=== PATIENT | female | born 1980 | race Caucasian/White ===

== ENCOUNTER 2018-04-21 07:52 | Outpatient (CLI) | payer MEDICAID, SELFPAY ==
[2018-04-24 12:53] LABS: Lyme Ab w Rflx to Lyme Confirm Negative
== END 2018-04-21 07:53 ==
PROVIDERS: PCP Emergency Medicine; Visit Provider Emergency Medicine
DX: R53.83 Other fatigue (principal)
CPT/HCPCS: 36415; 86618

== ENCOUNTER 2018-08-24 10:29 | Emergency (ER) | payer MEDICAID, SELFPAY ==
[2018-08-24 10:50] VITALS: BP 153/90; PULSE 86; RESP 16; TEMP 37.2; O2SAT 100
--- NOTE | 2018-08-24 11:32 | DI.CT_ITS ---
SYMPTOMS/DIAGNOSIS: TRAUMA, FALL WITH HEAD TRAUMA 4 DAYS AGO, HEADACHE CT BRAIN: Noncontrast examination. Comparison 10/14/15. There is a normal urbano/white matter differentiation. The ventricles are intact. The basilar cisterns are patent. No acute intracranial hemorrhage, infarct, midline shift or mass effect is identified. The visualized paranasal sinuses show no fluid levels. The mastoid air cells are well pneumatized. The calvarium is intact. IMPRESSION: No acute intracranial process. CT SCAN OF THE CERVICAL SPINE: Multiple contiguous axial images of the cervical spine were obtained. Sagittal and coronal reformatted images were evaluated on the Siemens workstation. There is straightening of the normal cervical lordosis. This may be due to muscle spasm or patient positioning. No acute fractures or subluxations in the cervical spine are noted. There is no significant prevertebral soft tissue swelling present. The bones are normally mineralized. IMPRESSION: No acute fractures or subluxations in the cervical spine. The findings were discussed with the emergency department on the date of the examination.
[2018-08-24] MEDS: LORazepam 2 MG/ML VIAL 1 MG IM (11:39)
--- NOTE | 2018-08-24 11:41 | W.ED.GENAD ---
Discharge Plan Disposition Patient Disposition: HOME Discharge Details Chief Complaint: Nk/Back Pain Clinical Impression: Concussion, Acute neck sprain Primary Care Provider: Bebeto Trimble ED Provider: Ian Esquivel Home Meds and New Rx's Prescriptions: Continued trazodone 50 MG tablet 1 - 2 tab PO HS Qty: 30 RF: 3 citalopram 10 MG tablet 10 mg PO DAILY Qty: 60 RF: 3 Flonase Sensimist 9.9 ML spray,suspension 9.9 ml NS BID Qty: 1 RF: 2 levothyroxine [Synthroid] 125 mcg tablet 125 mcg PO DAILY Qty: 90 RF: 3 Discharge Instructions Instructions: Concussion (ED), Cervical Sprain (ED) Additional Instructions: Please wear soft collar over the next 1 week. If pain persist, please follow-up with orthopedics as he may need additional diagnostic testing. Please take ibuprofen over the counter - dose according to label. Please take Tylenol over the counter - dose according to label. Please contact your primary care physician to arrange follow-up. Return to the ER for any worsening or new concerning symptoms. Referrals: [facility] [Provider Group] Bebeto Trimble DO [Primary Care Provider] - Medical Decision Making 11:45 --37-year-old female presents 4 days after slip and fall with head trauma complaining of persistent headache and neck pain. ttp midline lower cspine. Neuro intact. Consider acute life-threatening intracranial traumatic hemorrhage. Plan to CT head. Consider cervical spine fracture. Plan to CT cervical spine. Patient is refusing to wear cervical collar noting worsens pain. 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 I advised nursing to assist patient in maintaining C-spine immobilization as best as possible while transitioning to and from CT imaging. I will treat her anxiety with Ativan 1mg IM. 13:05 --CT of the head and cervical spine interpreted by radiology: Negative. Plan to treat with soft collar. Advised continue ibuprofen and take tylenol, rest, ice. Usual and customary discharge instructions provided. Advised follow-up orthopedics if pain persists over the next few days. Suspect concussion. Reviewed post concussive discharge instructions. HPI General Mode of arrival: ambulatory. Date/Time Provider Initiated Documentation: 08/24/18 11:11. Limitations to Documentation: no limitations. Information obtained by: patient. HPI Narrative: 37-year-old female presents with chief complaint of headache. Patient notes that 4 days ago she slipped on ice fell back and struck the back of her head on a step. She did not lose consciousness. Since that time she has had headache that has persisted. Headache is described as a pressure sensation. Pain is moderate to severe. Pain is localized to bilateral frontal head. She has associated upper neck pain as well. No visual changes. No nausea or vomiting. No confusion. No numbness or weakness. No other injuries. Related Data Home Medications Medication Instructions Recorded Confirmed citalopram 10 mg PO DAILY #60 tab-cap 09/14/17 trazodone 1 - 2 tab PO HS #30 tab 09/14/17 Flonase Sensimist 9.9 ml NS BID #1 bottle 12/05/17 levothyroxine 125 mcg tablet 125 mcg PO DAILY #90 tab-cap 07/02/18 08/24/18 Previous Rx's Medication Instructions Recorded citalopram 10 mg PO DAILY #60 tab-cap 09/14/17 trazodone 1 - 2 tab PO HS #30 tab 09/14/17 Flonase Sensimist 9.9 ml NS BID #1 bottle 12/05/17 levothyroxine 125 mcg tablet 125 mcg PO DAILY #90 tab-cap 07/02/18 Allergies Allergy/AdvReac Type Severity Reaction Status Date / Time pneumococcal vaccine Allergy Intermediate Localized Unverified 08/24/18 11:17 reaction with PCV13 levothyroxine sodium AdvReac Mild Unverified 08/24/18 11:17 General Stated Complaint: Nk/Back Pain OLEGARIO: 2 Review of Systems Review of Systems All systems reviewed & are unremarkable except as noted in HPI and below Eyes Denies loss of vision Musculoskeletal Denies tingling Neurologic Denies focal weakness, Denies loss of vision and Denies tingling Psychiatric Reports anxiety [facility] Medical History Chronic pancreatitis Depression Pancreatic insufficiency Surgical History Appendectomy (~1995) Cholecystectomy PANCREATECTOMY (08/22/07) Splenomegaly (08/22/07) Tonsillectomy (~2009) Social History Smoking/Tobacco Use Status: Current every day Exam Const General: cooperative and no acute distress HENMT Head: normocephalic and atraumatic Mouth: moist mucous membranes Eyes Conjunctivae: normal conjunctivae Sclera: normal sclerae EOM: EOM intact bilaterally Neck Neck: trachea midline, supple and tender (c6 midline) Resp Auscultation: clear to auscultation bilaterally, no rales, no rhonchi and no wheezes Cardio Jugular venous pressure: no JVD Rate: regular rate and not tachycardic Rhythm: regular rhythm GI Palpation: soft, not firm, no guarding, no masses, not rigid and nontender Skin General skin exam: no rashes or lesions noted Neuro General: alert, awake, oriented x3 and tone normal Speech: speech normal Motor: muscle tone normal throughout and strength 5/5 throughout Sensory Exam: no sensory deficits noted (distal sensation intact to light touch all ext) Extrem General: no edema Psych Appearance: grossly normal Mental Status: mental status grossly normal Speech and Movement: speech and movement normal Affect: anxious affect Course Vital Signs Temperature 37.2 C 08/24/18 10:50 Pulse 86 08/24/18 10:50 Respiratory Rate 16 08/24/18 10:50 Blood Pressure 153/90 H 08/24/18 10:50 Pulse Oximetry 100 08/24/18 10:50 Temperature 37.2 C 08/24/18 10:50 Temperature Source Skin 08/24/18 10:50 Pulse 86 08/24/18 10:50 Respiratory Rate 16 08/24/18 10:50 Respiratory Effort Non-Labored 08/24/18 11:12 Blood Pressure 153/90 H 08/24/18 10:50 Blood Pressure Position Sitting 08/24/18 10:50 Pulse Oximetry 100 08/24/18 10:50 Oxygen Delivery Method Room Air 08/24/18 10:50 Oxygen Flow Rate 0 08/24/18 10:50 Pain Level 8 08/24/18 11:14
--- NOTE | 2018-08-24 11:45 | ED.GENADUL_ITS ---
Discharge Plan Disposition Patient Disposition: HOME Discharge Details Chief Complaint: Nk/Back Pain Clinical Impression: Concussion, Acute neck sprain Primary Care Provider: Bebeto Trimble ED Provider: Ian Esquivel Home Meds and New Rx's Prescriptions: Continued trazodone 50 MG tablet 1 - 2 tab PO HS Qty: 30 RF: 3 citalopram 10 MG tablet 10 mg PO DAILY Qty: 60 RF: 3 Flonase Sensimist 9.9 ML spray,suspension 9.9 ml NS BID Qty: 1 RF: 2 levothyroxine [Synthroid] 125 mcg tablet 125 mcg PO DAILY Qty: 90 RF: 3 Discharge Instructions Instructions: Concussion (ED), Cervical Sprain (ED) Additional Instructions: Please wear soft collar over the next 1 week. If pain persist, please follow-up with orthopedics as he may need additional diagnostic testing. Please take ibuprofen over the counter - dose according to label. Please take Tylenol over the counter - dose according to label. Please contact your primary care physician to arrange follow-up. Return to the ER for any worsening or new concerning symptoms. Referrals: [facility] [Provider Group] Bebeto Trimble DO [Primary Care Provider] - Medical Decision Making 11:45 --37-year-old female presents 4 days after slip and fall with head trauma complaining of persistent headache and neck pain. ttp midline lower cspine. Neuro intact. Consider acute life-threatening intracranial traumatic hemorrhage. Plan to CT head. Consider cervical spine fracture. Plan to CT cervical spine. Patient is refusing to wear cervical collar noting worsens pain. 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 I advised nursing to assist patient in maintaining C-spine immobilization as best as possible while transitioning to and from CT imaging. I will treat her anxiety with Ativan 1mg IM. 13:05 --CT of the head and cervical spine interpreted by radiology: Negative. Plan to treat with soft collar. Advised continue ibuprofen and take tylenol, rest, ice. Usual and customary discharge instructions provided. Advised follow- up orthopedics if pain persists over the next few days. Suspect concussion. Reviewed post concussive discharge instructions. HPI General Mode of arrival: ambulatory . Date/Time Provider Initiated Documentation: 08/24/18 11:11 . Limitations to Documentation: no limitations . Information obtained by: patient . HPI Narrative: 37-year-old female presents with chief complaint of headache. Patient notes that 4 days ago she slipped on ice fell back and struck the back of her head on a step. She did not lose consciousness. Since that time she has had headache that has persisted. Headache is described as a pressure sensation. Pain is moderate to severe. Pain is localized to bilateral frontal head. She has associated upper neck pain as well. No visual changes. No nausea or vomiting. No confusion. No numbness or weakness. No other injuries. Related Data Home Medications Medication Instructions Recorded Confirmed citalopram 10 mg PO DAILY #60 tab-cap 09/14/17 trazodone 1 - 2 tab PO HS #30 tab 09/14/17 Flonase Sensimist 9.9 ml NS BID #1 bottle 12/05/17 levothyroxine 125 mcg tablet 125 mcg PO DAILY #90 tab-cap 07/02/18 08/24/18 Previous Rx's Medication Instructions Recorded citalopram 10 mg PO DAILY #60 tab-cap 09/14/17 trazodone 1 - 2 tab PO HS #30 tab 09/14/17 Flonase Sensimist 9.9 ml NS BID #1 bottle 12/05/17 levothyroxine 125 mcg tablet 125 mcg PO DAILY #90 tab-cap 07/02/18 Allergies Allergy/AdvReac Type Severity Reaction Status Date / Time pneumococcal vaccine Allergy Intermediate Localized Unverified 08/24/18 11:17 reaction with PCV13 levothyroxine sodium AdvReac Mild Unverified 08/24/18 11:17 General Stated Complaint: Nk/Back Pain OLEGARIO: 2 Review of Systems Review of Systems All systems reviewed & are unremarkable except as noted in HPI and below Eyes Denies loss of vision Musculoskeletal Denies tingling Neurologic Denies focal weakness, Denies loss of vision and Denies tingling Psychiatric Reports anxiety [facility] Medical History Chronic pancreatitis Depression Pancreatic insufficiency Surgical History Appendectomy (~1995) Cholecystectomy PANCREATECTOMY (08/22/07) Splenomegaly (08/22/07) Tonsillectomy (~2009) Social History Smoking/Tobacco Use Status: Current every day Exam Const General: cooperative and no acute distress HENMT Head: normocephalic and atraumatic Mouth: moist mucous membranes Eyes Conjunctivae: normal conjunctivae Sclera: normal sclerae EOM: EOM intact bilaterally Neck Neck: trachea midline, supple and tender (c6 midline) Resp Auscultation: clear to auscultation bilaterally, no rales, no rhonchi and no wheezes Cardio Jugular venous pressure: no JVD Rate: regular rate and not tachycardic Rhythm: regular rhythm GI Palpation: soft, not firm, no guarding, no masses, not rigid and nontender Skin General skin exam: no rashes or lesions noted Neuro General: alert, awake, oriented x3 and tone normal Speech: speech normal Motor: muscle tone normal throughout and strength 5/5 throughout Sensory Exam: no sensory deficits noted (distal sensation intact to light touch all ext) Extrem General: no edema Psych Appearance: grossly normal Mental Status: mental status grossly normal Speech and Movement: speech and movement normal Affect: anxious affect Course Vital Signs Temperature 37.2 C 08/24/18 10:50 Pulse 86 08/24/18 10:50 Respiratory Rate 16 08/24/18 10:50 Blood Pressure 153/90 H 08/24/18 10:50 Pulse Oximetry 100 08/24/18 10:50 Temperature 37.2 C 08/24/18 10:50 Temperature Source Skin 08/24/18 10:50 Pulse 86 08/24/18 10:50 Respiratory Rate 16 08/24/18 10:50 Respiratory Effort Non-Labored 08/24/18 11:12 Blood Pressure 153/90 H 08/24/18 10:50 Blood Pressure Position Sitting 08/24/18 10:50 Pulse Oximetry 100 08/24/18 10:50 Oxygen Delivery Method Room Air 08/24/18 10:50 Oxygen Flow Rate 0 08/24/18 10:50 Pain Level 8 08/24/18 11:14
[2018-08-24 13:20] VITALS: BP 146/83; PULSE 85; RESP 18; TEMP 37.2; O2SAT 97
== END 2018-08-24 13:20 | disposition home or self-care (01) ==
PROVIDERS: Emergency Provider Student in an Organized Health Care Education/Training Program; PCP Emergency Medicine
DX: S06.0X0A Concussion without loss of consciousness, initial encounter (principal); S13.4XXA Sprain of ligaments of cervical spine, initial encounter; W01.0XXA Fall on same level from slipping, tripping and stumbling without subsequent striking against object, initial encounter
CPT/HCPCS: 96372; 99284; 70450; 72125; J2060; L0120; L0172

== ENCOUNTER 2018-09-22 14:42 | Emergency (ER) | payer MEDICAID, SELFPAY ==
[2018-09-22 14:56] VITALS: BP 170/96; PULSE 85; RESP 20; TEMP 36.6; O2SAT 100
--- NOTE | 2018-09-22 16:25 | W.ED.GENAD ---
Discharge Plan Disposition Patient Disposition: HOME Condition: Stable Discharge Details Chief Complaint: Nk/Back Pain Clinical Impression: Acute low back pain with right-sided sciatica Primary Care Provider: Bebeto Trimble ED Provider: Sundeep Snell Home Meds and New Rx's Prescriptions: No Action cyclobenzaprine 10 mg tablet 10 mg PO TID PRN (Reason: muscle spasm) Qty: 60 RF: 0 ondansetron HCl 8 mg tablet 8 mg PO TID PRN (Reason: nausea and vomiting) Qty: 60 RF: 0 ketoconazole 2 % shampoo 1 applic TP Q2W Qty: 120 RF: 4 trazodone 50 MG tablet 1 - 2 tab PO HS Qty: 30 RF: 3 citalopram 10 MG tablet 10 mg PO DAILY Qty: 60 RF: 3 Flonase Sensimist 9.9 ML spray,suspension 9.9 ml NS BID Qty: 1 RF: 2 levothyroxine [Synthroid] 125 mcg tablet 125 mcg PO DAILY Qty: 90 RF: 3 Medical Decision Making 38-year-old female states she slipped and fell on [place] and had an unremarkable workup of her C-spine and head at that time but has suffered achy dull right low back pain radiating to her SI joint with swelling of the hip. Is worse with ambulation. She has not had a fever and arrives in mild distress, afebrile but with blood pressure 170/96. Her exam shows normal motor and sensory function of the lower extremity. Differential diagnosis includes contusion, sciatica, underlying bony injury. Patient given oral analgesic and referred for CT images; CT does not reveal any acute findings of the vertebra. Soft tissues unremarkable. 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 Patient had mild improvement with oral analgesia. I do feel presentation is consistent with acute right sided sciatica. I will place a topical Lidoderm patch for 12 hours, will place her on a short burst of steroids, offer methocarbamol for pain management. She is stable and appropriate for outpatient management. Return precautions to the ER discussed with the patient prior to discharge. HPI General Mode of arrival: ambulatory. Date/Time Provider Initiated Documentation: 09/22/18 14:44. Limitations to Documentation: no limitations. Information obtained by: patient. History of Present Illness 38 year old F presents to the emergency department with the chief complaint of Right back and hip pain for weeks time since a fall, described as moderate, Quality is described as aching, and is localized to the back, pelvis and right. Patient extremity. Patient started experiencing this week(s) and it has been constant. Movement improves symptom(s), Rest worsens symptoms . Patient did receive the following treatments prior to arrival, NSAID Related Data Home Medications Medication Instructions Recorded Confirmed citalopram 10 mg PO DAILY #60 tab-cap 09/14/17 09/22/18 trazodone 1 - 2 tab PO HS #30 tab 09/14/17 09/22/18 Flonase Sensimist 9.9 ml NS BID #1 bottle 12/05/17 09/22/18 levothyroxine 125 mcg tablet 125 mcg PO DAILY #90 tab-cap 07/02/18 09/22/18 cyclobenzaprine 10 mg tablet 10 mg PO TID PRN #60 tab 08/28/18 09/22/18 ketoconazole 2 % shampoo 1 applic TP Q2W #120 ml 08/28/18 09/22/18 ondansetron HCl 8 mg tablet 8 mg PO TID PRN #60 tab 08/28/18 09/22/18 Previous Rx's Medication Instructions Recorded citalopram 10 mg PO DAILY #60 tab-cap 09/14/17 trazodone 1 - 2 tab PO HS #30 tab 09/14/17 Flonase Sensimist 9.9 ml NS BID #1 bottle 12/05/17 levothyroxine 125 mcg tablet 125 mcg PO DAILY #90 tab-cap 07/02/18 cyclobenzaprine 10 mg tablet 10 mg PO TID PRN #60 tab 08/28/18 ketoconazole 2 % shampoo 1 applic TP Q2W #120 ml 08/28/18 ondansetron HCl 8 mg tablet 8 mg PO TID PRN #60 tab 08/28/18 Allergies Allergy/AdvReac Type Severity Reaction Status Date / Time pneumococcal vaccine Allergy Intermediate Localized Unverified 09/22/18 15:02 reaction with PCV13 levothyroxine sodium AdvReac Mild Unverified 09/22/18 15:02 General Stated Complaint: Nk/Back Pain OLEGARIO: 3 Review of Systems Review of Systems 8 systems reviewed and otherwise - [facility] Medical History Chronic pancreatitis Depression Pancreatic insufficiency Surgical History Appendectomy (~1995) Cholecystectomy PANCREATECTOMY (08/22/07) Splenomegaly (08/22/07) Tonsillectomy (~2009) Social History Smoking/Tobacco Use Status: Current every day Exam Narrative Exam Narrative: GEN: awake, alert, oriented 3. Pleasant, well groomed, interactive. HEAD: Normocephalic, atraumatic ENT: Mucous membranes moist, oropharynx unremarkable, External ear exam unremarkable EYES: PERRL, EOMI NECK: Full ROM, no ORAL, no menigismus CHEST/RESP: Nontender, clear to auscultation bilateral, no wheeze/rhonchi/rales CARDIOVASCULAR: RRR, no murmur, rub augustin. 2+ Rad pulse bilateral ABDOMEN: Soft, nontender, no mass. +Bowel sounds EXT: Full ROM, no edema, no rash. 2+ patellar reflex bilaterally. Motor 5 out of 5. Tender at the right sciatic notch Neuro: Grossly normal neurologic exam, conversant, interactive. Psych: Speech fluent, thoughts congruent, affect normal Course Vital Signs Temperature 36.6 C 09/22/18 14:56 Pulse 85 09/22/18 14:56 Respiratory Rate 20 09/22/18 14:56 Blood Pressure 170/96 H 09/22/18 14:56 Pulse Oximetry 100 09/22/18 14:56 Temperature 36.6 C 09/22/18 14:56 Temperature Source Temporal Artery Scan 09/22/18 14:56 Pulse 85 09/22/18 14:56 Respiratory Rate 20 09/22/18 14:56 Respiratory Effort Non-Labored 09/22/18 15:01 Blood Pressure 170/96 H 09/22/18 14:56 Blood Pressure Position Sitting 09/22/18 14:56 Pulse Oximetry 100 09/22/18 14:56 Oxygen Delivery Method Room Air 09/22/18 14:56 Oxygen Flow Rate 0 09/22/18 14:56 Pain Level 10 09/22/18 14:56
--- NOTE | 2018-09-22 16:28 | ED.GENADUL_ITS ---
Discharge Plan Disposition Patient Disposition: HOME Condition: Stable Discharge Details Chief Complaint: Nk/Back Pain Clinical Impression: Acute low back pain with right-sided sciatica Primary Care Provider: Bebeto Trimble ED Provider: Sundeep Snell Home Meds and New Rx's Prescriptions: No Action cyclobenzaprine 10 mg tablet 10 mg PO TID PRN (Reason: muscle spasm) Qty: 60 RF: 0 ondansetron HCl 8 mg tablet 8 mg PO TID PRN (Reason: nausea and vomiting) Qty: 60 RF: 0 ketoconazole 2 % shampoo 1 applic TP Q2W Qty: 120 RF: 4 trazodone 50 MG tablet 1 - 2 tab PO HS Qty: 30 RF: 3 citalopram 10 MG tablet 10 mg PO DAILY Qty: 60 RF: 3 Flonase Sensimist 9.9 ML spray,suspension 9.9 ml NS BID Qty: 1 RF: 2 levothyroxine [Synthroid] 125 mcg tablet 125 mcg PO DAILY Qty: 90 RF: 3 Medical Decision Making 38-year-old female states she slipped and fell on [place] and had an unremarkable workup of her C-spine and head at that time but has suffered achy dull right low back pain radiating to her SI joint with swelling of the hip. Is worse with ambulation. She has not had a fever and arrives in mild distress, afebrile but with blood pressure 170/96. Her exam shows normal motor and sensory function of the lower extremity. Differential diagnosis includes contusion, sciatica, underlying bony injury. Patient given oral analgesic and referred for CT images; CT does not reveal any acute findings of the vertebra. Soft tissues unremarkable. 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 Patient had mild improvement with oral analgesia. I do feel presentation is consistent with acute right sided sciatica. I will place a topical Lidoderm patch for 12 hours, will place her on a short burst of steroids, offer methocarbamol for pain management. She is stable and appropriate for outpatient management. Return precautions to the ER discussed with the patient prior to discharge. HPI General Mode of arrival: ambulatory . Date/Time Provider Initiated Documentation: 09/22/18 14:44 . Limitations to Documentation: no limitations . Information obtained by: patient . History of Present Illness 38 year old F presents to the emergency department with the chief complaint of Right back and hip pain for weeks time since a fall, described as moderate, Quality is described as aching, and is localized to the back, pelvis and right. Patient extremity. Patient started experiencing this week(s) and it has been constant. Movement improves symptom(s), Rest worsens symptoms . Patient did receive the following treatments prior to arrival, NSAID Related Data Home Medications Medication Instructions Recorded Confirmed citalopram 10 mg PO DAILY #60 tab-cap 09/14/17 09/22/18 trazodone 1 - 2 tab PO HS #30 tab 09/14/17 09/22/18 Flonase Sensimist 9.9 ml NS BID #1 bottle 12/05/17 09/22/18 levothyroxine 125 mcg tablet 125 mcg PO DAILY #90 tab-cap 07/02/18 09/22/18 cyclobenzaprine 10 mg tablet 10 mg PO TID PRN #60 tab 08/28/18 09/22/18 ketoconazole 2 % shampoo 1 applic TP Q2W #120 ml 08/28/18 09/22/18 ondansetron HCl 8 mg tablet 8 mg PO TID PRN #60 tab 08/28/18 09/22/18 Previous Rx's Medication Instructions Recorded citalopram 10 mg PO DAILY #60 tab-cap 09/14/17 trazodone 1 - 2 tab PO HS #30 tab 09/14/17 Flonase Sensimist 9.9 ml NS BID #1 bottle 12/05/17 levothyroxine 125 mcg tablet 125 mcg PO DAILY #90 tab-cap 07/02/18 cyclobenzaprine 10 mg tablet 10 mg PO TID PRN #60 tab 08/28/18 ketoconazole 2 % shampoo 1 applic TP Q2W #120 ml 08/28/18 ondansetron HCl 8 mg tablet 8 mg PO TID PRN #60 tab 08/28/18 Allergies Allergy/AdvReac Type Severity Reaction Status Date / Time pneumococcal vaccine Allergy Intermediate Localized Unverified 09/22/18 15:02 reaction with PCV13 levothyroxine sodium AdvReac Mild Unverified 09/22/18 15:02 General Stated Complaint: Nk/Back Pain OLEGARIO: 3 Review of Systems Review of Systems 8 systems reviewed and otherwise - [facility] Medical History Chronic pancreatitis Depression Pancreatic insufficiency Surgical History Appendectomy (~1995) Cholecystectomy PANCREATECTOMY (08/22/07) Splenomegaly (08/22/07) Tonsillectomy (~2009) Social History Smoking/Tobacco Use Status: Current every day Exam Narrative Exam Narrative: GEN: awake, alert, oriented 3. Pleasant, well groomed, interactive. HEAD: Normocephalic, atraumatic ENT: Mucous membranes moist, oropharynx unremarkable, External ear exam unremarkable EYES: PERRL, EOMI NECK: Full ROM, no ORAL, no menigismus CHEST/RESP: Nontender, clear to auscultation bilateral, no wheeze/rhonchi/rales CARDIOVASCULAR: RRR, no murmur, rub augustin. 2+ Rad pulse bilateral ABDOMEN: Soft, nontender, no mass. +Bowel sounds EXT: Full ROM, no edema, no rash. 2+ patellar reflex bilaterally. Motor 5 out of 5. Tender at the right sciatic notch Neuro: Grossly normal neurologic exam, conversant, interactive. Psych: Speech fluent, thoughts congruent, affect normal Course Vital Signs Temperature 36.6 C 09/22/18 14:56 Pulse 85 09/22/18 14:56 Respiratory Rate 20 09/22/18 14:56 Blood Pressure 170/96 H 09/22/18 14:56 Pulse Oximetry 100 09/22/18 14:56 Temperature 36.6 C 09/22/18 14:56 Temperature Source Temporal Artery Scan 09/22/18 14:56 Pulse 85 09/22/18 14:56 Respiratory Rate 20 09/22/18 14:56 Respiratory Effort Non-Labored 09/22/18 15:01 Blood Pressure 170/96 H 09/22/18 14:56 Blood Pressure Position Sitting 09/22/18 14:56 Pulse Oximetry 100 09/22/18 14:56 Oxygen Delivery Method Room Air 09/22/18 14:56 Oxygen Flow Rate 0 09/22/18 14:56 Pain Level 10 09/22/18 14:56
[2018-09-22] MEDS: Ibuprofen 800 MG TAB PO (16:43)
[2018-09-22] MEDS: Acetaminophen 500 MG TAB 1000 MG PO (16:43)
--- NOTE | 2018-09-22 17:08 | DI.CT_ITS ---
SYMPTOM/DIAGNOSIS: R BACK AND RT HIP PAIN TO S-I JOINT, RT SWELLING CT LUMBAR SPINE AND S-I JOINTS: No fracture or areas of bony destruction are seen. A Schmorl's note is seen at the superior end plate of L-1. There are mild degenerative changes in the lower thoracic spine. There is no evidence of disc herniation, central canal stenosis or neural foraminal narrowing. IMPRESSION: Mild degenerative changes of the lower thoracic spine. No evidence of S-I joint abnormality or lumbar spine abnormality.
--- NOTE | 2018-09-22 17:27 | DI.VRAD_ITS ---
EXAM: CT Lumbar Spine Without Contrast EXAM DATE/TIME: 09/22/2018 4:26 PM CLINICAL HISTORY: 38 years old, female; Pain; Other: RT back, RT hip pain to si joints, RT swelling TECHNIQUE: Axial computed tomography images of the lumbar spine without intravenous contrast. Coronal and sagittal reformatted images were created and reviewed. COMPARISON: CR LUMBAR SPINE COMPLETE 01/17/2013 12:00 PM FINDINGS: Vertebrae: Lumbar lordosis is preserved. Vertebral body heights are maintained. No acute fracture. No measurable spondylolisthesis. Discs/Spinal canal/Neural foramina: Lumbar disc space heights are preserved. Degenerative disc loss and partial visualized lower thoracic disc spaces. Soft tissues: Unremarkable. IMPRESSION: 1. No acute findings in the lumbar spine. 2. If continued clinical concern for pelvic pathology, recommend CT pelvis. Dictated and Authenticated by: Amador Ying MD. Ordering:DOMINIC Urbano MD
[2018-09-22] MEDS: predniSONE 20 MG TAB 60 MG PO (18:00)
[2018-09-22] MEDS: Lidocaine 5% Patch 1 PATCH TP (18:00)
[2018-09-22 18:05] VITALS: BP 170/96; PULSE 85; RESP 20; TEMP 36.6; O2SAT 100
== END 2018-09-22 18:07 | disposition home or self-care (01) ==
PROVIDERS: Emergency Provider Emergency Medicine; PCP Emergency Medicine
DX: M54.41 Lumbago with sciatica, right side (principal); W18.30XA Fall on same level, unspecified, initial encounter
CPT/HCPCS: 99284; 72131; J7512

== ENCOUNTER 2018-10-11 01:25 | Outpatient (CLI) | payer MEDICAID, SELFPAY ==
[2018-10-11 10:50] LABS: Abs Immature Grans 0.01 k/cumm (0.0-0.09); Absolute Basophil Count 0.04 k/cumm (0.0-0.2); Absolute Eosinophil Count 0.32 k/cumm (0.0-0.7); Absolute Lymphocyte Count 2.65 k/cumm (1.2-3.4); Absolute Monocyte Count 0.79 k/cumm (0.11-0.7); Basophils % 0.5; HCT 39.6 % (36.0-46.0); HGB 13.4 g/dL (12.0-15.5); Immature Grans % 0.1; Lymphocytes % 33.1; Mean Corp. HGB Concentration 33.8 g/dL (32.0-36.0); Mean Corpuscular Hemoglobin 33.8 pg (27.0-33.0); Mean Corpuscular Volume 99.7 fL (80-95); Mean Platelet Volume 12.4 fL (8.0-11.0); Monocytes % 9.9; Neutrophils % 52.4; Platelet Count 364 x1000/uL (130-400); RBC 3.97 m/cumm (4.00-5.20); RBC Distribution Width 14.4 % (11.7-14.6); White Blood Cell Count 8.01 k/cumm (4.4-10.8)
[2018-10-11 11:11] LABS: ALT 50 U/L (12-78); AST 30 U/L (15-37); Albumin 3.5 g/dL (3.4-5.0); Alkaline Phosphatase 86 U/L (46-116); Anion Gap 7.9 mmol/L (3-11); BUN 11 mg/dL (7-18); Bilirubin, Total 0.5 mg/dL (0.2-1.0); CO2 29.1 mmol/L (21.0-32.0); Calcium 9.7 mg/dL (8.5-10.1); Chloride 103 mmol/L (98-107); Glucose 109 mg/dL (70-100); Potassium 5.1 mmol/L (3.5-5.1); Sodium 140 mmol/L (136-145); TSH 3.66 uIU/mL (0.358-3.74); Total Protein 7.2 g/dL (6.4-8.2)
[2018-10-11 11:25] LABS: Hemoglobin A1C 6.1 % (4.5-6.2)
[2018-10-11 20:40] LABS: Vitamin B12 461 pg/mL (193-986)
== END 2018-10-11 01:45 ==
PROVIDERS: PCP Emergency Medicine; Visit Provider Family Medicine
DX: E03.9 Hypothyroidism, unspecified (principal); R53.83 Other fatigue; R73.9 Hyperglycemia, unspecified; D75.89 Other specified diseases of blood and blood-forming organs
CPT/HCPCS: 36415; 80053; 82607; 83036; 84443; 85025

== ENCOUNTER 2018-10-11 14:52 | Outpatient (CLI) | payer MEDICAID, SELFPAY ==
[2018-10-11 15:56] LABS: Bilirubin Negative (Negative); Blood Trace-intact (Negative); Clarity Clear; Glucose Negative (Negative); Ketones Negative (Negative); Leukocyte Esterase Moderate (Negative); Nitrite Negative (Negative); Urobilinogen 0.2 EU/dL (Up TO 0.2); pH 5.5 (5-8)
[2018-10-11 16:03] LABS: Bacteria Few HPF (Negative); C & S Indicated? No/Sq. Contamination; Casts Negative LPF (Negative); Crystals Negative HPF (Negative); Epithelial Cells Many HPF (Negative); Mucus Negative (Negative); RBC 0-2 (0-2); WBC >50 HPF (0-5)
[2018-10-11 16:28] LABS: C-Reactive Protein 1.03 mg/dL (0.0-0.3); FREE T4 0.98 ng/dL (0.76-1.46)
[2018-10-11 16:39] LABS: ESR 13 MM/HR (0-20)
[2018-10-12 13:59] LABS: ANA Interpretation Negative (NEGAT)
== END 2018-10-11 15:12 ==
PROVIDERS: PCP Emergency Medicine; Visit Provider Emergency Medicine
DX: R53.83 Other fatigue (principal); M25.50 Pain in unspecified joint; R79.89 Other specified abnormal findings of blood chemistry; R30.0 Dysuria
CPT/HCPCS: 36415; 85652; 81003; 81015; 84439; 86038; 86140

== ENCOUNTER 2018-10-24 14:18 | Emergency (ER) | payer MEDICAID, SELFPAY ==
[2018-10-24 14:43] VITALS: BP 120/79; PULSE 72; RESP 16; TEMP 36.8; O2SAT 98
[2018-10-24] MEDS: Ketorolac 60 MG/2 ML VIAL IM (15:38)
[2018-10-24] MEDS: Lidocaine 5% Patch 1 PATCH TP (15:39)
[2018-10-24] MEDS: Acetaminophen 500 MG TAB 1000 MG PO (15:51)
--- NOTE | 2018-10-24 15:57 | W.ED.GENAD ---
Discharge Plan Disposition Patient Disposition: HOME Condition: Stable Discharge Details Chief Complaint: Orthopedic Clinical Impression: Trochanteric bursitis of right hip Primary Care Provider: Bebeto Trimble ED Provider: Mark Burger Home Meds and New Rx's Prescriptions: New diclofenac potassium 50 mg tablet 50 mg PO TID PRN (Reason: pain) Qty: 20 RF: 0 Continued ketoconazole 2 % shampoo 1 applic TP Q2W Qty: 120 RF: 4 citalopram 10 MG tablet 10 mg PO DAILY Qty: 60 RF: 3 levothyroxine [Synthroid] 125 mcg tablet 125 mcg PO DAILY Qty: 90 RF: 3 Discharge Instructions Instructions: Hip Bursitis (ED) Additional Instructions: Along with prescribed NSAID medication you may take thousand milligrams of acetaminophen every 8 hours at the same time as diclofenac. Please follow physical therapy recommendations for activity and keep your appointment with orthopedist for further reassessment and treatment as needed. Feel free to return to the emergency department for any new or worsening symptoms or further concerns you may have. Stand Alone Forms: Work Release Referrals: Sundeep Lugo MD [ [facility] STAFF PHYSICIAN] - (Keep your appointment as already scheduled) Discharge Data Discharge Date/Time-TO BE ENTERED AT DEPARTURE: 10/24/18 16:10 Medical Decision Making Right hip bursitis for the past 5-6 weeks, continued symptoms, no improvement, patient did attempt snowshoeing which worsened her symptoms. Patient was given trial of oral steroids which did not help. Physical exam shows sciatic notch tenderness along with right buttock tenderness and significant swelling to the trochanter with also trochanter tenderness. Physical exam is otherwise unremarkable. Given duration of symptoms and the patient has been seen multiple times this I do not feel that any radiological imaging is warranted at this time and joint does not appear infected. Patient was amenable to receiving IM ketorolac, lidocaine patch, and acetaminophen in emergency department and she does state she has already obtained a follow-up appoint with Dr. Lugo for consideration of joint injection. Patient encouraged to keep this appointment. Emergent return precautions were discussed with patient. Patient was prescribed diclofenac after discussion of diagnosis and plan of care patient has no further needs, questions, or concerns and states clear understanding to return to the emergency department for any worsening symptoms. HPI General Mode of arrival: ambulatory. Date/Time Provider Initiated Documentation: 10/24/18 14:23. Limitations to Documentation: no limitations. Information obtained by: patient, RN notes reviewed and old records reviewed. History of Present Illness 38 year old F presents to the emergency department with the chief complaint of right hip pain, described as severe and similar to prior episodes, Quality is described as sharp, and is localized to the right and lower extremity. Patient started experiencing this week(s) (6) and it has been constant and intermittent. Rest improves symptom(s), Movement worsens symptoms . Related Data Home Medications Medication Instructions Recorded Confirmed citalopram 10 mg PO DAILY #60 tab-cap 09/14/17 10/26/18 levothyroxine 125 mcg tablet 125 mcg PO DAILY #90 tab-cap 07/02/18 10/26/18 ketoconazole 2 % shampoo 1 applic TP Q2W #120 ml 08/28/18 10/26/18 diclofenac potassium 50 mg PO TID PRN #20 tab 10/24/18 10/26/18 Previous Rx's Medication Instructions Recorded citalopram 10 mg PO DAILY #60 tab-cap 09/14/17 levothyroxine 125 mcg tablet 125 mcg PO DAILY #90 tab-cap 07/02/18 ketoconazole 2 % shampoo 1 applic TP Q2W #120 ml 08/28/18 diclofenac potassium 50 mg PO TID PRN #20 tab 10/24/18 Allergies Allergy/AdvReac Type Severity Reaction Status Date / Time pneumococcal vaccine Allergy Intermediate Localized Unverified 10/24/18 14:46 reaction with PCV13 levothyroxine sodium AdvReac Mild Unverified 10/24/18 14:46 General Stated Complaint: Orthopedic OLEGARIO: 4 Review of Systems Constitutional Denies chills and Denies fever(s) Gastrointestinal Denies change in bowel habits Genitourinary Denies difficulty voiding Musculoskeletal Reports as per HPI, Reports back pain, Reports joint swelling, Denies numbness and Denies tingling Integumentary/Breasts Denies erythema, Denies rash and Denies sores Neurologic Denies numbness and Denies tingling PFSH Medical History Chronic pancreatitis Depression Pancreatic insufficiency Surgical History Appendectomy (~1995) Cholecystectomy PANCREATECTOMY (08/22/07) Splenomegaly (08/22/07) Tonsillectomy (~2009) Social History Smoking and Tabacco status: Current every day Exam Const General: cooperative and no acute distress Orientation: alert, awake and oriented x3 Neck Neck: normal visual inspection, full ROM and no meningeal signs Resp Effort & Inspection: normal respiratory effort Auscultation: clear to auscultation bilaterally Cardio Rate: regular rate Rhythm: regular rhythm Heart Sounds: S1 normal and S2 normal Back/Spine/Pelvis Thoracic/Lumbar Spine: pain with thoraco-lumbar ROM Pelvis: buttock tenderness on the right and sciatic notch tenderness on the right Neuro General: alert, awake and oriented x3 DTR's: Rt Patellar: 2+, Lt Patellar: 2+, Rt Ankle: 2+ and Lt Ankle: 2+ Extrem Right lower extremity: hip/thigh Details: tenderness Location: of the hip Location: laterally, posterolaterally and over the greater trochanter, swelling Location: at the hip (lateral) and abnormal ROM Details: pain with active ROM during; no ecchymosis, no crepitus and no unusual warmth Course Vital Signs Temperature 36.8 C 10/24/18 14:43 Pulse 72 10/24/18 14:43 Respiratory Rate 16 10/24/18 14:43 Blood Pressure 120/79 10/24/18 14:43 Pulse Oximetry 98 10/24/18 14:43 Temperature 36.8 C 10/24/18 14:43 Temperature Source Skin 10/24/18 14:43 Pulse 72 10/24/18 14:43 Respiratory Rate 16 10/24/18 14:43 Respiratory Effort Non-Labored 10/24/18 14:43 Blood Pressure 120/79 10/24/18 14:43 Blood Pressure Position Sitting 10/24/18 14:43 Pulse Oximetry 98 10/24/18 14:43 Oxygen Delivery Method Room Air 10/24/18 14:43 Oxygen Flow Rate 0 10/24/18 14:43 Pain Level 10 10/24/18 15:51
== END 2018-10-24 16:10 | disposition home or self-care (01) ==
PROVIDERS: Emergency Provider Nurse Practitioner Family; PCP Emergency Medicine
DX: M70.61 Trochanteric bursitis, right hip (principal)
CPT/HCPCS: 96372; 99284; J1885

== ENCOUNTER 2018-11-15 11:11 | Emergency (ER) | payer MEDICAID, SELFPAY ==
[2018-11-15 11:18] VITALS: BP 155/96; PULSE 91; RESP 20; TEMP 36.8; O2SAT 98
--- NOTE | 2018-11-15 11:34 | ED.GENADUL_ITS ---
Discharge Plan Disposition Patient Disposition: HOME Condition: Stable Discharge Details Chief Complaint: Orthopedic Clinical Impression: Trochanteric bursitis of right hip Primary Care Provider: Bebeto Trimble ED Provider: Paul Man Home Meds and New Rx's Prescriptions: New gabapentin 100 mg capsule 100 mg PO TID 10 Days Qty: 30 RF: 0 diazepam [Valium] 5 mg tablet 5 mg PO TID-QID PRN (Reason: muscle spasm) Qty: 30 RF: 0 No Action ketoconazole 2 % shampoo 1 applic TP Q2W Qty: 120 RF: 4 citalopram 10 MG tablet 10 mg PO DAILY Qty: 60 RF: 3 levothyroxine [Synthroid] 125 mcg tablet 125 mcg PO DAILY Qty: 90 RF: 3 diclofenac sodium 50 mg tablet,delayed release (DR/EC) 50 mg PO BID Qty: 60 RF: 0 diclofenac potassium 50 mg tablet 50 mg PO TID PRN (Reason: pain) Qty: 20 RF: 0 Discharge Instructions Instructions: Diazepam (By mouth), Hip Bursitis (ED) Additional Instructions: follow up with your primary care provider and orthopedics you can take 1000mg tylenol and 600mg ibuprofen every 6 hours in addition to the gabapentin every 8 hours you can also try taking the valium every 6-8 hours as needed, this medicine will make you drowsy so do not drink alcohol or drive if you take this medicine if you have high fevers or inability to urinate return to the emergency department Stand Alone Forms: Work Release Medical Decision Making 38 yo female with hx of trochanteric bursitis comes in with chief complaint of right hip pain since last similar to her prior bursitis she has had in the past, she states she called Dr. Bettencourt who has injected the area in the past but was told she can't be seen before the . She was working with PT and was told she may need more imaging so came here. She denies drug use other than marijuana, fevers, difficulty urinating. She has pain in the right trochanteric bursa area of her right hipw tihout erythema and full rom of the hip so doubt septic joint. HAs no saddle anesthesia or weaness to suggest cauda equina and no fevers or ivdu so doubt sea. She does note a sensation going behind posterior right leg so could have component of sciatica. No trauma. I do not feel any emergent imaging indicated at this time. She requested a shot as this has helped in the past so I injected 10cc of lidocaine 1% in the right trochanteric bursa and had some relief of pain. Will prescribe gabapentin and also try muscle relaxer as there could be a component of spasm as well. She is requesting a new orthopedist so will refer to Dr. Bliss and rosa's office. She will also f/u with pcp to discuss nonemergent hip and back imaging, and return precautions given Differential Diagnosis bursitis, sciatica HPI General Mode of arrival: ambulatory . Date/Time Provider Initiated Documentation: 11/15/18 11:13 . Limitations to Documentation: no limitations . Information obtained by: patient . History of Present Illness 38 year old F presents to the emergency department with the chief complaint of right hip pain, described as severe, Quality is described as burning and stabbing, and is localized to the right and lower extremity. Patient started experiencing this day(s) (7) and it has been constant. No relieving factors improve symptom(s), No exacerbating factors reported . Patient notes no other symptoms.. Patient did receive the following treatments prior to arrival, NSAID Related Data Home Medications Medication Instructions Recorded Confirmed citalopram 10 mg PO DAILY #60 tab-cap 09/14/17 11/15/18 levothyroxine 125 mcg tablet 125 mcg PO DAILY #90 tab-cap 07/02/18 11/15/18 ketoconazole 2 % shampoo 1 applic TP Q2W #120 ml 08/28/18 11/15/18 diclofenac potassium 50 mg PO TID PRN #20 tab 10/24/18 11/15/18 diclofenac sodium 50 mg 50 mg PO BID #60 tab 11/14/18 11/15/18 tablet,delayed release diazepam [Valium] 5 mg PO TID-QID PRN #30 tab 11/15/18 gabapentin 100 mg PO TID 10 Days #30 cap 11/15/18 Previous Rx's Medication Instructions Recorded citalopram 10 mg PO DAILY #60 tab-cap 09/14/17 levothyroxine 125 mcg tablet 125 mcg PO DAILY #90 tab-cap 07/02/18 ketoconazole 2 % shampoo 1 applic TP Q2W #120 ml 08/28/18 diclofenac potassium 50 mg PO TID PRN #20 tab 10/24/18 diclofenac sodium 50 mg 50 mg PO BID #60 tab 11/14/18 tablet,delayed release diazepam [Valium] 5 mg PO TID-QID PRN #30 tab 11/15/18 gabapentin 100 mg PO TID 10 Days #30 cap 11/15/18 Allergies Allergy/AdvReac Type Severity Reaction Status Date / Time pneumococcal vaccine Allergy Intermediate Localized Unverified 11/15/18 11:20 reaction with PCV13 levothyroxine sodium AdvReac Mild Unverified 11/15/18 11:20 General OLEGARIO: 4 Review of Systems Review of Systems All systems reviewed & are unremarkable except as noted in HPI and below Constitutional Denies chills and Denies fever(s) Cardiovascular Denies chest pain and Denies dyspnea Respiratory Denies cough and Denies dyspnea Gastrointestinal Denies abdominal pain, Denies nausea and Denies vomiting Integumentary/Breasts Denies rash PFSH Medical History Chronic pancreatitis Depression Pancreatic insufficiency Surgical History Appendectomy (~1995) Cholecystectomy PANCREATECTOMY (08/22/07) Splenomegaly (08/22/07) Tonsillectomy (~2009) Social History Smoking/Tobacco Use Status: Current every day Alcohol Intake: current Alcohol Intake frequency: a few times a week Drug use: Never Substance use type: marijuana Do you feel safe at home: Yes Do you feel safe in your relationship?: Yes Exam Const General: anxious Orientation: alert [facility] Head: normal to inspection Ears: external ears normal General nose exam: external nose normal Mouth: moist mucous membranes Eyes General: appearance normal, both eyes and all related structures Neck Neck: normal visual inspection Resp Effort & Inspection: normal respiratory effort and able to speak in complete sentences Cardio Rate: regular rate Skin General skin exam: no rashes or lesions noted Neuro General: alert and oriented x3 Extrem General: normal to inspection, full ROM and normal capillary refill Psych Mental Status: mental status grossly normal
[2018-11-15 11:36] VITALS: BP 155/96; PULSE 91; RESP 20; TEMP 36.8; O2SAT 98
--- NOTE | 2018-11-15 14:13 | NUR.NOTE ---
Nursing Note: At patient request, faxed the physician note to [facility] for her appt. tomorrow 11/16/18. Cathy Story [phone]
== END 2018-11-15 12:00 | disposition home or self-care (01) ==
LOC: ER 11:42
PROVIDERS: Emergency Provider Emergency Medicine; PCP Emergency Medicine
DX: M70.61 Trochanteric bursitis, right hip (principal)
CPT/HCPCS: 99283

== ENCOUNTER 2018-11-24 10:28 | Emergency (ER) | payer MEDICAID, SELFPAY ==
[2018-11-24 10:30] VITALS: BP 146/90; PULSE 96; RESP 16; TEMP 37.1; O2SAT 98
--- NOTE | 2018-11-24 10:42 | DI.RAD_ITS ---
SYMPTOMS/DIAGNOSIS: CONTUSION, ? GAS/INFECTION/FX RIGHT FEMUR: Four views were obtained. No bony or soft tissue abnormality seen.
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
[2018-11-24] MEDS: Lidocaine 5% Patch 2 PATCH TP (10:48)
== END 2018-11-24 11:50 | disposition home or self-care (01) ==
PROVIDERS: Emergency Provider Student in an Organized Health Care Education/Training Program; PCP Emergency Medicine
DX: S70.11XA Contusion of right thigh, initial encounter (principal); V47.6XXA Car passenger injured in collision with fixed or stationary object in traffic accident, initial encounter
CPT/HCPCS: 73552; 99283

== ENCOUNTER 2018-12-03 15:32 | Emergency (ER) | payer MEDICAID, SELFPAY ==
[2018-12-03 15:46] VITALS: BP 138/95; PULSE 91; RESP 14; TEMP 37.2; O2SAT 98
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
[2018-12-03 17:20] VITALS: BP 138/95; PULSE 91; RESP 14; TEMP 37.2; O2SAT 98
== END 2018-12-03 17:21 | disposition home or self-care (01) ==
PROVIDERS: Emergency Provider Physician Assistant; PCP Emergency Medicine
DX: S70.01XD Contusion of right hip, subsequent encounter (principal); V47.5XXD Car driver injured in collision with fixed or stationary object in traffic accident, subsequent encounter; R05 Cough
CPT/HCPCS: 99282; 99283

== ENCOUNTER 2018-12-12 01:27 | Outpatient (CLI) | payer MEDICAID, SELFPAY ==
--- NOTE | 2018-12-12 12:05 | DI.MRI_ITS ---
SYMPTOM/DIAGNOSIS: ? HEMATOMA VS MUNOZ MITALI LESION, S70.11XA PELVIS AND RIGHT HIP MRI: The exam is somewhat limited by patient motion and poor fat suppression. The lesion is not fully included on all sequences. There is an ovoid collection which is high signal on both T 1 and T 2 weighted images and shows a capsule. It is located adjacent to and superficial to the fascia of the lateral upper thigh. It measures 2.3 by 6 by 7.8 cm. It shows a mildly thickened capsule. The findings are consistent with a Munoz Lavellee lesion. The muscle signal and marrow signal appear normal. No hip joint effusions are seen. The tendon signal appears normal. The bladder, uterus and right ovary are unremarkable. There is a small left ovarian cyst. IMPRESSION: Findings consistent with a Munoz Mitali lesion of the lateral upper right thigh.
== END 2018-12-12 01:47 ==
PROVIDERS: PCP Emergency Medicine; Visit Provider Orthopaedic Surgery
DX: S70.11XA Contusion of right thigh, initial encounter (principal)
CPT/HCPCS: 73721

== ENCOUNTER 2018-12-14 11:26 | Day surgery (SDC) | payer MEDICAID, SELFPAY ==
[2018-12-14] VITALS (8 sets, daily range): BP systolic 107–141; BP diastolic 69–89; PULSE 58–74; RESP 10–18; TEMP 36–36.4; O2SAT 93–100
[2018-12-14] MEDS: Lactated Ringers 1,000 ML 80 ML IV (12:20)
--- NOTE | 2018-12-14 14:07 | W.PM.DSUDISC ---
Discharge Plan Disposition Patient Disposition: HOME Condition: Good Discharge Details Reason For Visit: Excision of Pelletier Mitali lesion R thigh Attending Provider: Sundeep Lugo Primary Care Provider: Bebeto Trimble Home Meds and New Rx's Prescriptions: New oxycodone-acetaminophen 5-325 mg tablet 1 tab PO Q6H PRN (Reason: pain) Qty: 14 RF: 0 Continued ketoconazole 2 % shampoo 1 applic TP Q2W Qty: 120 RF: 4 diclofenac sodium 50 mg tablet,delayed release (DR/EC) 50 mg PO BID Qty: 60 RF: 0 citalopram 10 mg tablet 10 mg PO DAILY Qty: 60 RF: 3 diazepam [Valium] 5 mg tablet 5 mg PO TID-QID PRN (Reason: muscle spasm) Qty: 30 RF: 0 acetaminophen [Tylenol Extra Strength] 500 mg Tablet 500 mg PO PRN PRNRF: 0 ibuprofen 600 mg Tablet 600 mg PO PRN PRNRF: 0 oxycodone 5 mg Tablet 5 mg PO PRN PRNRF: 0 levothyroxine [Synthroid] 125 mcg Tablet 125 mcg PO DAILY RF: 0 lidocaine [Lidoderm] 1 PATCH patch 1 patch Topical Q24H Qty: 4 RF: 0 Discharge Instructions Additional Instructions: Come to 's office tomorrow at 10 AM for drain removal. Empty drain resevoir when full and reapply suction. Apply ice bag or frozen vegetables to R thigh every 4 hours for 1 hour each time. May do more if helpful. Take ibuprofen or tylenol for mild pain. Take oxycodone for breakthru pain. Keep dressings dry. Referrals: Sundeep Lugo MD [ [facility] STAFF PHYSICIAN] - (f/u at 10 am in 's office.) Activity:: Activity as Tolerated Remove Dressings/Wound Care:: Do Not Remove Shower/Bathe:: Cover Diet:: As Tolerated Discharge Orders Discharge Orders: Discharge Order (Routine); Ordered 12/14/18 Ordered By: Sundeep Lugo DS: Diagnosis Discharge Diagnosis (1) Pelletier Mitali lesion: Status: Acute
[2018-12-14] MEDS: Ondansetron 4 MG/2 ML VIAL IVP (14:12)
[2018-12-14] MEDS: fentaNYL 100 MCG/2 ML VIAL IVP (14:15)
[2018-12-14] MEDS: HYDROmorphone 2 MG/ML VIAL IVP ×2 (14:30→14:40)
[2018-12-14] MEDS: HYDROcodone 5/Acetaminophen 325 TAB PO (15:35)
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
== END 2018-12-14 16:13 | disposition home or self-care (01) ==
PROVIDERS: PCP Emergency Medicine; Visit Provider Orthopaedic Surgery
PROC: (CPT 27327; principal; 2018-12-14 13:00)
DX: S70.11XA Contusion of right thigh, initial encounter (principal); M79.651 Pain in right thigh; V49.9XXS Car occupant (driver) (passenger) injured in unspecified traffic accident, sequela
CPT/HCPCS: 27327; 81025; J0131; J1100; J1885; J2250; J2405; J3010

== ENCOUNTER 2018-12-16 14:47 | Emergency (ER) | payer MEDICAID, SELFPAY ==
[2018-12-16 14:51] VITALS: BP 168/114; PULSE 81; RESP 20; TEMP 37.4; O2SAT 98
--- NOTE | 2018-12-16 15:02 | W.ED.GENAD ---
Discharge Plan Disposition Patient Disposition: HOME Condition: Improving Discharge Details Chief Complaint: Cellulitis Clinical Impression: Post-operative pain Primary Care Provider: Bebeto Trimble ED Provider: Sandra Quiñones Home Meds and New Rx's Prescriptions: Continued ketoconazole 2 % shampoo 1 applic TP Q2W Qty: 120 RF: 4 diclofenac sodium 50 mg tablet,delayed release (DR/EC) 50 mg PO BID Qty: 60 RF: 0 citalopram 10 mg tablet 10 mg PO DAILY Qty: 60 RF: 3 acetaminophen [Tylenol Extra Strength] 500 mg Tablet 500 mg PO PRN PRNRF: 0 ibuprofen 600 mg Tablet 600 mg PO PRN PRNRF: 0 oxycodone 5 mg Tablet 5 mg PO PRN PRNRF: 0 oxycodone-acetaminophen 5-325 mg tablet 1 tab PO Q6H PRN (Reason: pain) Qty: 14 RF: 0 levothyroxine [Synthroid] 125 mcg Tablet 125 mcg PO DAILY RF: 0 lidocaine [Lidoderm] 1 PATCH patch 1 patch Topical Q24H Qty: 4 RF: 0 Discharge Instructions Additional Instructions: Encourage elevation of your right lower extremity. Please follow orthopedic postoperative guidelines. If I hear from Dr. Lugo, I will call in ketorolac if advised. Please use the oxycodone as previously prescribed. Keep wound clean, dry, covered. If you develop any new or worsening symptoms seek care urgently once again. Referrals: Bebeto Trimble, [Primary Care Provider] - Sundeep Lugo MD [ [facility] STAFF PHYSICIAN] - Discharge Data Discharge Date/Time-TO BE ENTERED AT DEPARTURE: 12/16/18 19:24 Medical Decision Making Patient is a 38-year-old female, accompanied by her mother, with chief complaint of right thigh pain. Patient reports that she had surgical intervention to excise a Pelletier Mitali lesion on the right lateral thigh 3 days ago. She was seen the following day in the office at which time her postoperative drain was removed. This time she is in the office, was reported that her pain is improved from prior surgical intervention. However, beginning yesterday afternoon, her pain greatly increased. Denies any known fevers or chills but does state that she is been feeling warm. Has been taking oxycodone as prescribed, 2 tabs every 4 hours. Despite this, the pain has increased substantially. She is ambulating with an antalgic gait. She denies any new trauma. Denies any altered sensation. States the pain can radiate proximally but is also questioning if this may be associated with her known bursitis or how she has been sleeping at night. On exam, patient is tearful and appears very uncomfortable. Her incision appears to be healing quite well with no signs of infection. No palpable fluctuance or abnormality. She has 2+ distal pulses no posterior calf pain. Clinical and laboratory evaluation, treat patient's pain and consult with orthopedic Motor evaluation is significant for a minimally elevated white count. Spoke with Dr. Lugo regarding the patient. Advised that his excision did not violate the fascia and that any type of infection or abscess collection would likely be superficial. I relayed to him physical exam findings if there is no evidence of erythema, discharge, warmth or fluctuance. He advised treating the patient with Toradol and plan for discharge to home. FINDINGS: Inhomogeneous fluid and air collection in the lateral right thigh measuring 3.7 x 6 x 10.7 cm. This may be residual from the prior surgical hematoma drainage however persistent abscess could not be excluded based on these findings alone. No contrast extravasation. Bony structures appear unremarkable. IMPRESSION: Abnormal fluid and air collection in the right lateral thigh as outlined above. Abscess could not be excluded. This is the patient. He cannot, physical exam was not concerning for abscess. I will discuss the above findings with Dr. Lugo. I reevaluate the patient again, and reassured by my physical exam findings. She reports that after the Toradol, she is feeling much improved. Multiple attempts were made at contacting orthopedic surgeon. Combining the above findings from CT with my physical exam, I believe that these findings are likely postoperative and not an acute abscess. Patient does not have any indication of an abscess or other infection in her surgical site. She is requesting p.o. Toradol for home use. However, I am hesitant to do this in the postoperative period without discussing this further with orthopedic surgeon. Exam unable to get hold at this time, I advised the patient may try having him paged tomorrow. She is requesting discharge at this time. She reports her pain is much improved. The wound was redressed and Graeme wrap applied. We discussed new/worsening symptoms when to seek care urgently once again. In particular, we discussed signs symptoms of infection when she should return to the emergency department. I did advise that she try to contact orthopedics tomorrow she has any persistent discomfort. All of her questions and concerns were addressed and she is in agreement with this plan. HPI General Mode of arrival: ambulatory. Date/Time Provider Initiated Documentation: 12/16/18 14:50. Limitations to Documentation: no limitations. Information obtained by: patient, family and RN notes reviewed. History of Present Illness 38 year old F presents to the emergency department with the chief complaint of right lateral thigh pain, described as severe, with intensity rated at >10. Quality is described as burning and constant, and is localized to the right and lower extremity. Patient proximal. Patient started experiencing this day(s) and it has been constant. No relieving factors improve symptom(s), No exacerbating factors reported . Patient notes fever/chills (endorses feeling warm); denies chest pain, cough, nausea/vomiting, rash, shortness of breath and weakness. Patient did receive the following treatments prior to arrival, other (oxycodone) Related Data Home Medications Medication Instructions Recorded Confirmed ketoconazole 2 % shampoo 1 applic TP Q2W #120 ml 08/28/18 12/16/18 diclofenac sodium 50 mg 50 mg PO BID #60 tab 11/14/18 12/16/18 tablet,delayed release citalopram 10 mg tablet 10 mg PO DAILY #60 tab-cap 11/23/18 12/16/18 levothyroxine [Synthroid] 125 mcg PO DAILY 11/24/18 12/16/18 lidocaine [Lidoderm] 1 patch TOPICAL Q24H #4 patch 11/24/18 12/16/18 acetaminophen [Tylenol Extra 500 mg PO PRN PRN 12/14/18 12/16/18 Strength] ibuprofen 600 mg PO PRN PRN 12/14/18 12/16/18 oxycodone 5 mg PO PRN PRN 12/14/18 12/16/18 oxycodone-acetaminophen 1 tab PO Q6H PRN #14 tab 12/14/18 12/16/18 Previous Rx's Medication Instructions Recorded ketoconazole 2 % shampoo 1 applic TP Q2W #120 ml 08/28/18 diclofenac sodium 50 mg 50 mg PO BID #60 tab 11/14/18 tablet,delayed release citalopram 10 mg tablet 10 mg PO DAILY #60 tab-cap 11/23/18 lidocaine [Lidoderm] 1 patch TOPICAL Q24H #4 patch 11/24/18 oxycodone-acetaminophen 1 tab PO Q6H PRN #14 tab 12/14/18 Allergies Allergy/AdvReac Type Severity Reaction Status Date / Time pneumococcal vaccine Allergy Intermediate Localized Unverified 12/16/18 15:23 reaction with PCV13 levothyroxine sodium AdvReac Mild Unverified 12/16/18 15:23 General Stated Complaint: Cellulitis OLEGARIO: 3 Review of Systems Constitutional Reports as per HPI, Denies chills, Denies fever(s), Denies headache(s) and Denies weakness ENT Denies headache(s) Cardiovascular Reports as per HPI Respiratory Reports as per HPI and Denies cough Musculoskeletal Reports as per HPI, Denies limited range of motion, Denies muscle weakness, Denies numbness and Denies tingling Integumentary/Breasts Reports as per HPI, Denies rash and Denies wounds Neurologic Reports as per HPI, Denies headache(s), Denies numbness, Denies tingling, Denies paresthesias and Denies weakness PFS Medical History Tubal ligation status (Acute) Chronic pancreatitis Depression Pancreatic insufficiency Surgical History Appendectomy (~1995) Cholecystectomy PANCREATECTOMY (08/22/07) Splenomegaly (08/22/07) Tonsillectomy (~2009) Social History Smoking/Tobacco Use Status: Current every day Tobacco Type: cigarettes Alcohol Intake: former Drug use: Never Substance use type: marijuana Details: 1/3 pack cigarettes/day. Marijuana: T-1, one bowl Do you feel safe at home: Yes Do you feel safe in your relationship?: Yes Exam Const General: cooperative, healthy appearing, no acute distress, well developed, well groomed and acute distress moderate (patient is crying, appears very uncomfortable) Nutritional Appearance: average body habitus and well nourished Orientation: alert and awake Resp Effort & Inspection: normal respiratory effort, able to speak in complete sentences and no respiratory distress Auscultation: clear to auscultation bilaterally Cardio Rate: regular rate Rhythm: regular rhythm Heart Sounds: S1 normal and S2 normal GI Inspection: normal to inspection Palpation: soft, no hepatosplenomegaly, not firm, no guarding and nontender Skin General skin exam: no rashes or lesions noted and other (incision lateral thigh appears to be healing well, no sxs of infection) Neuro General: alert and awake Cognition: normal cognition Speech: speech normal Gait: antalgic Sensory Exam: no sensory deficits noted Extrem General: normal capillary refill, no joint enlargement, no pedal edema, no calf tenderness and abnormal gait Right lower extremity: normal capillary refill (2+ distal pulses) and no joint enlargement; abnormal to inspection (incision lateral thigh), ROM limited (limited hip ROM secondary to pain) and no edema Psych Appearance: grossly normal and well kempt Mental Status: mental status grossly normal Speech and Movement: speech and movement normal Course Vital Signs Temperature 37.4 C 12/16/18 14:51 Pulse 81 12/16/18 14:51 Respiratory Rate 20 12/16/18 14:51 Blood Pressure 168/114 H 12/16/18 14:51 Pulse Oximetry 98 12/16/18 14:51 Temperature 37.4 C 12/16/18 14:51 Temperature Source Oral 12/16/18 14:51 Pulse 81 12/16/18 14:51 Respiratory Rate 20 12/16/18 14:51 Blood Pressure 168/114 H 12/16/18 14:51 Blood Pressure Position Supine 12/16/18 14:51 Pulse Oximetry 98 12/16/18 14:51 Oxygen Delivery Method Room Air 12/16/18 14:51 Oxygen Flow Rate 0 12/16/18 14:51 Pain Level 10 12/16/18 14:51
[2018-12-16] MEDS: Normal Saline 1,000 ML 1000 ML IV (15:05)
[2018-12-16] MEDS: fentaNYL 100 MCG/2 ML VIAL IVP ×2 (15:10→15:29)
[2018-12-16 15:21] LABS: Abs Immature Grans 0.04 k/cumm (0.0-0.09); Absolute Lymphocyte Count 4.36 k/cumm (1.2-3.4); Absolute Monocyte Count 1.32 k/cumm (0.11-0.7); Absolute Neutrophil Count 7.74 k/cumm (1.2-6.7); Basophils % 0.4; Eosinophils % 1.7; HCT 37.6 % (36.0-46.0); HGB 12.6 g/dL (12.0-15.5); Immature Grans % 0.3; Lymphocytes % 31.7; Mean Corp. HGB Concentration 33.5 g/dL (32.0-36.0); Mean Corpuscular Volume 101.3 fL (80-95); Mean Platelet Volume 11.6 fL (8.0-11.0); Monocytes % 9.6; Neutrophils % 56.3; Platelet Count 374 x1000/uL (130-400); RBC 3.71 m/cumm (4.00-5.20); RBC Distribution Width 14.1 % (11.7-14.6); White Blood Cell Count 13.75 k/cumm (4.4-10.8)
[2018-12-16 15:23] LABS: Absolute Basophil Count 0.06 k/cumm (0.0-0.2); Absolute Eosinophil Count 0.23 k/cumm (0.0-0.7)
--- NOTE | 2018-12-16 15:27 | DI.CT_ITS ---
SYMPTOM/DIAGNOSIS: SEVERE POSTOPERATIVE PAIN RT LATERAL THIGH, S/P MUNOZ DEMETRI EXCISION RIGHT LOWER EXTREMITY CT: Multiple contiguous axial images of the right thigh were obtained following the uneventful administration of contrast material. Comparison MRI is 12/12/18. There is an inhomogeneous air and fluid collection in the soft tissues of the right lateral thigh measuring 3.7 cm. by 6 cm. by 10.7 cm. This does not appear to invade the underlying musculature. The osseous structures are unremarkable. No contrast extravasation is seen. IMPRESSION: 3.7 by 6 by 10.7 cm. air fluid collection in the soft tissues of the right lateral thigh. While this may represent a post surgical hematoma, an abscess cannot be excluded.
[2018-12-16 15:33] LABS: ALT 38 U/L (12-78); AST 21 U/L (15-37); Albumin 3.8 g/dL (3.4-5.0); Alkaline Phosphatase 109 U/L (46-116); Anion Gap 13.1 mmol/L (3-11); BUN 14 mg/dL (7-18); Bilirubin, Total 0.3 mg/dL (0.2-1.0); CO2 24.9 mmol/L (21.0-32.0); CREATININE 0.85 mg/dL (0.55-1.02); Calcium 9.3 mg/dL (8.5-10.1); Chloride 102 mmol/L (98-107); Glucose 111 mg/dL (70-100); Sodium 140 mmol/L (136-145); Total Protein 7.8 g/dL (6.4-8.2)
[2018-12-16] MEDS: Omnipaque 350 MG/ML 100 ML BTL IJ (16:09)
[2018-12-16] MEDS: HYDROmorphone 2 MG/ML VIAL (16:17)
[2018-12-16] MEDS: Ketorolac 30 MG/ML VIAL IVP (16:34)
--- NOTE | 2018-12-16 17:11 | DI.VRAD_ITS ---
EXAM: CT Right Lower Extremity With Contrast EXAM DATE/TIME: 12/16/2018 3:29 PM CLINICAL HISTORY: 38 years old, female; Pain; Thigh; Right; Prior surgery; Surgery date: 3-7 days post-operative; Surgery type: Encapsulated hematoma removal 3 days ago, ; additional info: Pain from top of iliac crest to mid shaft of femur TECHNIQUE: Imaging protocol: CT of the Right lower extremity with intravenous contrast was performed. Coronal and sagittal reformatted images were created and reviewed. Contrast material: OMNI 350; Contrast volume: 100 ml; Contrast route: IV R AB 20 G; COMPARISON: No relevant prior studies available. FINDINGS: Inhomogeneous fluid and air collection in the lateral right thigh measuring 3.7 x 6 x 10.7 cm. This may be residual from the prior surgical hematoma drainage however persistent abscess could not be excluded based on these findings alone. No contrast extravasation. Bony structures appear unremarkable. IMPRESSION: Abnormal fluid and air collection in the right lateral thigh as outlined above. Abscess could not be excluded. Dictated and Authenticated by: Marcelino Fonseca MD. Ordering:LEVI Flores MD
[2018-12-16] MEDS: oxyCODONE 5 MG TAB 15 MG PO (19:13)
[2018-12-16 19:30] VITALS: BP 148/96; PULSE 84; RESP 20; O2SAT 98
--- NOTE | 2018-12-16 20:47 | NUR.NOTE ---
Nursing Note: 1914 ambulated to the bathroom without difficulty.
== END 2018-12-16 19:24 | disposition home or self-care (01) ==
PROVIDERS: Emergency Provider Physician Assistant; PCP Emergency Medicine
DX: M79.651 Pain in right thigh (principal); G89.18 Other acute postprocedural pain
CPT/HCPCS: 36415; 80053; 96361; 96365; 96375; 99285; 73701; 85025; 99284; J1885; J3010; J3490

== ENCOUNTER 2019-01-06 14:49 | Emergency (ER) | payer MEDICAID, SELFPAY ==
[2019-01-06 14:59] VITALS: BP 131/87; PULSE 96; RESP 18; TEMP 36.8; O2SAT 96
[2019-01-06 15:56] LABS: Abs Immature Grans 0.02 k/cumm (0.0-0.09); Absolute Basophil Count 0.03 k/cumm (0.0-0.2); Absolute Eosinophil Count 0.22 k/cumm (0.0-0.7); Absolute Lymphocyte Count 3.47 k/cumm (1.2-3.4); Absolute Monocyte Count 1.09 k/cumm (0.11-0.7); Absolute Neutrophil Count 4.77 k/cumm (1.2-6.7); Basophils % 0.3; Eosinophils % 2.3; HCT 36.7 % (36.0-46.0); HGB 12.4 g/dL (12.0-15.5); Immature Grans % 0.2; Lymphocytes % 36.1; Mean Corp. HGB Concentration 33.8 g/dL (32.0-36.0); Mean Corpuscular Hemoglobin 34.3 pg (27.0-33.0); Mean Corpuscular Volume 101.4 fL (80-95); Mean Platelet Volume 11.2 fL (8.0-11.0); Monocytes % 11.4; Neutrophils % 49.7; Platelet Count 353 x1000/uL (130-400); RBC 3.62 m/cumm (4.00-5.20)
[2019-01-06 16:02] LABS: ALT 33 U/L (12-78); AST 15 U/L (15-37); Albumin 3.7 g/dL (3.4-5.0); Alkaline Phosphatase 98 U/L (46-116); Anion Gap 12.1 mmol/L (3-11); BUN 14 mg/dL (7-18); Bilirubin, Total 0.2 mg/dL (0.2-1.0); CO2 23.9 mmol/L (21.0-32.0); CREATININE 0.66 mg/dL (0.55-1.02); Calcium 8.8 mg/dL (8.5-10.1); Chloride 103 mmol/L (98-107); Glucose 109 mg/dL (70-100); Magnesium 1.8 mg/dL (1.8-2.4); Potassium 3.5 mmol/L (3.5-5.1); Sodium 139 mmol/L (136-145); Total Protein 7.2 g/dL (6.4-8.2)
[2019-01-06 16:05] LABS: PTT Activated 21.8 sec (21.0-31.4); Prothrombin Time 9.6 sec (9.3-11.0)
--- NOTE | 2019-01-06 16:05 | ED.GENADUL_ITS ---
Discharge Plan Disposition Patient Disposition: HOME Condition: Good Discharge Details Chief Complaint: Vascular Clinical Impression: Postop check Primary Care Provider: Bebeto Trimble ED Provider: Sundeep Snell Home Meds and New Rx's Prescriptions: Continued ketoconazole 2 % shampoo 1 applic TP Q2W Qty: 120 RF: 4 diclofenac sodium 50 mg tablet,delayed release (DR/EC) 50 mg PO BID Qty: 60 RF: 0 citalopram 10 mg tablet 10 mg PO DAILY Qty: 60 RF: 3 acetaminophen [Tylenol Extra Strength] 500 mg Tablet 500 mg PO PRN PRNRF: 0 ibuprofen 600 mg Tablet 600 mg PO PRN PRNRF: 0 oxycodone 5 mg Tablet 5 mg PO PRN PRNRF: 0 oxycodone-acetaminophen 5-325 mg tablet 1 tab PO Q6H PRN (Reason: pain) Qty: 14 RF: 0 levothyroxine [Synthroid] 125 mcg Tablet 125 mcg PO DAILY RF: 0 lidocaine [Lidoderm] 1 PATCH patch 1 patch Topical Q24H Qty: 4 RF: 0 Discharge Instructions Additional Instructions: Your ultrasound did not show evidence of blood clot. Your wound appears to be healing well. Please follow-up with Dr. Lugo if you have ongoing discomfort. Continue your regularly prescribed medication Discharge Data Discharge Date/Time-TO BE ENTERED AT DEPARTURE: 01/06/19 17:53 Medical Decision Making <Mark Burger NP - Last Filed: 01/08/19 15:31> Patient presenting the emergency department for chief complaint of right calf pain. Patient states that she is 3 weeks postoperative and yesterday started noticing some calf pain. She describes this more as a cramping and aching to her left calf that she noticed throughout the day and then worsened in the middle the night. Patient does smoke but denies any hormonal therapy. Patient's vital signs are stable, physical exam shows mild tenderness diffusely through the left calf without any swelling, erythema, pulses are normal bilateral and appearance is equal bilateral between the 2 legs. Patient has some anterior lateral thigh pain in postoperative area. Given patient's risk factors I do feel that labs are required to evaluate for DVT given that we do not have ultrasound available so d-dimer was ordered along with electrolytes given that patient states more muscle cramping type discomfort. <Sundeep Snell MD - Last Filed: 01/06/19 17:38> Received signout from Mr. Burger for concern of lower extremity DVT. D-dimer was elevated. I did contact radiology and right lower extremity ultrasound was performed. This was negative for any acute pathology. The patient's right lateral thigh incision appears to be healing nicely. She did develop a great deal of anxiety during the exam which she relates to being secondary to her Internet search of blood clots. She was given Ativan with improvement HPI <Mark Burger ETHICS OFFICER - Last Filed: 01/08/19 15:31> General Mode of arrival: ambulatory . Date/Time Provider Initiated Documentation: 01/06/19 14:50 . Limitations to Documentation: no limitations . Information obtained by: patient and RN notes reviewed . History of Present Illness 38 year old F presents to the emergency department with the chief complaint of Right calf pain, described as moderate, with intensity rated at 7. Quality is described as aching, and is localized to the right and lower extremity. Patient started experiencing this day(s) (1) and it has been co nstant. Patient did receive the following treatments prior to arrival, none Related Data Home Medications Medication Instructions Recorded Confirmed ketoconazole 2 % shampoo 1 applic TP Q2W #120 ml 08/28/18 12/28/18 diclofenac sodium 50 mg 50 mg PO BID #60 tab 11/14/18 12/28/18 tablet,delayed release citalopram 10 mg tablet 10 mg PO DAILY #60 tab-cap 11/23/18 12/28/18 levothyroxine [Synthroid] 125 mcg PO DAILY 11/24/18 12/28/18 lidocaine [Lidoderm] 1 patch TOPICAL Q24H #4 patch 11/24/18 12/28/18 acetaminophen [Tylenol Extra 500 mg PO PRN PRN 12/14/18 12/28/18 Strength] ibuprofen 600 mg PO PRN PRN 12/14/18 12/28/18 oxycodone 5 mg PO PRN PRN 12/14/18 12/28/18 oxycodone-acetaminophen 1 tab PO Q6H PRN #14 tab 12/14/18 12/28/18 Previous Rx's Medication Instructions Recorded ketoconazole 2 % shampoo 1 applic TP Q2W #120 ml 08/28/18 diclofenac sodium 50 mg 50 mg PO BID #60 tab 11/14/18 tablet,delayed release citalopram 10 mg tablet 10 mg PO DAILY #60 tab-cap 11/23/18 lidocaine [Lidoderm] 1 patch TOPICAL Q24H #4 patch 11/24/18 oxycodone-acetaminophen 1 tab PO Q6H PRN #14 tab 12/14/18 Allergies Allergy/AdvReac Type Severity Reaction Status Date / Time pneumococcal vaccine Allergy Intermediate Localized Unverified 12/28/18 10:11 reaction with PCV13 levothyroxine sodium AdvReac Mild Unverified 12/28/18 10:11 General Stated Complaint: Vascular OLEGARIO: 3 Review of Systems <Mrak Burger NP - Last Filed: 01/08/19 15:31> Constitutional Denies fever(s) Cardiovascular Denies dyspnea Respiratory Denies dyspnea Musculoskeletal Reports as per HPI, Denies joint swelling, Reports muscle cramps, Denies num bness and Denies tingling Integumentary/Breasts Denies erythema, Denies rash, Denies sores and Denies wounds Neurologic Denies numbness and Denies tingling PFSH <Mark Burger NP - Last Filed: 01/08/19 15:31> Medical History Tubal ligation status (Acute) Chronic pancreatitis Depression Pancreatic insufficiency Surgical History Appendectomy (~1995) Cholecystectomy PANCREATECTOMY (08/22/07) Splenomegaly (08/22/07) Tonsillectomy (~2009) Social History Smoking/Tobacco Use Status: Current every day Tobacco Type: cigarettes Alcohol Intake: former Drug use: Never Substance use type: marijuana Details: 1/3 pack cigarettes/day. Marijuana: T-1, one bowl Do you feel safe at home: Yes Do you feel safe in your relationship?: Yes Exam <Mark Burger NP - Last Filed: 01/08/19 15:31> Const General: cooperative and no acute distress Orientation: alert, awake and oriented x3 Resp Effort & Inspection: normal respiratory effort and able to speak in complete sentences Auscultation: clear to auscultation bilaterally Cardio Rate: regular rate Rhythm: regular rhythm Extrem Right lower extremity: hip/thigh Details: tenderness Location: of the proximal upper leg Location: anterolaterally and of the mid upper leg Location: anterolaterally, lower leg Details: tenderness Location: of the posterior calf (Mild) and no edema; no erythema, no localized swelling and no unusual warmth, ankle Details: normal to inspection; no tenderness, no swelling and edema and foot Details: normal capillary refill and normal to inspection Course <Mark Burger NP - Last Filed: 01/08/19 15:31> Vital Signs Temperature 36.8 C 01/06/19 14:59 Pulse 96 H 01/06/19 14:59 Respiratory Rate 18 01/06/19 14:59 Blood Pressure 131/87 01/06/19 14:59 Pulse Oximetry 96 01/06/19 14:59 Temperature 36.8 C 01/06/19 14:59 Temperature Source Temporal Artery Scan 01/06/19 14:59 Pulse 96 H 01/06/19 14:59 Respiratory Rate 18 01/06/19 14:59 Respiratory Effort 01/06/19 15:03 Blood Pressure 131/87 01/06/19 14:59 Blood Pressure Position Sitting 01/06/19 14:59 Pulse Oximetry 96 01/06/19 14:59 Oxygen Delivery Method Room Air 01/06/19 14:59 Oxygen Flow Rate 0 01/06/19 14:59 Lab/Test Results Lab/Test Results: Laboratory Tests Range/Units 01/06/19 15:40 WBC (4.4-10.8) k/cumm 9.60 RBC (4.00-5.20) m/cumm 3.62 L Hgb (12.0-15.5) g/dL 12.4 Hct (36.0-46.0) % 36.7 MCV (80-95) fL 101.4 H MCH (27.0-33.0) pg 34.3 H MCHC (32.0-36.0) g/dL 33.8 RDW (11.7-14.6) % 14.0 Plt Count (130-400) x1000/uL 353 MPV (8.0-11.0) fL 11.2 H Immature Gran % 0.2 Neutrophils % 49.7 Lymphocytes % 36.1 Monocytes % 11.4 Eosinophils % 2.3 Basophils % 0.3 Absolute Neutrophils (1.2-6.7) k/cumm 4.77 Absolute Lymphocytes (1.2-3.4) k/cumm 3.47 H Absolute Monocytes (0.11-0.7) k/cumm 1.09 H Absolute Eosinophils (0.0-0.7) k/cumm 0.22 Absolute Basophils (0.0-0.2) k/cumm 0.03 Sign Out <Mark Burger NP - Last Filed: 01/08/19 15:31> Sign Out Data: Sign Out Comment: Patient signed out to Dr. Snell pending labs, disposition, and any treatment as needed. Last updated by Mark Burger NP at 01/06/19 16:11
[2019-01-06 16:21] LABS: D-Dimer 1273 ng/mlFEU (<500)
--- NOTE | 2019-01-06 16:35 | DI.US_ITS ---
SYMPTOMS/DIAGNOSIS: RLE PAIN, RECENT HEMATOMA RIGHT LOWER EXTREMITY ULTRASOUND: The femoral and popliteal veins are freely compressible. The doppler venous wave form augments normally. No thrombus is visible. The saphenous vein also appears free of thrombus. There is no evidence of mooney's cyst or hematoma. IMPRESSION: Negative right lower extremity ultrasound. No evidence of DVT.
[2019-01-06] MEDS: LORazepam 1 MG TAB PO (17:31)
--- NOTE | 2019-01-06 17:53 | DI.VRAD_ITS ---
EXAM: US Duplex Right Lower Extremity Veins, Limited EXAM DATE/TIME: 01/06/2019 5:25 PM CLINICAL HISTORY: 38 years old, female; Signs and symptoms; Other: Right calf pain; Prior surgery; Surgery date: <1 month; Surgery type: Right thigh surgery to remove hematoma TECHNIQUE: Imaging protocol: Real-time Duplex ultrasound of the Right Lower Extremity with 2-D urbano scale, color Doppler flow and spectral waveform analysis. Limited exam was focused on the right lower extremity veins. COMPARISON: No relevant prior studies available. FINDINGS: Right deep veins: Unremarkable. The common femoral, femoral, proximal profunda femoral and popliteal veins are patent without thrombus. Normal Doppler waveforms. Normal compressibility and/or augmentation response. Right superficial veins: Unremarkable. Saphenofemoral junction is patent without thrombus. Soft tissues: Unremarkable. IMPRESSION: No acute findings. No evidence of deep vein thrombosis. Dictated and Authenticated by: Meme Urrutia MD. Ordering:DOMINIC Urbano MD
== END 2019-01-06 17:53 | disposition home or self-care (01) ==
PROVIDERS: Nurse Practitioner Family; Emergency Provider Emergency Medicine; PCP Emergency Medicine
DX: M79.661 Pain in right lower leg (principal); Z98.890 Other specified postprocedural states
CPT/HCPCS: 36415; 80053; 99284; 83735; 85025; 85379; 85610; 85730; 93971

== ENCOUNTER 2019-04-12 12:45 | Emergency (ER) | payer MEDICAID, SELFPAY ==
[2019-04-12 12:48] VITALS: BP 129/83; PULSE 86; RESP 16; TEMP 36.7; O2SAT 97
--- NOTE | 2019-04-12 13:06 | ED.GENADUL_ITS ---
Discharge Plan Disposition Patient Disposition: OTHER Condition: Stable Discharge Details Chief Complaint: Nk/Back Pain Clinical Impression: Left before treatment completed, Neck pain Primary Care Provider: Bebeto Trimble ED Provider: Norma Fajardo Home Meds and New Rx's Prescriptions: No Action ketoconazole 2 % shampoo 1 applic TP Q2W Qty: 120 RF: 4 levothyroxine [Synthroid] 125 mcg Tablet 125 mcg PO DAILY RF: 0 Discharge Data Discharge Date/Time-TO BE ENTERED AT DEPARTURE: 04/12/19 13:51 Medical Decision Making 38-year-old female with history of pancreatitis, anxiety, Liliya's thyroiditis who presents with right sided submandibular pain and sensation of swelling for the past 3 weeks, getting progressively worse. Denies fever, difficulty swallowing, eating or breathing. Patient appears nontoxic. Vitals within normal limits. She has no signs of airway compromise. I do not see any submandibular or cervical abnormality. She has a normal ENT exam. No drooling, trismus. Discussed with patient that I do not suspect an acute infectious cause and that possible differential diagnosis includes salivary duct stone, lymph node, food bolus. Discussed that we can attempt to treat with lemon drops or gargle with hydrogen peroxide. Patient is very concerned that she has something embedded and would rather imaging. Patient does not want IV or labs if possible. We will proceed with CT neck without contrast and give a dose of Toradol. Shortly after evaluation of patient, she came to the nurses station stating that she needed to leave. She stated that she could not wait for any of the imaging to be done. This was informed to me by the staff and I did not actually speak with patient. She signed AMA form. She had been advised to return with any concerns. Medical Records Medical records reviewed: Yes I reviewed the patient's medical records. HPI General Mode of arrival: ambulatory . Date/Time Provider Initiated Documentation: 04/12/19 13:04 . Limitations to Documentation: no limitations . Information obtained by: patient . HPI Narrative: Patient is a 38-year-old female with a history of pancreatitis, anxiety, Liliya's thyroiditis who presents with right sided upper neck pain for the past 3 weeks, getting aggressively worse. Patient states she feels that there is an area right underneath her right jaw within her throat which feels that it is tender and swollen. She feels that it is gotten progressively bigger and more painful since onset. She states she has taken Tylenol and cough drops without relief. She denies fever, nausea, vomiting, sore throat, ear pain or coughing. Related Data Home Medications Medication Instructions Recorded Confirmed ketoconazole 2 % shampoo 1 applic TP Q2W #120 ml 08/28/18 04/12/19 levothyroxine [Synthroid] 125 mcg PO DAILY 11/24/18 04/12/19 Previous Rx's Medication Instructions Recorded ketoconazole 2 % shampoo 1 applic TP Q2W #120 ml 08/28/18 Allergies Allergy/AdvReac Type Severity Reaction Status Date / Time pneumococcal vaccine Allergy Intermediate Localized Unverified 04/12/19 12:53 reaction with PCV13 levothyroxine sodium AdvReac Mild Unverified 04/12/19 12:53 General Stated Complaint: Nk/Back Pain OLEGARIO: 3 Review of Systems Review of Systems All systems reviewed & are unremarkable except as noted in HPI and below Constitutional Reports as per HPI, Denies chills and Denies fever(s) Eyes Denies blurry vision ENT Denies dizziness, Reports neck pain (R submandibular region), Denies sore throat and Denies throat swelling Cardiovascular Denies chest pain and Denies dyspnea Respiratory Denies cough and Denies dyspnea Gastrointestinal Denies abdominal pain, Denies diarrhea and Denies vomiting Genitourinary Denies hematuria and Denies dysuria Musculoskeletal Denies back pain, Reports neck pain (R submandibular region) and Denies numbness Integumentary/Breasts Denies lesions and Denies rash Neurologic Denies dizziness, Denies focal weakness and Denies numbness Allergic/Immunologic Denies throat swelling [facility], [facility] Medical History Chronic pancreatitis Depression Pancreatic insufficiency Tubal ligation status (Acute) Surgical History Appendectomy (~1995) Cholecystectomy PANCREATECTOMY (08/22/07) Splenomegaly (08/22/07) Tonsillectomy (~2009) Social History Smoking/Tobacco Use Status: Current every day Tobacco Type: cigarettes Alcohol Intake: former Drug use: Occasionally Substance use type: marijuana Do you feel safe at home: Yes Do you feel safe in your relationship?: Yes Additional Social history: trying to quit smoking - down to 1 pack per month Exam Const General: cooperative, healthy appearing and no acute distress [facility] Head: normal to inspection Ears: hearing grossly normal bilaterally, external ears normal and TM's normal bilaterally General nose exam: external nose normal Face and sinus: normal facial exam Mouth: oral mucosae normal, tongue normal, oropharynx normal, moist mucous membranes, no drooling, no muffled voice, No abnormal TMJ and no trismus Throat: posterior oropharynx normal, uvula midline and other (history of tonsillectomy, no masses noted ) Eyes General: appearance normal, both eyes and all related structures Neck Neck: normal visual inspection, full ROM, no lymphadenopathy, no meningeal signs, trachea midline, supple, no anterior neck swelling, no midline deformity and No submandibular swelling Thyroid: thyroid normal Neck images: 1. Area of tenderness approximately around 1 cm area right submandibular region, there is no area of induration, fluctuance, mass, erythema, edema, ecchymosis or rash. Resp Effort & Inspection: normal respiratory effort and able to speak in complete sen tences Cardio Rate: regular rate Skin General skin exam: no rashes or lesions noted Neuro General: alert, awake and oriented x3 Motor: muscle tone normal throughout Extrem General: normal to inspection and full ROM Psych Appearance: grossly normal Affect: normal affect Course Vital Signs Temperature 98.1 F 04/12/19 12:48 Pulse 86 04/12/19 12:48 Respiratory Rate 16 04/12/19 12:48 Blood Pressure 129/83 04/12/19 12:48 Pulse Oximetry 97 04/12/19 12:48 Temperature 98.1 F 04/12/19 12:48 Temperature Source Skin 04/12/19 12:48 Pulse 86 04/12/19 12:48 Respiratory Rate 16 04/12/19 12:48 Respiratory Effort 04/12/19 12:56 Blood Pressure 129/83 04/12/19 12:48 Blood Pressure Position Sitting 04/12/19 12:48 Pulse Oximetry 97 04/12/19 12:48 Oxygen Delivery Method Room Air 04/12/19 12:48 Oxygen Flow Rate 0 04/12/19 12:48 Pain Level 5 04/12/19 12:48 Comment 04/12/19 12:48
[2019-04-12] MEDS: Ketorolac 60 MG/2 ML VIAL (13:27)
== END 2019-04-12 13:51 | disposition other institution (70) ==
LOC: ER 13:01
PROVIDERS: Emergency Provider Physician Assistant; PCP Emergency Medicine
DX: M54.2 Cervicalgia (principal); Z53.29 Procedure and treatment not carried out because of patient's decision for other reasons
CPT/HCPCS: 96372; 99284; 99283; J1885

== ENCOUNTER 2019-05-17 12:23 | Emergency (ER) | payer MEDICAID, SELFPAY ==
[2019-05-17 12:32] VITALS: BP 128/88; PULSE 80; RESP 16; TEMP 36.8; O2SAT 98
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
[2019-05-17] MEDS: Dexamethasone 10 MG/ML VIAL PO (13:05)
[2019-05-17] MEDS: Ketorolac 60 MG/2 ML VIAL IM (13:05)
[2019-05-17] MEDS: Lidocaine 5% Patch 1 PATCH TP (13:16)
== END 2019-05-17 16:02 | disposition home or self-care (01) ==
PROVIDERS: Emergency Provider Physician Assistant; PCP Emergency Medicine
DX: R22.41 Localized swelling, mass and lump, right lower limb (principal); M25.551 Pain in right hip; M79.604 Pain in right leg
CPT/HCPCS: 81025; 96372; 99284; 93971; J1100; J1885

== ENCOUNTER 2019-09-06 16:18 | Emergency (ER) | payer MEDICAID, SELFPAY ==
[2019-09-06 16:24] VITALS: BP 159/99; PULSE 96; RESP 18; TEMP 36.3; O2SAT 99
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
--- NOTE | 2019-09-06 17:46 | DI.VRAD_ITS ---
PROCEDURE INFORMATION: Exam: XR Right Femur Exam date and time: 09/06/2019 5:36 PM Age: 38 years old Clinical indication: Pain; Thigh; Right; Prior surgery; Surgery date: 6+ months; Surgery type: Pelletier tere; Additional info: Swelling superior and inferior to scar, tender to touch, radiating pain to medial thigh from lateral scar TECHNIQUE: Imaging protocol: XR Right femur. Views: 2 views. COMPARISON: CR XR femur RT 11/24/2018 10:54 AM FINDINGS: Bones/joints: Unremarkable. No acute fracture. Soft tissues: Unremarkable. IMPRESSION: No acute findings. Dictated and Authenticated by: Charisma Linares MD. Ordering:DOMINIC Urbano MD
[2019-09-06] MEDS: Lidocaine 5% Patch 1 PATCH TP (18:04)
[2019-09-06 18:05] VITALS: BP 132/100; PULSE 83; RESP 19; O2SAT 98
== END 2019-09-06 18:06 | disposition home or self-care (01) ==
PROVIDERS: Emergency Provider Emergency Medicine; PCP Emergency Medicine
DX: M79.651 Pain in right thigh (principal); G89.29 Other chronic pain
CPT/HCPCS: 73552; 99283

== ENCOUNTER 2019-09-11 09:15 | Outpatient (CLI) | payer MEDICAID, SELFPAY ==
[2019-09-11 09:52] LABS: HCT 40.1 % (36.0-46.0); HGB 13.3 g/dL (12.0-15.5); Mean Corp. HGB Concentration 33.2 g/dL (32.0-36.0); Mean Corpuscular Hemoglobin 33.6 pg (27.0-33.0); Mean Corpuscular Volume 101.3 fL (80-95); Mean Platelet Volume 11.3 fL (8.0-11.0); Platelet Count 355 x1000/uL (130-400); RBC 3.96 m/cumm (4.00-5.20); RBC Distribution Width 13.4 % (11.7-14.6); White Blood Cell Count 9.48 k/cumm (4.4-10.8)
[2019-09-11 10:03] LABS: C-Reactive Protein 0.89 mg/dL (0.0-0.3)
[2019-09-11 10:43] LABS: ESR 15 mm/hr (0-20)
== END 2019-09-11 09:35 ==
PROVIDERS: PCP Emergency Medicine; Visit Provider Orthopaedic Surgery
DX: M79.651 Pain in right thigh (principal)
CPT/HCPCS: 36415; 85027; 85652; 86140

== ENCOUNTER 2019-09-14 01:18 | Outpatient (CLI) | payer MEDICAID, SELFPAY ==
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
== END 2019-09-14 01:38 ==
PROVIDERS: PCP Emergency Medicine; Visit Provider Orthopaedic Surgery
DX: S76.801A Unspecified injury of other specified muscles, fascia and tendons at thigh level, right thigh, initial encounter (principal); S76.091A Other specified injury of muscle, fascia and tendon of right hip, initial encounter
CPT/HCPCS: 73718

== ENCOUNTER 2020-02-19 02:24 | Outpatient (CLI) | payer MEDICAID, SELFPAY ==
[2020-02-19 11:39] LABS: Hemoglobin A1C 6.1 % (3.8-5.6)
[2020-02-19 12:22] LABS: Anion Gap 10.8 mmol/L (3-11); BUN 13 mg/dL (7-18); CO2 23.2 mmol/L (21.0-32.0); CREATININE 0.81 mg/dL (0.55-1.02); Calcium 9.4 mg/dL (8.5-10.1); Chloride 103 mmol/L (98-107); Glucose 118 mg/dL (74-106); Potassium 4.7 mmol/L (3.5-5.1); Sodium 137 mmol/L (136-145)
[2020-02-19 12:33] LABS: FREE T4 0.93 ng/dL (0.76-1.46)
== END 2020-02-19 02:44 ==
PROVIDERS: Nurse Practitioner Family; PCP Emergency Medicine; Visit Provider Emergency Medicine
DX: I10 Essential (primary) hypertension (principal); E03.9 Hypothyroidism, unspecified; E11.9 Type 2 diabetes mellitus without complications
CPT/HCPCS: 36415; 80048; 83036; 84439; 84443

== ENCOUNTER 2020-04-24 20:52 | Outpatient (REF) | payer MEDICAID, SELFPAY ==
[2020-04-24 21:19] LABS: TSH (W/Ref FT4) 3.43 uIU/mL (0.36-3.74)
== END 2020-04-24 21:12 ==
LOC: LBN 20:52
PROVIDERS: PCP Emergency Medicine; Visit Provider Physician Assistant
DX: J02.9 Acute pharyngitis, unspecified (principal)
CPT/HCPCS: 84443; 87070

== ENCOUNTER 2020-05-20 14:33 | Outpatient (CLI) | payer MEDICAID, SELFPAY ==
--- NOTE | 2020-05-20 13:00 | DI.US_ITS ---
EXAM: US THYROID CLINICAL HISTORY: r/o goiter/ mass. TECHNIQUE: Ultrasound thyroid performed using standard protocol. COMPARISON: US US LOWER EXTREMITY VENOUS RT from 05/17/2019 FINDINGS: ISTHMUS: 6 mm RIGHT LOBE: Size: 5.0 x 2.9 x 2.3 cm Echogenicity: Heterogeneous Vascularity: Hyperemic Nodules: None. LEFT LOBE: Size: 5.9 x 2.5 x 3.0 cm Echogenicity: Heterogeneous Vascularity: Hyperemic Nodules: None. OTHER FINDINGS: No adenopathy IMPRESSION: Enlarged heterogeneous thyroid. Thyroid is increased in size when compared with older exams. No foc al mass is demonstrated. DATA REPOSITORY:
== END 2020-05-20 14:53 ==
PROVIDERS: PCP Emergency Medicine; Visit Provider Nurse Practitioner
DX: E04.8 Other specified nontoxic goiter (principal)
CPT/HCPCS: 76536

== ENCOUNTER 2020-06-13 06:30 | Emergency (ER) | payer MEDICAID, SELFPAY ==
[2020-06-13 06:35] VITALS: BP 152/93; PULSE 80; RESP 16; TEMP 36.5; O2SAT 100
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
== END 2020-06-13 06:57 | disposition home or self-care (01) ==
LOC: ER 06:54
PROVIDERS: Emergency Provider Emergency Medicine; PCP Emergency Medicine
DX: H10.023 Other mucopurulent conjunctivitis, bilateral (principal)
CPT/HCPCS: 99283

== ENCOUNTER 2020-08-13 08:43 | Emergency (ER) | payer MEDICAID, SELFPAY ==
[2020-08-13 08:47] VITALS: BP 144/95; PULSE 91; RESP 18; TEMP 36.8; O2SAT 97
--- NOTE | 2020-08-13 08:55 | W.ED.GENAD ---
Discharge Plan Disposition Patient Disposition: HOME Condition: Stable Discharge Details Clinical Impression: Left knee pain, Arthritis of left knee Primary Care Provider: Bebeto Trimble ED Provider: Norma Fajardo Home Meds and New Rx's Prescriptions: No Action ketoconazole 2 % shampoo 1 applic TP Q2W Qty: 120 RF: 4 levothyroxine [Synthroid] 125 mcg tablet 125 mcg PO DAILY Qty: 90 RF: 4 omeprazole 20 mg capsule,delayed release(DR/EC) 20 mg PO DAILY Qty: 14 RF: 0 nystatin 100,000 unit/mL suspension 5 ml PO Q6H Qty: 473 RF: 0 citalopram 10 mg tablet 10 mg PO DAILY Qty: 90 RF: 1 Discharge Instructions Instructions: Osteoarthritis (ED), Knee Pain (ED) Additional Instructions: Alternate ice and heat to the affected area(s) several times daily for 20 minutes at a time. Alternate tylenol and motrin as needed and directed for pain. You can also try topical pain medications such as Arnica gel, Voltaren gel or CBD oil for your left knee. Follow-up with your primary care doctor in 1 week. Return to the emergency department with any worsening or new concerning symptoms. Discharge Data Discharge Date/Time-TO BE ENTERED AT DEPARTURE: 08/13/20 11:12 Discharge Physician: Norma Fajardo Medical Decision Making 39-year-old female presents with left knee pain for the past 3 days, worse with weightbearing and range of motion. Patient appears mildly anxious which seems her baseline as I have seen her before. She is afebrile and appears nontoxic. She has some pain in left knee with valgus stress as well as tenderness palpation of posterior knee. No signs of cellulitis or trauma. Negative Homans' sign. She is neurovascular intact. There is no ligamentous laxity. Suspect most likely knee strain versus arthritis. Will obtain a left leg ultrasound and x-ray to rule out DVT versus Herrera's cyst versus effusion. Will give a dose of Tylenol. Ultrasound negative for DVT. X-ray notes mild degenerative changes medial aspect. Discussed with patient that arthritis and possibly additional strain likely the cause of pain at this time. Instructed on the importance of alternating ice and heat, Tylenol and Motrin. Advised to follow up with the primary care doctor for re-evaluation. Usual and customary return precautions given prior to discharge. Medical Records Medical records reviewed: Yes I reviewed the patient's medical records. Imaging Data Radiologic Study: Radiologist's impression: US LOWER EXTREMITY VENOUS LT CLINICAL HISTORY: L posterior knee swelling/pain TECHNIQUE: Left lower extremity venous ultrasound performed using grayscale, color-flow, and spectral Doppler analysis. COMPARISON: No exams were available for comparison FINDINGS: The left common femoral, femoral and popliteal veins demonstrate normal compressibility, augmentation, and color Doppler. The posterior tibial veins are patent. The saphenofemoral junction is unremarkable. There is no evidence of a Herrera cyst. The soft tissues are unremarkable. IMPRESSION: No DVT. XR KNEE LT 3V AP,LAT,BURTON CLINICAL HISTORY: L medial knee pain, r/o effusion vs arthritis. TECHNIQUE: 2D digital imaging was performed. COMPARISON: No exams were available for comparison FINDINGS: BONES: No acute fracture is present. No bony destructive lesion is seen. JOINTS: Mild narrowing of the medial joint compartment. No joint effusion is seen. SOFT TISSUE: Normal. IMPRESSION: Mild degenerative changes of the left knee. Findings were discussed with the emergency department on the date of the examination HPI General Mode of arrival: ambulatory. Date/Time Provider Initiated Documentation: 08/13/20 08:48. Limitations to Documentation: no limitations. Information obtained by: patient. HPI Narrative: Patient is a 39-year-old female presents with left knee pain for the past 3 days. Patient states the pain is mainly in the medial and posterior aspect. Pain is constant but worse with weightbearing and bending. She states the pain kept her awake at night. She denies any known injury. She states she took ibuprofen this morning without relief. She states she was given her symptoms and became concerned that this could possibly be a blood clot. She denies any fever, shortness of breath or chest pain. She denies any recent travel or recent surgeries. Related Data Home Medications Medication Instructions Recorded Confirmed ketoconazole 2 % shampoo 1 applic TP Q2W #120 ml 08/28/18 05/20/20 citalopram 10 mg tablet 10 mg PO DAILY #90 tab 11/06/19 05/20/20 Synthroid 125 mcg tablet 125 mcg PO DAILY #90 tab NS 02/15/20 02/15/20 omeprazole 20 mg capsule,delayed 20 mg PO DAILY #14 cap 04/24/20 04/24/20 release nystatin 100,000 unit/mL oral 5 ml PO Q6H #473 ml 05/20/20 05/20/20 suspension Previous Rx's Medication Instructions Recorded ketoconazole 2 % shampoo 1 applic TP Q2W #120 ml 08/28/18 citalopram 10 mg tablet 10 mg PO DAILY #90 tab 11/06/19 Synthroid 125 mcg tablet 125 mcg PO DAILY #90 tab NS 02/15/20 omeprazole 20 mg capsule,delayed 20 mg PO DAILY #14 cap 04/24/20 release nystatin 100,000 unit/mL oral 5 ml PO Q6H #473 ml 05/20/20 suspension Allergies Allergy/AdvReac Type Severity Reaction Status Date / Time pneumococcal vaccine Allergy Intermediate Localized Verified 08/13/20 08:52 reaction with PCV13 levothyroxine sodium AdvReac Mild Verified 08/13/20 08:52 General Stated Complaint: Vascular OLEGARIO: 3 Review of Systems All systems reviewed & are unremarkable except as noted in HPI and below Constitutional Constitutional: Reports as per HPI, Denies chills and Denies fever(s) Eyes Eyes: Denies blurry vision ENT Ears, Nose, Mouth, and Throat: Denies dizziness, Denies sore throat and Denies throat swelling Cardiovascular Cardiovascular: Denies chest pain and Denies dyspnea Respiratory Respiratory: Denies cough and Denies dyspnea Gastrointestinal Gastrointestinal: Denies abdominal pain, Denies diarrhea and Denies vomiting Genitourinary Genitourinary: Denies hematuria and Denies dysuria Musculoskeletal Musculoskeletal: Denies back pain, Denies numbness and Reports other (L knee/leg pain) Integumentary/Breasts Skin/Breast: Denies lesions and Denies rash Neurologic Neurologic: Denies dizziness, Denies localized weakness and Denies numbness Allergic/Immunologic Allergic/Immunologic: Denies throat swelling [facility] Medical History (Updated 08/13/20 @ 10:33 by Norma Fajardo DO) Chronic pancreatitis Depression Hypothyroidism Pancreatic insufficiency Surgical History Appendectomy (~1995) Cholecystectomy [facility] in November 27, complicated by injury to the pancreas with a 40% pancreectomy done in April 29 and a subsequent splenectomy done in . PANCREATECTOMY (08/22/07) PARTIAL Splenomegaly (08/22/07) pt. states spleen removed Tonsillectomy (~2009) Tubal ligation status Social History Smoking/Tobacco Use Status: Current every day Tobacco Type: cigarettes Smoking risk assessment performed?: Yes Alcohol Intake: current Alcohol Intake frequency: a few times a week Drug use: Occasionally Substance use type: marijuana Current gender identity: female Do you feel safe at home: Yes Do you feel safe in your relationship?: Yes Exam Const General: cooperative and anxious Orientation: alert, awake and oriented x3 HENMT Head: normal to inspection Mouth: oral mucosae normal Eyes General: appearance normal, both eyes and all related structures Neck Neck: normal visual inspection Resp Effort & Inspection: normal respiratory effort and able to speak in complete sentences Cardio Rate: regular rate Skin General skin exam: no rashes or lesions noted Neuro General: patient alert, patient awake and patient oriented x3 Motor: muscle tone normal throughout Extrem General: normal to inspection and full ROM Other: Left extremity: Minimal pain with valgus stress left knee. Some mild tenderness to palpation of posterior knee. Negative anterior posterior drawer test. No pain with varus stress. No erythema, edema, ecchymosis, crepitus to left knee. Negative Homans' sign. Left DP/PT pulses intact. No tenderness to palpation of pain with range of motion in left hip, ankle or foot. Psych Appearance: grossly normal Affect: normal affect Course Vital Signs Vital signs: Vital Signs Temperature 98.2 F 08/13/20 08:47 Pulse 91 H 08/13/20 08:47 Respiratory Rate 18 08/13/20 08:47 Blood Pressure 144/95 H 08/13/20 08:47 Pulse Oximetry 97 08/13/20 08:47 Temperature 98.2 F 08/13/20 08:47 Temperature Source Skin 08/13/20 08:47 Pulse 91 H 08/13/20 08:47 Respiratory Rate 18 08/13/20 08:47 Blood Pressure 144/95 H 08/13/20 08:47 Blood Pressure Position Sitting 08/13/20 08:47 Pulse Oximetry 97 08/13/20 08:47 Oxygen Delivery Method Room Air 08/13/20 08:47 Oxygen Flow Rate 0 08/13/20 08:47 Pain Level 7 08/13/20 08:47
--- NOTE | 2020-08-13 09:00 | DI.US_ITS ---
EXAM: US LOWER EXTREMITY VENOUS LT CLINICAL HISTORY: L posterior knee swelling/pain TECHNIQUE: Left lower extremity venous ultrasound performed using grayscale, color-flow, and spectra l Doppler analysis. COMPARISON: No exams were available for comparison FINDINGS: The left common femoral, femoral and popliteal veins demonstrate normal compressibility, augmentation , and color Doppler. The posterior tibial veins are patent. The saphenofemoral junction is unremarka ble. There is no evidence of a Herrera cyst. The soft tissues are unremarkable. IMPRESSION: No DVT. DATA REPOSITORY:
[2020-08-13] MEDS: Acetaminophen 500 MG TAB 1000 MG PO (09:23)
--- NOTE | 2020-08-13 10:07 | DI.RAD_ITS ---
EXAM: XR KNEE LT 3V AP,LAT,BUR[place] CLINICAL HISTORY: L medial knee pain, r/o effusion vs arthritis. TECHNIQUE: 2D digital imaging was performed. COMPARISON: No exams were available for comparison FINDINGS: BONES: No acute fracture is present. No bony destructive lesion is seen. JOINTS: Mild narrowing of the medial joint compartment. No joint effusion is seen. SOFT TISSUE: Normal. IMPRESSION: Mild degenerative changes of the left knee. Findings were discussed with the emergency department on the date of the examination. DATA REPOSITORY: RADIATION DOSE DELIVERED:
== END 2020-08-13 11:12 | disposition home or self-care (01) ==
PROVIDERS: Emergency Provider Physician Assistant; PCP Emergency Medicine
DX: M17.12 Unilateral primary osteoarthritis, left knee (principal); M25.562 Pain in left knee
CPT/HCPCS: 73562; 99284; 93971; 99285

== ENCOUNTER 2020-10-15 14:02 | Emergency (ER) | payer MEDICAID, SELFPAY ==
[2020-10-15] VITALS (25 sets, daily range): BP systolic 114–146; BP diastolic 58–104; PULSE 66–94; RESP 14–28; TEMP 36.8; O2SAT 95–100
--- NOTE | 2020-10-15 14:00 | RT.EKG_ITS ---
APPROVED REPORT Exam: Resting ECG Patient Location: E HR:77 bpm ECG Measurements Heart Rate 77 AXIS LA 159 P 45 QRSd 85 QRS 18 QT 384 T 26 QTc 435 Conclusion Sinus rhythm...normal P axis, V-rate 60- 99 Ventricular trigeminy...trigeminy string>6 w/ V complexes. No STEMI. Frequent PVCs.
--- NOTE | 2020-10-15 14:18 | ED.GENADUL_ITS ---
Discharge Plan Disposition Patient Disposition: HOME Condition: Stable Discharge Details Clinical Impression: Palpitations Primary Care Provider: Bebeto Trimble ED Provider: Norma Fajardo Home Meds and New Rx's Prescriptions: New metoprolol succinate 25 mg tablet extended release 24 hr 25 mg PO DAILY Qty: 30 RF: 0 Continued ketoconazole 2 % shampoo 1 applic TP Q2W Qty: 120 RF: 4 levothyroxine [Synthroid] 125 mcg tablet 125 mcg PO DAILY Qty: 90 RF: 4 citalopram 10 mg tablet 10 mg PO DAILY Qty: 90 RF: 1 Discharge Instructions Instructions: Heart Palpitations (ED) Additional Instructions: Take the Ativan tonight or tomorrow as needed and directed for sleep or feelings of anxiety. Take the metoprolol daily as directed. Return the telemetry monitor to the hospital as directed by respiratory therapy. Limit your caffeine and alcohol intake. Be sure to drink plenty of fluids and get plenty of rest and at least 6 to 8 hours of sleep at night. Care management will follow up with you regarding a follow-up appointment with cardiology. Return immediately to the emergency department if you develop any worsening or new concerning symptoms. Discharge Data Discharge Date/Time-TO BE ENTERED AT DEPARTURE: 10/15/20 17:41 Discharge Physician: Norma Fajardo Medical Decision Making 1420 -- 40-year-old female with a history of depression, Liliya's, will chronic pancreatitis and multiple abdominal surgeries presents for intermittent palpitations and chest tightness for the past 5 days. Also admits to feelings of anxiety. EKG notes a rate of 77, sinus with multiple PVCs. EKG read as ventricular trigeminy. Vitals within normal limits. She appears nontoxic. Her lungs are clear. Differential diagnosis includes dehydration, electrolyte abnormality, PE, arrhythmia, side effects of alcohol or drug use, dehydration or lack of sleep. Will place an IV, bolus IV fluids, IV Ativan, screening labs, CT chest. Labs reviewed. Normal white blood cell count. Normal coagulation studies. Normal electrolytes. Troponin negative. TSH within normal limits. 1630 -- CT chest negative for PE. It does note an abnormally enlarged thyroid gland as well as a 2 x 2 centimeter adrenal mass which may be an adenoma. Thyroid gland may be at her baseline due to her history of Liliya's. Advise an outpatient MRI for further evaluation of the adrenal mass. Patient reassessed and she feels much better. Case discussed with [facility] cardiology who reviewed EKG. Agrees that as patient is young and without significant risk factors, symptom presentation could be a result of caffeine use, alcohol use, lack of sleep and/or dehydration. Agrees with plan to place a Zio patch telemetry monitor. Recommends starting low-dose metoprolol which may help with her symptoms. Patient given results of CT and advised to follow-up with her primary care doctor for reevaluation of her thyroid gland and further evaluation of the adrenal mass. Patient requested doses of Ativan for home. She was also given a prescription for metoprolol. Patient placed on care management list to arrange for follow-up appointment with cardiology. Advised to follow up with the primary care doctor for re- evaluation. Usual and customary return precautions given prior to discharge. Medical Records Medical records reviewed: Yes I reviewed the patient's medical records. Imaging Data Radiologic Study: Radiologist's impression: CT CHEST PE CTA CLINICAL HISTORY: palpitations, sob, anxiety, r/o PE. TECHNIQUE: Imaging Protocol: CT angiography of the chest was performed using pulmonary embolus protocol. Multi planar reconstructions were performed. CONTRAST MATERIAL: Intravenous: Omnipaque 350 Contrast volume: 100 cc COMPARISON: CT ABD PELVIS WITH CONTRAST from 03/24/2016 FINDINGS: CHEST: PULMONARY ARTERIES: There are no intraluminal filling defects to suggest acute pulmonary emboli. LUNGS: There are no infiltrates nor evidence of pulmonary infarction.. There are no pleural effusions. MEDIASTINUM: There is no hilar nor mediastinal adenopathy. Thyroid gland is enlarged. CARDIAC: Heart size is normal. There is no pericardial effusion.Caliber of the thoracic aorta is within normal limits. There is no evidence of shift of the interventricular septum. PARTIALLY VISUALIZED UPPERMOST ABDOMEN: There is an abnormal nodule in the left adrenal gland which measures 2.5 by 2.0 cm. The opposite-right adrenal gland is unremarkable. Gallbladder surgically absent. OSSEOUS: No significant osseous lesions.. IMPRESSION: 1. No evidence of acute pulmonary emboli. No evidence of pulmonary infarction.No pleural effusions. 2. Thyroid gland is diffusely enlarged. 3. There is a hypodense left adrenal nodule measuring 2.5 x 2.0 centimetres. Possibly representing incidental adenoma versus other pathology. If clinically indicated noninfused dedicated MRI of the adrenal glands can be performed for added specificity, using chemical shift (in and out of phase closed imaging sequences. Lab Data Lab results reviewed: Yes I reviewed the patient's lab results. Labs: Laboratory Tests Range/Units 10/15/20 10/15/20 10/15/20 14:30 14:30 14:30 WBC Cancelled RBC Cancelled Hgb Cancelled Hct Cancelled MCV Cancelled MCH Cancelled MCHC Cancelled RDW Cancelled Plt Count Cancelled MPV Cancelled Immature Gran % Cancelled Neutrophils % Cancelled Band Neutrophils % Cancelled Lymphocytes % Cancelled Atypical Lymphs % Cancelled Monocytes % Cancelled Eosinophils % Cancelled Basophils % Cancelled Metamyelocytes % Cancelled Myelocytes % Cancelled Promyelocytes % Cancelled Other Cells % Cancelled Nucleated RBC % Cancelled Absolute Neutrophils Cancelled Absolute Lymphocytes Cancelled Absolute Monocytes Cancelled Absolute Eosinophils Cancelled Absolute Basophils Cancelled RBC Morphology Cancelled Polychromasia Cancelled Hypochromasia Cancelled Poikilocytosis Cancelled Basophilic Stippling Cancelled Anisocytosis Cancelled Microcytosis Cancelled Macrocytosis Cancelled Spherocytes Cancelled Tear Drop Cells Cancelled Ovalocytes Cancelled Stomatocytes Cancelled [place] Bodies Cancelled [place] Cells/Echinocytes Cancelled Acanthocytes (Spur) Cancelled Schistocytes Cancelled PT (9.3-11.0) sec 10.1 INR (0.9-1.1) 1.0 APTT (21.0-27.5) sec 21.6 Sodium (136-145) mmol/L 137 Potassium (3.5-5.1) mmol/L 4.1 Chloride (98-107) mmol/L 102 Carbon Dioxide (21.0-32.0) mmol/L 26.7 Anion Gap (3-11) mmol/L 8.3 BUN (7-18) mg/dL 15 Creatinine (0.55-1.02) mg/dL 0.7 Estimated GFR/1.73 m2 (mL/min/1.73m2) >= 60.00 Glucose (74-106) mg/dL 156 H Calcium (8.5-10.1) mg/dL 9.0 Magnesium (1.8-2.4) mg/dL 2.0 Total Bilirubin (0.2-1.0) mg/dL 0.3 AST (15-37) U/L 15 ALT (14-59) U/L 28 Alkaline Phosphatase (46-116) U/L 108 Troponin I (<0.06) ng/mL < 0.05 Total Protein (6.4-8.2) g/dL 7.5 Albumin (3.4-5.0) g/dL 3.5 TSH (0.36-3.74) uIU/mL 3.01 Range/Units 10/15/20 15:00 WBC 10.67 RBC 3.96 Hgb 13.3 Hct 39.8 MCV 100.5 H MCH 33.6 H MCHC 33.4 RDW 13.8 Plt Count 375 MPV 11.1 H Immature Gran % 0.3 Neutrophils % 54.2 Band Neutrophils % Lymphocytes % 31.7 Atypical Lymphs % Monocytes % 9.5 Eosinophils % 3.8 Basophils % 0.5 Metamyelocytes % Myelocytes % Promyelocytes % Other Cells % Nucleated RBC % 0 Absolute Neutrophils 5.79 Absolute Lymphocytes 3.38 Absolute Monocytes 1.01 H Absolute Eosinophils 0.41 Absolute Basophils 0.05 RBC Morphology Polychromasia Hypochromasia Poikilocytosis Basophilic Stippling Anisocytosis Microcytosis Macrocytosis Spherocytes Tear Drop Cells Ovalocytes Stomatocytes [place] Bodies [place] Cells/Echinocytes Acanthocytes (Spur) Schistocytes PT (9.3-11.0) sec INR (0.9-1.1) APTT (21.0-27.5) sec Sodium (136-145) mmol/L Potassium (3.5-5.1) mmol/L Chloride (98-107) mmol/L Carbon Dioxide (21.0-32.0) mmol/L Anion Gap (3-11) mmol/L BUN (7-18) mg/dL Creatinine (0.55-1.02) mg/dL Estimated GFR/1.73 m2 (mL/min/1.73m2) Glucose (74-106) mg/dL Calcium (8.5-10.1) mg/dL Magnesium (1.8-2.4) mg/dL Total Bilirubin (0.2-1.0) mg/dL AST (15-37) U/L ALT (14-59) U/L Alkaline Phosphatase (46-116) U/L Troponin I (<0.06) ng/mL Total Protein (6.4-8.2) g/dL Albumin (3.4-5.0) g/dL TSH (0.36-3.74) uIU/mL ECG Data Attestation: I personally reviewed and interpreted this ECG (s) as follows: Interpretation: Rate of 77, sinus, frequent PVCs. Possible ventricular trigeminy on EKG. DC 159. QRS 85. QTc 435. HPI General Mode of arrival: ambulatory . Date/Time Provider Initiated Documentation: 10/15/20 14:16 . Limitations to Documentation: no limitations . Information obtained by: patient . HPI Narrative: Patient is a 40-year-old female with a history of depression, hypothyroidism, chronic pancreatitis, appendectomy, cholecystectomy, pancreatectomy, splenectomy, tubal ligation presents to the ED with a complaint of palpitations for the past 5 days. Patient states she feels like her heart has been fluttering and she has chest tightness that is intermittent for the past 5 days. Patient states she did not sleep 6 nights ago and the following evening she was with her friend when she developed palpitations. She denies any strenuous activity at that time. She states she has feelings of anxiety which feel like chest tightness but she denies any chest pain or shortness of breath. She states she has been drinking more frequently over the last few months, approximately a half a bottle of wine daily. She states her last drink was yesterday. She also smokes marijuana. She states she has also not been able to drink much water lately as she is required to wear a mask and cannot have an open bottle at work. Patient denies any fever, cough, abdominal pain, nausea, vomiting, diarrhea, recent travel, recent sick contacts or recent known exposure to coronavirus. Related Data Home Medications Medication Instructions Recorded Confirmed ketoconazole 2 % shampoo 1 applic TP Q2W #120 ml 08/28/18 10/15/20 citalopram 10 mg tablet 10 mg PO DAILY #90 tab 11/06/19 05/20/20 Synthroid 125 mcg tablet 125 mcg PO DAILY #90 tab NS 02/15/20 10/15/20 metoprolol succinate 25 mg PO DAILY #30 tab 10/15/20 Previous Rx's Medication Instructions Recorded ketoconazole 2 % shampoo 1 applic TP Q2W #120 ml 08/28/18 citalopram 10 mg tablet 10 mg PO DAILY #90 tab 11/06/19 Synthroid 125 mcg tablet 125 mcg PO DAILY #90 tab NS 02/15/20 metoprolol succinate 25 mg PO DAILY #30 tab 10/15/20 Allergies Allergy/AdvReac Type Severity Reaction Status Date / Time pneumococcal vaccine Allergy Intermediate Localized Verified 10/15/20 14:19 reaction with PCV13 levothyroxine sodium AdvReac Mild Verified 10/15/20 14:19 General Stated Complaint: Palpitatns OLEGARIO: 2 Review of Systems All systems reviewed & are unremarkable except as noted in HPI and below Constitutional Constitutional: Reports as per HPI, Denies chills and Denies fever(s) Eyes Eyes: Denies blurry vision ENT Ears, Nose, Mouth, and Throat: Denies dizziness, Denies sore throat and Denies throat swelling Cardiovascular Cardiovascular: Denies chest pain, Reports palpitations and Denies dyspnea Respiratory Respiratory: Denies cough and Denies dyspnea Gastrointestinal Gastrointestinal: Denies abdominal pain, Denies diarrhea and Denies vomiting Genitourinary Genitourinary: Denies hematuria and Denies dysuria Musculoskeletal Musculoskeletal: Denies back pain and Denies numbness Integumentary/Breasts Skin/Breast: Denies lesions and Denies rash Neurologic Neurologic: Denies dizziness, Denies localized weakness and Denies numbness Endocrine Endocrine: Reports palpitations Allergic/Immunologic Allergic/Immunologic: Denies throat swelling [facility] Medical History (Updated 10/15/20 @ 17:06 by Norma Fajardo DO) Chronic pancreatitis Depression Hypothyroidism Pancreatic insufficiency Surgical History Appendectomy (~1995) Cholecystectomy [facility] in November 27, complicated by injury to the pancreas with a 40% pancreectomy done in April 29 and a subsequent splenectomy done in also. PANCREATECTOMY (08/22/07) PARTIAL Splenomegaly (08/22/07) pt. states spleen removed Tonsillectomy (~2009) Tubal ligation status Social History Smoking/Tobacco Use Status: Current every day Tobacco Type: cigarettes Smoking risk assessment performed?: Yes Alcohol Intake: current Alcohol Intake frequency: a few times a week Alcohol type: wine Drug use: Daily Substance use type: marijuana Current gender identity: female Do you feel safe at home: Yes Do you feel safe in your relationship?: Yes Exam Const General: cooperative, healthy appearing and no acute distress HENMT Head: normal to inspection Face and sinus: normal facial exam Eyes General: appearance normal, both eyes and all related structures Pupils: PERRL EOM: EOM intact bilaterally Neck Neck: normal visual inspection and No submandibular swelling Lymphatic: no lymphadenopathy noted Chest Chest: normal inspection of the chest and no tenderness Resp Effort & Inspection: normal respiratory effort and able to speak in complete sentences Auscultation: clear to auscultation bilaterally Cardio Rate: regular rate Rhythm: regular rhythm GI Inspection: normal to inspection Palpation: soft, not firm, not rigid and nontender Auscultation: normal bowel sounds Skin General skin exam: no rashes or lesions noted Neuro General: patient alert, patient awake and patient oriented x3 Cognition: normal cognition Speech: speech normal Motor: muscle tone normal throughout Sensory Exam: no sensory deficits noted Extrem General: normal to inspection, full ROM, capillary refill normal, no calf tenderness bilaterally and no edema Psych Appearance: grossly normal Mental Status: mental status grossly normal Speech and Movement: speech and movement normal Affect: normal affect Course Vital Signs Vital signs: Vital Signs Temperature 98.2 F 10/15/20 14:14 Pulse 82 10/15/20 14:14 Respiratory Rate 10/15/20 14:14 Blood Pressure 129/58 L 10/15/20 14:14 Pulse Oximetry 98 10/15/20 14:14 Temperature 98.2 F 10/15/20 14:14 Temperature Source Skin 10/15/20 14:14 Pulse 82 10/15/20 14:14 Respiratory Rate 10/15/20 14:14 Respiratory Effort Non-Labored 10/15/20 14:14 Blood Pressure 129/58 L 10/15/20 14:14 Blood Pressure Position Supine 10/15/20 14:14 Pulse Oximetry 98 10/15/20 14:14 Oxygen Delivery Method Nasal Cannula 10/15/20 14:14 Pain Level 0 10/15/20 14:14
--- OUTSIDE RECORDS SUMMARY | 2020-10-15 14:32 | XMS_ITS ---
:1980 Author Care Team Providers Name Role Phone DR. RAEGAN LOOMIS Primary Care Provider [phone] DR. RAEGAN LOOMIS Referring Provider [phone] Allergies Code Code System Name Reaction Severity Status Onset 40979 RxNorm Levothyroxine ? ? Active ? Pneumococcal ? ? Active ? Vaccine Medications Name Status Start Date Stop Date ? ? citalopram 10 mg tablet Completed ? 11/17/19 19 Take 1 tablet every day by oral route. diazepam 5 mg tablet Active ? Not availab le Take 1 tablet 3 times a day by oral route. diclofenac potassium 50 mg tablet Active ? Not available Take 1 tablet 3 times a day by oral route. diclofenac sodium 50 mg tablet,delayed release Active ? Not available Take 1 tablet twice a day by oral route. gabapentin 100 mg capsule Active ? Not av ailable Take 1 capsule 3 times a day by oral route for 10 days. levothyroxine 125 mcg tablet Active ? Not available Take 1 tablet every day by oral route. Problems Name Status Onset Date Source ? Depressive Disorder Active 11/15/2018 ? Pancreatitis Active 11/15/2018 ? Pancreatic Insufficiency Active 11/15/2018 ? Procedures Date Name Performed by ? 11/16/2018 XR, Hip, Unilateral, 2 or 3 View [facility] - Radiology [address] [place], [place] [id number] (Work Place) Results Lab Results None recorded. Past Encounters None recorded. Social History Tobacco Smoking Status Current Every Day Smoker Notes: 0. 5PPD Vaccine List None recorded. Plan of Care Reminders Provider Appointments None ? ? recorded. Lab None ? ? recorded. Referral None ? ? recorded. Procedures None ? ? recorded. Surgeries None ? ? recorded. Imaging None ? ? recorded. Vitals Height Weight BMI Blood Pressure 160.02 cm 88 kg 34.4 kg/m2 136/80 mm[Hg]
--- NOTE | 2020-10-15 14:45 | DI.CT_ITS ---
EXAM: CT CHEST PE CTA CLINICAL HISTORY: palpitations, sob, anxiety, r/o PE. TECHNIQUE: Imaging Protocol: CT angiography of the chest was performed using pulmonary embolus angelo col. Multi planar reconstructions were performed. CONTRAST MATERIAL: Intravenous: Omnipaque 350 Contrast volume: 100 cc COMPARISON: CT ABD PELVIS WITH CONTRAST from 03/24/2016 FINDINGS: CHEST: PULMONARY ARTERIES: There are no intraluminal filling defects to suggest acute pulmonary emboli. LUNGS: There are no infiltrates nor evidence of pulmonary infarction.. There are no pleural effusions . MEDIASTINUM: There is no hilar nor mediastinal adenopathy. Thyroid gland is enlarged. CARDIAC: Heart size is normal. There is no pericardial effusion.Caliber of the thoracic aorta is wit hin normal limits. There is no evidence of shift of the interventricular septum. PARTIALLY VISUALIZED UPPERMOST ABDOMEN: There is an abnormal nodule in the left adrenal gland which m easures 2.5 by 2.0 cm. The opposite-right adrenal gland is unremarkable. Gallbladder surgically abs ent. OSSEOUS: No significant osseous lesions.. IMPRESSION: 1. No evidence of acute pulmonary emboli. No evidence of pulmonary infarction.No pleural effusions. 2. Thyroid gland is diffusely enlarged. 3. There is a hypodense left adrenal nodule measuring 2.5 x 2.0 centimetres. Possibly representing i ncidental adenoma versus other pathology. If clinically indicated noninfused dedicated MRI of the ad renal glands can be performed for added specificity, using chemical shift (in and out of phase closed imaging sequences. RADIATION DOSE DELIVERED: LINK-TO-SR Total DLP DATA REPOSITORY: All CT scans at this facility are submitted to the National Radiology Data Registry (NRDR) Dose Index Registry (DIR) with the [employer] (ACR). RADIATION OPTIMIZATION: All CT scans at this facility use at least one of these dose optimization te chniques: automated exposure control; mA and/or kV adjustment per patient size (includes targeted exa ms where dose is matched to clinical indication); or iterative reconstruction.
[2020-10-15 14:52] LABS: PTT Activated 21.6 sec (21.0-27.5); Prothrombin Time 10.1 sec (9.3-11.0)
[2020-10-15 15:00] LABS: ALT 28 U/L (14-59); AST 15 U/L (15-37); Albumin 3.5 g/dL (3.4-5.0); Alkaline Phosphatase 108 U/L (46-116); Anion Gap 8.3 mmol/L (3-11); BUN 15 mg/dL (7-18); Bilirubin, Total 0.3 mg/dL (0.2-1.0); CO2 26.7 mmol/L (21.0-32.0); CREATININE 0.7 mg/dL (0.55-1.02); Chloride 102 mmol/L (98-107); Glucose 156 mg/dL (74-106); Potassium 4.1 mmol/L (3.5-5.1); Sodium 137 mmol/L (136-145); TSH (W/Ref FT4) 3.01 uIU/mL (0.36-3.74); Total Protein 7.5 g/dL (6.4-8.2); Troponin I < 0.05 ng/mL (<0.06)
[2020-10-15 15:05] LABS: Abs Immature Grans 0.03 10^3/uL (0.0-0.06); Absolute Basophil Count 0.05 10^3/uL (0.0-0.2); Absolute Eosinophil Count 0.41 10^3/uL (0.0-0.7); Absolute Lymphocyte Count 3.38 10^3/uL (1.2-3.4); Absolute Monocyte Count 1.01 10^3/uL (0.1-0.8); Absolute Neutrophil Count 5.79 10^3/uL (1.2-6.7); Basophils % 0.5; Eosinophils % 3.8; HCT 39.8 % (36.0-46.0); HGB 13.3 g/dL (11.2-15.7); Immature Grans % 0.3; Lymphocytes % 31.7; MCH 33.6 pg (27.0-33.0); MCHC 33.4 % (32.0-36.0); MCV 100.5 fL (80-95); MPV 11.1 fL (8.0-11.0); Monocytes % 9.5; Neutrophils % 54.2; Nucleated RBC 0 %; Platelet Count 375 10^3/uL (130-400); RBC 3.96 10^6/uL (3.93-5.22); RDW 13.8 % (11.7-14.6); RDW-SD 51.8 fL; WBC 10.67 10^3/uL (4.4-10.8)
[2020-10-15] MEDS: Normal Saline 1,000 ML 1000 ML IV (15:07)
[2020-10-15] MEDS: LORazepam 2 MG/ML VIAL 1 MG IVP (15:08)
[2020-10-15] MEDS: Omnipaque 350 MG/ML 100 ML BTL IJ (15:26)
[2020-10-15] MEDS: Normal Saline - Diluent 50 ML VIAL IV (15:27)
[2020-10-15] MEDS: Metoprolol 25 MG TAB PO (17:04)
--- NOTE | 2020-10-15 17:46 | NUR.NOTE ---
Nursing Note: Referral faxed to [facility] Cardiology for follow up for palpitations in 1 to 2 weeks. Cathy Saxena
[2020-10-16 13:18] LABS: COVID-19 RT-PCR UVMMC Result Negative (Negative)
== END 2020-10-15 17:41 | disposition home or self-care (01) ==
PROVIDERS: Nurse Practitioner Family; Emergency Provider Physician Assistant; PCP Emergency Medicine
DX: R00.2 Palpitations (principal); F41.9 Anxiety disorder, unspecified; E27.8 Other specified disorders of adrenal gland; Z20.822 Contact with and (suspected) exposure to COVID-19
CPT/HCPCS: 71275; 80053; 81025; 93005; 93246; 96361; 96374; 99285; U0003; 83735; 84443; 84484; 85025; 85610; 85730; 93010; 99284; J2060; J3490

== ENCOUNTER 2020-10-20 04:34 | Outpatient (CLI) | payer MEDICAID, SELFPAY ==
[2020-10-20 14:02] LABS: Hemoglobin A1C 6.3 % (<5.7)
== END 2020-10-20 04:35 | disposition home or self-care (01) ==
LOC: LBO 04:37
PROVIDERS: PCP Emergency Medicine; Visit Provider Otolaryngology
DX: E06.3 Autoimmune thyroiditis (principal); E11.9 Type 2 diabetes mellitus without complications
CPT/HCPCS: 36415; 83036; 84443

== ENCOUNTER 2020-10-24 15:39 | Outpatient (REF) | payer MEDICAID, SELFPAY ==
[2020-10-24 20:35] LABS: Folate 6.2 ng/mL (8.6-20.0); TSH 0.47 uIU/mL (0.36-3.74); Vitamin B12 534 pg/mL (193-986)
[2020-10-24 21:18] LABS: FREE T4 1.09 ng/dL (0.76-1.46)
== END 2020-10-24 15:40 | disposition home or self-care (01) ==
LOC: LBN 15:39
PROVIDERS: PCP Emergency Medicine; Visit Provider Emergency Medicine
DX: D64.9 Anemia, unspecified (principal); E03.9 Hypothyroidism, unspecified; R79.89 Other specified abnormal findings of blood chemistry
CPT/HCPCS: 82607; 82746; 84439; 84443

== ENCOUNTER 2020-11-04 01:04 | Outpatient (CLI) | payer MEDICAID, SELFPAY ==
--- NOTE | 2020-11-04 11:00 | DI.MRI_ITS ---
EXAM: MR ABDOMEN WO/W CLINICAL HISTORY: left adrenal mass,E27.8. TECHNIQUE: Multiplanar multisequence MRI was performed. COMPARISON: CT CT CHEST PE CTA from 10/15/2020 FINDINGS: MR examination of the abdomen was performed utilizing adrenal protocol. Previously noted approximate ly 25 millimeter in diameter left adrenal mass, which was of low attenuation on recent CT, proximally 8 Hounsfield units, and thought to be likely adrenal adenoma, is again seen on MR and grossly unchan ged in size from the recent CT examination. Opposed in inphase imaging shows some cysts signal dropo ut on opposed phase, again suggesting fatty content of this mass and likely adrenal adenoma. Enhance ment characteristics show only minimal enhancement with no suggestion of fast washout. Right adrenal is unremarkable. Unremarkable appearance of the liver spleen and pancreas. Kidneys appear normal. No hydronephrosis. No retroperitoneal adenopathy. IMPRESSION: Left adrenal mass has a high likelihood of representing adrenal adenoma. Follow-up CT examination villegas ggested in 12 months due to suggestion of some interval growth noted on prior CT. DATA REPOSITORY:
[2020-11-04] MEDS: Gadoterate meglumine 20 ML VIAL 18 ML IVP (11:17)
== END 2020-11-04 01:24 ==
PROVIDERS: PCP Emergency Medicine; Visit Provider Emergency Medicine
DX: E27.8 Other specified disorders of adrenal gland (principal)
CPT/HCPCS: 74183

== ENCOUNTER 2020-11-14 08:53 | Outpatient (CLI) | payer MEDICAID, SELFPAY ==
[2020-11-15 13:18] LABS: COVID-19 RT-PCR UVMMC Result Negative (Negative)
== END 2020-11-14 08:54 | disposition home or self-care (01) ==
PROVIDERS: PCP Emergency Medicine; Visit Provider Emergency Medicine
DX: Z20.822 Contact with and (suspected) exposure to COVID-19 (principal)
CPT/HCPCS: U0003

== ENCOUNTER 2021-06-01 19:24 | Outpatient (REF) | payer MEDICAID, SELFPAY ==
[2021-06-03 15:35] LABS: COVID-19 RT-PCR UVMMC Result Negative (Negative)
== END 2021-06-01 19:25 | disposition home or self-care (01) ==
LOC: LBN 19:24
PROVIDERS: PCP Emergency Medicine; Visit Provider Family Medicine
DX: Z20.822 Contact with and (suspected) exposure to COVID-19 (principal); R05.9 Cough, unspecified
CPT/HCPCS: U0003

== ENCOUNTER 2021-07-17 12:42 | Outpatient (REF) | payer MEDICAID, SELFPAY ==
[2021-07-19 12:33] LABS: COVID-19 RT-PCR UVMMC Result Negative (Negative)
== END 2021-07-17 12:43 | disposition home or self-care (01) ==
LOC: LBN 12:42
PROVIDERS: PCP Emergency Medicine; Visit Provider Family Medicine
DX: Z20.822 Contact with and (suspected) exposure to COVID-19 (principal); R06.02 Shortness of breath
CPT/HCPCS: U0003

== ENCOUNTER 2021-07-20 11:23 | Outpatient (CLI) | payer MEDICAID, SELFPAY ==
[2021-07-20 13:41] VITALS: BP 157/99; PULSE 74; RESP 16; TEMP 37.7; O2SAT 99
[2021-07-20] MEDS: Normal Saline 500 ML 30 ML IV (14:32)
[2021-07-20 14:37] VITALS: BP 136/79; PULSE 64; RESP 20; TEMP 36.8; O2SAT 100
[2021-07-20 14:58] VITALS: BP 131/86; PULSE 72; RESP 20; TEMP 37.2; O2SAT 100
[2021-07-20 15:34] VITALS: BP 133/87; PULSE 66; RESP 16; TEMP 36.7; O2SAT 100
[2021-07-20 16:02] VITALS: BP 141/87; PULSE 74; RESP 20; TEMP 36.9; O2SAT 100
== END 2021-07-20 11:24 | disposition home or self-care (01) ==
LOC: INF 11:23
PROVIDERS: PCP Emergency Medicine; Visit Provider Family Medicine
DX: U07.1 COVID-19 (principal)
CPT/HCPCS: 96365

== ENCOUNTER 2021-07-26 13:01 | Emergency (ER) | payer MEDICAID, SELFPAY ==
[2021-07-26 13:14] VITALS: BP 163/109; PULSE 90; TEMP 37.1; O2SAT 99
--- NOTE | 2021-07-26 13:23 | W.ED.GENAD ---
Discharge Plan Disposition Patient Disposition: HOME Condition: Stable Discharge Details Clinical Impression: Acute sinusitis, Tinea versicolor Primary Care Provider: Bebeto Trimble ED Provider: Sandra Quiñones Home Meds and New Rx's Prescriptions: New amoxicillin-pot clavulanate [Augmentin] 875-125 mg tablet 1 tab PO BID Qty: 20 RF: 0 ketoconazole 2 % cream 1 applic topical DAILY Qty: 30 RF: 0 Continued levothyroxine [Synthroid] 125 mcg tablet 125 mcg PO DAILY Qty: 90 RF: 4 ketoconazole 2 % shampoo 1 applic TP Q2W Qty: 120 RF: 4 citalopram 10 mg tablet 10 mg PO DAILY Qty: 30 RF: 3 trazodone 50 mg tablet 50 mg PO QHS PRN (Reason: sleep) Qty: 30 RF: 3 lorazepam 0.5 mg tablet 0.5 mg PO TID PRN (Reason: anxiety) Qty: 30 RF: 0 melatonin 10 mg Tablet 10 mg PO PRN PRNRF: 0 Discharge Instructions Instructions: Sinusitis (ED), Acute Rash (ED) Additional Instructions: Your exam is most consistent with a sinusitis. Please encourage hydration you. You may continue with Tylenol and/or ibuprofen as needed for discomfort. Please take as directed on the packaging. You received Tylenol and ibuprofen here. You are given your first dose of antibiotic here. The rest of this will be available at your pharmacy. Please take as directed and continue entire course even if symptoms improve. In regard to your rash, this is most consistent with tinea versicolor which is a common fungal infection. Please use the topical ointment as prescribed, this is also been sent to your pharmacy. If you develop inability stay hydrated, difficulty breathing, shortness of breath, chest pain pain, increased headache, fevers, weakness or other new/worsening symptoms seek care urgently once again. Otherwise, please follow-up with your primary care next 1 to 2 weeks for reevaluation. Referrals: Bebeto Trimble DO [Primary Care Provider] - Discharge Data Discharge Date/Time-TO BE ENTERED AT DEPARTURE: 07/26/21 14:03 Medical Decision Making Patient is a pleasant 40 year old female presenting today with c/c of sinus pressure. States that this began 2 weeks ago and has been progressively increasing. Reports chills and fatigue. Daughter gideon VENTURA, she has been negative. She states that she has had pain around her eyes, positional in nature. No dental pain. No change in vision or focal neurologic complaint. Reports nasal discharge. Initial cough but not currently. On exam, she appears uncomfortable. She appears nontoxic. VS WNL. HEENT exam concerning for sinus pain with percussion. Lungs clear. HEENT normal otherwise. NEurologic exam is normal and nonfocal. Discussed with patient likely sinusitis. Will begin Augmentin. Encouraged hydration. Advised on NSAID and APAP for pain. I do not see evidence to suggest septicemia, [employer] infection. Strict return precautions discussed. Advised close f/u with PCP. All of her questions and concerns were addressed, she is in agreement with this plan. HPI General Mode of arrival: ambulatory. Date/Time Provider Initiated Documentation: 07/26/21 13:23. Limitations to Documentation: no limitations. Information obtained by: patient and RN notes reviewed. History of Present Illness 40 year old F presents to the emergency department with the chief complaint of sinus pain, described as severe, with intensity rated at 10. Quality is described as aching, and is localized to the face. Patient reports no radiation. Patient started experiencing this week(s) and it has been constant. No relieving factors improve symptom(s), Other factors that worsen symptoms (positional) . Patient notes fever/chills and headaches (facial pain); denies confusion, chest pain, cough, loss of appetite, nausea/vomiting, rash, shortness of breath and weakness. Patient did receive the following treatments prior to arrival, none Related Data Home Medications Medication Instructions Recorded Confirmed Synthroid 125 mcg tablet 125 mcg PO DAILY #90 tab NS 02/15/20 07/26/21 ketoconazole 2 % shampoo 1 applic TP Q2W #120 ml 10/24/20 07/26/21 citalopram 10 mg tablet 10 mg PO DAILY #30 tab 06/01/21 07/26/21 lorazepam 0.5 mg tablet 0.5 mg PO TID PRN #30 tab 06/01/21 07/26/21 trazodone 50 mg tablet 50 mg PO QHS PRN #30 tab 06/01/21 07/26/21 melatonin 10 mg PO PRN PRN 07/20/21 07/26/21 amoxicillin-pot clavulanate 1 tab PO BID #20 tab 07/26/21 [Augmentin] ketoconazole 1 applic TOPICAL DAILY #30 g 07/26/21 Previous Rx's Medication Instructions Recorded Synthroid 125 mcg tablet 125 mcg PO DAILY #90 tab NS 02/15/20 ketoconazole 2 % shampoo 1 applic TP Q2W #120 ml 10/24/20 citalopram 10 mg tablet 10 mg PO DAILY #30 tab 06/01/21 lorazepam 0.5 mg tablet 0.5 mg PO TID PRN #30 tab 06/01/21 trazodone 50 mg tablet 50 mg PO QHS PRN #30 tab 06/01/21 amoxicillin-pot clavulanate 1 tab PO BID #20 tab 07/26/21 [Augmentin] ketoconazole 1 applic TOPICAL DAILY #30 g 07/26/21 Allergies Allergy/AdvReac Type Severity Reaction Status Date / Time pneumococcal vaccine Allergy Intermediate Localized Verified 07/26/21 13:20 reaction with PCV13 levothyroxine sodium AdvReac Mild Verified 07/26/21 13:20 General Stated Complaint: RespSymp OLEGARIO: 3 Review of Systems Constitutional Constitutional: Reports as per HPI, Reports chills, Reports fatigue, Denies fever(s) and Reports headache(s) (pain around eyes, states it feels like sinus pain) Eyes Eyes: Denies change in vision ENT Ears, Nose, Mouth, and Throat: Reports headache(s) (pain around eyes, states it feels like sinus pain) Cardiovascular Cardiovascular: Denies chest pain, Denies dyspnea and Denies dyspnea on exertion Respiratory Respiratory: Denies cough, Denies dyspnea and Denies dyspnea on exertion Gastrointestinal Gastrointestinal: Denies change in bowel habits, Denies nausea and Denies vomiting Integumentary/Breasts Skin/Breast: Reports as per HPI and Denies rash Neurologic Neurologic: Reports as per HPI, Reports headache(s) (pain around eyes, states it feels like sinus pain), Denies localized weakness, Denies radicular pain, Denies sensory deficit and Denies paresthesias Endocrine Endocrine: Reports fatigue [facility] Medical History (Updated 07/26/21 @ 13:50 by GERMAN Powers) Chronic pancreatitis Depression Pancreatic insufficiency Surgical History Appendectomy (~1995) Cholecystectomy [facility] in November 27, complicated by injury to the pancreas with a 40% pancreectomy done in April 29 and a subsequent splenectomy done in also. PANCREATECTOMY (08/22/07) PARTIAL Splenomegaly (08/22/07) pt. states spleen removed Tonsillectomy (~2009) Tubal ligation status Social History Smoking/Tobacco Use Status: Current every day Tobacco Type: cigarettes Smoking risk assessment performed?: Yes Alcohol Intake: current Alcohol Intake frequency: a few times a week Alcohol type: wine Drug use: Daily Substance use type: marijuana Current gender identity: female What type of physical activity do you participate in: additional Details: snowshoed a couple times this winter. Do you feel safe at home: Yes Do you feel safe in your relationship?: Yes Exam Const General: cooperative, healthy appearing, comfortable, no acute distress, well developed and well groomed Nutritional Appearance: well nourished and overweight Orientation: alert and awake [facility] Head: normal to inspection, no palpable skull fracture, normocephalic and atraumatic Ears: hearing grossly normal bilaterally, external ears normal and TM's normal bilaterally General nose exam: external nose normal and nares normal Face and sinus: normal facial exam, sinuses tender (teender to palpation and percussion) and face symmetric Mouth: oral mucosae normal, lip normal, tongue normal, oropharynx normal, moist mucous membranes, no audible dysphonia, no muffled voice, no trismus and No restricted motion Teeth and gingiva: dentition normal Throat: posterior oropharynx normal, tonsils normal and uvula midline Eyes General: appearance normal, both eyes and all related structures Neck Neck: normal visual inspection, full ROM, no lymphadenopathy and no meningeal signs Resp Effort & Inspection: normal respiratory effort and able to speak in complete sentences Auscultation: clear to auscultation bilaterally, no rales, no rhonchi and no wheezes Cardio Rate: regular rate Rhythm: regular rhythm Heart Sounds: S1 normal and S2 normal Skin General skin exam: no rashes or lesions noted Neuro General: patient alert, patient awake and patient oriented x3 Cranial Nerves: CN's II-XI intact bilaterally Cognition: normal cognition Speech: speech normal Gait: normal gait Motor: muscle tone normal throughout, strength 5/5 throughout, no movement abnormalities noted and no fasciculations Sensory Exam: no sensory deficits noted Extrem General: normal to inspection, full ROM, capillary refill normal, no joint enlargement, no pedal edema, no calf tenderness and normal gait Psych Appearance: grossly normal and well kempt Mental Status: mental status grossly normal Speech and Movement: speech and movement normal Course Vital Signs Vital signs: Vital Signs Temperature 37.1 C 07/26/21 13:14 Pulse 90 07/26/21 13:14 Blood Pressure 163/109 H 07/26/21 13:14 Pulse Oximetry 99 07/26/21 13:14 Temperature 37.1 C 07/26/21 13:14 Temperature Source Temporal Artery Scan 07/26/21 13:14 Pulse 90 07/26/21 13:14 Respiratory Effort Non-Labored 07/26/21 13:18 Blood Pressure 163/109 H 07/26/21 13:14 Blood Pressure Position Sitting 07/26/21 13:14 Pulse Oximetry 99 07/26/21 13:14 Oxygen Delivery Method Room Air 07/26/21 13:14 Oxygen Flow Rate 0 07/26/21 13:14 Pain Level 10 07/26/21 13:14 PAWSS Have you Been Recently Intoxicated or Drunk Within the Last 30 days?: Yes Have you Ever Experienced Previous Episodes of Alcohol Withdrawal?: No Have you ever Experienced Withdrawal Seizures?: No Have you ever Experienced Delirium Tremens(DT)s?: No Have you ever undergone Alcohol Rehabilitation Treatment (i.e, inpt ot outpatient treatment programs)?: No Have you ever Experienced Blackouts?: No Have you ever Combined Alcohol with other Downers within the last 90 days?: No Have you ever Combined Alcohol with any other Substance of Abuse during the last 90 days?: No Positive Blood Alcohol level on Presentation? [PCS.BAL]: No Evidence of Increased Autonomic Activity (i.e. HR>120, tremor, sweating, agitation, nausea)?: No Result: 1
[2021-07-26] MEDS: Amoxicillin 875/Clav. 125 TAB PO (14:00)
[2021-07-26] MEDS: Acetaminophen 500 MG TAB 1000 MG PO (14:00)
[2021-07-26] MEDS: Ibuprofen 600 MG TAB PO (14:00)
[2021-07-26 14:11] VITALS: BP 140/82; PULSE 90; RESP 17; TEMP 37.1; O2SAT 98
== END 2021-07-26 14:03 | disposition home or self-care (01) ==
PROVIDERS: Emergency Provider Physician Assistant; PCP Emergency Medicine
DX: J01.90 Acute sinusitis, unspecified (principal); B36.0 Pityriasis versicolor
CPT/HCPCS: 99283

== ENCOUNTER 2021-09-23 15:41 | Emergency (ER) | payer MEDICAID, SELFPAY ==
[2021-09-23 15:54] VITALS: BP 150/93; PULSE 88; RESP 16; TEMP 37; O2SAT 100
--- NOTE | 2021-09-23 16:01 | DI.US_ITS ---
Exam(s) US EXTREMITY VENOUS BI EXAM: US EXTREMITY VENOUS BI CLINICAL HISTORY: bilateral leg pain, swelling. TECHNIQUE: Bilateral lower extremity venous ultrasound performed using grayscale, color-flow, and sp ectral Doppler analysis. COMPARISON: No exams were available for comparison FINDINGS: The bilateral common femoral, femoral and popliteal veins demonstrate normal compressibility, augment ation, and color Doppler. The posterior tibial veins are patent. IMPRESSION: Right: Negative for DVT Left: Negative for DVT DATA REPOSITORY:
--- NOTE | 2021-09-23 16:15 | DI.RAD_ITS ---
Exam(s) XR KNEE LT 3V AP,LAT,BURTON EXAM: XR KNEE LT 3V AP,LAT,BURTON CLINICAL HISTORY: pain, swelling TECHNIQUE: COMPARISON: No exams were available for comparison FINDINGS: Three views were obtained. There is no evidence of acute fracture or dislocation. No gross joint ef fusion seen on the lateral film. IMPRESSION: RADIATION DOSE DELIVERED: Total DLP
--- NOTE | 2021-09-23 16:20 | W.ED.GENAD ---
Discharge Plan Disposition Patient Disposition: HOME Condition: Stable Discharge Details Clinical Impression: Acute pain of left knee Primary Care Provider: Camelia Gracia ED Provider: Ian Esquivel Home Meds and New Rx's Prescriptions: Continued ketoconazole 2 % shampoo 1 applic TP Q2W Qty: 120 RF: 4 levothyroxine [Synthroid] 125 mcg tablet 125 mcg PO DAILY Qty: 90 RF: 4 mirtazapine [Remeron SolTab] 15 mg tablet,disintegrating 15 mg PO QHS Qty: 30 RF: 0 melatonin 10 mg Tablet 10 mg PO PRN PRNRF: 0 Discharge Instructions Instructions: Knee Pain (ED) Additional Instructions: Please use a hinged knee brace and rest your knee over the next week. Please follow-up with orthopedics. Call tomorrow. Please take ibuprofen over the counter. Take 600mg by mouth every 6 hours as needed for pain. Please take acetaminophen (tylenol) - 650mg every 6 hours by mouth as needed for pain. Please contact your primary care physician to arrange follow-up. Return to the ER immediately for any worsening or new concerning symptoms. Stand Alone Forms: Work Release Referrals: [facility] [Provider Group] Camelia Gracia MD [Primary Care Provider] - Medical Decision Making 1626 --41-year-old female here with left lower extremity pain and swelling over the past 2 weeks, now with right lower extremity discomfort as well. Patient is neurovascular intact distally bilateral lower extremities. She has no shortness of breath or chest pain. Saturating well no respiratory distress. Consider DVT. Plan to obtain ultrasound bilateral lower extremities. -- US interpreted by radiology negative. Patient reassessed and pain with ROM left knee. Mild swelling. No effusion appreciated on exam or xray. Patient afebrile. Labs reviewed and mild leukocytosis, elevated crp and normal esr. Potential inflammatory arthritis. No h/o tick bite or lyme disease. No rash or history of STD. Plan for rest and close followup with orthopedics. Hinged knee brace applied and toradol IM administered. I recommended crutches and patient declined with informed refusal. Patient was reassessed prior to discharge and symptoms noted to be improved significantly with toradol. HPI General Mode of arrival: ambulatory. Date/Time Provider Initiated Documentation: 09/23/21 15:47. Limitations to Documentation: no limitations. Information obtained by: patient. HPI Narrative: 41-year-old female with multiple medical problems who presents with chief complaint of leg pain. Patient notes left leg pain, localized posterior medial knee and radiating distally for the past 2 weeks, persistent and progressive. Patient notes unable to stand for extended period of time secondary to pain. She denies injury. She denies history of blood clots. She does note sibling has had blood clots. She also notes now her right lower extremity is bothering her although less severe and she thinks likely because she is favoring her left leg. No associated chest pain or shortness of breath. No associated rash. No other joint pain/swelling. Related Data Home Medications Medication Instructions Recorded Confirmed ketoconazole 2 % shampoo 1 applic TP Q2W #120 ml 10/24/20 09/23/21 melatonin 10 mg PO PRN PRN 07/20/21 09/23/21 Synthroid 125 mcg tablet 125 mcg PO DAILY #90 tab NS 08/13/21 09/23/21 mirtazapine 15 mg disintegrating 15 mg PO QHS #30 tab 09/01/21 09/23/21 tablet Previous Rx's Medication Instructions Recorded ketoconazole 2 % shampoo 1 applic TP Q2W #120 ml 10/24/20 Synthroid 125 mcg tablet 125 mcg PO DAILY #90 tab NS 08/13/21 mirtazapine 15 mg disintegrating 15 mg PO QHS #30 tab 09/01/21 tablet Allergies Allergy/AdvReac Type Severity Reaction Status Date / Time pneumococcal vaccine Allergy Intermediate Localized Verified 09/23/21 15:49 reaction with PCV13 levothyroxine sodium AdvReac Mild Verified 09/23/21 15:49 General Stated Complaint: Vascular OLEGARIO: 3 Review of Systems All systems reviewed & are unremarkable except as noted in HPI and below Constitutional Constitutional: Denies fever(s) Respiratory Respiratory: Reports as per HPI PFSH All Active Problems (Updated 09/23/21 @ 17:43 by Ian Esquivel MD) Acute sinusitis (Acute) Tinea versicolor (Acute) Acute pain of left knee (Acute) Insomnia (Acute) Grief reaction (Chronic) Folic acid deficiency (non anemic) (Acute) Adrenal mass, left (Acute) Anemia (Chronic) Thyromegaly (Acute) Localized swelling, mass and lump, neck (Acute) Sore throat (Acute) Hypothyroidism (Chronic) Prabhu Tyleree lesion (Acute) Excision of Pelletier-Mitali lesion right thigh DOS: 12/14/18 Dr. Lugo Smoker (Chronic 10/23/12) Pancreatic insufficiency (Chronic 10/23/12) Obesity (Chronic 10/23/12) History of depression (Chronic 10/23/12) Liliya's thyroiditis (Chronic 04/30/15) Dysmenorrhea (Chronic 06/30/16) Disorder of spleen (Chronic 10/23/12) ASPLENIC Depressive disorder (Chronic) Chronic pancreatitis (Chronic 10/23/12) LOW LEVEL Anxiety (Chronic 08/02/12) History of hyperglycemia (Chronic) Asplenia (Chronic) Trochanteric bursitis of right hip (Acute) Medical History Chronic pancreatitis Depression Pancreatic insufficiency Surgical History Appendectomy (~1995) Cholecystectomy [facility] in November 27, complicated by injury to the pancreas with a 40% pancreectomy done in April 29 and a subsequent splenectomy done in also. PANCREATECTOMY (08/22/07) PARTIAL Splenomegaly (08/22/07) pt. states spleen removed Tonsillectomy (~2009) Tubal ligation status Social History Smoking/Tobacco Use Status: Current every day Tobacco: How many years used: 25 Counseling given: provider counseling Smoking risk assessment performed?: Yes Alcohol Intake: current Alcohol Intake frequency: a few times a week Alcohol type: wine Drug use: Daily Substance use type: marijuana Current gender identity: female What type of physical activity do you participate in: additional Details: snowshoed a couple times this winter. Do you feel safe at home: Yes Do you feel safe in your relationship?: Yes Exam Const General: cooperative and no acute distress HENMT Mouth: moist mucous membranes Eyes Conjunctivae: normal conjunctivae Sclera: normal sclerae Neck Neck: trachea midline and supple Resp Auscultation: clear to auscultation bilaterally, no rales, no rhonchi and no wheezes Cardio Rate: regular rate and not tachycardic Rhythm: regular rhythm GI Palpation: soft, not firm, no guarding, no masses, not rigid and nontender Skin General skin exam: no rashes or lesions noted Neuro General: patient alert, patient awake, patient oriented x3 and tone normal Extrem General: capillary refill normal, calf tenderness on the left and no edema Left lower extremity: knee Details: swelling; no unusual warmth Other: Bilateral DP strong and equal Psych Appearance: grossly normal Mental Status: mental status grossly normal Course Vital Signs Vital signs: Vital Signs Temperature 37.0 C 09/23/21 15:54 Pulse 88 09/23/21 15:54 Respiratory Rate 16 09/23/21 15:54 Blood Pressure 150/93 H 09/23/21 15:54 Pulse Oximetry 100 09/23/21 15:54 Temperature 37.0 C 09/23/21 15:54 Temperature Source Temporal Artery Scan 09/23/21 15:54 Pulse 88 09/23/21 15:54 Respiratory Rate 16 09/23/21 15:54 Respiratory Effort Non-Labored 09/23/21 15:50 Respiratory Depth Normal 09/23/21 15:50 Respiratory Pattern Normal 09/23/21 15:50 Blood Pressure 150/93 H 09/23/21 15:54 Pulse Oximetry 100 09/23/21 15:54 Oxygen Delivery Method Room Air 09/23/21 15:54 Oxygen Flow Rate 0 09/23/21 15:54 Pain Level 7 09/23/21 15:57 PAWSS Have you Been Recently Intoxicated or Drunk Within the Last 30 days?: Yes Have you Ever Experienced Previous Episodes of Alcohol Withdrawal?: No Have you ever Experienced Withdrawal Seizures?: No Have you ever Experienced Delirium Tremens(DT)s?: No Have you ever undergone Alcohol Rehabilitation Treatment (i.e, inpt ot outpatient treatment programs)?: No Have you ever Experienced Blackouts?: No Have you ever Combined Alcohol with other Downers within the last 90 days?: No Have you ever Combined Alcohol with any other Substance of Abuse during the last 90 days?: No Positive Blood Alcohol level on Presentation? [PCS.BAL]: No Evidence of Increased Autonomic Activity (i.e. HR>120, tremor, sweating, agitation, nausea)?: No Result: 1
--- NOTE | 2021-09-23 17:28 | DI.VRAD_ITS ---
PROCEDURE INFORMATION: Exam: XR Left Knee Exam date and time: 09/23/2021 4:28 PM Age: 41 years old Clinical indication: Knee; Left; Patient HX: Pain, swelling TECHNIQUE: Imaging protocol: XR Left knee. Views: 3 views. COMPARISON: CR XR KNEE LT 3V AP,LAT,BURTON 08/13/2020 10:00 AM FINDINGS: Bones/joints: Normal. Soft tissues: Normal. IMPRESSION: No acute findings. Dictated and Authenticated by: Ham Dougherty MD. Ordering:VANDANA Sosa MD
[2021-09-23 17:46] VITALS: BP 127/71; PULSE 71; TEMP 36.8; O2SAT 98
[2021-09-23] MEDS: Ketorolac 30 MG/ML VIAL IM (18:00)
[2021-09-23 18:12] LABS: Abs Immature Grans 0.03 10^3/uL (0.0-0.06); Absolute Basophil Count 0.07 10^3/uL (0.0-0.2); Absolute Eosinophil Count 0.56 10^3/uL (0.0-0.7); Absolute Lymphocyte Count 3.87 10^3/uL (1.2-3.4); Absolute Monocyte Count 1.04 10^3/uL (0.1-0.8); Absolute Neutrophil Count 5.68 10^3/uL (1.2-6.7); Basophils % 0.6; HCT 36.9 % (36.0-46.0); Immature Grans % 0.3; Lymphocytes % 34.4; MCHC 32.5 % (32.0-36.0); MCV 101.4 fL (80-95); MPV 11.1 fL (8.0-11.0); Monocytes % 9.2; Neutrophils % 50.5; Nucleated RBC 0 %; Platelet Count 380 10^3/uL (130-400); RBC 3.64 10^6/uL (3.93-5.22); RDW 14.1 % (11.7-14.6); WBC 11.25 10^3/uL (4.4-10.8)
[2021-09-23 18:13] LABS: ESR 8 mm/hr (0-20)
[2021-09-23 18:21] LABS: C-Reactive Protein 1.19 mg/dL (0.0-0.3)
--- NOTE | 2021-09-26 12:10 | NUR.NOTE ---
Accessed patient record to get the diagnosis for [facility]. Cathy Saxena Nursing Note:
== END 2021-09-23 18:55 | disposition home or self-care (01) ==
PROVIDERS: Emergency Provider Student in an Organized Health Care Education/Training Program; PCP Family Medicine
DX: M25.562 Pain in left knee (principal); M79.662 Pain in left lower leg; M79.661 Pain in right lower leg; D72.829 Elevated white blood cell count, unspecified; R60.0 Localized edema
CPT/HCPCS: 29505; 36415; 73562; 85652; 96372; 99284; 85025; 86140; 93970; J1885

== ENCOUNTER 2021-10-12 11:43 | Outpatient (CLI) | payer MEDICAID, SELFPAY ==
--- NOTE | 2021-10-12 10:00 | DI.RAD_ITS ---
Exam(s) XR KNEE LT 1V EXAM: XR KNEE LT 1V CLINICAL HISTORY: left knee pain. TECHNIQUE: 2D digital imaging was performed. COMPARISON: CR,XR XR KNEE LT 3V AP,LAT,BURTON from 09/23/2021 FINDINGS: Single merchant's view of the left knee. Other images of 09/23/2021 reviewed This single view reveals normal position of the left patella and no degenerative narrowing of the ret ropatellar compartment. Small degenerative subarticular cyst is noted in the anterior aspect of the lateral femoral condyle. There is no osteophyte at this level. There are no fractures of the patell a nor bipartite patella. IMPRESSION: DATA REPOSITORY: RADIATION DOSE DELIVERED:
== END 2021-10-12 11:44 | disposition home or self-care (01) ==
LOC: DIORS 11:43
PROVIDERS: PCP Family Medicine; Referring Provider Family Medicine; Visit Provider Physician Assistant
DX: M25.562 Pain in left knee (principal); M25.862 Other specified joint disorders, left knee
CPT/HCPCS: 73560

== ENCOUNTER 2021-12-08 15:07 | Emergency (ER) | payer MEDICAID, SELFPAY ==
[2021-12-08 15:12] VITALS: BP 141/88; PULSE 85; RESP 18; TEMP 36.7; O2SAT 98
--- NOTE | 2021-12-08 15:25 | W.ED.GENAD ---
Discharge Plan Disposition Patient Disposition: HOME Condition: Stable Discharge Details Clinical Impression: Left knee pain Primary Care Provider: Camelia Gracia ED Provider: Norma Fajardo Home Meds and New Rx's Prescriptions: Continued ketoconazole 2 % shampoo 1 applic TP Q2W Qty: 120 4RF Rx Instructions: Apply twice a week with at least 3 days in between shampoos levothyroxine [Synthroid] 125 mcg tablet 125 mcg PO DAILY Qty: 90 4RF Rx Instructions: Take 1 tablet once a day in the morning on an empty stomach celecoxib [Celebrex] 200 mg capsule 200 mg PO BID PRN (Reason: pain) Qty: 60 0RF Rx Instructions: Take one tablet twice daily for pain and inflammation alprazolam 0.5 mg tablet 0.5 mg PO ONCE PRN (Reason: claustrophobia) Qty: 2 0RF Rx Instructions: Take within 3o minutes of MRI. Repeat x 1 if necessary. mirtazapine [Remeron SolTab] 15 mg tablet,disintegrating 15 mg PO QHS Qty: 30 1RF melatonin 10 mg Tablet 10 mg PO PRN PRN0RF Label Comments: pt states currently taking gummies 07/20/21 BEM Discharge Instructions Instructions: Knee Pain (ED) Additional Instructions: Your x-ray today showed no evidence of acute concerning or significant findings. It is recommended that you rest, ice and elevate your left leg as much as possible. Wear your knee brace at all times and use your cane when ambulating. Hold your Celebrex dose of this evening as you were given an NSAID here in the emergency department. Return immediately to the emergency department if you develop any worsening or new concerning symptoms such as fever, redness, worsening swelling or any other concerns. Stand Alone Forms: Work Release Referrals: Aguilar Bliss MD [ [facility] STAFF PHYSICIAN] - Discharge Data Discharge Date/Time-TO BE ENTERED AT DEPARTURE: 12/08/21 17:25 Discharge Physician: Norma Fajardo Medical Decision Making 41-year-old female with a history of chronic left knee pain seen by orthopedics yesterday for MCL sprain of left knee, chondromalacia left patella and internal derangement of left knee prescribed Celebrex and referred for MRI of her left knee presents for left knee pain while trying to get into a truck and her left knee gave out. Patient is tearful and crying throughout exam. Her left knee is diffusely edematous compared to her right knee but there are no signs of cellulitis or localized edema. Limited range of motion secondary to pain but no obvious clicking or laxity. She is otherwise neurovascularly intact. Patient is requesting a CT scan of her knee or an MRI. Discussed that she could have acute on chronic left knee pain secondary to new sprain and we can obtain a knee x-ray at this time. Left knee x-ray negative for acute findings. There does not appear to be any drainable fluid collection on external exam and no obvious effusion on x-ray. She is requesting pain medication. She took Celebrex over 4 hours ago. Review of her records notes a history of substance abuse and discussed that there is no indication for narcotics at this time. We will give a dose of Toradol 30 mg IM x1. Patient is agreeable with this plan. She has a knee brace and cane. Patient advised to call Dr. Bliss's office tomorrow and follow-up with her scheduled MRI in the next 2 weeks. Usual and customary return precautions given prior to discharge. Medical Records Medical records reviewed: Yes I reviewed the patient's medical records. Medical records narrative: 10/12/21 Left knee xray XR KNEE LT 1V CLINICAL HISTORY: ? left knee pain. ? TECHNIQUE:? 2D digital imaging was performed. COMPARISON:? CR,XR XR KNEE LT 3V AP,LAT,BURTON from 09/23/2021 FINDINGS: Single merchant's view of the left knee.? Other images of 09/23/2021 reviewed This single view reveals normal position of the left patella and no degenerative narrowing of the retropatellar compartment.? Small degenerative subarticular cyst is noted in the anterior aspect of the lateral femoral condyle.? There is no osteophyte at this level.? There are no fractures of the patella nor bipartite patella. Imaging Data Radiologic Study: Radiologist's impression: XR KNEE LT 4V AP,LAT,BURTON,PAT CLINICAL HISTORY: ? left knee pain. ? TECHNIQUE:? 2D digital imaging was performed. COMPARISON:? CR XR KNEE LT 1V from 10/12/2021 FINDINGS: Four views No evidence of acute fracture nor joint space narrowing.? Tiny marginal osteophytes off the medial compartment.? No obvious joint effusion. IMPRESSION: No fracture evident. HPI General Mode of arrival: ambulatory. Date/Time Provider Initiated Documentation: 12/08/21 15:08. Limitations to Documentation: no limitations. Information obtained by: patient. HPI Narrative: Patient is a 41-year-old female with a history of chronic left knee pain seen yesterday at orthopedic diagnosed with internal derangement, chondromalacia and MCL sprain of left knee presents with left knee pain after a gave out while trying to get into a truck today. Patient states the pain is within her entire left knee but worse in the posterior knee. She states she is unable to ambulate secondary to the pain. She last took Celebrex at 1 PM today without relief. She states she has been using her knee brace regularly. She denies any fever. Related Data Home Medications Medication Instructions Recorded Confirmed ketoconazole 2 % shampoo 1 applic TP Q2W #120 ml 10/24/20 12/08/21 melatonin 10 mg tablet 10 mg PO PRN PRN 07/20/21 12/08/21 Synthroid 125 mcg tablet 125 mcg PO DAILY #90 tab NS 08/13/21 12/08/21 (levothyroxine) mirtazapine 15 mg disintegrating 15 mg PO QHS #30 tab 10/02/21 12/08/21 tablet (Remeron SolTab) alprazolam 0.5 mg tablet 0.5 mg PO ONCE PRN #2 tab 12/07/21 12/08/21 celecoxib 200 mg capsule (Celebrex) 200 mg PO BID PRN #60 cap 12/07/21 12/08/21 Previous Rx's Medication Instructions Recorded ketoconazole 2 % shampoo 1 applic TP Q2W #120 ml 10/24/20 Synthroid 125 mcg tablet 125 mcg PO DAILY #90 tab NS 08/13/21 (levothyroxine) mirtazapine 15 mg disintegrating 15 mg PO QHS #30 tab 10/02/21 tablet (Remeron SolTab) alprazolam 0.5 mg tablet 0.5 mg PO ONCE PRN #2 tab 12/07/21 celecoxib 200 mg capsule (Celebrex) 200 mg PO BID PRN #60 cap 12/07/21 Allergies Allergy/AdvReac Type Severity Reaction Status Date / Time pneumococcal vaccine Allergy Intermediate Localized Verified 12/08/21 15:16 reaction with PCV13 levothyroxine sodium AdvReac Mild Verified 12/08/21 15:16 General Stated Complaint: Orthopedic OLEGARIO: 4 Review of Systems All systems reviewed & are unremarkable except as noted in HPI and below Constitutional Constitutional: Denies chills, Denies fatigue, Denies fever(s), Denies weakness and Denies weight loss Eyes Eyes: Reports system reviewed and no additional complaints, except as documented and Denies blurry vision ENT Ears, Nose, Mouth, and Throat: Denies vertigo, Denies dizziness, Denies otalgia, Denies nasal congestion, Denies sore throat and Denies throat swelling Cardiovascular Cardiovascular: Denies chest pain, Denies syncope, Denies rapid heart rate and Denies dyspnea Respiratory Respiratory: Denies chest congestion, Denies cough, Denies pain on inspiration and Denies dyspnea Gastrointestinal Gastrointestinal: Denies abdominal pain, Denies diarrhea and Denies vomiting Genitourinary Genitourinary: Denies hematuria, Denies dysuria and Denies flank pain Musculoskeletal Musculoskeletal: Denies back pain and Denies joint swelling Comments: L knee pain Integumentary/Breasts Skin/Breast: Denies lesions and Denies rash Neurologic Neurologic: Denies behavioral changes, Denies confusion, Denies vertigo, Denies dizziness, Denies syncope, Denies localized weakness and Denies weakness Psychiatric Psychiatric: Denies behavioral changes, Denies confusion and Denies depression Endocrine Endocrine: Denies fatigue Hematologic/Lymphatic Hematologic/Lymphatic: Denies easy bruising and Denies lymphadenopathy Allergic/Immunologic Allergic/Immunologic: Denies throat swelling PFSH All Active Problems (Updated 12/08/21 @ 17:00 by Norma Fajardo DO) Left knee pain (Acute) Internal derangement of left knee (Acute) Acute sinusitis (Acute) Tinea versicolor (Acute) Insomnia (Acute) Grief reaction (Chronic) Folic acid deficiency (non anemic) (Acute) Adrenal mass, left (Acute) Anemia (Chronic) Thyromegaly (Acute) Localized swelling, mass and lump, neck (Acute) Sore throat (Acute) Hypothyroidism (Chronic) Pelletier Mitali lesion (Acute) Excision of Pelletier-Mitali lesion right thigh DOS: 12/14/18 Dr. 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 PANCREATECTOMY (08/22/07) PARTIAL Splenomegaly (08/22/07) pt. states spleen removed Tonsillectomy (~2009) Tubal ligation status Social History Smoking/Tobacco Use Status: Current every day Tobacco: How many years used: 25 Counseling given: provider counseling Smoking risk assessment performed?: Yes Alcohol Intake: current Alcohol Intake frequency: a few times a week Alcohol type: wine Drug use: Daily Substance use type: marijuana Current gender identity: female What type of physical activity do you participate in: additional Details: snowshoed a couple times this winter. Do you feel safe at home: Yes Do you feel safe in your relationship?: Yes Exam Const General: cooperative and other (tearful) Orientation: alert, awake and oriented x3 HENMT Head: normal to inspection Ears: hearing grossly normal bilaterally, external ears normal and TM's normal bilaterally General nose exam: external nose normal Face and sinus: normal facial exam Mouth: oral mucosae normal Teeth and gingiva: dentition normal Throat: posterior oropharynx normal Eyes General: appearance normal, both eyes and all related structures Eyelids: eyelids normal Pupils: PERRL EOM: EOM intact bilaterally Neck Neck: normal visual inspection Lymphatic: no lymphadenopathy noted Chest Chest: normal inspection of the chest Resp Effort & Inspection: normal respiratory effort and able to speak in complete sentences Auscultation: clear to auscultation bilaterally Cardio Rate: regular rate Rhythm: regular rhythm GI Inspection: normal to inspection Palpation: soft, not firm, no guarding, no hepatosplenomegaly, no masses and nontender Auscultation: normal bowel sounds Back/Spine/Pelvis Back: no CVA tenderness Skin General skin exam: no rashes or lesions noted Neuro General: patient alert and patient awake Cognition: normal cognition Speech: speech normal Gait: normal gait Motor: muscle tone normal throughout Sensory Exam: no sensory deficits noted Extrem Other: Mild edema noted to left anterior knee in comparison to right knee. Limited range of motion due to pain. Limited ability to test for anterior and posterior drawer, Mahad's test secondary to pain but no obvious clicking or laxity noted. There is no significant laxity or pain with valgus or varus stress. There is no erythema or rash noted to the left knee. L DP/PT pulses intact. Psych Appearance: grossly normal Mental Status: mental status grossly normal Speech and Movement: speech and movement normal Affect: normal affect Thought Process: normal Course Vital Signs Vital signs: Vital Signs Temperature 98.1 F 12/08/21 15:12 Pulse 85 12/08/21 15:12 Respiratory Rate 18 12/08/21 15:12 Blood Pressure 141/88 H 12/08/21 15:12 Pulse Oximetry 98 12/08/21 15:12 Temperature 98.1 F 12/08/21 15:12 Temperature Source Oral 12/08/21 15:12 Pulse 85 12/08/21 15:12 Respiratory Rate 18 12/08/21 15:12 Blood Pressure 141/88 H 12/08/21 15:12 Blood Pressure Position Sitting 12/08/21 15:12 Pulse Oximetry 98 12/08/21 15:12 Oxygen Delivery Method Room Air 12/08/21 15:12 Oxygen Flow Rate 0 12/08/21 15:12
--- NOTE | 2021-12-08 15:30 | DI.RAD_ITS ---
Exam(s) XR KNEE LT 4V AP,LAT,BURTON,PAT EXAM: XR KNEE LT 4V AP,LAT,BURTON,PAT CLINICAL HISTORY: left knee pain. TECHNIQUE: 2D digital imaging was performed. COMPARISON: CR XR KNEE LT 1V from 10/12/2021 FINDINGS: Four views No evidence of acute fracture nor joint space narrowing. Tiny marginal osteophytes off the medial co mpartment. No obvious joint effusion. IMPRESSION: No fracture evident. DATA REPOSITORY: RADIATION DOSE DELIVERED:
[2021-12-08] MEDS: Ketorolac 60 MG/2 ML VIAL 30 MG IM (17:13)
== END 2021-12-08 17:25 | disposition home or self-care (01) ==
PROVIDERS: Emergency Provider Physician Assistant; PCP Family Medicine
DX: M25.562 Pain in left knee (principal)
CPT/HCPCS: 96372; 99284; 73564; 99283; J1885

== ENCOUNTER → 2021-12-10 10:41 | Outpatient (CLI) | payer MEDICAID, SELFPAY ==
--- NOTE | 2021-12-10 09:15 | DI.MRI_ITS ---
Exam(s) MR LOWER JOINT LT WO EXAM: MR LOWER JOINT LT WO CLINICAL HISTORY: PAIN, CHONDROMALACIA OF LT PATELLA LT KNEE M22.42 TECHNIQUE: Multiplanar multisequence MRI of the left knee was performed. COMPARISON: Plain films of 12/08/2021 reviewed FINDINGS: EFFUSION: There is a moderate-sized joint effusion.. There is no Herrera cyst in the popliteal fossa. There is significant edema in the subcutaneous tissues anterior to the patella and patellar ligament . There is a small amount of fluid in the prepatellar bursa. No susceptibility artifact seen to sug gest foreign body. MARROW:There is no evidence of fracture, bone contusion, nor osteochondral defects.. There are no si gnificant osseous lesions. PATELLOFEMORAL COMPARTMENT: The quadriceps tendon is intact. The patellar ligament is intact. There is an oblique focal fissure in the retropatellar cartilage over the lateral facet at approximat davion the midline level of the patella, lateral of center. Below the equator there is moderate thinnin g of the retropatellar cartilage over the medial facet. There are no degenerative subarticular cysts in the patella nor osteochondral defects and there is no intraosseous signal to suggest recent torres lar dislocation. There are no true patellar retinacular tears. CRUCIATE LIGAMENTS: The anterior cruciate ligament is intact.The posterior cruciate ligament is intac t. MEDIAL COMPARTMENT/MEDIAL MENISCUS: There is a partial tear in the posterior horn of the medial menis cus at the level of the root. no bucket-handle configuration. No extrusion nor intrusion. Anterior horn of the medial meniscus appears intact.. There are moderate cartilage changes over the medial condyle. No large chondral defect but generaliz ed thinning. There are tiny marginal osteophytes off both the medial and lateral aspects of the medi al femoral condyle. There is mild subarticular edema in the posterior tibial plateau immediately sub jacent to the meniscal root injury level. MEDIAL COLLATERAL LIGAMENT: Mild sprain. No high-grade tear. LATERAL COMPARTMENT/LATERAL MENISCUS: There is no evidence of lateral meniscal tear.There are no kin dral defects, osteochondral defects, subarticular marrow edema, nor osteophytes evident. ILIOTIBIAL BAND: Intact LATERAL COLLATERAL LIGAMENT COMPLEX: The fibular collateral ligament is intact. The biceps femoris t endon is intact.Popliteus muscle and tendon are intact. IMPRESSION: 1. There is tear of the posterior horn of the medial meniscus at the level of the root and there is m ild intraosseous subarticular edema in the tibial plateau subjacent to this area. There is no bucket -handle configuration. No meniscal extrusion nor intrusion. The anterior horn is intact. There are mild-moderate degenerative changes in the medial compartment 2. Lateral meniscus is intact as are the cruciate ligaments. No true collateral ligament tears. 3. Chondromalacia patella, both over the lateral and medial facets. There is a small focal defect in the retropatellar cartilage over the lateral facet. There is generalized thinning over the medial f acet. There is no abnormal intraosseous signal in the patella. No patellar retinacular tears. No o steophytes off the patella. However, there is subcutaneous edema over the patella and patellar ligam ent noted. No tears of the quadriceps nor of the patellar ligament. 4. Moderate-sized joint effusion noted. There is no Herrera cyst. DATA REPOSITORY:
== END ==
PROVIDERS: PCP Family Medicine; Visit Provider Student in an Organized Health Care Education/Training Program
DX: M25.562 Pain in left knee (principal); M22.42 Chondromalacia patellae, left knee; M25.462 Effusion, left knee; S83.242A Other tear of medial meniscus, current injury, left knee, initial encounter
CPT/HCPCS: 73721

== ENCOUNTER 2021-12-22 01:39 | Outpatient (CLI) | payer MEDICAID, SELFPAY ==
[2021-12-22 12:18] LABS: Source Nasal/Nares
[2021-12-22 15:12] LABS: COVID-19 PCR Negative (Negative)
== END 2021-12-22 01:40 | disposition home or self-care (01) ==
LOC: LBO 01:40
PROVIDERS: PCP Family Medicine; Visit Provider Student in an Organized Health Care Education/Training Program
DX: Z20.822 Contact with and (suspected) exposure to COVID-19 (principal); Z01.818 Encounter for other preprocedural examination
CPT/HCPCS: 87635

== ENCOUNTER 2021-12-24 07:27 | Day surgery (SDC) | payer MEDICAID, SELFPAY ==
[2021-12-24] VITALS (16 sets, daily range): BP systolic 115–176; BP diastolic 64–100; PULSE 55–95; RESP 14–23; TEMP 36.1–36.8; O2SAT 95–100; BMI 38.4
--- NOTE | 2021-12-24 08:04 | W.ANESPRE ---
General Info Date of Service Date Performed: 12/24/21 Height: 5 ft 3 in Weight: 98.4 kg Body Mass Index (BMI): 38.4 Surgical Procedure: Operation Date: 12/24/21 09:55 Proposed Procedure Side Surgeon p Knee Arthroscopy w/Possible Medial Meniscus Repair and/or Root Repair Left Jarett Marquez MD Meds Allergies and Home Medications Allergies Allergy/AdvReac Type Severity Reaction Status Date / Time pneumococcal vaccine Allergy Intermediate Localized Verified 12/24/21 07:52 reaction with PCV13 levothyroxine sodium AdvReac Mild Verified 12/24/21 07:53 Home Medication Medication Instructions Recorded ketoconazole 2 % shampoo 1 applic TP Q2W #120 ml 10/24/20 Synthroid 125 mcg tablet 125 mcg PO DAILY #90 tab NS 08/13/21 (levothyroxine) celecoxib 200 mg capsule (Celebrex) 200 mg PO BID PRN #60 cap 12/07/21 lorazepam 0.5 mg tablet 0.5 mg PO HS PRN #30 tab 12/18/21 acetaminophen 500 mg tablet 1,000 mg PO USEASDIRECTD PRN 12/23/21 mirtazapine 15 mg disintegrating 15 mg PO QHS #30 tab 12/23/21 tablet (Remeron SolTab) Current Visit Medications: Current Medications Generic Name Dose Route Start Last Admin Trade Name Freq PRN Reason Stop Dose Admin Ringer's Solution 1,000 mls @ 100 mls/hr 12/24/21 06:00 IV 01/22/22 23:59 INFUSION MAR Cefazolin Sodium/Dextrose 2 gm in 50 mls @ 100 mls/hr 12/24/21 06:00 Ancef Duplex IVPB 01/22/22 23:59 PREOP MAR IV Miscellaneous Supplies 1 each 12/24/21 06:00 Iv Access IV 01/22/22 23:59 DIRECTED MAR Sodium Chloride 0 ml 12/24/21 06:00 Normal Saline Flush 10 Ml Syr IV 01/22/22 23:59 PRN PRN Sodium Chloride 0 ml 12/24/21 06:00 Normal Saline 10 Ml Vial IJ 01/22/22 23:59 DIRECTED PRN Sterile Water 0 ml 12/24/21 06:00 Water,Injection,Sterile 10 Ml Vial IJ 01/22/22 23:59 DIRECTED PRN PFSH Active Problems Active Problems: Problem Status Onset Code Amplified musculoskeletal pain M79.18 Acute medial meniscus tear of left knee ~09/2021 S83.242A Internal derangement of left knee M23.92 Insomnia G47.00 Grief reaction F43.21 Folic acid deficiency (non anemic) E53.8 Adrenal mass, left E27.8 Hypothyroidism E03.9 Smoker 10/23/12 F17.200 Pancreatic insufficiency 10/23/12 K86.89 Obesity 10/23/12 E66.9 Dysmenorrhea 06/30/16 N94.6 Depressive disorder F32.9 Anxiety 08/02/12 F41.9 Asplenia Q89.01 Medical History Medical History Chronic pancreatitis (10/23/12) LOW LEVEL Liliya's thyroiditis (04/30/15) Surgical History Surgical History History of appendectomy History of splenectomy History of tonsillectomy Pelletier Mitali lesion Excision of Pelletier-Mitali lesion right thigh DOS: 12/14/18 Dr. Lugo PANCREATECTOMY (08/22/07) PARTIAL Status post cholecystectomy (~2007) [facility] in November 27, complicated by injury to the pancreas with a 40% pancreectomy done in April 29 and a subsequent splenectomy done in also. Tubal ligation status Tobacco Smoking/Tobacco Use Status: Current every day Counseling given: provider counseling Alcohol Alcohol Intake: current Alcohol intake frequency: a few times a week Alcohol type: wine Substance Use Substance use: Occasionally Substance use type: marijuana Vital Signs and Lab Results Vital Signs Most Recent Vital Signs in EMR: Most Recent Vital Signs Temp Pulse Resp BP Pulse Ox 36.8 C 78 16 150/99 H 98 12/24/21 07:46 12/24/21 07:46 12/24/21 07:46 12/24/21 07:46 12/24/21 07:46 Lab Results Blood Type / Crossmatch: No Data to Display Complete Blood Count: No Data to Display Complete Metabolic Panel: No Data to Display Liver Function Panel: No Data to Display Coagulation Panel: No Data to Display Cardiac Panel: No Data to Display Arterial Blood Gas: No Data to Display Venous Blood Gas: No Data to Display Pancreas Panel: No Data to Display Thyroid Panel: No Data to Display Infectious Disease: Coronavirus (COVID-19)(PCR) Negative (Negative) 12/22/21 09:35 12/22/21 Coronavirus 2019 Source Nasal/Nares 12/22/21 09:35 12/22/21 Blood Cultures: No Data to Display Toxicology Panel: No Data to Display Panel: No Data to Display Imaging and Studies Imaging and Studies Study information below may be from another EMR and interpreted by another provider. Please see original notes in EMR for more complete details. EKG Summary: DATE/TIME OF SERVICE: 10/15/20 1412 : 1980PERFORMING LOCATION: ER APPROVED REPORT Exam: Resting ECG Patient Location: E HR:77 bpm ECG Measurements Heart Rate 77 AXIS AK 159 P 45 QRSd 85 QRS 18 QT 384 T26 QTc 435 Conclusion Sinus rhythm...normal P axis, V-rate 60- 99 Ventricular trigeminy...trigeminy string>6 w/ V complexes. No STEMI. Frequent PVCs. Anesthesia Assessment and Plan Anesthesia History Personal History: PONV Family History: No Family History of Anesthesia Complications Exercise Tolerance Exercise Tolerance: Metabolic Equivalents>4 Pertinent Negatives Pertinent Negatives: No Symptoms of GERD, No Major Cardiovascular Symptoms or Complaints and No Major Pulmonary Symptoms or Complaints Cardiac & Pulmonary Exam Cardiac Exam: Normal S1/S2 Heart Sounds Pulmonary Exam: Clear Bilateral Breath Sounds Implantable Cardiac Device Does patient have a Pacemaker or an ICD?: No Airway Exam Known Difficult Airway: No Mallampati Class: 2 Mouth Opening: Normal (> 3cm) Thyromental Distance: Greater than 3 cm Neck Range of Motion: Full ROM Neck Circumference: Normal Teeth Condition: Normal Dentition ASA Classification ASA Score: ASA 2 Emergency Case?: No NPO Status NPO Status: NPO Clears >2 hours, Solids >8 hours Status Status: Negative HCG Anesthesia Plan Resuscitation Status: Full Code Anesthesia Technique: General Anesthesia Airway Planned: LMA Pain Management: Surgeon and patient request nerve block Monitors Used: Standard Monitors
[2021-12-24] MEDS: Lactated Ringers 1,000 ML 100 ML IV ×2 (08:58→12:10)
[2021-12-24] MEDS: ceFAZolin 2 GM/50 ML BAG IVPB (09:00)
--- NOTE | 2021-12-24 09:30 | W.ANESNERVE ---
Nerve Block Single Injection Procedure Date and Time Date Performed: 12/24/21 Procedure Start: 08:45 Location Where Procedure Performed Procedure Location: Day Surgery Unit Reason Performed: Postoperative Analgesia Requesting Provider: Jarett Marquez Timeout Performed Timeout Performed: Yes Monitoring Used ECG, Blood Pressure and SpO2 Sterility Sterility: Hand Hygiene, Surgical Cap, Surgical Mask, Sterile Gloves and Chlorhexidine Sedation Given During Procedure Sedation Given (Indicate Dose Given): Versed IV Dose:: 2mg Patient Mental Status Patient Mental Status: Awake Nerve Block 1st Nerve Block: Laterality: Left Block Type: Adductor Canal Needle / Catheter Used: 100mm SonoPlex II Local Anesthetic Bolus (Indicate Dose Given): Lidocaine used for local infiltration of skin, Injected in 3-5ml increments after negative blood aspiration and Bupivacaine 0.25% Dose:: 20ml Additives (Indicate Dose Given): None Ultrasound: Sterile probe cover and gel used Ultrasound Image Saved?: Yes Nerve Stimulator: Not Used Paresthesia: None Procedure Tolerated: No Complications and Patient tolerated well Procedure Outcome: Successful Performed By: Karri Mcleod
[2021-12-24] MEDS: Bupivacaine 0.25% Pres-Free 30 ML VIAL (09:34)
--- NOTE | 2021-12-24 11:04 | W.PM.DSUDISC ---
Discharge Plan Disposition Patient Disposition: HOME Condition: Stable Discharge Details Reason For Visit: Left knee surgery Attending Provider: Jarett Marquez Primary Care Provider: Camelia Gracia Home Meds and New Rx's Prescriptions: New aspirin 81 mg tablet,delayed release (DR/EC) 81 mg PO DAILY 14 Days Qty: 14 0RF naproxen 250 mg tablet 250 - 500 mg PO BID PRNQty: 40 0RF Rx Instructions: take with a meal oxycodone 5 mg tablet 5 - 10 mg PO Q4H MDD 30 mg PRN (Reason: moderate to severe pain) Qty: 18 0RF Continued ketoconazole 2 % shampoo 1 applic TP Q2W Qty: 120 4RF Rx Instructions: Apply twice a week with at least 3 days in between shampoos levothyroxine [Synthroid] 125 mcg tablet 125 mcg PO DAILY Qty: 90 4RF Rx Instructions: Take 1 tablet once a day in the morning on an empty stomach lorazepam 0.5 mg tablet 0.5 mg PO HS PRN (Reason: anxiety) Qty: 30 0RF mirtazapine [Remeron SolTab] 15 mg tablet,disintegrating 15 mg PO QHS Qty: 30 12RF acetaminophen 500 mg Tablet 1,000 mg PO USEASDIRECTD PRN0RF Discontinued celecoxib [Celebrex] 200 mg capsule 200 mg PO BID PRN (Reason: pain) Qty: 60 0RF Rx Instructions: Take one tablet twice daily for pain and inflammation Discharge Instructions Additional Instructions: Surgery: Left knee arthroscopy with medial meniscus root repair, synovectomy, and chondroplasty Activity: For 6 weeks, nonweightbearing with crutches. Avoid knee flexion past 90 degrees for 8 weeks. Restore full knee extension as soon as possible. Avoid squatting, pivoting, and jumping for approximately 3 months. A physical therapy prescription will be sent electronically to start in 2 to 3 weeks. Prescriptions: Aspirin 81 mg take 1 daily to prevent a blood clot for 14 days Naproxen 250 mg take 1-2 every 12 hours with a meal as needed for moderate pain Oxycodone 5 mg take 1-2 every 4-6 hours as needed for severe pain You may use [id number] Tylenol (acetaminophen) as needed for mild pain. These pain medications may be taken all at once or in different combinations as needed. Also, recommend Colace (docusate) as a stool softener as surgery and pain medicine cause constipation. Dressings: Leave dressing in place for 4 days. May then remove and leave open to air or cover incisions with Band-Aids. May shower after 5 days. Follow-up: 10-[address] Marquez Let us know right away if you develop any redness, drainage, fevers, chest pain, or trouble breathing. Do not drink alcohol or drive for at least 24 hours after anesthesia. Please call the office during business hours with any questions or concerns. Stand Alone Forms: Anesthesia Discharge Inst., Anes.Nerve Block Instructions, Alejandro Motta (DSU) Discharge Orders Discharge Orders: Discharge Order (Routine); Ordered 12/24/21 Ordered By: Jarett Marquez DS: Diagnosis Discharge Diagnosis (1) Acute medial meniscus tear of left knee: Status: Acute (2) Chondromalacia of left patella: Status: Suspected
[2021-12-24] MEDS: fentaNYL 100 MCG/2 ML VIAL IVP ×2 (11:22→11:44)
[2021-12-24] MEDS: Normal Saline 10 ML VIAL IJ (11:35)
[2021-12-24] MEDS: HYDROmorphone 2 MG/ML VIAL IVP ×4 (11:35→15:25)
[2021-12-24] MEDS: oxyCODONE 5 MG TAB PO ×2 (12:05→12:22)
--- NOTE | 2021-12-24 15:02 | W.PM.OP ---
Date of service: 12/24/21 Time of Service: 09:00 Operative Note Operative Note DATE OF PROCEDURE: 12/24/21 PRE-OP DIAGNOSIS: Left knee 1. Medial meniscus tear 2. Synovitis 3. Chondromalacia POST-OP DIAGNOSIS: same PROCEDURE: Left knee 1. Medial meniscus root repair, CPT #31279 2. Greater than 2 compartment synovectomy, CPT #88751: Intercondylar, anteromedial, anterolateral, medial gutter, lateral gutter, and patellofemoral 3. Chondroplasty, CPT #08369: Patellar and trochlear SURGEON: Jarett Marquez ELECTRIC MOTOR ANALYST: Radha Orlando Refer to Anesthesia Record PATHOLOGY: none sent TOURNIQUET TIME: 0 COMPLICATIONS: None Patient was transported to: PACU Patient's condition: stable Implants: Arthrex 12mm round button Indications: Please see complete medical record for details. Findings: Exam under anesthesia: Full range of motion, stable Arthroscopic findings: Profound synovitis throughout patellofemoral, intercondylar, medial lateral gutters, medial compartment. Significant diffuse cartilage fibrillations. Early joint space narrowing and marginal osteophyte formation medially medial tibial spine. Central trochlear grade 3 chondromalacia. Intact lateral meniscus. Intact ACL PCL. Near?complete oblique radial medial meniscal posterior horn adjacent to the root tear. Procedure Description: In the operating room, genral anesthesia was induced. The patient was positioned supine on the operating room table. All bony prominences were well-padded. Preoperative antibiotics were administered. The knee was prepped and draped in the usual sterile fashion. The correct patient, procedure, and side of the procedure were all verified prior to incision. Exam under anesthesia was performed. 10 cc of mixture lidocaine and bupivacaine containing epinephrine was infiltrated about the planned anteromedial and anterolateral knee arthroscopy portals. The portals were established and a complete diagnostic arthroscopy was performed with relevant findings detailed above. The mechanical shaver was used to remove significant pathologic synovium from the anteromedial, anterolateral, intercondylar, medial and lateral gutters, and patellofemoral areas. The mechanical shaver was used to debride only as much as necessary and establish a stable margin around the central trochlear cartilage lesion. Using a combination of hand instruments including meniscal biters and a power shaver and working through the anteromedial and anterolateral compartments the medial meniscus body was debrided of white zone fraying and undersurface tearing throughout the body and posterior horn body junction. The posterior horn of the meniscus was probed and demonstrated instability able to be retracted into the medial compartment owing to the high?grade oblique radial posterior horn tear adjacent to the root. The medial tibial spine was debrided to allow access as a sort of reverse type notchplasty. The root remnant was debrided of frayed tissue as well as the posterior horn remnant. Solid posterior horn tissue remained. There was not enough root tissue to do a radial style repair so a root repair was done. The root guide was brought in the anteromedial portal and adjusted to optimal position. The 3.5 mm flip cutter drill to the correct location, flipped to 6 mm size, and retrograde drilling done for about a 5 mm socket. The drill removed and a fiber stick passed up and stitch retrieved. The knee scorpion was then used to pass two 0 FiberLink sutures in cinch mode in the posterior horn tissue. These repair sutures were withdrawn out the total with excellent posterior horn tissue repair to the root repair site. The sutures were secured to a 4-hole round button that was carefully applied to the pretibial anteromedial cortex and securely tied with appropriate tension on the repair. The knee was copiously irrigated with arthroscopic fluid until there was a clear effluent before being drained of all fluid. The pretibial, anteromedial and anterolateral portals were closed in 3-0 Monocryl in a buried interrupted fashion. Mastisol, Steri-Strips, and 4 x 4 gauze were applied over the incisions followed by sterile soft roll. The knee was then wrapped gently with an SUSANA comressive bandage. The patient awoke from anesthesia without complication and was transferred to the recovery room in a stable condition.
--- NOTE | 2021-12-24 15:35 | ANES.POST_ITS ---
Postoperative Evaluation Date, Time and Location Date Performed: 12/24/21 Time Performed: 15:35 Patient Location: Day Surgery Unit Vital Signs Most Recent Imported Vital Signs: Most Recent Vital Signs Temp Pulse Resp BP Pulse Ox 36.6 C 95 H 16 135/87 96 12/24/21 15:28 12/24/21 15:28 12/24/21 15:28 12/24/21 15:28 12/24/21 15:28 Pain Score Most Recent Pain Score: Most Recent Pain Score Pain Level 7 12/24/21 15:28 Assessment Mental Status: Awake (Alert & Oriented to Patient Baseline) Airway and Respiratory Function: Patent airway with normal (patient baseline) respiratory exam Cardiovascular Function: Hemodynamically Stable Hydration Status: Adequately Hydrated Nausea & Vomiting: No Nausea or Vomiting Pain: Pain is Moderate or Severe Postoperative Pain Management: Pain being ad dressed with medication (Surgeon to see patient and discuss plan) Peripheral Nerve Block: Regional nerve block not resolved at time of post operative discharge
== END 2021-12-24 16:17 | disposition home or self-care (01) ==
PROVIDERS: PCP Family Medicine; Visit Provider Student in an Organized Health Care Education/Training Program
PROC: (CPT 29870; principal; 2021-12-24 09:45)
DX: S83.242A Other tear of medial meniscus, current injury, left knee, initial encounter (principal); M65.862 Other synovitis and tenosynovitis, left lower leg; M22.42 Chondromalacia patellae, left knee; E06.3 Autoimmune thyroiditis; E53.8 Deficiency of other specified B group vitamins; F17.210 Nicotine dependence, cigarettes, uncomplicated; X58.XXXA Exposure to other specified factors, initial encounter
CPT/HCPCS: 29882; 29876; 76942; 81025; J0690; J1100; J1885; J2250; J2270; J2405; J2704; J3010

== ENCOUNTER 2021-12-30 10:29 | Emergency (ER) | payer MEDICAID, SELFPAY ==
--- NOTE | 2021-12-30 10:15 | RT.EKG_ITS ---
APPROVED REPORT Exam: Resting ECG Reason for Exam: chest pressure,heaviness Patient Location: E HR:77 bpm ECG Measurements Heart Rate 77 AXIS AZ 163 P 51 QRSd 84 QRS 5 QT 375 T -1 QTc 425 Conclusion Sinus rhythm...normal P axis, V-rate 60- 99
[2021-12-30 10:35] VITALS: BP 157/95; PULSE 87; RESP 16; TEMP 36.6; O2SAT 97
--- NOTE | 2021-12-30 10:49 | ED.GENADUL_ITS ---
Discharge Plan Disposition Patient Disposition: HOME Condition: Stable Discharge Details Clinical Impression: DVT (deep venous thrombosis), Chest pain Primary Care Provider: Camelia Gracia ED Provider: Paul Man Home Meds and New Rx's Prescriptions: New Eliquis DVT-PE Treat 30D Start 5 mg (74 tabs) tablets,dose pack 5 mg PO ONCE Qty: 74 0RF Rx Instructions: 10mg twice daily for 7 days then 5mg twice daily oxycodone 5 mg tablet 5 mg PO Q6H PRN (Reason: pain) Qty: 12 0RF Continued ketoconazole 2 % shampoo 1 applic TP Q2W Qty: 120 4RF Rx Instructions: Apply twice a week with at least 3 days in between shampoos levothyroxine [Synthroid] 125 mcg tablet 125 mcg PO DAILY Qty: 90 4RF Rx Instructions: Take 1 tablet once a day in the morning on an empty stomach lorazepam 0.5 mg tablet 0.5 mg PO HS PRN (Reason: anxiety) Qty: 30 0RF mirtazapine [Remeron SolTab] 15 mg tablet,disintegrating 15 mg PO QHS Qty: 30 12RF acetaminophen 500 mg Tablet 1,000 mg PO USEASDIRECTD PRN0RF aspirin 81 mg tablet,delayed release (DR/EC) 81 mg PO DAILY 14 Days Qty: 14 0RF naproxen 250 mg tablet 250 - 500 mg PO BID PRNQty: 40 0RF Rx Instructions: take with a meal oxycodone 5 mg tablet 5 - 10 mg PO Q4H MDD 30 mg PRN (Reason: moderate to severe pain) Qty: 18 0RF Discharge Instructions Instructions: Deep Vein Thrombosis (ED) Additional Instructions: your cat scan did not show any blood clots in your chest, you do have a blood clot in the vein behind the knee and calf take the eliquis as prescribed, 10mg twice daily for 7 days then 5mg twice daily. Follow up with your primary care provider within 1-2 weeks and your prescription may need to be extended beyond this you can take 1000mg tylenol every 6 hours as needed, do not exceed 3000mg in 24 hour time period if you feel more ill, have severe worsening pain or difficulty breathing return to the emergency department Medical Decision Making 41 yo female with hx of anxiety, who had meniscus surgery done last week comes in with ems with pain in stating I think I had a panic attack. She states around 8am she started to feel anxious, had chest pain and felt tingling in her left leg. SHe feels mildly better now. She denies any chest pain now, no fevers, chills, dyspnea, abdomen pain. She called ems due to limited mobility from her surgery. She still appears anxious, stable vital signs. She has several small incision wouds from the surgery on her left knee that have no signs of infection and appear well healed. She has normal sensation of the foot and no calf tenderness. She has clear lungs, no murmurs. I suspect this was anxiety/panic attack but will obtain ekg and troponin, heart score is 2. No tearing back pain so doubt dissection. No hypoxia or tachycardia so doubt PE but given recent surgery will obtain d dimer. labs show mild elevation in ast/alt, has no abdominal tenderness at all on exam so doubt cholecystitis. She does have d dimer over 1999 so cta for pe ordered as well as leg ultrasound. She is sleeping on reassessment and easily awakens, is feeling better compared to earlier. Her troponin is negative and was 3 hours after symptom onset so do not feel delta troponin indicated u/s shows dvt from popliteal through posteriotibial and penoeal veins, cta negative. She remains stable. Differential Diagnosis Differential Diagnosis: anxiety/panic attack, pe, nstemi Medical Records Medical records reviewed: Yes I reviewed the patient's medical records. Imaging Data Radiologic Study: Attestation: I personally reviewed and interpreted this imaging study as follows: Imaging: Ultrasound Radiologist's impression: IMPRESSION: Deep venous thrombosis from popliteal through mid posterior tibial and peroneal veins.? Radiologic Study #2: Attestation: I personally reviewed and interpreted this imaging study as follows: Imaging: CT Scan Radiologist's impression: IMPRESSION: No evidence of pulmonary embolism or other acute abnormality..? ECG Data Attestation: I personally reviewed and interpreted this ECG (s) as follows: Prior ECG tracings: available for review Interpretation: sinus rhythm, rate of 77, no acute st t wave ischemic findings HPI General Mode of arrival: EMS . Date/Time Provider Initiated Documentation: 12/30/21 10:45 . Limitations to Documentation: no limitations . Information obtained by: patient . History of Present Illness 41 year old F presents to the emergency department with the chief complaint of feels anxious, described as moderate, Patient started experiencing this hour(s) (3) and it has been constant. improves with No relieving factors improve symptom(s), No exacerbating factors reported . Patient notes chest pain. Patient did receive the following treatments prior to arrival, none Related Data Home Medications Medication Instructions Recorded Confirmed ketoconazole 2 % shampoo 1 applic TP Q2W #120 ml 10/24/20 12/30/21 Synthroid 125 mcg tablet 125 mcg PO DAILY #90 tab NS 08/13/21 12/30/21 (levothyroxine) lorazepam 0.5 mg tablet 0.5 mg PO HS PRN #30 tab 12/18/21 12/30/21 acetaminophen 500 mg tablet 1,000 mg PO USEASDIRECTD PRN 12/23/21 12/24/21 mirtazapine 15 mg disintegrating 15 mg PO QHS #30 tab 12/23/21 12/30/21 tablet (Remeron SolTab) aspirin 81 mg tablet,delayed 81 mg PO DAILY 14 Days #14 tab 12/24/21 12/30/21 release naproxen 250 mg tablet 250 - 500 mg PO BID PRN #40 tab 12/24/21 12/30/21 oxycodone 5 mg tablet 5 - 10 mg PO Q4H PRN #18 tab MDD 12/24/21 12/30/21 30 mg apixaban 5 mg (74 tabs) tablets in 5 mg PO ONCE #74 dose pk 12/30/21 a dose pack ([employer] DVT-PE Treat 30D Start) oxycodone 5 mg tablet 5 mg PO Q6H PRN #12 tab 12/30/21 Previous Rx's Medication Instructions Recorded ketoconazole 2 % shampoo 1 applic TP Q2W #120 ml 10/24/20 Synthroid 125 mcg tablet 125 mcg PO DAILY #90 tab NS 08/13/21 (levothyroxine) lorazepam 0.5 mg tablet 0.5 mg PO HS PRN #30 tab 12/18/21 mirtazapine 15 mg disintegrating 15 mg PO QHS #30 tab 12/23/21 tablet (Remeron SolTab) aspirin 81 mg tablet,delayed 81 mg PO DAILY 14 Days #14 tab 12/24/21 release naproxen 250 mg tablet 250 - 500 mg PO BID PRN #40 tab 12/24/21 oxycodone 5 mg tablet 5 - 10 mg PO Q4H PRN #18 tab MDD 12/24/21 30 mg apixaban 5 mg (74 tabs) tablets in 5 mg PO ONCE #74 dose pk 12/30/21 a dose pack ([employer] DVT-PE Treat 30D Start) oxycodone 5 mg tablet 5 mg PO Q6H PRN #12 tab 12/30/21 Allergies Allergy/AdvReac Type Severity Reaction Status Date / Time pneumococcal vaccine Allergy Intermediate Localized Verified 12/30/21 10:43 reaction with PCV13 levothyroxine sodium AdvReac Mild Verified 12/30/21 10:43 General Stated Complaint: Orthopedic OLEGARIO: 3 Review of Systems All systems reviewed & are unremarkable except as noted in HPI and below Constitutional Constitutional: Denies chills, Denies fever(s) and Denies weakness Eyes Eyes: Denies loss of vision ENT Ears, Nose, Mouth, and Throat: Denies change in voice Cardiovascular Cardiovascular: Denies dyspnea Respiratory Respiratory: Denies cough and Denies dyspnea Gastrointestinal Gastrointestinal: Denies abdominal pain, Denies nausea and Denies vomiting Genitourinary Genitourinary: Denies dysuria Musculoskeletal Musculoskeletal: Denies joint swelling Integumentary/Breasts Skin/Breast: Denies rash Neurologic Neurologic: Denies loss of vision and Denies weakness PFSH All Active Problems (Updated 12/30/21 @ 13:27 by Paul Man MD) DVT (deep venous thrombosis) (Chronic) Chest pain (Acute) Amplified musculoskeletal pain (Acute) Acute medial meniscus tear of left knee (Acute ~09/2021) fell down stairs; scheduled surgery 12/2021 Insomnia (Acute) Grief reaction (Chronic) Folic acid deficiency (non anemic) (Acute) takes vitamins Adrenal mass, 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 1 year repeat recommended. 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 Lugo PANCREATECTOMY (08/22/07) PARTIAL Status post cholecystectomy (~2007) [facility] in November 27, complicated by injury to the pancreas with a 40% pancreectomy done in April 29 and a subsequent splenectomy done in also. Tubal ligation status Family History (Updated 12/18/21 @ 14:24 by Camelia Gracia MD) Mother Liliya's disease Father , 48 Brain tumor Sister No problems noted. Brother No problems noted. 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 What type of physical activity do you participate in: additional Details: snowshoed a couple times this winter. Do you feel safe at home: Yes Do you feel safe in your relationship?: Yes Exam Const General: no acute distress and anxious Orientation: alert [facility] Head: normal to inspection Ears: external ears normal General nose exam: external nose normal Mouth: moist mucous membranes Eyes General: appearance normal, both eyes and all related structures Neck Neck: normal visual inspection Resp Effort & Inspection: normal respiratory effort and able to speak in complete sentences Cardio Rate: regular rate Skin General skin exam: no rashes or lesions noted Neuro General: patient alert and patient oriented x3 Extrem General: capillary refill normal Psych Mental Status: mental status grossly normal Course Vital Signs Vital signs: Vital Signs Temperature 36.6 C 12/30/21 10:35 Pulse 87 12/30/21 10:35 Respiratory Rate 16 12/30/21 10:35 Blood Pressure 157/95 H 12/30/21 10:35 Pulse Oximetry 97 12/30/21 10:35 Temperature 36.6 C 12/30/21 10:35 Pulse 87 12/30/21 10:35 Respiratory Rate 16 12/30/21 10:35 Blood Pressure 157/95 H 12/30/21 10:35 Blood Pressure Position Supine 12/30/21 10:35 Pulse Oximetry 97 12/30/21 10:35 Oxygen Delivery Method Room Air 12/30/21 10:35 Oxygen Flow Rate 0 12/30/21 10:35 Pain Level 8 12/30/21 10:35 Comment 12/30/21 10:35
[2021-12-30 11:00] LABS: Abs Immature Grans 0.04 10^3/uL (0.0-0.06); Absolute Basophil Count 0.05 10^3/uL (0.0-0.2); Basophils % 0.4; Eosinophils % 2.6; HCT 39.9 % (36.0-46.0); HGB 13.1 g/dL (11.2-15.7); Immature Grans % 0.3; Lymphocytes % 18.7; MCH 33.1 pg (27.0-33.0); MCHC 32.8 % (32.0-36.0); MCV 101 fL (80-95); MPV 11.2 fL (8.0-11.0); Platelet Count 367 10^3/uL (130-400); RBC 3.96 10^6/uL (3.93-5.22); RDW 14.1 % (11.7-14.6); RDW-SD 52.3 fL; WBC 13.72 10^3/uL (4.4-10.8)
[2021-12-30 11:03] LABS: Absolute Eosinophil Count 0.36 10^3/uL (0.0-0.7); Absolute Lymphocyte Count 2.57 10^3/uL (1.2-3.4)
[2021-12-30] MEDS: LORazepam 2 MG/ML VIAL 1 MG IVP (11:03)
[2021-12-30 11:17] LABS: ALT 65 U/L (14-59); AST 54 U/L (15-37); Albumin 3.5 g/dL (3.4-5.0); Alkaline Phosphatase 153 U/L (46-116); Anion Gap 9.2 mmol/L (3-11); BUN 14 mg/dL (7-18); Bilirubin, Total 0.6 mg/dL (0.2-1.0); CO2 25.8 mmol/L (21.0-32.0); CREATININE 0.7 mg/dL (0.55-1.02); Calcium 8.8 mg/dL (8.5-10.1); Chloride 101 mmol/L (98-107); Glucose 135 mg/dL (74-106); Lipase 18 U/L (73-393); Potassium 4.7 mmol/L (3.5-5.1); Sodium 136 mmol/L (136-145); Total Protein 7.5 g/dL (6.4-8.2); Troponin I < 50 ng/L (<or=60)
--- NOTE | 2021-12-30 11:30 | DI.US_ITS ---
Exam(s) US LOWER EXTREMITY VENOUS LT EXAM: US LOWER EXTREMITY VENOUS LT CLINICAL HISTORY: post op, pain, elevated d dimer. TECHNIQUE: Lower extremity venous ultrasound performed using grayscale, color-flow, and spectral Do ppler analysis. COMPARISON: No exams were available for comparison FINDINGS: The common femoral, profundus femoral and femoral veins demonstrate normal compressibility, augmentat ion, and color Doppler. Thrombus is visible from the popliteal through the mid posterior tibial and peroneal veins. The thrombus measures approximately 18 cm in length. . No saphenous vein thrombosi s or other superficial venous thrombosis is seen. No hematoma or Herrera's cyst is seen. IMPRESSION: Deep venous thrombosis from popliteal through mid posterior tibial and peroneal veins. DATA REPOSITORY:
[2021-12-30 11:33] LABS: D-Dimer 2101 ng/mlFEU (<500)
[2021-12-30] MEDS: Normal Saline Flush 10 ML SYR IVP (12:08)
--- NOTE | 2021-12-30 12:28 | DI.CT_ITS ---
Exam(s) CT CHEST PE CTA EXAM: CT CHEST PE CTA CLINICAL HISTORY: chest pain, elevated d dimer. TECHNIQUE: Imaging Protocol: Axial CT angiography was performed with multi-slice acquisition and mu lti-planar reconstructions as well as axial, coronal and sagittal MIP reconstructions. CONTRAST MATERIAL: Intravenous: Omnipaque 350 Contrast volume:100 ml COMPARISON: CT CT CHEST PE CTA from 10/15/2020 FINDINGS: Pulmonary Arteries: No evidence of filling defect to suggest pulmonary emboli. Tracheobronchial tree: Patent where visualized. Mediastinum and Dianne: No dominant adenopathy or fluid collection. Pulmonary parenchyma: No consolidation or dominant measurable mass. Dependent changes. Mild respirat ory motion Pleura: No effusion or pneumothorax. Heart: The heart is not dilated. No coronary artery calcifications are seen. Aorta: Thoracic aorta non-dilated. No aneurysm. No dissection. Upper abdomen: Enlarged fatty liver. Status post cholecystectomy. Bones: Osteophytes in the spine, greatest in the lower thoracic region IMPRESSION: No evidence of pulmonary embolism or other acute abnormality.. RADIATION DOSE DELIVERED: 572.05mGy.cm Total DLP DATA REPOSITORY: All CT scans at this facility are submitted to the National Radiology Data Registry (NRDR) Dose Index Registry (DIR) with the [employer] (ACR). RADIATION OPTIMIZATION: All CT scans at this facility use at least one of these dose optimization te chniques: automated exposure control; mA and/or kV adjustment per patient size (includes targeted exa ms where dose is matched to clinical indication); or iterative reconstruction.
[2021-12-30] MEDS: Omnipaque 350 MG/ML 50 ML BTL IJ ×2 (13:14)
[2021-12-30] MEDS: Apixaban 5 MG TAB 10 MG PO (13:38)
[2021-12-30] MEDS: oxyCODONE 5 MG TAB PO (13:38)
[2021-12-30 13:39] VITALS: BP 117/75; PULSE 83; RESP 16; O2SAT 99
[2021-12-30 13:41] VITALS: BP 117/83; PULSE 83; RESP 16; O2SAT 99
== END 2021-12-30 13:56 | disposition home or self-care (01) ==
PROVIDERS: Emergency Provider Emergency Medicine; PCP Family Medicine
DX: I82.492 Acute embolism and thrombosis of other specified deep vein of left lower extremity (principal); M79.605 Pain in left leg; R07.9 Chest pain, unspecified; R79.89 Other specified abnormal findings of blood chemistry; I82.432 Acute embolism and thrombosis of left popliteal vein; R79.1 Abnormal coagulation profile; Z98.890 Other specified postprocedural states
CPT/HCPCS: 36415; 71275; 80053; 83690; 93005; 96374; 99285; 84484; 85025; 85379; 93010; 93971; 99284; J2060; Q9967

== ENCOUNTER → 2022-03-05 00:21 | Outpatient (CLI) | payer MEDICAID, SELFPAY ==
--- NOTE | 2022-03-05 06:30 | DI.MRI_ITS ---
Exam(s) MR ABDOMEN WO/W EXAM: MR ABDOMEN WO/W CLINICAL HISTORY: f/u adrenal mass,lt e27.8 TECHNIQUE: Multiplanar multisequence MRA of the Abdomen was performed. CONTRAST MATERIAL: IV Contrast: 15 mL of Dotarem contrast administered. COMPARISON: CT ABD PELVIS WITH CONTRAST from 03/24/2016 MR MR ABDOMEN WO/W from 11/04/2020 FINDINGS: The examination is limited due to patient motion artifact. Liver: Unremarkable. Pancreas: Unremarkable. Gallbladder and Bile Ducts: Status post cholecystectomy. No biliary ductal dilatation. Adrenals: The right adrenal gland is unremarkable. There is again seen a 2.3 cm left adrenal nodule. There is signal dropout on the opposed phase imaging. There is mild enhancement following contrast ad ministration. The findings are most suggestive of a adrenal adenoma. Kidneys: Unremarkable. Spleen: There again seen small splenules in the left upper quadrant. Bowel: Unremarkable. Aorta: Unremarkable. Soft Tissues: There is again seen a small midline fat containing anterior abdominal wall hernia. Bone: Unremarkable. Lymph Nodes: Unremarkable. IMPRESSION: Stable left adrenal nodule with characteristics most consistent with an adrenal adenoma. DATA REPOSITORY:
== END ==
PROVIDERS: PCP Family Medicine; Visit Provider Family Medicine
DX: E27.8 Other specified disorders of adrenal gland (principal)
CPT/HCPCS: 74183

== ENCOUNTER → 2022-03-23 01:50 | Outpatient (CLI) | payer MEDICAID, SELFPAY ==
--- NOTE | 2022-03-23 06:45 | DI.US_ITS ---
Exam(s) US LOWER EXTREMITY VENOUS LT EXAM: US LOWER EXTREMITY VENOUS LT CLINICAL HISTORY: f/u DVT,I82.432 TECHNIQUE: Left lower extremity venous ultrasound performed using grayscale, color-flow, and spectra l Doppler analysis. COMPARISON: US US LOWER EXTREMITY VENOUS LT from 12/30/2021 FINDINGS: The left common femoral, femoral, popliteal veins and proximal peroneal veins demonstrate normal comp ressibility, augmentation, and color Doppler. The posterior tibial veins are patent. The saphenofemo ral junction is unremarkable. There is no evidence of a Herrera cyst. The soft tissues are unremarkab le. IMPRESSION: No evidence of a left lower extremity DVT. DATA REPOSITORY:
== END ==
PROVIDERS: PCP Family Medicine; Visit Provider Family Medicine
DX: I82.432 Acute embolism and thrombosis of left popliteal vein (principal)
CPT/HCPCS: 93971

== ENCOUNTER → 2022-04-02 00:33 | Outpatient (CLI) | payer MEDICAID, SELFPAY ==
--- NOTE | 2022-04-02 07:30 | DI.MRI_ITS ---
Exam(s) MR LOWER JOINT RT WO EXAM: MR LOWER JOINT RT WO CLINICAL HISTORY: Right knee pain,m25.561. TECHNIQUE: Multiplanar multisequence MRI was performed. COMPARISON: MR MR LOWER JOINT LT WO from 12/10/2021 FINDINGS: Exam is somewhat limited by patient motion. BONES: There is no fracture or contusion pattern. JOINTS: The cartilage overlying the medial femoral condyle shows mild thinning and irregularity. The re is thinning of the cartilage at the medial patellar facet.. A moderate-sized joint effusion is pr esent. TENDONS: Extensor mechanism: Unremarkable. Medial retinaculum: Unremarkable. Lateral retinaculum: Unremarkable. Popliteus: Unremarkable. MUSCLES: Unremarkable. MENISCI: The medial meniscus is unremarkable. The lateral meniscus is unremarkable. SOFT TISSUES: Mild edema in the prepatellar fat. LIGAMENTS: Anterior Cruciate: Unremarkable. Posterior Cruciate: Unremarkable. Medial Collateral:Unremarkable. Lateral Collateral: Unremarkable. IMPRESSION: No evidence of ligament or meniscal tear. Cartilage thinning and irregularity over the medial patellar facet and medial femoral condyle. DATA REPOSITORY:
== END ==
PROVIDERS: PCP Family Medicine; Visit Provider Nurse Practitioner Family
DX: M25.561 Pain in right knee (principal)
CPT/HCPCS: 73721

== ENCOUNTER → 2022-04-07 01:05 | Outpatient (CLI) | payer MEDICAID, SELFPAY ==
--- NOTE | 2022-04-07 10:40 | DI.MRI_ITS ---
Exam(s) MR LOWER JOINT LT WO EXAM: MR LOWER JOINT LT WO CLINICAL HISTORY: New pain/mobility after DVT,z98.890 TECHNIQUE: Multiplanar multisequence MRI was performed.. COMPARISON: MR MR LOWER JOINT RT WO from 04/02/2022 FINDINGS: MR examination of the knee was performed according to the usual protocol. There is a moderate sized knee joint effusion. There is linear abnormal bony signal in the proximal tibia consistent prior surgical procedure period . Medial tibiofemoral joint: The articular cartilage of the femur and tibia appears significantly thinn ed, presumably on a degenerative basis.. There is a medial meniscal tear with some loss of meniscal substance, this is a complex tear involving the body and posterior horn period. The medial collatera l ligament appears intact. No posteromedial corner injury seen. Lateral tibiofemoral joint: The articular cartilage of the femur and tibia appears well maintained. The meniscus and attachments appear intact. The lateral collateral ligament complex and posterolater al corner structures appear intact. Patellofemoral joint and extensor mechanism: The articular cartilage of the patellofemoral joint appe ars thinned, presumably on a degenerative basis.. The superior and inferior patellar fat pads appear normal with no signal abnormality. The quadriceps tendon and patellar tendon appear intact with no evidence of a tear or significant margaret ma. The medial and lateral retinacula appear intact. Cruciate ligaments: Cruciate ligaments and attachments appear normal with no evidence of a tear. Tibiofibular joint: No specific abnormality involving the tibiofibular joint. IMPRESSION: Degenerative articular cartilage changes, moderate to severe, involving patellofemoral and medial tib iofemoral joints. Complex medial meniscal tear with significant loss of meniscal substance. DATA REPOSITORY:
== END ==
PROVIDERS: PCP Family Medicine; Visit Provider Nurse Practitioner Family
DX: M25.562 Pain in left knee; M25.462 Effusion, left knee; Z98.890 Other specified postprocedural states; S83.242A Other tear of medial meniscus, current injury, left knee, initial encounter; M17.12 Unilateral primary osteoarthritis, left knee
CPT/HCPCS: 73721

== ENCOUNTER 2022-04-16 08:13 | Outpatient (CLI) | payer MEDICAID, SELFPAY ==
[2022-04-16 12:52] LABS: Abs Immature Grans 0.03 10^3/uL (0.0-0.06); Absolute Basophil Count 0.06 10^3/uL (0.0-0.2); Absolute Lymphocyte Count 2.93 10^3/uL (1.2-3.4); Absolute Monocyte Count 0.91 10^3/uL (0.1-0.8); Absolute Neutrophil Count 6.87 10^3/uL (1.2-6.7); Basophils % 0.5; Eosinophils % 3.6; HGB 12.9 g/dL (11.2-15.7); Immature Grans % 0.3; Lymphocytes % 26.2; MCH 32.3 pg (27.0-33.0); MCHC 32.3 % (32.0-36.0); MCV 100 fL (80-95); MPV 12.1 fL (8.0-11.0); Monocytes % 8.1; Neutrophils % 61.3; Platelet Count 393 10^3/uL (130-400); RBC 3.99 10^6/uL (3.93-5.22); RDW 13.6 % (11.7-14.6); RDW-SD 50.9 fL
[2022-04-16 13:28] LABS: Hemoglobin A1C 7.3 % (<5.7)
[2022-04-16 13:32] LABS: ALT 34 U/L (14-59); AST 15 U/L (15-37); Albumin 3.3 g/dL (3.4-5.0); Alkaline Phosphatase 128 U/L (46-116); BUN 11 mg/dL (7-18); Bilirubin, Total 0.3 mg/dL (0.2-1.0); CREATININE 0.6 mg/dL (0.55-1.02); Chloride 104 mmol/L (98-107); Glucose 153 mg/dL (74-106); Potassium 4.6 mmol/L (3.5-5.1); Sodium 140 mmol/L (136-145); TSH (W/Ref FT4) 0.69 uIU/mL (0.36-3.74); Total Protein 7.3 g/dL (6.4-8.2)
== END 2022-04-16 08:14 | disposition home or self-care (01) ==
LOC: LOS 08:13
PROVIDERS: PCP Family Medicine; Visit Provider Family Medicine
DX: R73.01 Impaired fasting glucose (principal); R60.0 Localized edema; E66.8 Other obesity
CPT/HCPCS: 36415; 80053; 83036; 84443; 85025

== ENCOUNTER → 2022-04-22 02:37 | Outpatient (CLI) | payer MEDICAID, SELFPAY ==
--- NOTE | 2022-04-22 08:15 | DI.RAD_ITS ---
Exam(s) XR CHEST 2V PA LATERAL EXAM: XR CHEST 2V PA LATERAL CLINICAL HISTORY: cough, dyspnea, WT GAIN WITH EDEMA, R60.9, R63.5. TECHNIQUE: 2D digital imaging was performed. COMPARISON: CR CHEST 2 VIEWS PA,LAT from 09/10/2015 FINDINGS: 2 views: Heart size is normal. The mediastinum is not widened. Lungs are clear. No infiltrates nor pleural effusions. IMPRESSION: No acute pulmonary findings. DATA REPOSITORY: RADIATION DOSE DELIVERED:
[2022-04-22 14:23] LABS: ALT 29 U/L (14-59); AST 17 U/L (15-37); Albumin 3.4 g/dL (3.4-5.0); Alkaline Phosphatase 144 U/L (46-116); Anion Gap 8.3 mmol/L (3-11); BUN 15 mg/dL (7-18); Bilirubin, Total 0.2 mg/dL (0.2-1.0); CO2 27.7 mmol/L (21.0-32.0); CREATININE 0.8 mg/dL (0.55-1.02); Chloride 100 mmol/L (98-107); Estimated GFR 95.46 (mL/min/1.73m2); Glucose 128 mg/dL (74-106); NT-proBNP 63 pg/mL (<300); Potassium 4.1 mmol/L (3.5-5.1); Sodium 136 mmol/L (136-145); Total Protein 7.7 g/dL (6.4-8.2)
== END ==
PROVIDERS: PCP Family Medicine; Visit Provider Family Medicine
DX: R06.09 Other forms of dyspnea (principal); R60.0 Localized edema; R63.5 Abnormal weight gain; R05.8 Other specified cough
CPT/HCPCS: 36415; 80053; 71046; 83880

== ENCOUNTER → 2022-04-28 02:22 | Outpatient (CLI) | payer MEDICAID, SELFPAY ==
--- NOTE | 2022-04-28 07:00 | DI.US_ITS ---
Exam(s) US ABDOMEN EXAM: US ABDOMEN CLINICAL HISTORY: weight gain, increased abd girth, R60.9, R63.5 TECHNIQUE: Ultrasound abdomen performed using standard protocol. COMPARISON: US ABDOMEN ULTRASOUND from 02/05/2010 FINDINGS: ABDOMINAL AORTA AND IVC: Visualized portions normal caliber. PANCREAS: Normal where visualized. LIVER: Increased echogenicity of the liver consistent with fatty infiltration. Hepatopedal flow in t he Portal Vein. The liver measures 18.2 cm long. GALLBLADDER:Status post cholecystectomy. BILIARY SYSTEM: Common bile duct measures < 7 mm. No intrahepatic biliary ductal dilation. BOWDEN'S SIGN: Negative. KIDNEYS: Kidneys are symmetric in size. No evidence of renal calculi. No evidence of hydronephrosis. No renal mass or cyst identified. SPLEEN: Status post splenectomy. ASCITES: None seen. IMPRESSION: Mild hepatomegaly and fatty infiltration of the liver. DATA REPOSITORY:
== END ==
PROVIDERS: PCP Family Medicine; Visit Provider Family Medicine
DX: R60.9 Edema, unspecified (principal); R63.5 Abnormal weight gain; K76.0 Fatty (change of) liver, not elsewhere classified; R16.0 Hepatomegaly, not elsewhere classified
CPT/HCPCS: 76700

== ENCOUNTER 2022-05-06 05:31 | Outpatient (CLI) | payer MEDICAID, SELFPAY ==
--- NOTE | 2022-05-06 14:00 | NS.NUTBLAN_ITS ---
Love was referred for weight management and Diabetes self management education. Recently dx with Dm2 with A1C:7.3% (04/16/22). 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 5'3 211 lbs BMI: 37 Usual Weight: 160-170 lbs Meds: lasix, lisinopril Diet Recall: B: kazakh yogurt and berries, L: grilled chicken salad, D: sweet potato and steak. Follows gluten free diet plan Love states that her son last year and she spent most of the year drinking which added about 30 lbs. She stopped drinking 5 months ago but weight has not changed. Overall diet mostly well balanced and healthy. She used to be very active but also had knee surgery in last year that has limited her mobility. Reports extreme pain in right foot and is worried about diabetic neuropathy. In view of new onset DM, do not believe neuropathy is to blame. Encouraged Love to follow up with her PCP and ortho. Session today focused on how to follow a lower carb, higher protein diet with emphasis on complex carbs, lean protein and healthy fats. Encouraged Love to find activities she enjoys and try to incorporate meditation into her daily practice until she is able to exercise and be active again. Reviewed how stress hormones such as cortisol can reduce ability to lose weight. Cortisol most likely has been high for her during this difficult year. No follow up appt. made at this time. Will be available prn.
--- NOTE | 2022-05-06 15:32 | W.NUTRFU ---
Date of service: 05/06/22 Time of Service: 15:32 Nutrition Note NOTE: Unable to add adendum to previous note. Love is taking 500mg metformin BID with no concerns. She would like a script for a glucometer. Suspect with 10% weight loss, will be able to have Dm in remission. Recheck A1C q3 months until at target. Time Spent in Nutritional Counseling and Treatment: 30
== END 2022-05-06 05:32 | disposition home or self-care (01) ==
LOC: DS 05:31
PROVIDERS: PCP Family Medicine; Visit Provider Dietitian, Registered
DX: E11.9 Type 2 diabetes mellitus without complications (principal); E66.8 Other obesity; Z68.37 Body mass index [BMI] 37.0-37.9, adult; Z71.3 Dietary counseling and surveillance; Z79.84 Long term (current) use of oral hypoglycemic drugs
CPT/HCPCS: 97802

== ENCOUNTER 2022-06-07 17:41 | Emergency (ER) | payer MEDICAID, SELFPAY ==
[2022-06-07] VITALS (21 sets, daily range): BP systolic 110–146; BP diastolic 62–97; PULSE 67–85; RESP 14–24; TEMP 36.7–37; O2SAT 97–100
--- NOTE | 2022-06-07 18:00 | DI.CT_ITS ---
Exam(s) CT ABDOMEN PELVIS W EXAM: CT ABDOMEN PELVIS W CLINICAL HISTORY: abd pain TECHNIQUE: Imaging Protocol: Axial computed tomography images with coronal and sagittal reformatted images were created and reviewed CONTRAST MATERIAL: Intravenous: Omnipaque 350 Contrast volume:100 mL Oral: No COMPARISON: CT ABD PELVIS WITH CONTRAST from 08/14/2014 CT ABD PELVIS WITH CONTRAST from 03/24/[address] CHEST PE CTA from 12/30/2021 FINDINGS: ABDOMEN: Lung Bases: Normal where visualized. Liver: Normal density. No measurable mass. Portal, Superior Mesenteric, and Splenic Veins: Unremarkable. Gallbladder and Biliary Tract: Status post cholecystectomy. No biliary ductal dilatation. Pancreas: Normal density, no abnormal calcifications or inflammatory process. Spleen: Small splenules are again seen in the left upper quadrant. Adrenals: There is a stable left adrenal nodule. The right adrenal gland is unremarkable. Kidneys: Normal size, contour and axis. No radiodense stones or obstructive uropathy. No masses seen. Abdominal Aorta: Abdominal portion non-dilated. Bowel: No obstruction or bowel wall thickening. No evidence of appendicitis. Peritoneal Cavity: No ascites, collection or mesenteric inflammatory response. No free air. Lymph Nodes: Within normal limits. Bones: Within normal limits for the patient's age. Soft Tissues: There is a small midline fat containing anterior abdominal wall hernia. PELVIS: Bladder: Incompletely distended. No gross abnormalities identified. Reproductive Organs: There are bilateral adnexal cysts. The largest on the left measures 3.8 cm. Th e largest on the right measures 2.8 cm. These are likely ovarian. The V Rad report raise a question of asymmetry of the vaginal canal. If there is continued clinical concern, correlation with physica l exam or pelvic ultrasound is recommended. Lymph Nodes: Within normal limits. Bones: Within normal limits for the patient's age. IMPRESSION: 1. No acute abdominal or pelvic process. No evidence of bowel obstruction or inflammation. 2. Bilateral ovarian follicles. 3. Stable left adrenal nodule. This likely represents adenoma. No follow-up is recommended. RADIATION DOSE DELIVERED: 1,177.82mGy.cm Total DLP DATA REPOSITORY: All CT scans at this facility are submitted to the National Radiology Data Registry (NRDR) Dose Index Registry (DIR) with the [employer] (ACR). RADIATION OPTIMIZATION: All CT scans at this facility use at least one of these dose optimization te chniques: automated exposure control; mA and/or kV adjustment per patient size (includes targeted exa ms where dose is matched to clinical indication); or iterative reconstruction.
--- NOTE | 2022-06-07 18:12 | ED.GENADUL_ITS ---
Discharge Plan Disposition Patient Disposition: HOME Condition: Stable Discharge Details Clinical Impression: Pyelonephritis, Anxiety Primary Care Provider: Camelia Gracia ED Provider: Mark Burger Home Meds and New Rx's Prescriptions: New cefpodoxime 200 mg tablet 200 mg PO Q12H 10 Days Qty: 20 0RF Rx Instructions: must administer with a meal/food Continued ketoconazole 2 % shampoo 1 applic TP Q2W Qty: 120 4RF Rx Instructions: Apply twice a week with at least 3 days in between shampoos levothyroxine [Synthroid] 125 mcg tablet 125 mcg PO DAILY Qty: 90 4RF Rx Instructions: Take 1 tablet once a day in the morning on an empty stomach (DME) compr.stocking,thigh,short,med Misc See Rx Instructions .Route Qty: 12 0RF Rx Instructions: As directed - medium compression, thigh high, medium size lorazepam 0.5 mg tablet 0.5 mg PO HS PRN (Reason: anxiety) Qty: 30 0RF varenicline 1 mg tablet 1 mg PO BID Qty: 56 3RF varenicline [Chantix Starting Month Box] 0.5 mg (11)- 1 mg (42) tablets,dose pack See Rx Instructions PO PER PKG DIR Qty: 53 0RF Rx Instructions: PO PER PKG DIR trazodone 100 mg tablet 100 mg PO QHS Qty: 30 3RF metformin 500 mg tablet,ER jonathan.retention 24 hr 500 mg PO QPM Qty: 30 2RF lisinopril 10 mg tablet 10 mg PO HS Qty: 90 1RF (DME) blood-glucose meter [FreeStyle Lite Meter] Kit See Rx Instructions .Route Qty: 1 0RF Rx Instructions: As directed - test once daily. (DME) FreeStyle Lite Strips Strip See Rx Instructions .Route Qty: 100 0RF Rx Instructions: As directed test once daily- (DME) lancets 28 gauge misc See Rx Instructions .ROUTE DAILY Qty: 100 3RF Rx Instructions: DX:250.0 - use once daily. acetaminophen 500 mg Tablet 1,000 mg PO USEASDIRECTD PRN No Action omeprazole magnesium 20 mg tablet,delayed release (DR/EC) 20 mg PO DAILY Qty: 30 0RF Rx Instructions: Take one tablet daily Discharge Instructions Instructions: Kidney Infection (ED) Additional Instructions: Please continue to take acetaminophen as needed for pain and discomfort. If you develop any new or significant worsening of symptoms return to the emergency department as needed for reassessment. Please take the provided narcotics as discussed and for severe pain only. It is important that you follow-up with your primary care provider for reassessment of your symptoms and incidental findings from CT scan. Referrals: Camelia Gracia MD [Primary Care Provider] - 3 days Discharge Data Discharge Date/Time-TO BE ENTERED AT DEPARTURE: 06/07/22 21:51 Medical Decision Making Patient presenting to the emergency department for chief complaint of back and abdominal pain. She states 1 week ago she started having lower back pain. Denies any incident that caused this back pain but back pain has slowly progressively worsened and now she has having abdominal pain. She does state that previously she had a similar episode when she had pancreatitis. Patient states some associated nausea but denies all other symptoms. Physical exam shows epigastric tenderness as well as tenderness to the right paraspinal tissue and diffuse lumbar tenderness without focal finding. Given patient's history we will perform standard pancreatitis work-up including CT imaging of the abdomen due to complex history of patient and multiple surgeries. I am also considering that patient may have lumbar strain and associated gastritis secondary to NSAID use, also considered possible renal calculi.. We will treat patient's pain and nausea pending results. Review of labs show a significant leukocytosis with WBCs of 16.28 and neutrophils lymphocytes and monocytes are elevated, CMP fairly unremarkable with glucose of 152, AST low at 14, alk phos 143, lipase is normal with a value of 51, urine is slightly concerning with moderate leukocyte esterase and 10-20 WBCs and lab reporting few bacteria but stating contaminated specimen. Given patient's white count and urinary findings I am concerned for possible pyelonephritis causing patient's symptoms but will continue with CT imaging. Pending those results we will give patient dose of Rocephin [address] scan and radiologist capitation shows no specific findings that correlate with patient's pain or discomfort, patient has no surgical emergent findings, there is noted some vaginal findings and an incidental adrenal mass with recommendation for follow-up Incidentally noted 2.8 cm left adrenal gland nodule. Patient reassessed and still having discomfort. I do feel that patient is able to be safely discharged to follow-up with primary care provider. I also feel that there is contributing factor of anxiety. We will continue treatment for concern of possible pyelonephritis versus acute back pain. We will send patient home with 2 tramadol due to reports of continued back pain but patient encouraged not to take these with her trazodone due to severe sedation. Patient states understanding of this. Patient signed narcotic form with full understanding of risk versus benefit after discussion of diagnosis and plan of care patient has no further needs, questions, or concerns and states clear understanding to return to the emergency department for any worsening symptoms. This documentation was generated using [employer] system, please disregard any oddities of phrase or misspellings. Imaging Data Radiologic Study: Attestation: I personally reviewed and interpreted this imaging study as follows: Imaging: CT Scan Radiologist's impression: FINDINGS: Liver: Unremarkable liver. No mass identified. Gallbladder and bile ducts: The patient is status post cholecystectomy. Pancreas: No ductal dilation. No pancreatic lesion seen. Spleen: There is evidence of prior splenectomy with splenule is noted in the left upper quadrant. Adrenal glands: There is a 2.8 cm nodule in the left adrenal gland, which is not well characterized on this scan. Kidneys and ureters: No hydronephrosis. Stomach and bowel: No obstruction. No mucosal thickening. Appendix: There has been an appendectomy. Intraperitoneal space: No free air. No significant fluid collection. Vasculature: No abdominal aortic aneurysm. Lymph nodes: No enlarged lymph nodes. Urinary bladder: Unremarkable as visualized. Reproductive: There are findings suggestive of bilateral tubal ligation. Cystic structures are noted within the bilateral ovaries. There is a 4.4 cm cyst with a central septation versus two separate cysts in the left ovary. There is a 3.2 cm simple cyst in the right ovary. There is asymmetry of the proximal vaginal canal (image 752, series 5). Bones/joints: No acute fracture. Soft tissues: There is a small fat-containing supraumbilical hernia. IMPRESSION: 1. No evidence of bowel obstruction or acute bowel inflammation. 2. Cystic structures in the bilateral ovaries, which could represent follicles or ovarian cysts. 3. Slight asymmetry of the proximal vaginal canal. If there is clinical concern for vaginal pathology, ultrasound may be obtained for further evaluation. 4. Incidentally noted 2.8 cm left adrenal gland nodule. Correlate with prior MRI findings. Lab Data Lab results reviewed: Yes I reviewed the patient's lab results. HPI General Mode of arrival: ambulatory . Date/Time Provider Initiated Documentation: 06/07/22 17:48 . Limitations to Documentation: no limitations . Information obtained by: patient and RN notes reviewed . History of Present Illness 41 year old F presents to the emergency department with the chief complaint of Back pain, abdominal pain, described as severe and similar to prior episodes, with intensity rated at 10. Quality is described as sharp, and is localized to the back and abdomen. Patient started experiencing this week(s) (1) and it has been constant. No relieving factors improve symptom(s), No exacerbating factors reported . Patient did receive the following treatments prior to arrival, NSAID Related Data Home Medications Medication Instructions Recorded Confirmed ketoconazole 2 % shampoo 1 applic topical Q2W #120 mL 10/24/20 06/14/22 Synthroid 125 mcg tablet 125 mcg PO DAILY #90 tabs 08/13/21 06/14/22 (levothyroxine) acetaminophen 500 mg tablet 1,000 mg PO USEASDIRECTD PRN 12/23/21 06/14/22 compr.stocking,thigh,short,med #12 ea 01/05/22 06/14/22 metformin 500 mg 24 hr 500 mg PO QPM #30 tabs 04/21/22 06/14/22 tablet,extended release lisinopril 10 mg tablet 10 mg PO HS #90 tabs 04/22/22 06/14/22 blood sugar diagnostic (FreeStyle #100 ea 05/07/22 06/14/22 Lite Strips) blood-glucose meter (FreeStyle #1 ea 05/07/22 06/14/22 Lite Meter kit) lancets 28 gauge #100 ea 05/07/22 06/14/22 lorazepam 0.5 mg tablet 0.5 mg PO HS PRN anxiety #30 tabs 06/04/22 06/14/22 trazodone 100 mg tablet 100 mg PO QHS sleep #30 tabs 06/04/22 06/14/22 varenicline 0.5 mg (11)-1 mg (42) See Rx Instructions PO PER PKG DIR 06/04/22 06/14/22 tablets in a dose pack (Chantix #53 dose pk Starting Month Box) varenicline 1 mg tablet 1 mg PO BID #56 tabs 06/04/22 06/14/22 cefpodoxime 200 mg tablet 200 mg PO Q12H 10 days #20 tabs 06/07/22 06/14/22 omeprazole magnesium 20 mg 20 mg PO DAILY #30 tabs 06/14/22 tablet,delayed release Previous Rx's Medication Instructions Recorded ketoconazole 2 % shampoo 1 applic topical Q2W #120 mL 10/24/20 Synthroid 125 mcg tablet 125 mcg PO DAILY #90 tabs 08/13/21 (levothyroxine) compr.stocking,thigh,short,med #12 ea 01/05/22 metformin 500 mg 24 hr 500 mg PO QPM #30 tabs 04/21/22 tablet,extended release lisinopril 10 mg tablet 10 mg PO HS #90 tabs 04/22/22 blood sugar diagnostic (FreeStyle #100 ea 05/07/22 Lite Strips) blood-glucose meter (FreeStyle #1 ea 05/07/22 Lite Meter kit) lancets 28 gauge #100 ea 05/07/22 lorazepam 0.5 mg tablet 0.5 mg PO HS PRN anxiety #30 tabs 06/04/22 trazodone 100 mg tablet 100 mg PO QHS sleep #30 tabs 06/04/22 varenicline 0.5 mg (11)-1 mg (42) See Rx Instructions PO PER PKG DIR 06/04/22 tablets in a dose pack (Chantix #53 dose pk Starting Month Box) varenicline 1 mg tablet 1 mg PO BID #56 tabs 06/04/22 cefpodoxime 200 mg tablet 200 mg PO Q12H 10 days #20 tabs 06/07/22 omeprazole magnesium 20 mg 20 mg PO DAILY #30 tabs 06/14/22 tablet,delayed release Allergies Allergy/AdvReac Type Severity Reaction Status Date / Time pneumococcal vaccine Allergy Intermediate Localized Verified 06/14/22 11:35 reaction with PCV13 levothyroxine sodium AdvReac Mild Verified 06/14/22 11:35 General Stated Complaint: Abd Prob OLEGARIO: 3 Review of Systems Constitutional Constitutional: Denies chills and Denies fever(s) Cardiovascular Cardiovascular: Denies chest pain and Denies dyspnea on exertion Respiratory Respiratory: Denies cough and Denies dyspnea on exertion Gastrointestinal Gastrointestinal: Reports as per HPI, Reports abdominal pain, Denies change in bowel habits, Denies diarrhea, Reports nausea and Denies vomiting Genitourinary Genitourinary: Denies urinary incontinence Musculoskeletal Musculoskeletal: Reports as per HPI and Reports back pain Neurologic Neurologic: Denies sensory deficit PFSH All Active Problems (Updated 06/14/22 @ 17:39 by Sharri Lucero NP) Gastroenteritis (Acute) Pyelonephritis (Acute) Smoker (Chronic 10/23/12) Pancreatic insufficiency (Chronic 10/23/12) Obesity (Chronic 10/23/12) Dysmenorrhea (Chronic 06/30/16) Depressive disorder (Chronic) Anxiety (Chronic 08/02/12) Asplenia (Chronic) Hypothyroidism (Chronic) Adrenal mass, 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 1 year repeat recommended. 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 Lugo PANCREATECTOMY (08/22/07) PARTIAL Status post arthroscopy of left knee (12/24/21) Medial meniscal root repair, synovectomy and chondroplasty Dr. Marquez Status post cholecystectomy (~2007) [facility] in November 27, complicated by injury to the pancreas with a 40% pancreectomy done in April 29 and a subsequent splenectomy done in also. Tubal ligation status Family History Mother Liliya's disease Father , 48 Brain tumor Sister No problems noted. Brother No problems noted. 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 What type of physical activity do you participate in: additional Details: snowshoed a couple times this winter. Do you feel safe at home: Yes Do you feel safe in your relationship?: Yes Exam Const General: cooperative Orientation: alert, awake and oriented x3 Resp Effort & Inspection: normal respiratory effort and able to speak in complete sentences Auscultation: clear to auscultation bilaterally Cardio Rate: regular rate Rhythm: regular rhythm Heart Sounds: S1 normal and S2 normal GI Palpation: soft, not firm, no guarding, no masses, no pulsatile masses, not rigid and tender in the epigastrum; not at McBurney's point and Valentin's sign negative Auscultation: normal bowel sounds Back/Spine/Pelvis Thoracic/Lumbar Spine: thoracic and lumbar spine normal to inspection, thoraco-lumbar ROM normal, paraspinal tenderness, No thoraco-lumbar spasm, No thoracic spinal tenderness, lumbar spinal tenderness (difuse non focal) and No straight leg raise positive Neuro General: patient alert, patient awake, patient oriented x3, gait normal and moves all extremities Course Vital Signs Vital signs: Vital Signs Temperature 37.0 C 06/07/22 17:46 Pulse 79 06/07/22 17:46 Respiratory Rate 18 06/07/22 17:46 Blood Pressure 146/97 H 06/07/22 17:46 Pulse Oximetry 100 06/07/22 17:46 Temperature 37.0 C 06/07/22 17:46 Temperature Source Tympanic 06/07/22 17:46 Pulse 79 06/07/22 17:46 Respiratory Rate 18 06/07/22 17:46 Respiratory Effort Non-Labored 06/07/22 17:49 Blood Pressure 146/97 H 06/07/22 17:46 Blood Pressure Position Sitting 10/17/22 17:46 Pulse Oximetry 100 06/07/22 17:46 Oxygen Delivery Method Room Air 06/07/22 17:46 Oxygen Flow Rate 0 06/07/22 17:46 Pain Level 10 06/07/22 17:51 Lab/Test Results Lab/Test Results: POC- Test(urine) Negative
[2022-06-07 18:19] LABS: Bilirubin Negative (Negative); Blood Negative (Negative); Clarity Clear (Clear); Glucose Negative (Negative); Ketones Negative (Negative); Leukocyte Esterase Moderate (Negative); Nitrite Negative (Negative); Urobilinogen 0.2 EU/dL (Up TO 0.2)
[2022-06-07 18:25] LABS: Bacteria Few HPF (Negative); C & S Indicated? No/Sq. Contamination; Casts Negative LPF (Negative); Crystals Negative HPF (Negative); Epithelial Cells Many HPF (Negative); Mucus Negative (Negative); RBC 0-2 HPF (0-2)
[2022-06-07] MEDS: Normal Saline 1,000 ML 1000 ML IV (18:25)
[2022-06-07 18:29] LABS: HCT 38.1 % (36.0-46.0); HGB 12.8 g/dL (11.2-15.7); MCH 32.4 pg (27.0-33.0); MCHC 33.6 % (32.0-36.0); MCV 97 fL (80-95); MPV 11.8 fL (8.0-11.0); Platelet Count 341 10^3/uL (130-400); RBC 3.95 10^6/uL (3.93-5.22); RDW 13.6 % (11.7-14.6); RDW-SD 48.5 fL; WBC 16.28 10^3/uL (4.4-10.8)
[2022-06-07] MEDS: HYDROmorphone 2 MG/ML SYR 1 MG IVP (18:36)
[2022-06-07] MEDS: Ondansetron 4 MG/2 ML VIAL IVP (18:39)
[2022-06-07 18:43] LABS: ALT 33 U/L (14-59); AST 14 U/L (15-37); Albumin 3.8 g/dL (3.4-5.0); Alkaline Phosphatase 143 U/L (46-116); Anion Gap 9.4 mmol/L (3-11); BUN 16 mg/dL (7-18); Bilirubin, Total 0.2 mg/dL (0.2-1.0); CO2 26.6 mmol/L (21.0-32.0); CREATININE 0.8 mg/dL (0.55-1.02); Calcium 9.1 mg/dL (8.5-10.1); Chloride 103 mmol/L (98-107); Estimated GFR 95.46 (mL/min/1.73m2); Glucose 152 mg/dL (74-106); Lipase 51 U/L (73-393); Magnesium 1.8 mg/dL (1.8-2.4); Potassium 3.9 mmol/L (3.5-5.1); Sodium 139 mmol/L (136-145); Total Protein 7.8 g/dL (6.4-8.2)
[2022-06-07 18:44] LABS: Absolute Eosinophil Count 0.33 10^3/uL (0.0-0.7); Absolute Lymphocyte Count 5.05 10^3/uL (1.2-3.4); Absolute Monocyte Count 1.95 10^3/uL (0.1-0.8); Absolute Neutrophil Count 8.95 10^3/uL (1.2-6.7); Atypical Lymphocytes % 5; Diff Comment Manual Differential; RBC Morphology Normal
[2022-06-07] MEDS: ACETAMINOPHEN 1,000 MG/100 ML BTL 400 MG IVPB (18:56)
[2022-06-07] MEDS: cefTRIAXone 1 GM/50 ML BAG IVPB (19:14)
[2022-06-07] MEDS: Normal Saline Flush 10 ML SYR IVP (20:07)
[2022-06-07] MEDS: Omnipaque 350 MG/ML 100 ML BTL IJ (20:08)
--- NOTE | 2022-06-07 21:04 | DI.VRAD_ITS ---
PROCEDURE INFORMATION: Exam: CT Abdomen And Pelvis With Contrast Exam date and time: 06/07/2022 7:58 PM Age: 41 years old Clinical indication: Abdominal tenderness; Patient HX: Abd pain TECHNIQUE: Imaging protocol: Computed tomography of the abdomen and pelvis with contrast. Radiation optimization: All CT scans at this facility use at least one of these dose optimization techniques: automated exposure control; mA and/or kV adjustment per patient size (includes targeted exams where dose is matched to clinical indication); or iterative reconstruction. Contrast material: OMNIPAQUE 350; Contrast volume: 100 ml; Contrast route: INTRAVENOUS (IV); COMPARISON: MR ABDOMEN WO/W 03/05/2022 8:46 AM FINDINGS: Liver: Unremarkable liver. No mass identified. Gallbladder and bile ducts: The patient is status post cholecystectomy. Pancreas: No ductal dilation. No pancreatic lesion seen. Spleen: There is evidence of prior splenectomy with splenule is noted in the left upper quadrant. Adrenal glands: There is a 2.8 cm nodule in the left adrenal gland, which is not well characterized on this scan. Kidneys and ureters: No hydronephrosis. Stomach and bowel: No obstruction. No mucosal thickening. Appendix: There has been an appendectomy. Intraperitoneal space: No free air. No significant fluid collection. Vasculature: No abdominal aortic aneurysm. Lymph nodes: No enlarged lymph nodes. Urinary bladder: Unremarkable as visualized. Reproductive: There are findings suggestive of bilateral tubal ligation. Cystic structures are noted within the bilateral ovaries. There is a 4.4 cm cyst with a central septation versus two separate cysts in the left ovary. There is a 3.2 cm simple cyst in the right ovary. There is asymmetry of the proximal vaginal canal (image 752, series 5). Bones/joints: No acute fracture. Soft tissues: There is a small fat-containing supraumbilical hernia. IMPRESSION: 1. No evidence of bowel obstruction or acute bowel inflammation. 2. Cystic structures in the bilateral ovaries, which could represent follicles or ovarian cysts. 3. Slight asymmetry of the proximal vaginal canal. If there is clinical concern for vaginal pathology, ultrasound may be obtained for further evaluation. 4. Incidentally noted 2.8 cm left adrenal gland nodule. Correlate with prior MRI findings. Dictated and Authenticated by: Tara Reynolds MD. Ordering:CRAIG Flores MD
[2022-06-07] MEDS: Ondansetron O.D.T. 4 MG TABEF, 3 TABS/BTL PO (21:37)
--- NOTE | 2022-06-07 23:07 | NUR.NOTE ---
Referral faxed to [facility] Dr Gracia to f/u in 3 days for pyelonephritis.Nursing Note:
== END 2022-06-07 21:51 | disposition home or self-care (01) ==
PROVIDERS: Emergency Provider Nurse Practitioner Family; PCP Family Medicine
DX: N12 Tubulo-interstitial nephritis, not specified as acute or chronic (principal); D72.829 Elevated white blood cell count, unspecified; F17.210 Nicotine dependence, cigarettes, uncomplicated
CPT/HCPCS: 80053; 81025; 83690; 96361; 96365; 96375; 99285; 74177; 81003; 81015; 83735; 85025; 99284; J0131; J0696; J1170; J2405; J3490

== ENCOUNTER 2022-06-14 10:54 | Emergency (ER) | payer MEDICAID, SELFPAY ==
[2022-06-14] VITALS (27 sets, daily range): BP systolic 100–142; BP diastolic 48–93; PULSE 73–94; RESP 12–18; TEMP 36.6–36.9; O2SAT 69–100
--- NOTE | 2022-06-14 13:18 | W.ED.GENAD ---
Discharge Plan Disposition Patient Disposition: HOME Condition: Stable Discharge Details Clinical Impression: Gastroenteritis Primary Care Provider: Camelia Gracia ED Provider: Sharri Lucero Home Meds and New Rx's Prescriptions: New omeprazole magnesium 20 mg tablet,delayed release (DR/EC) 20 mg PO DAILY Qty: 30 0RF Rx Instructions: Take one tablet daily No Action ketoconazole 2 % shampoo 1 applic TP Q2W Qty: 120 4RF Rx Instructions: Apply twice a week with at least 3 days in between shampoos levothyroxine [Synthroid] 125 mcg tablet 125 mcg PO DAILY Qty: 90 4RF Rx Instructions: Take 1 tablet once a day in the morning on an empty stomach (DME) compr.stocking,thigh,short,med Misc See Rx Instructions .Route Qty: 12 0RF Rx Instructions: As directed - medium compression, thigh high, medium size lorazepam 0.5 mg tablet 0.5 mg PO HS PRN (Reason: anxiety) Qty: 30 0RF varenicline 1 mg tablet 1 mg PO BID Qty: 56 3RF varenicline [Chantix Starting Month Box] 0.5 mg (11)- 1 mg (42) tablets,dose pack See Rx Instructions PO PER PKG DIR Qty: 53 0RF Rx Instructions: PO PER PKG DIR trazodone 100 mg tablet 100 mg PO QHS Qty: 30 3RF metformin 500 mg tablet,ER jonathan.retention 24 hr 500 mg PO QPM Qty: 30 2RF lisinopril 10 mg tablet 10 mg PO HS Qty: 90 1RF (DME) blood-glucose meter [FreeStyle Lite Meter] Kit See Rx Instructions .Route Qty: 1 0RF Rx Instructions: As directed - test once daily. (DME) FreeStyle Lite Strips Strip See Rx Instructions .Route Qty: 100 0RF Rx Instructions: As directed test once daily- (DME) lancets 28 gauge misc See Rx Instructions .ROUTE DAILY Qty: 100 3RF Rx Instructions: DX:250.0 - use once daily. acetaminophen 500 mg Tablet 1,000 mg PO USEASDIRECTD PRN Discharge Instructions Instructions: Gastroenteritis (ED) Additional Instructions: Please take the omeprazole once a day. Take the nausea medication as needed for nausea and vomiting. Follow up with primary care provider in 3-5 days. Return to ED sooner if any worsening or concerns. Increase oral fluids. Your labs are largely improved from your previous visit. The ultrasound is negative. Your urine is sent for culture if you do need to be on antibiotics we will call you. Referrals: Camelia Gracia MD [Primary Care Provider] - 3 days Discharge Data Discharge Date/Time-TO BE ENTERED AT DEPARTURE: 06/14/22 18:02 Medical Decision Making <GERMAN Powers - Last Filed: 06/23/22 13:46> Patient is a pleasant 41-year-old female presenting today with chief complaint of persistent abdominal and and anxiety. Patient here 1 week ago. Patient was diagnosed with possible pyelonephritis and was on cefpodoxime. Was sent home with some amount of oxycodone which she states was not significant to help with her discomfort. Currently her pain has waxed and waned, felt best when she saw her primary care on . However, pain has significantly increased. Continues to endorse flank pain which is now bilateral as well as severe epigastric discomfort. Pain is worse when patient is lying flat. She denies any fevers or chills. No cough. No chest pain. No nausea or vomiting. States that she did have 1 day of constipation but normal bowel movements otherwise. No frequency or urgency, no dysuria. Denies any vaginal discharge. She does report that she is actively having her menses. Prior to that did not have any vaginal. On exam, patient appears profoundly anxious. She is noted be slightly hypertensive 142/92, vital signs otherwise stable. Lungs are clear, normal cardiac exam. She has by lateral, right greater than left, CVA tenderness. Pain in the abdomen is maximal in the epigastric region and worse when laying flat. No peritoneal findings on exam. No pain elicited with palpation elsewhere. Patient is requesting anxiolytic. We will give as well as Mylanta as the patient can be associated with acid reflux. The note previously written by my colleague, Edelmira, who was concerned for the same. Her exam is not that of a surgical abdomen. Patient has had several CT images in the past. Patient did have CT imaging last week when here for the same with no significant abnormality. I will hold off on CT imaging at this time with concern for radiation. Instead, will obtain an ultrasound renal. FINDINGS: Renal size in cm: Right: 11.0 left: 9.8 Echogenicity: Normal Hydronephrosis: No Cyst or mass: No Nephrolithiasis: No Bladder:Normal .? Both ureteral jets were visualized. Prevoid vol:160 Postvoid vol:0 IMPRESSION: Negative renal ultrasound. Labs reviewed. Patient does have leukocytosis with white count 12 this is downtrending from 16 last week. Lactate within normal limits. No significant abnormality on CMP. Patient has chronic alk phos elevation. Urine is pending. Discussed these findings with the patient. Again, with the pain being maximal in the epigastric region as well as worse with laying down, likely acid reflux. Discussed this, possibly ulcer. But again, I do not see any evidence on exam to suggest perforation. We will begin the patient on Protonix overall UA is pending but plan to discharge on a PPI. Patient began endorsing nausea, initially treated with Zofran. However, patient reports that unsuccessful. We will augment this with Phenergan. Patient reports that she is not sure if she is having abdominal pain or is hungry. After she has had this Phenergan, plan to p.o. challenge the patient. Her urinalysis is significant for elevated specific gravity, trace protein, trace ketones measurement of blood. Patient is currently menstruating. Small amount of leukocyte esterase, this has reflexed to culture. At the end of my shift, care transitioned to Sharri Lucero with PO challenge and disposition pending. <Sharri Lucero NP - Last Filed: 06/14/22 20:57> Medical Records Medical records reviewed: Yes I reviewed the patient's medical records. Medical records narrative: 1631:SJ: Care assumed from provider (GERMAN Lopez) Please see their initial HPI, PE, and documentation. Discussed patient details and case and pending workup and disposition. Patient is hemodynamically stable, and alert and oriented. Patient has had an extensive work-up here with a negative renal ultrasound. Patient is complaining of nausea was given Phenergan with little initiated a p.o. challenge and plan for discharge with antacid. 1735: Patient is tolerated p.o. without any difficulty. We will plan to discharge patient home. Discussed plan with patient who verbalized understanding she verbalizes understanding and is in agreement with plan. Patient was sent home with Zofran ODT. This text was generated using Nuance dictation system, please disregard any oddities of phrase or misspellings. Lab Data Lab results reviewed: Yes I reviewed the patient's lab results. Labs: 06/14/22 14:30 Urine - Reflex from Ua Urine Culture - Pending Laboratory Tests Range/Units 06/14/22 06/14/22 06/14/22 13:12 13:12 13:12 WBC (4.4-10.8) 10^3/uL 12.05 H RBC (3.93-5.22) 10^6/uL 4.37 Hgb (11.2-15.7) g/dL 14.0 Hct (36.0-46.0) % 42.3 MCV (80-95) fL 97 H MCH (27.0-33.0) pg 32.0 MCHC (32.0-36.0) % 33.1 RDW (11.7-14.6) % 13.9 Plt Count (130-400) 10^3/uL 419 H MPV (8.0-11.0) fL 11.9 H Immature Gran % 0.2 Neutrophils % 59.9 Lymphocytes % 29.3 Monocytes % 7.9 Eosinophils % 2.3 Basophils % 0.4 Nucleated RBC % (0.0-0.3) % 0.0 Absolute Neutrophils (1.2-6.7) 10^3/uL 7.22 H Absolute Lymphocytes (1.2-3.4) 10^3/uL 3.53 H Absolute Monocytes (0.1-0.8) 10^3/uL 0.95 H Absolute Eosinophils (0.0-0.7) 10^3/uL 0.28 Absolute Basophils (0.0-0.2) 10^3/uL 0.05 VBG Lactate (0.6-1.4) mmol/L 1.1 Sodium (136-145) mmol/L 136 Potassium (3.5-5.1) mmol/L 4.0 Chloride (98-107) mmol/L 100 Carbon Dioxide (21.0-32.0) mmol/L 27.9 Anion Gap (3-11) mmol/L 8.1 BUN (7-18) mg/dL 18 Creatinine (0.55-1.02) mg/dL 0.8 Est GFR (CKD-EPI 2020) (mL/min/1.73m2) 95.46 Glucose (74-106) mg/dL 99 Calcium (8.5-10.1) mg/dL 9.5 Magnesium (1.8-2.4) mg/dL 1.8 Total Bilirubin (0.2-1.0) mg/dL 0.2 AST (15-37) U/L 14 L ALT (14-59) U/L 27 Alkaline Phosphatase (46-116) U/L 139 H Total Protein (6.4-8.2) g/dL 8.4 H Albumin (3.4-5.0) g/dL 4.0 Lipase (73-393) U/L 31 Urine Color (Yellow) Urine Clarity (Clear) Urine pH (5-8) Ur Specific [place] (1.005-1.025) Urine Protein (Negative) mg/dL Urine Ketones (Negative) mg/dL Urine Blood (Negative) Urine Nitrite (Negative) Urine Bilirubin (Negative) Urine Urobilinogen (Up TO 0.2) EU/dL Ur Leukocyte Esterase (Negative) Urine RBC (0-2) HPF Urine WBC (0-5) HPF Ur Epithelial Cells (Negative) HPF Urine Crystals (Negative) HPF Urine Bacteria (Negative) HPF Urine Casts (Negative) LPF Urine Mucus (Negative) Ur Culture Indicated? Urine Glucose (Negative) mg/dL Range/Units 06/14/22 14:30 WBC (4.4-10.8) 10^3/uL RBC (3.93-5.22) 10^6/uL Hgb (11.2-15.7) g/dL Hct (36.0-46.0) % MCV (80-95) fL MCH (27.0-33.0) pg MCHC (32.0-36.0) % RDW (11.7-14.6) % Plt Count (130-400) 10^3/uL MPV (8.0-11.0) fL Immature Gran % Neutrophils % Lymphocytes % Monocytes % Eosinophils % Basophils % Nucleated RBC % (0.0-0.3) % Absolute Neutrophils (1.2-6.7) 10^3/uL Absolute Lymphocytes (1.2-3.4) 10^3/uL Absolute Monocytes (0.1-0.8) 10^3/uL Absolute Eosinophils (0.0-0.7) 10^3/uL Absolute Basophils (0.0-0.2) 10^3/uL VBG Lactate (0.6-1.4) mmol/L Sodium (136-145) mmol/L Potassium (3.5-5.1) mmol/L Chloride (98-107) mmol/L Carbon Dioxide (21.0-32.0) mmol/L Anion Gap (3-11) mmol/L BUN (7-18) mg/dL Creatinine (0.55-1.02) mg/dL Est GFR (CKD-EPI 2020) (mL/min/1.73m2) Glucose (74-106) mg/dL Calcium (8.5-10.1) mg/dL Magnesium (1.8-2.4) mg/dL Total Bilirubin (0.2-1.0) mg/dL AST (15-37) U/L ALT (14-59) U/L Alkaline Phosphatase (46-116) U/L Total Protein (6.4-8.2) g/dL Albumin (3.4-5.0) g/dL Lipase (73-393) U/L Urine Color (Yellow) Yellow Urine Clarity (Clear) Sl Cloudy Urine pH (5-8) 6.5 Ur Specific [place] (1.005-1.025) >= 1.030 H Urine Protein (Negative) mg/dL Trace H Urine Ketones (Negative) mg/dL Trace H Urine Blood (Negative) Large H Urine Nitrite (Negative) Negative Urine Bilirubin (Negative) Negative Urine Urobilinogen (Up TO 0.2) EU/dL 0.2 Ur Leukocyte Esterase (Negative) Small H Urine RBC (0-2) HPF 20-50 H Urine WBC (0-5) HPF 5-10 Ur Epithelial Cells (Negative) HPF Few Urine Crystals (Negative) HPF Negative Urine Bacteria (Negative) HPF Few Urine Casts (Negative) LPF Negative Urine Mucus (Negative) Trace Ur Culture Indicated? Yes Urine Glucose (Negative) mg/dL Negative HPI <GERMAN Powers - Last Filed: 06/23/22 13:46> General Date/Time Provider Initiated Documentation: 06/14/22 13:17. Limitations to Documentation: no limitations. Information obtained by: patient, RN notes reviewed and old records reviewed. History of Present Illness 41 year old F presents to the emergency department with the chief complaint of abdominal pain, described as severe and similar to prior episodes, with intensity rated at 10. Quality is described as stabbing, and is localized to the abdomen. Patient flank (bilateral). Patient started experiencing this day(s) and it has been constant. No relieving factors improve symptom(s), No exacerbating factors reported . Patient notes no other symptoms.. Patient did receive the following treatments prior to arrival, none Related Data Home Medications Medication Instructions Recorded Confirmed ketoconazole 2 % shampoo 1 applic topical Q2W #120 mL 10/24/20 06/14/22 Synthroid 125 mcg tablet 125 mcg PO DAILY #90 tabs 08/13/21 06/14/22 (levothyroxine) acetaminophen 500 mg tablet 1,000 mg PO USEASDIRECTD PRN 12/23/21 06/14/22 compr.stocking,thigh,short,med #12 ea 01/05/22 06/14/22 metformin 500 mg 24 hr 500 mg PO QPM #30 tabs 04/21/22 06/14/22 tablet,extended release lisinopril 10 mg tablet 10 mg PO HS #90 tabs 04/22/22 06/14/22 blood sugar diagnostic (FreeStyle #100 ea 05/07/22 06/14/22 Lite Strips) blood-glucose meter (FreeStyle #1 ea 05/07/22 06/14/22 Lite Meter kit) lancets 28 gauge #100 ea 05/07/22 06/14/22 lorazepam 0.5 mg tablet 0.5 mg PO HS PRN anxiety #30 tabs 06/04/22 06/14/22 trazodone 100 mg tablet 100 mg PO QHS sleep #30 tabs 06/04/22 06/14/22 varenicline 0.5 mg (11)-1 mg (42) See Rx Instructions PO PER PKG DIR 06/04/22 06/14/22 tablets in a dose pack (Chantix #53 dose pk Starting Month Box) varenicline 1 mg tablet 1 mg PO BID #56 tabs 06/04/22 06/14/22 omeprazole magnesium 20 mg 20 mg PO DAILY #30 tabs 06/14/22 tablet,delayed release Previous Rx's Medication Instructions Recorded ketoconazole 2 % shampoo 1 applic topical Q2W #120 mL 10/24/20 Synthroid 125 mcg tablet 125 mcg PO DAILY #90 tabs 08/13/21 (levothyroxine) compr.stocking,thigh,short,med #12 ea 01/05/22 metformin 500 mg 24 hr 500 mg PO QPM #30 tabs 04/21/22 tablet,extended release lisinopril 10 mg tablet 10 mg PO HS #90 tabs 04/22/22 blood sugar diagnostic (FreeStyle #100 ea 05/07/22 Lite Strips) blood-glucose meter (FreeStyle #1 ea 05/07/22 Lite Meter kit) lancets 28 gauge #100 ea 05/07/22 lorazepam 0.5 mg tablet 0.5 mg PO HS PRN anxiety #30 tabs 06/04/22 trazodone 100 mg tablet 100 mg PO QHS sleep #30 tabs 06/04/22 varenicline 0.5 mg (11)-1 mg (42) See Rx Instructions PO PER PKG DIR 06/04/22 tablets in a dose pack ([employer]agioti[employer] Monkeys #53 dose pk Starting Month Box) varenicline 1 mg tablet 1 mg PO BID #56 tabs 06/04/22 omeprazole magnesium 20 mg 20 mg PO DAILY #30 tabs 06/14/22 tablet,delayed release Allergies Allergy/AdvReac Type Severity Reaction Status Date / Time pneumococcal vaccine Allergy Intermediate Localized Verified 06/14/22 11:35 reaction with PCV13 levothyroxine sodium AdvReac Mild Verified 06/14/22 11:35 General Stated Complaint: Abd Prob OLEGARIO: 3 Review of Systems <GERMAN Powers - Last Filed: 06/23/22 13:46> Constitutional Constitutional: Reports as per HPI, Denies chills, Denies fever(s) and Denies headache(s) ENT Ears, Nose, Mouth, and Throat: Denies headache(s) Cardiovascular Cardiovascular: Reports as per HPI, Denies chest pain and Denies dyspnea Respiratory Respiratory: Reports as per HPI, Denies cough and Denies dyspnea Gastrointestinal Gastrointestinal: Reports as per HPI Musculoskeletal Musculoskeletal: Reports as per HPI Integumentary/Breasts Skin/Breast: Reports as per HPI and Denies rash Neurologic Neurologic: Reports as per HPI and Denies headache(s) PFSH <GERMAN Powers - Last Filed: 06/23/22 13:46> All Active Problems (Updated 06/14/22 @ 17:39 by Sharri Lucero NP) Gastroenteritis (Acute) Pyelonephritis (Acute) Smoker (Chronic 10/23/12) Pancreatic insufficiency (Chronic 10/23/12) Obesity (Chronic 10/23/12) Dysmenorrhea (Chronic 06/30/16) Depressive disorder (Chronic) Anxiety (Chronic 08/02/12) Asplenia (Chronic) Hypothyroidism (Chronic) Adrenal mass, 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 1 year repeat recommended. 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 Lugo PANCREATECTOMY (08/22/07) PARTIAL Status post arthroscopy of left knee (12/24/21) Medial meniscal root repair, synovectomy and chondroplasty Dr. Marquez Status post cholecystectomy (~2007) [facility] November 27, complicated by injury to the pancreas with a 40% pancreectomy done in April 29 and a subsequent splenectomy done in also. Tubal ligation status Family History Mother Liliya's disease Father , 48 Brain tumor Sister No problems noted. Brother No problems noted. 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 What type of physical activity do you participate in: additional Details: snowshoed a couple times this winter. Do you feel safe at home: Yes Do you feel safe in your relationship?: Yes Exam <GERMAN Powers - Last Filed: 06/23/22 13:46> Const General: cooperative, healthy appearing, comfortable, no acute distress, well developed and anxious Nutritional Appearance: well nourished and overweight Orientation: alert and awake HENMT Head: normal to inspection Mouth: moist mucous membranes Resp Effort & Inspection: normal respiratory effort, able to speak in complete sentences and no respiratory distress Auscultation: clear to auscultation bilaterally, no rales, no rhonchi and no wheezes Cardio Rate: regular rate Rhythm: regular rhythm Heart Sounds: S1 normal and S2 normal GI Inspection: normal to inspection, non-distended, no obesity, no visible herniation and no visible pulsation Palpation: soft, no hepatosplenomegaly, not firm, no guarding, no hernias, no masses, no pulsatile masses, not rigid and tender (diffusely tender, maximal at the epigastric region) Percussion: normal to percussion Auscultation: normal bowel sounds Back/Spine/Pelvis Back: CVA tenderness (bilateral R>L) Skin General skin exam: no rashes or lesions noted Trauma: no lacerations or abrasions Neuro General: patient alert and patient awake Cognition: normal cognition Speech: speech normal Gait: normal gait Psych Appearance: grossly normal and well kempt Mental Status: mental status grossly normal Speech and Movement: speech and movement normal Course <GERMAN Powers Last Filed: 06/23/22 13:46> Vital Signs Vital signs: Vital Signs Temperature 36.9 C 06/14/22 11:33 Pulse 94 H 06/14/22 11:33 Respiratory Rate 18 06/14/22 11:33 Blood Pressure 114/69 06/14/22 11:33 Pulse Oximetry 99 06/14/22 11:33 Temperature 36.6 C 06/14/22 12:58 Temperature Source Skin 06/14/22 12:58 Pulse 76 06/14/22 12:58 Respiratory Rate 16 06/14/22 12:58 Respiratory Effort Non-Labored 06/14/22 11:36 Blood Pressure 142/92 H 06/14/22 12:58 Blood Pressure Position Sitting 06/14/22 11:33 Pulse Oximetry 100 06/14/22 12:58 Oxygen Delivery Method Room Air 06/14/22 12:58 Oxygen Flow Rate 0 06/14/22 12:58 Pain Level 10 06/14/22 12:58 Sign Out <GERMAN Powers - Last Filed: 06/23/22 13:46> Sign Out Data: Sign Out Comment: Care transition to Skylar Bentley NP. Patient here with epigastric and flank pain. Patient was here last week with the same discomfort, CT imaging without acute abnormality. Was diagnosed with a UTI. Pain is epigastric and worse with lying flat, primarily concern for gastritis. Received Protonix. Has also had some nausea, received Zofran. Despite this, continues to be nauseated just augmented with Phenergan. After Phenergan, patient will need p.o. challenge. Plan for discharge to home with labs and renal ultrasound are without acute abnormality. Last updated by Sandra Quiñones PA at 06/14/22 15:53
--- NOTE | 2022-06-14 13:30 | DI.US_ITS ---
Exam(s) US RENAL EXAM: US RENAL CLINICAL HISTORY: right flank pain. TECHNIQUE: Bradshaw scale, color and spectral Doppler were used. COMPARISON: No exams were available for comparison FINDINGS: Renal size in cm: Right: 11.0 left: 9.8 Echogenicity: Normal Hydronephrosis: No Cyst or mass: No Nephrolithiasis: No Bladder:Normal . Both ureteral jets were visualized. Prevoid vol:160 Postvoid vol:0 IMPRESSION: Negative renal ultrasound. DATA REPOSITORY:
[2022-06-14 13:31] LABS: Lactate 1.1 mmol/L (0.6-1.4)
[2022-06-14 13:34] LABS: Abs Immature Grans 0.03 10^3/uL (0.0-0.06); Absolute Basophil Count 0.05 10^3/uL (0.0-0.2); Absolute Eosinophil Count 0.28 10^3/uL (0.0-0.7); Absolute Lymphocyte Count 3.53 10^3/uL (1.2-3.4); Absolute Monocyte Count 0.95 10^3/uL (0.1-0.8); Basophils % 0.4; Eosinophils % 2.3; HCT 42.3 % (36.0-46.0); Immature Grans % 0.2; Lymphocytes % 29.3; MCHC 33.1 % (32.0-36.0); MCV 97 fL (80-95); MPV 11.9 fL (8.0-11.0); Monocytes % 7.9; Neutrophils % 59.9; Platelet Count 419 10^3/uL (130-400); RBC 4.37 10^6/uL (3.93-5.22); RDW 13.9 % (11.7-14.6); RDW-SD 49.1 fL; WBC 12.05 10^3/uL (4.4-10.8)
[2022-06-14 13:36] LABS: Absolute Neutrophil Count 7.22 10^3/uL (1.2-6.7)
[2022-06-14 13:54] LABS: ALT 27 U/L (14-59); AST 14 U/L (15-37); Alkaline Phosphatase 139 U/L (46-116); Anion Gap 8.1 mmol/L (3-11); BUN 18 mg/dL (7-18); Bilirubin, Total 0.2 mg/dL (0.2-1.0); CO2 27.9 mmol/L (21.0-32.0); CREATININE 0.8 mg/dL (0.55-1.02); Calcium 9.5 mg/dL (8.5-10.1); Chloride 100 mmol/L (98-107); Estimated GFR 95.46 (mL/min/1.73m2); Glucose 99 mg/dL (74-106); Lipase 31 U/L (73-393); Magnesium 1.8 mg/dL (1.8-2.4); Sodium 136 mmol/L (136-145); Total Protein 8.4 g/dL (6.4-8.2)
[2022-06-14] MEDS: Ondansetron 4 MG/2 ML VIAL IVP (14:40)
[2022-06-14] MEDS: Normal Saline 1,000 ML 1000 ML IV (14:41)
[2022-06-14 15:04] LABS: Bilirubin Negative (Negative); Blood Large (Negative); Clarity Sl Cloudy (Clear); Glucose Negative (Negative); Ketones Trace mg/dL (Negative); Leukocyte Esterase Small (Negative); Nitrite Negative (Negative); Specific Gravity >= 1.030 (1.005-1.025); Urobilinogen 0.2 EU/dL (Up TO 0.2); pH 6.5 (5-8)
[2022-06-14] MEDS: Pantoprazole 40 MG VIAL IVP (15:18)
[2022-06-14 15:22] LABS: Bacteria Few HPF (Negative); C & S Indicated? Yes; Casts Negative LPF (Negative); Crystals Negative HPF (Negative); Epithelial Cells Few HPF (Negative); Mucus Trace (Negative); RBC 20-50 HPF (0-2)
[2022-06-14] MEDS: Ondansetron O.D.T. 4 MG TABEF, 3 TABS/BTL PO (17:55)
== END 2022-06-14 18:02 | disposition home or self-care (01) ==
PROVIDERS: Physician Assistant; Emergency Provider Registered Nurse Emergency; PCP Family Medicine
DX: K52.9 Noninfective gastroenteritis and colitis, unspecified (principal); R10.13 Epigastric pain; R10.9 Unspecified abdominal pain
CPT/HCPCS: 36415; 76770; 80053; 83690; 96361; 96374; 96375; 99284; 81003; 81015; 83605; 83735; 85025; 87086; J2405

== ENCOUNTER 2022-07-16 14:11 | Outpatient (CLI) | payer MEDICAID, SELFPAY ==
[2022-07-16 09:35] LABS: Abs Immature Grans 0.02 10^3/uL (0.0-0.06); Absolute Basophil Count 0.05 10^3/uL (0.0-0.2); Absolute Eosinophil Count 0.17 10^3/uL (0.0-0.7); Absolute Lymphocyte Count 2.49 10^3/uL (1.2-3.4); Absolute Monocyte Count 0.85 10^3/uL (0.1-0.8); Absolute Neutrophil Count 6.61 10^3/uL (1.2-6.7); Basophils % 0.5; Eosinophils % 1.7; HGB 13.6 g/dL (11.2-15.7); Immature Grans % 0.2; Lymphocytes % 24.4; MCH 32.4 pg (27.0-33.0); MCHC 33.2 % (32.0-36.0); MCV 98 fL (80-95); MPV 12.1 fL (8.0-11.0); Monocytes % 8.3; Neutrophils % 64.9; Platelet Count 394 10^3/uL (130-400); RDW 14.5 % (11.7-14.6); RDW-SD 52.1 fL; WBC 10.19 10^3/uL (4.4-10.8)
== END 2022-07-16 14:12 | disposition home or self-care (01) ==
LOC: LBO 14:11
PROVIDERS: PCP Family Medicine; Visit Provider Family Medicine
DX: N12 Tubulo-interstitial nephritis, not specified as acute or chronic (principal)
CPT/HCPCS: 36415; 85025

== ENCOUNTER 2022-07-16 15:23 | Outpatient (REF) | payer MEDICAID, SELFPAY ==
[2022-07-16 20:39] LABS: COMMENT (LAB VIEW ONLY) 182.91 mg/dL; Microalb ug/mg Crea 11.5 ug/mg Cr
[2022-07-20 08:15] LABS: Chlamydia Result Negative (Negative); GC Result Negative (Negative)
== END 2022-07-16 15:24 | disposition home or self-care (01) ==
LOC: LBN 15:23
PROVIDERS: PCP Family Medicine; Visit Provider Family Medicine
DX: Z11.3 Encounter for screening for infections with a predominantly sexual mode of transmission (principal); E11.9 Type 2 diabetes mellitus without complications
CPT/HCPCS: 87491; 87591; 82043; 82570

== ENCOUNTER → 2022-08-17 01:25 | Outpatient (CLI) | payer MEDICAID, SELFPAY ==
--- NOTE | 2022-08-17 07:50 | DI.RAD_ITS ---
Exam(s) XR FOOT RT COMPLETE EXAM: XR FOOT RT COMPLETE CLINICAL HISTORY: Pain in the lateral right foot for several months.[id number]. TECHNIQUE: 2D digital imaging was performed. COMPARISON: No exams were available for comparison FINDINGS: There is no evidence of acute fracture nor diastasis of the Lisfranc joint. Great toe metatarsophala ngeal joint appears unremarkable. No pes planus. Accessory ossicle on the medial aspect of the foot adjacent to the navicular tuberosity noted, probably type 1. Prominent inferior calcaneal spur note d as well as an additional spur slightly further back in the inferior calcaneus at the posterior nicole chment of the plantar fascia. There is also enthesophyte posteriorly on the calcaneus at the inserti onal aspect of the Achilles tendon. Bone density normal. No osseous lesions. No erosions. IMPRESSION: As above. DATA REPOSITORY: RADIATION DOSE DELIVERED:
== END ==
PROVIDERS: PCP Family Medicine; Visit Provider Nurse Practitioner Family
DX: M77.31 Calcaneal spur, right foot (principal); M76.61 Achilles tendinitis, right leg
CPT/HCPCS: 73630

== ENCOUNTER 2022-10-25 01:28 | Emergency (ER) | payer MEDICAID, SELFPAY ==
--- NOTE | 2022-10-25 01:30 | DI.RAD_ITS ---
Exam(s) XR ANKLE RT COMPLETE EXAM: XR ANKLE RT COMPLETE CLINICAL HISTORY: right lateral ankle pain. TECHNIQUE: 2D digital imaging was performed. Three views. COMPARISON: No exams were available for comparison FINDINGS: BONES: There is an oblique fracture through lateral malleolus extending to the level of the ankle mor tise which is mildly displaced. No distal tibial fracture is seen. Talar dome is intact. Prominent calcaneal spurs. No bony destructive lesion is seen. JOINTS: Mild widening of the lateral ankle mortise at the level of the fracture. Medial ankle mortis e is not widened. SOFT TISSUE: Soft tissue swelling greatest around the lateral malleolus. IMPRESSION: Lateral malleolar fracture. DATA REPOSITORY: RADIATION DOSE DELIVERED:
[2022-10-25 01:34] VITALS: BP 153/97; PULSE 107; RESP 25; TEMP 36.3; O2SAT 98
--- NOTE | 2022-10-25 01:38 | ED.GENADUL_ITS ---
Discharge Plan Disposition Patient Disposition: Home Condition: Good Discharge Details Clinical Impression: Fracture of right fibula, Depression, Alcohol intoxication Primary Care Provider: Camelia Gracia ED Provider: Ian Esquivel Home Meds and New Rx's Prescriptions: Continued ketoconazole 2 % shampoo 1 applic TP Q2W Qty: 120 4RF Rx Instructions: Apply twice a week with at least 3 days in between shampoos bupropion HCl 150 mg tablet extended release 24 hr 150 mg PO QAM Qty: 30 12RF Hold Instructions: Home Medication placed on hold at Doctor's office metformin 500 mg tablet,ER jonathan.retention 24 hr 500 mg PO QPM Qty: 30 12RF levothyroxine [Synthroid] 125 mcg tablet 125 mcg PO DAILY Qty: 90 4RF Rx Instructions: Take 1 tablet once a day in the morning on an empty stomach (DME) compr.stocking,thigh,short,med Misc See Rx Instructions .Route Qty: 12 0RF Rx Instructions: As directed - medium compression, thigh high, medium size lorazepam 0.5 mg tablet 0.5 mg PO HS PRN (Reason: anxiety) Qty: 30 0RF varenicline 1 mg tablet 1 mg PO BID Qty: 56 3RF varenicline [Chantix Starting Month Box] 0.5 mg (11)- 1 mg (42) tablets,dose pack See Rx Instructions PO PER PKG DIR Qty: 53 0RF Rx Instructions: PO PER PKG DIR trazodone 100 mg tablet 100 mg PO QHS Qty: 30 3RF chlorthalidone 25 mg tablet 25 mg PO DAILY Qty: 90 3RF bupropion HCl 150 mg tablet sustained-release 12 hr 150 mg PO BID Qty: 60 2RF (DME) blood-glucose meter [FreeStyle Lite Meter] Kit See Rx Instructions .Route Qty: 1 0RF Rx Instructions: As directed - test once daily. (DME) FreeStyle Lite Strips Strip See Rx Instructions .Route Qty: 100 0RF Rx Instructions: As directed test once daily- (DME) lancets 28 gauge misc See Rx Instructions .ROUTE DAILY Qty: 100 3RF Rx Instructions: DX:250.0 - use once daily. omeprazole magnesium 20 mg tablet,delayed release (DR/EC) 20 mg PO DAILY Qty: 30 0RF Rx Instructions: Take one tablet daily acetaminophen 500 mg Tablet 1,000 mg PO USEASDIRECTD PRN Discharge Instructions Instructions: Ankle Fracture (ED) Medical Decision Making This is a pleasant 42-year-old female who presents today for evaluation of right ankle pain. Patient states that she woke up this morning and it was hurting. She does not remember any specific injuries or falls or trauma. Pain is made worse with movement. Improved by rest and ice. She denies any numbness or tingling. She has had some alcohol to drink this evening. No other complaints at this time. M demonstrates swelling and tenderness on the lateral aspect of the right ankle. No redness or warmth to suggest infection. Mild pain with plantarflexion but no pain with dorsiflexion eversion or inversion. Suspect sprain. We will get an x-ray to rule out fracture. No evidence of infection, gout or cellulitis. 2:28 AM Patient does demonstrate evidence of a mildly displaced distal fibular spiral fracture. Patient was splinted with a stirrup and posterior splint. She remained stable. In addition to this patient also states that she has been drinking an excessive amount of alcohol, feels depressed, and wants help and assistance. She denies any homicidal or suicidal ideations. Mother is at bedside. We will consult mental health for additional supportive services. 3:26 AM Patient has been seen and assessed by mental health. She has been cleared with the smart form. She is clinically sober. At this time through shared decision- making process patient would like to stay overnight here for voluntary mental health admission. She does not feel safe going home because she feels that if she does she will continue to drink alcohol and drink herself to . She still denies any homicidal or suicidal ideations though. We will keep the patient here in the meantime. We will continue to monitor closely. 5:34 AM Patient did have some complaint about pain at the fracture site. I did loosen up her splint slightly. This completely resolved the pain. She maintains excellent sensation distally, and normal capillary refill. No signs of compartment syndrome. FINDINGS: Bones/joints: Spiral fracture of the distal fibular metaphysis which extends distally to the level of the ankle mortise. There is mild lateral displacement of the distal fracture fragment. No joint dislocation. Ankle mortise appears grossly preserved. Plantar spur is present. Soft tissues: Lateral ankle soft tissue edema. IMPRESSION: Mildly displaced distal fibular spiral fracture. Thank you for allowing us to participate in the care of your patient. Dictated and Authenticated by: Karri Ochoa MD 10/25/2022 2:14 AM Eastern Time ([place] & [place]) HPI General Date/Time Provider Initiated Documentation: 10/25/22 01:30 . HPI Narrative: This is a pleasant 42-year-old female who presents today for evaluation of right ankle pain. Patient states that she woke up this morning and it was hurting. She does not remember any specific injuries or falls or trauma. Pain is made worse with movement. Improved by rest and ice. She denies any numbness or tingling. She has had some alcohol to drink this evening. No other complaints at this time. Related Data Home Medications Medication Instructions Recorded Confirmed ketoconazole 2 % shampoo 1 applic topical Q2W #120 mL 10/24/20 10/25/22 acetaminophen 500 mg tablet 1,000 mg PO USEASDIRECTD PRN 12/23/21 10/25/22 compr.stocking,thigh,short,med #12 ea 01/05/22 10/25/22 blood sugar diagnostic (FreeStyle #100 ea 05/07/22 10/25/22 Lite Strips) blood-glucose meter (FreeStyle #1 ea 05/07/22 10/25/22 Lite Meter kit) lancets 28 gauge #100 ea 05/07/22 10/25/22 lorazepam 0.5 mg tablet 0.5 mg PO HS PRN anxiety #30 tabs 06/04/22 10/25/22 trazodone 100 mg tablet 100 mg PO QHS sleep #30 tabs 06/04/22 10/25/22 varenicline 0.5 mg (11)-1 mg (42) See Rx Instructions PO PER PKG DIR 06/04/22 09/08/22 tablets in a dose pack (Chantix #53 dose pk Starting Month Box) varenicline 1 mg tablet 1 mg PO BID #56 tabs 06/04/22 10/25/22 omeprazole magnesium 20 mg 20 mg PO DAILY #30 tabs 06/14/22 10/25/22 tablet,delayed release Synthroid 125 mcg tablet 125 mcg PO DAILY #90 tabs 11/25/22 03/06/23 (levothyroxine) bupropion HCl 150 mg 24 hr tablet, 150 mg PO QAM #30 tabs 07/16/22 10/25/22 extended release metformin 500 mg 24 hr 500 mg PO QPM #30 tabs 07/16/22 10/25/22 tablet,extended release chlorthalidone 25 mg tablet 25 mg PO DAILY #90 tabs 08/03/22 10/25/22 bupropion HCl 150 mg tablet,12 hr 150 mg PO BID #60 tabs 09/08/22 10/25/22 sustained-release Previous Rx's Medication Instructions Recorded ketoconazole 2 % shampoo 1 applic topical Q2W #120 mL 10/24/20 compr.stocking,thigh,short,med #12 ea 01/05/22 blood sugar diagnostic (FreeStyle #100 ea 05/07/22 Lite Strips) blood-glucose meter (FreeStyle #1 ea 05/07/22 Lite Meter kit) lancets 28 gauge #100 ea 05/07/22 lorazepam 0.5 mg tablet 0.5 mg PO HS PRN anxiety #30 tabs 06/04/22 trazodone 100 mg tablet 100 mg PO QHS sleep #30 tabs 06/04/22 varenicline 0.5 mg (11)-1 mg (42) See Rx Instructions PO PER PKG DIR 06/04/22 tablets in a dose pack (StuRents.comtix #53 dose pk Starting Month Box) varenicline 1 mg tablet 1 mg PO BID #56 tabs 06/04/22 omeprazole magnesium 20 mg 20 mg PO DAILY #30 tabs 06/14/22 tablet,delayed release Synthroid 125 mcg tablet 125 mcg PO DAILY #90 tabs 07/16/22 (levothyroxine) bupropion HCl 150 mg 24 hr tablet, 150 mg PO QAM #30 tabs 07/16/22 extended release metformin 500 mg 24 hr 500 mg PO QPM #30 tabs 07/16/22 tablet,extended release chlorthalidone 25 mg tablet 25 mg PO DAILY #90 tabs 08/03/22 bupropion HCl 150 mg tablet,12 hr 150 mg PO BID #60 tabs 09/08/22 sustained-release Allergies Allergy/AdvReac Type Severity Reaction Status Date / Time pneumococcal vaccine Allergy Intermediate Localized Verified 09/08/22 13:49 reaction with PCV13 levothyroxine sodium AdvReac Mild Verified 09/08/22 13:49 General Stated Complaint: Orthopedic OLEGARIO: 3 Review of Systems All systems reviewed & are unremarkable except as noted in HPI and below PFSH All Active Problems (Updated 10/25/22 @ 02:12 by Grupo Pablo DO) Fracture of right fibula (Acute) Depression (Chronic) Alcohol intoxication (Acute) Perimenopausal symptoms (Acute) Right foot pain (Acute) Smoker (Chronic 10/23/12) Pancreatic insufficiency (Chronic 10/23/12) Obesity (Chronic 10/23/12) Dysmenorrhea (Chronic 06/30/16) Depressive disorder (Chronic) Anxiety (Chronic 08/02/12) Asplenia (Chronic) Hypothyroidism (Chronic) Adrenal mass, 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 1 year repeat recommended. 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 Lugo PANCREATECTOMY (08/22/07) PARTIAL Status post arthroscopy of left knee (12/24/21) Medial meniscal root repair, synovectomy and chondroplasty Dr. Marquez Status post cholecystectomy (~2007) [facility] in November 27, complicated by injury to the pancreas with a 40% pancreectomy done in April 29 and a subsequent splenectomy done in also. Tubal ligation status Family History Mother Liliya's disease Father , 48 Brain tumor Sister No problems noted. Brother No problems noted. 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 What type of physical activity do you participate in: additional Details: snowshoed a couple times this winter. Do you feel safe at home: Yes Do you feel safe in your relationship?: Yes Exam Narrative Exam Narrative: 1.Const: Well-nourished, Well-developed, appearing stated age 2.Eyes: PERRL, no conjunctival injection, and symmetrical lids. 3.ENT: Atraumatic external nose and ears. Moist MM. Neck: Symmetric, trachea midline, No thyromegaly. 4.CVS: +S1/S2, No murmurs or gallops. Peripheral pulses 2+ and equal in all extremities. Brisk capillary refill in all extremities. 5.RESP: Unlabored respiratory effort. Clear to auscultation bilaterally. No wheezes rales or rhonchi 6.GI: Soft, Nontender/Nondistended, No hepatosplenomegaly. No guarding or rebound. 7.MSK: Normocephalic, Extremities w/o deformit.No cyanosis or clubbing, Normal movement of all extremities. Patient does have mild swelling to the lateral aspect of her right ankle. Minimal bruising. No redness or warmth to suggest infection. Pain is made worse on palpation of the lateral ankle on the right, mild pain with plantarflexion. No pain with dorsiflexion eversion or inversion. 8.Skin: Warm, Dry. No rashes or lesions. 9.Neuro: die hardener II-XII grossly intact. Sensation grossly intact, no focal neurologic deficits. 10.Psych: (AAO) x3. Appropriate mood and affect Course Vital Signs Vital signs: Vital Signs Temperature 36.3 C L 10/25/22 01:34 Pulse 107 H 10/25/22 01:34 Respiratory Rate 25 H 10/25/22 01:34 Blood Pressure 153/97 H 10/25/22 01:34 Pulse Oximetry 98 10/25/22 01:34 Temperature 36.3 C L 10/25/22 01:34 Temperature Source Oral 10/25/22 01:34 Pulse 107 H 10/25/22 01:34 Respiratory Rate 25 H 10/25/22 01:34 Blood Pressure 153/97 H 10/25/22 01:34 Blood Pressure Position Sitting 10/25/22 01:34 Pulse Oximetry 98 10/25/22 01:34 Oxygen Delivery Method Room Air 10/25/22 01:34 Oxygen Flow Rate 0 10/25/22 01:34 Pain Level 7 10/25/22 01:34 Sign Out Sign Out Data: Sign Out Comment: Patient came in for ankle pain, has distal fibula fracture, but is also been drinking an excessive amount of alcohol and has been very depressed. Not suicidal, but wants admission to mental health facility. Here voluntarily. Chlordiazepoxide and Ativan given to prevent withdrawals. Pending mental health facility. Last updated by Grupo Pablo DO at 10/25/22 07:42
[2022-10-25] MEDS: Ibuprofen 800 MG TAB PO (01:56)
--- NOTE | 2022-10-25 02:14 | DI.VRAD_ITS ---
PROCEDURE INFORMATION: Exam: XR Right Ankle Exam date and time: 10/25/2022 1:46 AM Age: 42 years old Clinical indication: Injury or trauma; Fall; Blunt trauma; Right; Injury date: 10/24/22; Injury details: R lat ankle pain TECHNIQUE: Imaging protocol: Radiologic exam of the right ankle. Views: 3 or more views. COMPARISON: MR LOWER JOINT RT WO 04/02/2022 11:04 AM FINDINGS: Bones/joints: Spiral fracture of the distal fibular metaphysis which extends distally to the level of the ankle mortise. There is mild lateral displacement of the distal fracture fragment. No joint dislocation. Ankle mortise appears grossly preserved. Plantar spur is present. Soft tissues: Lateral ankle soft tissue edema. IMPRESSION: Mildly displaced distal fibular spiral fracture. Dictated and Authenticated by: Karri Ochoa MD. Ordering:ANTONEITA Lombardo MD
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
[2022-10-25] MEDS: Acetaminophen 500 MG TAB 1000 MG PO (02:48)
[2022-10-25] MEDS: LORazepam 1 MG TAB PO ×3 (03:19→16:13)
[2022-10-25] MEDS: LORazepam 1 MG TAB 2 MG PO (06:05)
[2022-10-25] MEDS: chlordiazePOXIDE 25 MG CAP 50 MG PO (06:06)
[2022-10-25 06:21] VITALS: BP 168/100; PULSE 110; RESP 26; TEMP 37.1; O2SAT 99
[2022-10-25 06:43] LABS: Abs Immature Grans 0.07 10^3/uL (0.0-0.06); Absolute Basophil Count 0.07 10^3/uL (0.0-0.2); Absolute Eosinophil Count 0.21 10^3/uL (0.0-0.7); Absolute Monocyte Count 1.34 10^3/uL (0.1-0.8); Basophils % 0.4; Eosinophils % 1.2; HCT 37.8 % (36.0-46.0); Immature Grans % 0.4; Lymphocytes % 19.2; MCH 32.7 pg (27.0-33.0); MCHC 34.4 % (32.0-36.0); MCV 95 fL (80-95); MPV 11.3 fL (8.0-11.0); Monocytes % 7.8; Platelet Count 374 10^3/uL (130-400); RBC 3.97 10^6/uL (3.93-5.22); RDW 13.8 % (11.7-14.6); RDW-SD 47.9 fL; WBC 17.17 10^3/uL (4.4-10.8)
[2022-10-25 06:47] LABS: Absolute Neutrophil Count 12.19 10^3/uL (1.2-6.7)
[2022-10-25 07:12] LABS: ALT 33 U/L (14-59); AST 18 U/L (15-37); Albumin 3.5 g/dL (3.4-5.0); Alkaline Phosphatase 130 U/L (46-116); Anion Gap 12.2 mmol/L (3-11); BUN 11 mg/dL (7-18); Bilirubin, Total 0.4 mg/dL (0.2-1.0); CO2 25.8 mmol/L (21.0-32.0); CREATININE 0.6 mg/dL (0.55-1.02); Calcium 8.8 mg/dL (8.5-10.1); Chloride 103 mmol/L (98-107); Estimated GFR 115.57 (mL/min/1.73m2); Glucose 143 mg/dL (74-106); Potassium 3.3 mmol/L (3.5-5.1); Sodium 141 mmol/L (136-145); TSH (W/Ref FT4) 3.92 uIU/mL (0.36-3.74); Total Protein 7.2 g/dL (6.4-8.2)
[2022-10-25 07:13] LABS: ETHANOL BLOOD < 3.0 mg/dL (<10)
[2022-10-25 07:30] LABS: FREE T4 1.16 ng/dL (0.76-1.46)
--- NOTE | 2022-10-25 09:31 | W.EDPROG ---
Date of service: 10/25/22 Time of Service: 09:31 Medical Decision Making 800 --care was signed out by Dr. Pablo, please see his note regarding initial ED presentation and course. Plan at signout was to follow-up on recommendations from [facility] regarding voluntary admission for suicidal thoughts. 930 --still awaiting [facility] crisis evaluation recommendations. Patient now anxious again. She had Ativan 2 mg approximately 3 hours ago. I will give an additional 1 mg of Ativan at this time. -- [facility] called requesting labs including hCG, urine tox and COVID testing be performed. 1530 -- [facility] I spoke with COBOL MAINFRAME DEVELOPER Errol regarding ED course, we discussed ED presentation and course. She will accept the patient in transfer. They request Graeme wrap be removed and splint be replaced. I spoke with Dr. Bliss, on-call orthopedics, he recommends placing an orthopedic boot. Patient will require outpatient orthopedic follow-up. Procedures Orthopedic Splinting/Casting Injury #1: Side: right Lower Extremity Injury Location: ankle Lower Extremity Immobilizer: boot orthosis Other Orthopedic Equipment: crutches Sign Out Sign Out Data: Sign Out Comment: Patient came in for ankle pain, has distal fibula fracture, but is also been drinking an excessive amount of alcohol and has been very depressed. Not suicidal, but wants admission to mental health facility. Here voluntarily. Chlordiazepoxide and Ativan given to prevent withdrawals. Pending mental health facility. Last updated by Grupo Pablo DO at 10/25/22 07:42 Discharge Plan Disposition Patient Disposition: Transfer-Acute Inpatient Care Specific Acute Inpt Facility: Other Condition: Good Discharge Details Clinical Impression: Fracture of right fibula, Depression, Alcohol intoxication Primary Care Provider: Camelia Gracia ED Provider: Ian Esquivel Home Meds and New Rx's Prescriptions: Continued ketoconazole 2 % shampoo 1 applic TP Q2W Qty: 120 4RF Rx Instructions: Apply twice a week with at least 3 days in between shampoos bupropion HCl 150 mg tablet extended release 24 hr 150 mg PO QAM Qty: 30 12RF Hold Instructions: Home Medication placed on hold at Doctor's office metformin 500 mg tablet,ER jonathan.retention 24 hr 500 mg PO QPM Qty: 30 12RF levothyroxine [Synthroid] 125 mcg tablet 125 mcg PO DAILY Qty: 90 4RF Rx Instructions: Take 1 tablet once a day in the morning on an empty stomach (DME) compr.stocking,thigh,short,med Misc See Rx Instructions .Route Qty: 12 0RF Rx Instructions: As directed - medium compression, thigh high, medium size lorazepam 0.5 mg tablet 0.5 mg PO HS PRN (Reason: anxiety) Qty: 30 0RF varenicline 1 mg tablet 1 mg PO BID Qty: 56 3RF varenicline [Chantix Starting Month Box] 0.5 mg (11)- 1 mg (42) tablets,dose pack See Rx Instructions PO PER PKG DIR Qty: 53 0RF Rx Instructions: PO PER PKG DIR trazodone 100 mg tablet 100 mg PO QHS Qty: 30 3RF chlorthalidone 25 mg tablet 25 mg PO DAILY Qty: 90 3RF bupropion HCl 150 mg tablet sustained-release 12 hr 150 mg PO BID Qty: 60 2RF (DME) blood-glucose meter [FreeStyle Lite Meter] Kit See Rx Instructions .Route Qty: 1 0RF Rx Instructions: As directed - test once daily. (DME) FreeStyle Lite Strips Strip See Rx Instructions .Route Qty: 100 0RF Rx Instructions: As directed test once daily- (DME) lancets 28 gauge misc See Rx Instructions .ROUTE DAILY Qty: 100 3RF Rx Instructions: DX:250.0 - use once daily. omeprazole magnesium 20 mg tablet,delayed release (DR/EC) 20 mg PO DAILY Qty: 30 0RF Rx Instructions: Take one tablet daily acetaminophen 500 mg Tablet 1,000 mg PO USEASDIRECTD PRN Discharge Instructions Instructions: Ankle Fracture (ED)
[2022-10-25] MEDS: Potassium Chloride 20 MEQ TABCR PO (09:42)
--- NOTE | 2022-10-25 11:00 | PDOC.MHCN ---
Date of service: 10/25/22 Time of Service: 02:35 PHQ-9 Over the last 2 weeks, how often have you been bothered by any of the following problems? 1. Little interest or pleasure in doing things: more than half the days 2. Feeling down, depressed, or hopeless: nearly every day 3. Trouble falling or staying asleep, or sleeping too much: nearly every day 4. Feeling tired or having little energy: nearly every day 5. Poor appetite or overeating: nearly every day 6. Feeling bad about yourself - or that you are a failure or have let yourself and your family down: nearly every day 7. Trouble concentrating on things, such as reading the newspaper or watching television: nearly every day 8. Moving or speaking so slowly that other people could have noticed? - Or the opposite - being so fidgety or restless that you have been moving around a lot more than usual: nearly every day 9. Thoughts that you would be better off or of hurting yourself in some way: more than half the days Total score: 25 If you checked off any problems, how difficult have these problems made it for you to do your work, take care of things at home, or get along with other people?: very difficult PHQ-9 Results: Positive Source: Developed by Drs. Yasir Welch, Bing Briceño, Papa Crowder and colleagues, with an educational rosales from [employer]. Suicide Severity Rate CSSRS Have you wished you were or wished you could go to sleep and not wake up?: Yes Have you actually had any thoughts of killing yourself?: No CSSRS3 Have you ever done anything, started to do anything or prepared to do anything to end your life?: No CSSRS4 Was this within the past three months?: No Screening Score Total Score: 2 Screening: Positive Mental Health Emergency Note Release [facility] release signed:: No Reason for Visit Client presented to [facility] ED with chief complaint of ankle soreness. Per report of [facility] ED attending provider Dr. Pablo client was tearful and reported: I am at the end of my rope I don't know how much longer I can continue to do this. Client reports that she struggles with substance abuse (using alcohol daily) and has been increasingly struggling for the past 2 years since she lost her son. Client is seen this morning via zoom while at [facility] ED. In the last 2 weeks has the pt presented for ES prior to today?: No Client Information Client is: New Well Housed: Yes Non Suicidal Self Injury Current: No History: No Safety Risk/Harm to Self or Others Current Ideation to Harm Self or Others: Yes to self. (Client reports fleeting thoughts of SI, however denies intent and plan stating that she would never do anything to harm herself as she has a 15 y/o daughter that needs her. ) Intent: no, has no intent. Plan: no.does not have a plan. History of suicide attempt: No history of suicide attempt reported Risk: Does risk to harm exist?: No Duty to warn indicated: No Asssessment/Mental Status Behavior: Unremarkable Speech: Soft, Slow and Incoherent (Incoherent at times as she was hysterically crying throughout the assessment. ) Affect: Flat and Cogruent with mood Mood: Sad, Stressed, Depressed and Anxious Thought process: Unremarkable Hallucinations: No Delusions: No Attention: Unremarkable Perception: Not impaired Orientation: Fully orientated Memory: Intact Insight: Fair Judgement: Fair Neurovegetative Symptoms Sleep: Decrease Appetitie: Decrease Interests: Decrease Energy: Decrease Libido: Not applicable Substance Use: ETOH dependence (Client reports that she drinks alcohol daily in an excessive amount, however is unable to state how much she drinks. ) Do you use nicotine?: Yes Have you used substances in the last 7 days?: yes, Alcohol Additional Issues: Assaultive/Threatening Behavior: No Medical Concerns: No Client engaged in active self harm w/weapon: No Threatening to run away: No Child reported abuse/neglect: No Voluntarily presenting for services: Yes Domestic violence is a concern: No Extreme Psychosis or extreme behavior is present: No Impression Client is a 42 y/o female that lives in [place], [place] with her 15 y/o daughter. 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 Client presents with symptoms most congruent with major depressive disorder as evidenced by self-report, tearfulness, and self-report that she feels sad and hopeless throughout the day. Client reports that she has a diminished appetite stating that she only eats one meal a day and also has a decrease in sleep. Client states that she has had a decrease in energy and interests stating: I don't hang out with anybody, I feel so lost and inside. Client reports that she is having fleeting suicidal ideations, however denies intent or plan to act on them stating: I have a 15 y/o daughter that I have to worry about. Client reports onset on symptoms occurred when she lost her son almost 2 years ago and has been increasingly getting worse. Client reports: I can't concentrate or remember anything. I am losing myself. Client is in need of inpatient treatment to for her ongoing depression, increased substance abuse, grief, and to learn coping skills that she can utilize when she completes treatment. Plan/Disposition Recommended Disposition: Hospitalization (Ref[place] be [place] to , [facility], [facility], and . ) facilities contacted. Plan: All options are discussed with client including a safety plan with referral for therapy and psychiatry, a crisis bed referral, and inpatient treatment in a co-occurring bed where she would be able to get assistance with both her mental health treatment and substance abuse treatment. Client is agreeable to inpatient treatment in a co-occurring bed. Referrals will be sent to [facility] [facility], , and . Facilities contacted if Applicable [facility] Not accepted, No bed available [facility] Not accepted, Only accepting in house referrals [facility] Not accepted, Only accepting in house referrals, [facility] Not accepted, No bed available Reports/communication Outcome discussed with: ED/Personnel (Verbal passover given to ED provider Dr. Pablo. ) Final Disposition/Discharge Transportation Checklist completed and faxed: No
--- NOTE | 2022-10-25 12:27 | NUR.NOTE ---
Nursing Note: [facility] nurse called, unable to take patient with an SUSANA bandage splint, will consider patient if able to splint with something else.
[2022-10-25 14:13] LABS: Source Nasal/Nares
[2022-10-25 14:33] LABS: *AMPHETAMINES SCREEN URINE Negative (Negative); *BARBITURATES SCREEN URINE Negative (Negative); *BENZODIAZEPINES SCREEN URINE Positive (Negative); Cannabinoids THC Negative (Negative); Cocaine Screen,Urine Negative (Negative); METHADONE URINE SCREEN Negative (Negative); OPIATES URINE SCREEN Negative (Negative)
[2022-10-25 14:34] LABS: Tricyclic Antidepressants Negative (Negative)
[2022-10-25 14:47] LABS: COVID-19 PCR Negative (Negative)
--- NOTE | 2022-10-25 14:57 | CMPROGNOTE_ITS ---
- If Service Date Differs Date of service: 10/25/22 Time of Service: 14:57 Care Management Progress Note 9:30am- CM called [facility] for an update. LESLIE Hernandez, stated that Love was screened at 2:30am and their recommendation is inpatient psychiatric treatment, which Love is agreeable to. CM checked in with ED staff, who stated that she is stable, although continues to be monitored for alcohol withdrawal. Love was meeting with the recovery collector, who will follow her out patient. 11:00am- BRAVO Hernandez, reported referrals were sent to [facility], [facility], [facility], [facility] [place]. 1:30pm- CM received a call from ED, has offered a bed, pending labs requested. CM called [facility], and confirmed bed offer. stated that CM could work on transport, and that they will call for MD to MD and RN to RN prior to her leaving. CM called [facility], who stated no additional availability today. CM called [facility], who stated that they can get a team together later this afternoon, leaving [place] at approximately 4pm. CM called to confirm that this time of arrival (approx. 7pm) would be acceptable, which they agreed to. CM informed [facility] of transport time. Love will be transported to [facility] at approx. 5pm by [facility]. - Status Status: Voluntary - Reason for Wait Reason for Wait: Inpatient Admission
[2022-10-25] MEDS: Acetaminophen 500 MG TAB PO (16:13)
== END 2022-10-25 17:20 | disposition short-term general hospital (02) ==
PROVIDERS: Student in an Organized Health Care Education/Training Program; Emergency Provider Student in an Organized Health Care Education/Training Program; PCP Family Medicine
DX: S82.441A Displaced spiral fracture of shaft of right fibula, initial encounter for closed fracture (principal); X58.XXXA Exposure to other specified factors, initial encounter; F32.A Depression, unspecified; F10.10 Alcohol abuse, uncomplicated
CPT/HCPCS: 29515; 36415; 80053; 80307; 81025; 87635; 99285; 73610; 80320; 84439; 84443; 85025

== ENCOUNTER 2022-11-09 09:53 | Outpatient (CLI) | payer MEDICAID, SELFPAY ==
--- NOTE | 2022-11-09 09:45 | DI.RAD_ITS ---
Exam(s) XR ANKLE RT COMPLETE EXAM: XR ANKLE RT COMPLETE CLINICAL HISTORY: right ankle f/u. TECHNIQUE: 2D digital imaging was performed of the right ankle. Three images were obtained. AP, la teral and oblique views were obtained. COMPARISON: CR,XR XR ANKLE RT COMPLETE from 10/25/2022 FINDINGS: BONES: There has been no change in the mildly displaced distal fibular fracture. No new fracture is seen. No bony destructive lesion is seen. There is a plantar calcaneal spur and enthesophyte at the posterior calcaneus. JOINTS: The ankle mortise is normally aligned. Mild degenerative changes are seen at the talonavicula r joint. SOFT TISSUE: Normal. IMPRESSION: Stable distal fibular fracture. DATA REPOSITORY: RADIATION DOSE DELIVERED:
== END 2022-11-09 09:54 | disposition home or self-care (01) ==
LOC: DIORS 09:53
PROVIDERS: PCP Family Medicine; Referring Provider Family Medicine; Visit Provider Student in an Organized Health Care Education/Training Program
DX: M77.31 Calcaneal spur, right foot; S82.441D Displaced spiral fracture of shaft of right fibula, subsequent encounter for closed fracture with routine healing; X58.XXXD Exposure to other specified factors, subsequent encounter
CPT/HCPCS: 73610

== ENCOUNTER 2022-12-07 11:05 | Outpatient (CLI) | payer MEDICAID, SELFPAY ==
--- NOTE | 2022-12-07 11:00 | DI.RAD_ITS ---
Exam(s) XR ANKLE RT COMPLETE EXAM: XR ANKLE RT COMPLETE CLINICAL HISTORY: RIGHT ANKLE F/U. TECHNIQUE: 2D digital imaging was performed of the right ankle. Three images were obtained. AP, la teral and oblique views were obtained. COMPARISON: CR XR ANKLE RT COMPLETE from 11/09/2022 FINDINGS: BONES: There has been no change in alignment of the distal fibular fracture. Callus formation has de veloped about the fracture site consistent with some interval healing. No new fractures identified. No bony destructive lesion is seen. There is a plantar calcaneal spur and enthesophyte at the right of way supervisor ior calcaneus. JOINTS: The ankle mortise is normally aligned. SOFT TISSUE: There is soft tissue swelling around the ankle. IMPRESSION: Stable healing distal fibular fracture. DATA REPOSITORY: RADIATION DOSE DELIVERED:
== END 2022-12-07 11:06 | disposition home or self-care (01) ==
LOC: DIORS 11:06
PROVIDERS: PCP Family Medicine; Referring Provider Family Medicine; Visit Provider Student in an Organized Health Care Education/Training Program
DX: M77.31 Calcaneal spur, right foot; M79.89 Other specified soft tissue disorders; S82.441D Displaced spiral fracture of shaft of right fibula, subsequent encounter for closed fracture with routine healing; X58.XXXD Exposure to other specified factors, subsequent encounter
CPT/HCPCS: 73610

== ENCOUNTER 2023-01-18 08:39 | Outpatient (CLI) | payer MEDICAID, SELFPAY ==
--- NOTE | 2023-01-18 08:15 | DI.RAD_ITS ---
Exam(s) XR ANKLE RT COMPLETE EXAM: XR ANKLE RT COMPLETE CLINICAL HISTORY: F/U FRACTURE. TECHNIQUE: 2D digital imaging was performed. COMPARISON: CR XR ANKLE RT COMPLETE from 12/07/2022 FINDINGS: 3 views Again noted is the oblique fracture in the distal fibula with some callus formation at the fracture s ite now evident. No further displacement. No obvious widening of the mortise. Talar dome unremarka ble. Medial malleolus unremarkable. Small bone densities seen off the posterior malleolus. Large i nferior calcaneal spur noted. Achilles insertion enthesophyte noted. No osseous tarsal coalition. IMPRESSION: There is some callus formation now evident at the fracture site in the distal fibula. Fracture line still evident. DATA REPOSITORY: RADIATION DOSE DELIVERED:
--- NOTE | 2023-01-18 09:15 | DI.RAD_ITS ---
Exam(s) XR KNEE LT 2V AP,LAT EXAM: XR KNEE LT 2V AP,LAT CLINICAL HISTORY: knee pain. TECHNIQUE: 2D digital imaging was performed. COMPARISON: CR XR KNEE LT 4V AP,LAT,[place],PAT from 12/08/2021 FINDINGS: Two views No evidence ofh fracture. There is a small joint effusion. There are significant degenerative foster es medial compartment when compared to the prior images of 1920. Degenerative subarticular cysts not ed in the mid tibial plateau. Lateral compartment exhibits normal height. IMPRESSION: Significant degenerative changes in the medial compartment when compared to 12/08/2021. DATA REPOSITORY: RADIATION DOSE DELIVERED:
== END 2023-01-18 08:40 | disposition home or self-care (01) ==
PROVIDERS: PCP Family Medicine; Referring Provider Family Medicine; Visit Provider Student in an Organized Health Care Education/Training Program
DX: S82.831D Other fracture of upper and lower end of right fibula, subsequent encounter for closed fracture with routine healing (principal); S83.242D Other tear of medial meniscus, current injury, left knee, subsequent encounter; M77.31 Calcaneal spur, right foot
CPT/HCPCS: 73560; 73610

== ENCOUNTER 2023-01-19 08:17 | Emergency (ER) | payer MEDICAID, SELFPAY ==
[2023-01-19 08:21] VITALS: BP 126/81; PULSE 65; RESP 16; TEMP 36.5; O2SAT 99
--- NOTE | 2023-01-19 08:30 | DI.US_ITS ---
Exam(s) US LOWER EXTREMITY VENOUS LT EXAM: US LOWER EXTREMITY VENOUS LT CLINICAL HISTORY: left leg pain, hx of dvt. TECHNIQUE: Lower extremity venous ultrasound performed using grayscale, color-flow, and spectral Do ppler analysis. COMPARISON: No exams were available for comparison FINDINGS: The common femoral, femoral and popliteal veins demonstrate normal compressibility, augmentation, and color Doppler. The posterior tibial veins are patent. No saphenous vein thrombosis or other superfi cial venous thrombosis is seen. No hematoma or Herrera's cyst is seen. IMPRESSION: Negative lower extremity ultrasound. No evidence of DVT. DATA REPOSITORY:
--- NOTE | 2023-01-19 08:38 | W.ED.GENAD ---
Discharge Plan Disposition Patient Disposition: Home Condition: Improving Discharge Details Clinical Impression: Leg pain Primary Care Provider: Camelia Gracia ED Provider: Al Chambers Home Meds and New Rx's Prescriptions: New cyclobenzaprine 5 mg tablet 5 mg PO QHS PRN (Reason: muscle spasm) Qty: 10 0RF No Action ketoconazole 2 % shampoo 1 applic TP Q2W Qty: 120 4RF Rx Instructions: Apply twice a week with at least 3 days in between shampoos metformin 500 mg tablet,ER jonathan.retention 24 hr 500 mg PO QPM Qty: 30 12RF levothyroxine [Synthroid] 125 mcg tablet 125 mcg PO DAILY Qty: 90 4RF Rx Instructions: Take 1 tablet once a day in the morning on an empty stomach chlorthalidone 25 mg tablet 25 mg PO DAILY Qty: 90 3RF trazodone 100 mg tablet 100 mg PO QHS Qty: 90 1RF naltrexone 50 mg tablet 50 mg PO DAILY Qty: 30 5RF hydroxyzine HCl 25 mg tablet 25 mg PO QID PRN (Reason: anxiety) Qty: 90 3RF escitalopram oxalate 20 mg tablet 20 mg PO DAILY Qty: 90 1RF bupropion HCl 300 mg tablet extended release 24 hr 300 mg PO DAILY Qty: 90 1RF (DME) blood-glucose meter [FreeStyle Lite Meter] Kit See Rx Instructions .Route Qty: 1 0RF Rx Instructions: As directed - test once daily. (DME) FreeStyle Lite Strips Strip See Rx Instructions .Route Qty: 100 0RF Rx Instructions: As directed test once daily- (DME) lancets 28 gauge misc See Rx Instructions .ROUTE DAILY Qty: 100 3RF Rx Instructions: DX:250.0 - use once daily. omeprazole magnesium 20 mg tablet,delayed release (DR/EC) 20 mg PO DAILY Qty: 30 0RF Rx Instructions: Take one tablet daily acetaminophen 500 mg Tablet 1,000 mg PO USEASDIRECTD PRN Discharge Instructions Instructions: Leg Pain (ED) Additional Instructions: Please follow-up with your primary care physician. Please return to the emergency department for any worsening symptoms Medical Decision Making 42-year-old female history of left lower extremity DVT, presents with pain and minimal swelling to left lower extremity, patient is afebrile nontoxic, full range of motion of lower extremity, no erythema or induration, consider possible slight increased edema to left lower extremity compared to right, multiple varicose veins of left lower extremity and 2-3 areas of small ecchymosis subacute in nature. Must consider recurrent DVT. Lower suspicion for infectious etiology such as cellulitis or myositis. Muscles to consider musculoskeletal discomfort consider referred pain from chronic meniscal injury versus muscular strain/spasm. Lower suspicion for fracture or dislocation of limb. Trial of analgesia anti-inflammatory. Will obtain screening ultrasound left lower extremity. 9: 30 patient resting comfortably feeling better after analgesia anti-inflammatory. Negative for DVT. Patient will follow-up with primary care physician for follow-up otherwise instructed to return to the emergency department for any worsening symptoms. HPI General Date/Time Provider Initiated Documentation: 01/19/23 08:33. HPI Narrative: 42-year-old female history of left lower extremity DVT following a meniscus repair 1 year ago presents with left leg pain specifically posterior calf region over the past several days, recently received cortisone injection into left knee. No fevers chills chest pain or shortness of breath or other systemic symptoms. Patient completed course of anticoagulation last year. Has not received any hematologic testing and does not know of any genetic predispositions in her family for hypercoagulable state. Related Data Home Medications Medication Instructions Recorded Confirmed ketoconazole 2 % shampoo 1 applic topical Q2W #120 mL 10/24/20 01/18/23 acetaminophen 500 mg tablet 1,000 mg PO USEASDIRECTD PRN 12/23/21 01/18/23 blood sugar diagnostic (FreeStyle #100 ea 05/07/22 01/18/23 Lite Strips) blood-glucose meter (FreeStyle #1 ea 05/07/22 01/18/23 Lite Meter kit) lancets 28 gauge #100 ea 05/07/22 01/18/23 omeprazole magnesium 20 mg 20 mg PO DAILY #30 tabs 06/14/22 01/18/23 tablet,delayed release Synthroid 125 mcg tablet 125 mcg PO DAILY #90 tabs 07/16/22 01/18/23 (levothyroxine) metformin 500 mg 24 hr 500 mg PO QPM #30 tabs 07/16/22 01/18/23 tablet,extended release chlorthalidone 25 mg tablet 25 mg PO DAILY #90 tabs 08/03/22 01/18/23 bupropion HCl 300 mg 24 hr tablet, 300 mg PO DAILY #90 tabs 12/01/22 01/18/23 extended release escitalopram oxalate 20 mg tablet 20 mg PO DAILY #90 tabs 12/01/22 01/18/23 hydroxyzine HCl 25 mg tablet 25 mg PO QID PRN anxiety #90 tabs 12/01/22 01/18/23 naltrexone 50 mg tablet 50 mg PO DAILY #30 tabs 12/01/22 01/18/23 trazodone 100 mg tablet 100 mg PO QHS #90 tabs 12/01/22 01/18/23 cyclobenzaprine 5 mg tablet 5 mg PO QHS PRN muscle spasm #10 01/19/23 tabs Previous Rx's Medication Instructions Recorded ketoconazole 2 % shampoo 1 applic topical Q2W #120 mL 10/24/20 blood sugar diagnostic (FreeStyle #100 ea 05/07/22 Lite Strips) blood-glucose meter (FreeStyle #1 ea 05/07/22 Lite Meter kit) lancets 28 gauge #100 ea 05/07/22 omeprazole magnesium 20 mg 20 mg PO DAILY #30 tabs 06/14/22 tablet,delayed release Synthroid 125 mcg tablet 125 mcg PO DAILY #90 tabs 07/16/22 (levothyroxine) metformin 500 mg 24 hr 500 mg PO QPM #30 tabs 07/16/22 tablet,extended release chlorthalidone 25 mg tablet 25 mg PO DAILY #90 tabs 08/03/22 bupropion HCl 300 mg 24 hr tablet, 300 mg PO DAILY #90 tabs 12/01/22 extended release escitalopram oxalate 20 mg tablet 20 mg PO DAILY #90 tabs 12/01/22 hydroxyzine HCl 25 mg tablet 25 mg PO QID PRN anxiety #90 tabs 12/01/22 naltrexone 50 mg tablet 50 mg PO DAILY #30 tabs 12/01/22 trazodone 100 mg tablet 100 mg PO QHS #90 tabs 12/01/22 cyclobenzaprine 5 mg tablet 5 mg PO QHS PRN muscle spasm #10 01/19/23 tabs Allergies Allergy/AdvReac Type Severity Reaction Status Date / Time pneumococcal vaccine Allergy Intermediate Localized Verified 01/18/23 08:31 reaction with PCV13 levothyroxine sodium AdvReac Mild Verified 01/18/23 08:31 General Stated Complaint: Vascular OLEGARIO: 3 Review of Systems Narrative: Review of Systems Constitutional: negative Eyes: negative ENT: negative Cardiovascular: negative Respiratory: negative Gastrointestinal: negative : negative Musculoskeletal: Leg pain Skin: negative Neurologic: negative Psych: negative PFSH All Active Problems (Updated 01/19/23 @ 09:31 by Al Chambers MD) Leg pain (Acute) Plantar fasciitis of right foot (Acute) Smoker (Chronic 10/23/12) Pancreatic insufficiency (Chronic 10/23/12) Obesity (Chronic 10/23/12) Dysmenorrhea (Chronic 06/30/16) Depressive disorder (Chronic) Anxiety (Chronic 08/02/12) Asplenia (Chronic) Hypothyroidism (Chronic) Adrenal mass, 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 1 year repeat recommended. Folic acid deficiency (non anemic) (Acute) takes vitamins Grief reaction (Chronic) Insomnia (Acute) Acute medial meniscus tear of left knee (Acute ~09/2021) fell down stairs; scheduled surgery 12/2021, Depo Medrol 01/18/23 Amplified musculoskeletal pain (Acute) Essential hypertension (Chronic) Type 2 diabetes mellitus without complication, with no history of insulin use (Acute 03/2022) Closed fracture of right distal fibula (Acute) Medical History (Updated 01/19/23 @ 09:31 by Al Chambers MD) Alcohol dependence with acute alcoholic intoxication with complication Chronic pancreatitis (10/23/12) LOW LEVEL DVT (deep venous thrombosis) (~12/2021) 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 Lugo PANCREATECTOMY (08/22/07) PARTIAL Status post arthroscopy of left knee (12/24/21) Medial meniscal root repair, synovectomy and chondroplasty Dr. Marquez Status post cholecystectomy (~2007) [facility] in November 27, complicated by injury to the pancreas with a 40% pancreectomy done in April 29 and a subsequent splenectomy done in also. Tubal ligation status Family History Mother Liliya's disease Father , 48 Brain tumor Sister No problems noted. Brother No problems noted. 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 What type of physical activity do you participate in: additional Details: snowshoed a couple times this winter. Do you feel safe at home: Yes Do you feel safe in your relationship?: Yes Exam Narrative Exam Narrative: Physical Examination General: alert, awake, cooperative, resting comfortably, no acute distress Respiratory: normal respiratory effort, speaking in full sentences Extremities: Left leg slightly more edematous than right, several varicose veins located along anterior lower leg and thigh, subacute small areas of ecchymosis to thigh, no induration erythema or warmth noted, full range of motion of knee Psych: Appropriate mood and affect Course Vital Signs Vital signs: Vital Signs Temperature 36.5 C 01/19/23 08:21 Pulse 65 01/19/23 08:21 Respiratory Rate 16 01/19/23 08:21 Blood Pressure 126/81 01/19/23 08:21 Pulse Oximetry 99 01/19/23 08:21 Temperature 36.5 C 01/19/23 08:21 Pulse 65 01/19/23 08:21 Respiratory Rate 16 01/19/23 08:21 Blood Pressure 126/81 01/19/23 08:21 Blood Pressure Position Sitting 01/19/23 08:21 Pulse Oximetry 99 01/19/23 08:21 Oxygen Delivery Method Room Air 01/19/23 08:21 Oxygen Flow Rate 0 01/19/23 08:21 Pain Level 5 01/19/23 08:21 Comment denies otc pain relief 01/19/23 08:21
[2023-01-19 08:58] VITALS: RESP 15
[2023-01-19] MEDS: Cyclobenzaprine 10 MG TAB PO (09:01)
[2023-01-19] MEDS: Ketorolac 15 MG/ML VIAL IM (09:01)
== END 2023-01-19 17:22 | disposition home or self-care (01) ==
PROVIDERS: Emergency Provider Emergency Medicine; PCP Family Medicine
DX: M79.605 Pain in left leg (principal); E11.9 Type 2 diabetes mellitus without complications; I10 Essential (primary) hypertension; Z86.718 Personal history of other venous thrombosis and embolism
CPT/HCPCS: 93971; J1885

== ENCOUNTER → 2023-08-09 11:19 | Outpatient (CLI) | payer MEDICAID, SELFPAY ==
--- NOTE | 2023-08-09 11:43 | DI.RAD_ITS ---
Exam(s) XR CHEST 2V PA LATERAL EXAM: XR CHEST 2V PA LATERAL CLINICAL HISTORY: [id number]. TECHNIQUE: 2D digital imaging was performed. COMPARISON: CR XR CHEST 2V PA LATERAL from 04/22/2022 FINDINGS: 2 views: Heart size is normal. The mediastinum is not widened. Lungs are clear. No infiltrates nor pleural effusions. IMPRESSION: No acute pulmonary findings. DATA REPOSITORY: RADIATION DOSE DELIVERED:
== END ==
PROVIDERS: PCP Family Medicine; Visit Provider Nurse Practitioner Family
DX: R06.00 Dyspnea, unspecified (principal)
CPT/HCPCS: 71046

== ENCOUNTER 2023-08-09 12:59 | Outpatient (CLI) | payer MEDICAID, SELFPAY ==
[2023-08-09 12:49] LABS: D-Dimer 332 ng/mlFEU (<500)
[2023-08-09 12:56] LABS: COMMENT (LAB VIEW ONLY) 18.55 mg/dL; Microalb ug/mg Crea 8.6 ug/mg Cr
== END 2023-08-09 13:00 | disposition home or self-care (01) ==
LOC: LBO 12:59
PROVIDERS: PCP Family Medicine; Visit Provider Nurse Practitioner Family
DX: E11.9 Type 2 diabetes mellitus without complications (principal)
CPT/HCPCS: 36415; 82043; 82570; 85379

== ENCOUNTER 2023-08-12 16:11 | Emergency (ER) | payer MEDICAID, SELFPAY ==
[2023-08-12 16:14] VITALS: BP 157/141; PULSE 101; RESP 20; TEMP 36.2; O2SAT 100
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
[2023-08-12] MEDS: Acetaminophen 325 MG TAB 650 MG PO (16:30)
[2023-08-12] MEDS: Ondansetron O.D.T. 4 MG TABEF PO (16:31)
[2023-08-12] MEDS: Cyclobenzaprine 10 MG TAB, 3 TABS/BTL PO (17:57)
[2023-08-12 17:59] VITALS: BP 155/103; PULSE 89; RESP 18; O2SAT 98
== END 2023-08-12 18:00 | disposition home or self-care (01) ==
PROVIDERS: Emergency Provider Registered Nurse Emergency; PCP Family Medicine
DX: R51.9 Headache, unspecified (principal); M54.2 Cervicalgia; S16.1XXA Strain of muscle, fascia and tendon at neck level, initial encounter; V89.2XXA Person injured in unspecified motor-vehicle accident, traffic, initial encounter; E11.9 Type 2 diabetes mellitus without complications; E06.3 Autoimmune thyroiditis; Z86.718 Personal history of other venous thrombosis and embolism; Z79.899 Other long term (current) drug therapy; Z79.84 Long term (current) use of oral hypoglycemic drugs; Z79.85 Long-term (current) use of injectable non-insulin antidiabetic drugs; Z88.7 Allergy status to serum and vaccine; Z88.8 Allergy status to other drugs, medicaments and biological substances; I10 Essential (primary) hypertension; F32.A Depression, unspecified; Z72.0 Tobacco use
CPT/HCPCS: 99284; 70450; 72125; 99283

== ENCOUNTER 2023-09-09 14:28 | Outpatient (REF) | payer MEDICAID, SELFPAY ==
--- NOTE | 2023-09-09 13:25 | PAPFT_PTH ---
PATIENT: Love Ocampo LOC: [facility] U#:[id number] AGE/SX: 42/F ROOM: RE09/09/[address]: Camelia Gracia : 1980 BED: DIS: 09/09/2023 SPEC #: [id number] RECD: 09/12/23 12:53 STATUS: NAHED REVicky #: [id number] ERICK: 09/09/23 13:[address]: Camelia Gracia DEPT: [facility] Cytology RECD BY: Ines Wu Tissues: 1 - CX/ENDOCX FOR PAP SMEARS Procedures: PAP THIN PREP/UVM Screening HPV DNA PROBE Comments: [id number] (CHLAMYDIA/GC)
[2023-09-13 14:25] LABS: Chlamydia Result Negative (Negative); GC Result Negative (Negative)
== END 2023-09-09 14:29 | disposition home or self-care (01) ==
LOC: LBN 14:28
PROVIDERS: PCP Family Medicine; Visit Provider Family Medicine
DX: Z11.3 Encounter for screening for infections with a predominantly sexual mode of transmission (principal); Z12.4 Encounter for screening for malignant neoplasm of cervix; Z11.51 Encounter for screening for human papillomavirus (HPV)
CPT/HCPCS: 87491; 87591; 88142; 87624

== ENCOUNTER 2023-10-03 15:43 | Outpatient (CLI) | payer MEDICAID, SELFPAY ==
[2023-10-03 16:38] LABS: TSH (W/Ref FT4) 1.07 uIU/mL (0.36-3.74)
[2023-10-03 17:52] LABS: Hemoglobin A1C 6.2 % (<5.7)
== END 2023-10-03 15:44 | disposition home or self-care (01) ==
LOC: LBO 15:43
PROVIDERS: PCP Family Medicine; Visit Provider Family Medicine
DX: E03.9 Hypothyroidism, unspecified (principal); E11.9 Type 2 diabetes mellitus without complications
CPT/HCPCS: 36415; 83036; 84443

== ENCOUNTER 2023-10-04 09:01 | Emergency (ER) | payer MEDICAID, SELFPAY ==
--- NOTE | 2023-10-04 09:00 | RT.EKG_ITS ---
APPROVED REPORT Exam: Resting ECG Reason for Exam: SOB Patient Location: E HR:81 bpm ECG Measurements Heart Rate 81 AXIS [place] 163 P 39 QRSd 84 QRS 3 QT 363 T 9 QTc 422 Conclusion Sinus rhythm...normal P axis, V-rate 60- 99 Consider inferior infarct...Q >35mS in II III aVF sin8s rhtyhm, normal axis, normal intervals, deep q lead III
[2023-10-04 09:05] VITALS: BP 126/101; PULSE 88; RESP 22; TEMP 37.1; O2SAT 100
[2023-10-04] MEDS: LORazepam 1 MG TAB PO (09:27)
[2023-10-04 09:32] VITALS: BP 124/88; PULSE 80; RESP 20; O2SAT 99
--- NOTE | 2023-10-04 09:33 | ED.GENADUL_ITS ---
HPI General Date/Time Provider Initiated Documentation: 10/04/23 09:04 . HPI Narrative: This 43-year-old female with history of diabetes, Liliya's thyroiditis presents with report of presyncopal symptoms after having thyroid ultrasound. She states that with her pressing on her neck, she started feeling like she may pass out. She states that she had some difficulty swallowing. She states she has had some pressure around her neck for about 2 months secondary to likely an enlarged thyroid gland. She had an ultrasound of this today for further evaluation. She states she is feeling extremely anxious at that time. She denies any chance of , chest pain, current shortness of breath, or any additional complaints at this time. Related Data Home Medications Medication Instructions Recorded Confirmed ketoconazole 2 % shampoo 1 applic topical Q2W #120 mL 10/24/20 10/04/23 acetaminophen 500 mg tablet 1,000 mg PO USEASDIRECTD PRN 12/23/21 10/04/23 blood sugar diagnostic (FreeStyle #100 ea 05/07/22 10/04/23 Lite Strips) blood-glucose meter (FreeStyle #1 ea 05/07/22 10/04/23 Lite Meter kit) lancets 28 gauge #100 ea 05/07/22 10/04/23 Synthroid 125 mcg tablet 125 mcg PO DAILY #90 tabs 07/16/22 10/04/23 (levothyroxine) chlorthalidone 25 mg tablet 25 mg PO DAILY #90 tabs 08/03/22 10/04/23 hydroxyzine HCl 25 mg tablet 25 mg PO QID PRN anxiety #90 tabs 12/01/22 10/04/23 escitalopram oxalate 20 mg tablet 20 mg PO DAILY #90 tabs 05/04/23 10/04/23 metformin 500 mg 24 hr 500 mg PO QPM #30 tabs 05/04/23 10/04/23 tablet,extended release (gastric retention) trazodone 100 mg tablet 100 mg PO QHS #90 tabs 05/04/23 10/04/23 albuterol sulfate 90 mcg/actuation 2 inh inhalation Q4H PRN shortness 07/20/23 10/04/23 aerosol inhaler of breath or wheezing #18 grams fluticasone propionate 50 1 spray intranasal BID PRN nasal 07/20/23 10/04/23 mcg/actuation nasal congestion #16 grams spray,suspension (Flonase Allergy Relief) inhalational spacing device #1 ea 07/20/23 10/04/23 (Aerochamber MV spacer) cyclobenzaprine 10 mg tablet 10 mg PO TID PRN muscle spasm #10 08/12/23 10/04/23 tabs semaglutide 1 mg/dose (4 mg/3 mL) 1 mg (0.75 mL) subcut QWEEK #3 mL 09/09/23 10/04/23 subcutaneous pen injector Previous Rx's Medication Instructions Recorded ketoconazole 2 % shampoo 1 applic topical Q2W #120 mL 10/24/20 blood sugar diagnostic (FreeStyle #100 ea 05/07/22 Lite Strips) blood-glucose meter (FreeStyle #1 ea 05/07/22 Lite Meter kit) lancets 28 gauge #100 ea 05/07/22 Synthroid 125 mcg tablet 125 mcg PO DAILY #90 tabs 07/16/22 (levothyroxine) chlorthalidone 25 mg tablet 25 mg PO DAILY #90 tabs 08/03/22 hydroxyzine HCl 25 mg tablet 25 mg PO QID PRN anxiety #90 tabs 12/01/22 escitalopram oxalate 20 mg tablet 20 mg PO DAILY #90 tabs 05/04/23 metformin 500 mg 24 hr 500 mg PO QPM #30 tabs 05/04/23 tablet,extended release (gastric retention) trazodone 100 mg tablet 100 mg PO QHS #90 tabs 05/04/23 albuterol sulfate 90 mcg/actuation 2 inh inhalation Q4H PRN shortness 07/20/23 aerosol inhaler of breath or wheezing #18 grams fluticasone propionate 50 1 spray intranasal BID PRN nasal 07/20/23 mcg/actuation nasal congestion #16 grams spray,suspension (Flonase Allergy Relief) inhalational spacing device #1 ea 07/20/23 (Aerochamber MV spacer) cyclobenzaprine 10 mg tablet 10 mg PO TID PRN muscle spasm #10 08/12/23 tabs semaglutide 1 mg/dose (4 mg/3 mL) 1 mg (0.75 mL) subcut QWEEK #3 mL 09/09/23 subcutaneous pen injector Allergies Allergy/AdvReac Type Severity Reaction Status Date / Time pneumococcal vaccine Allergy Intermediate Localized Verified 10/04/23 09:11 reaction with PCV13 levothyroxine sodium AdvReac Mild generic Verified 10/04/23 09:11 form, syncopal episodes General Stated Complaint: SOB OLEGARIO: 3 Course Vital Signs Vital signs: Vital Signs Temperature 37.1 C 10/04/23 09:05 Pulse 88 10/04/23 09:05 Respiratory Rate 22 10/04/23 09:05 Blood Pressure 126/101 H 10/04/23 09:05 Pulse Oximetry 100 10/04/23 09:05 Temperature 37.1 C 10/04/23 09:05 Temperature Source Oral 10/04/23 09:05 Pulse 80 10/04/23 09:32 Respiratory Rate 20 10/04/23 09:32 Respiratory Effort Normal, Non-Labored, Short of Breath 10/04/23 09:30 Respiratory Depth Normal 10/04/23 09:30 Respiratory Pattern Normal 10/04/23 09:30 Blood Pressure 124/88 10/04/23 09:32 Blood Pressure Position Supine 10/04/23 09:05 Pulse Oximetry 99 10/04/23 09:32 Oxygen Delivery Method Room Air 10/04/23 09:32 Oxygen Flow Rate 0 10/04/23 09:32 Pain Level 0 10/04/23 09:05 Medical Decision Making 43-year-old female alert and oriented, in no acute distress Afebrile and nontoxic, maintaining secretions, enlarged thyroid palpated on exam, uvula midline, oropharynx patent, no hypoxia, oxygenation 100%, lungs clear to auscultation, cardiac rate rhythm regular Patient is very anxious, I suspect she had vasovagal reaction from her thyroid ultrasound Will give Ativan secondary to anxiety, EKG does not show evidence of acute abnormality, she had a complete workup and was actually evaluated by her doctor today so I see no reason to do additional testing at this time Patient is feeling improved after Ativan administration I placed a referral to ENT for further evaluation of her thyroid Return precautions reviewed and patient will be referred back to her primary care physician for review of her ultrasound and further evaluation Quality:SDOH Health Related Social Needs: No Data to Display PFSH All Active Problems Enlarged thyroid (Acute) Plantar fasciitis of right foot (Chronic) Type 2 diabetes mellitus without complication, with no history of insulin use (Acute 03/2022) Essential hypertension (Chronic) Amplified musculoskeletal pain (Acute) Acute medial meniscus tear of left knee (Acute ~09/2021) fell down stairs; scheduled surgery 12/2021, Depo Medrol 01/18/23; reports needs knee replacement. Insomnia (Acute) Grief reaction (Chronic) Struggles with anniversary dates for loss of her son 11/2020 - birthday, . 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 1 year repeat recommended. Stable on repeat. No further testing needed. 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 Marquez Status post cholecystectomy (~2007) [facility] in November 27, complicated by injury to the pancreas with a 40% pancreectomy done in April 29 and a subsequent splenectomy done in also. History of tonsillectomy History of splenectomy History of appendectomy Pelletier Mitali lesion Excision of Pelletier-Mitali lesion right thigh DOS: 12/14/18 Dr. Lugo Tubal ligation status PANCREATECTOMY (08/22/07) PARTIAL Family History Mother Illiya's disease Father , 48 Brain tumor Sister No problems noted. Brother No problems noted. 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 What type of physical activity do you participate in: additional Details: snowshoed a couple times this winter. Do you feel safe at home: Yes Do you feel safe in your relationship?: Yes Discharge Plan Disposition Patient Disposition: Home Condition: Stable Discharge Details Clinical Impression: Enlarged thyroid Primary Care Provider: Camelia Gracia ED Provider: Ines Johnson Home Meds and New Rx's Prescriptions: Continued ketoconazole 2 % shampoo 1 applic TP Q2W Qty: 120 4RF Rx Instructions: Apply twice a week with at least 3 days in between shampoos levothyroxine [Synthroid] 125 mcg tablet 125 mcg PO DAILY Qty: 90 4RF Rx Instructions: Take 1 tablet once a day in the morning on an empty stomach chlorthalidone 25 mg tablet 25 mg PO DAILY Qty: 90 3RF hydroxyzine HCl 25 mg tablet 25 mg PO QID PRN (Reason: anxiety) Qty: 90 3RF trazodone 100 mg tablet 100 mg PO QHS Qty: 90 1RF metformin 500 mg tablet,ER jonathan.retention 24 hr 500 mg PO QPM Qty: 30 12RF escitalopram oxalate 20 mg tablet 20 mg PO DAILY Qty: 90 1RF albuterol sulfate 90 mcg/actuation HFA aerosol inhaler 2 inh inhalation Q4H PRN (Reason: shortness of breath or wheezing) Qty: 18 0RF fluticasone propionate [Flonase Allergy Relief] 50 mcg/actuation spray,suspension 1 spray intranasal BID PRN (Reason: nasal congestion) Qty: 16 0RF Rx Instructions: administer into each nostril (DME) Aerochamber MV Spacer See Rx Instructions .Route Qty: 1 0RF Rx Instructions: As directed semaglutide 1 mg/dose (4 mg/3 mL) pen injector 1 mg subcut QWEEK Qty: 3 0RF Rx Instructions: for 4 weeks (DME) blood-glucose meter [FreeStyle Lite Meter] Kit See Rx Instructions .Route Qty: 1 0RF Rx Instructions: As directed - test once daily. (DME) FreeStyle Lite Strips Strip See Rx Instructions .Route Qty: 100 0RF Rx Instructions: As directed test once daily- (DME) lancets 28 gauge misc See Rx Instructions .ROUTE DAILY Qty: 100 3RF Rx Instructions: DX:250.0 - use once daily. acetaminophen 500 mg Tablet 1,000 mg PO USEASDIRECTD PRN cyclobenzaprine 10 mg tablet 10 mg PO TID PRN (Reason: muscle spasm) Qty: 10 0RF Rx Instructions: Take 1 tablet orally up to 3 times daily as needed for muscle spasm. Discharge Instructions Additional Instructions: Please follow-up with ENT, I placed a referral today Please follow-up with your doctor tomorrow to schedule an appointment to review the findings of your ultrasound Return earlier should you have new or worsening complaints Stand Alone Forms: Work Release Referrals: Camelia Gracia MD [Primary Care Provider] - 1 day
--- NOTE | 2023-10-04 10:18 | NUR.NOTE ---
Referral faxed to ENT office for enlarged thyroid, NAY.Nursing Note:
[2023-10-04 10:41] VITALS: BP 124/80; PULSE 78; RESP 17; TEMP 36.8; O2SAT 99
== END 2023-10-04 10:44 | disposition home or self-care (01) ==
PROVIDERS: Emergency Provider Physician Assistant; PCP Family Medicine
DX: R06.02 Shortness of breath (principal); E04.9 Nontoxic goiter, unspecified; E11.9 Type 2 diabetes mellitus without complications; R13.10 Dysphagia, unspecified; Z86.39 Personal history of other endocrine, nutritional and metabolic disease
CPT/HCPCS: 36416; 82962; 93005; 99284; 93010; 99283

== ENCOUNTER → 2023-10-04 10:21 | Outpatient (CLI) | payer MEDICAID, SELFPAY ==
--- NOTE | 2023-10-04 08:00 | DI.US_ITS ---
Exam(s) US THYROID EXAM: US THYROID CLINICAL HISTORY: goiter, difficulty swallowing E03.9 HYPOTHYROIDISM E06.9 THYROIDITIS. TECHNIQUE: Ultrasound thyroid performed using standard protocol. COMPARISON: US US THYROID from 05/20/2020 FINDINGS: ISTHMUS: 0.8 mm RIGHT LOBE: Size: 5.7 x 3.1 x 2.3 cm Echogenicity: There is diffuse heterogeneous echogenicity of the left lobe of the thyroid gland. Vascularity: There is diffuse increased vascularity. Nodules: None. LEFT LOBE: Size: 5.7 x 3.0 x 3.3 cm Echogenicity: There is diffuse heterogeneous echogenicity of the left lobe of the thyroid gland. Vascularity: There is diffuse increased vascularity. Nodules: There is a 1.5 x 0.6 x 0.9 cm solid hypoechoic nodule in the superior lateral aspect of the left lobe of the thyroid gland. There are no echogenic foci. It is consistent with a TI rads level 4 nodule. Due to its size, FNA is recommended. OTHER FINDINGS: None. IMPRESSION: 1. Diffusely hypervascular and heterogeneous thyroid gland. This can be seen with diffuse thyroiditi s. Please correlate with patient's thyroid function values. 2. TI rads level 4 nodule in the left lobe. Due to its size, FNA is recommended. DATA REPOSITORY:
== END ==
PROVIDERS: PCP Family Medicine; Visit Provider Family Medicine
DX: E06.3 Autoimmune thyroiditis
CPT/HCPCS: 76536

== ENCOUNTER → 2023-10-25 00:54 | Outpatient (CLI) | payer MEDICAID, SELFPAY ==
--- NOTE | 2023-10-25 07:30 | DI.US_ITS ---
Exam(s) US NEEDLE LOCAL OTHER WO RAD EXAM: right-side thyroid nodule,ULTRASOUND GUIDED BX,E06.3,E04.1 COMPARISON: No exams were available for comparison TECHNIQUE: Ultrasound performed using standard protocol. FINDINGS: Sonography was provided for Dr. Wayne during the performance of a thyroid nodule biopsy. Please re denver to the procedure report for complete details. DATA REPOSITORY:
--- NOTE | 2023-10-25 11:30 | PAPNONF_PTH ---
PATIENT: Love Ocampo LOC: [facility] U#:[id number] AGE/SX: 44/F ROOM: RE10/25/[address]: Tatum Landrum : 1980 BED: DIS: SPEC #: [id number] RECD: 10/25/23 13:03 STATUS: NAHED REVicky #: [id number] ERICK: 10/25/23 11:[address]: Winston Wayne DEPT: [facility] Cytology RECD BY: Ines Wu ENTERED: 10/25/23 13:04 SP TYPE: OFE DURAN DR: Tatum Landrum Tissues: 1 - BODY FLUID CYTO-FINE NEEDLE ASPIRATE-[facility] Procedures: BODY FLUID CYTO-FINE NEEDLE ASPIRATE-[facility] Comments: [id number] (PATH FNA CONSULT) (REFRIGERATED)
--- NOTE | 2023-10-25 11:45 | W.PROCNOTE ---
Date of service: 10/25/23 Time of Service: 11:45 Procedure Note Date of procedure: 10/25/23 Procedure: Ultrasound-guided FNA, left thyroid nodule, pathology present Surgeon/Proceduralist/Physician: Winston Wayne Procedure Diagnosis: Left TR 4 thyroid nodule 1.5 cm Procedure Indications: The patient has a left-sided thyroid nodule reaching criteria for biopsy. Options were explained to the patient regarding further management. She elected to undergo the above procedure. Consent was filled out and signed prior to procedure. Risks including bleeding, infection, and need for further treatment were discussed at length. Procedure Description: The patient was positioned in supine position with her head extended slightly. Ultrasound was used to localize the nodule and the patient was prepped and draped in appropriate fashion. 1% lidocaine with 1/100,000 epinephrine was injected in the skin and subcutaneous tissues overlying the thyroid nodule. A 25-gauge needle was then passed repeatedly into the thyroid nodule, and then withdrawn and pathology assessed cellular adequacy of the sample. After ensuring adequate cellularity, 2 additional passes were made for potential Afirma testing. Wound was inspected for relative hemostasis and then a sterile dressing was applied. The patient was allowed to sit and then stand. Her vital signs remained stable. She will remove the bandage in 2 hours. She may use ibuprofen or Tylenol for any discomfort. She will call with any signs of infection or other concerns or if she does not hear from me within 1 week with regard to pathology results. She had no further questions. She is comfortable with the plan.
== END ==
PROVIDERS: PCP Family Medicine; Visit Provider Registered Nurse Maternal Newborn
DX: E06.3 Autoimmune thyroiditis (principal); E04.1 Nontoxic single thyroid nodule
CPT/HCPCS: 10005; 76942; 88104

== ENCOUNTER 2023-11-22 15:18 | Outpatient (CLI) | payer MEDICAID, SELFPAY ==
[2023-11-22 15:13] LABS: Abs Immature Grans 0.02 10^3/uL (0.0-0.06); Absolute Basophil Count 0.06 10^3/uL (0.0-0.2); Absolute Eosinophil Count 0.55 10^3/uL (0.0-0.7); Absolute Lymphocyte Count 3.68 10^3/uL (1.2-3.4); Absolute Neutrophil Count 5.45 10^3/uL (1.2-6.7); Basophils % 0.6; Eosinophils % 5.2; HCT 39.5 % (36.0-46.0); HGB 13.7 g/dL (11.2-15.7); Immature Grans % 0.2; Lymphocytes % 34.8; MCH 32.9 pg (27.0-33.0); MCHC 34.7 % (32.0-36.0); MCV 95 fL (80-95); MPV 11.2 fL (8.0-11.0); Monocytes % 7.6; Neutrophils % 51.6; Platelet Count 364 10^3/uL (130-400); RBC 4.17 10^6/uL (3.93-5.22); RDW 13.2 % (11.7-14.6); RDW-SD 46.2 fL; WBC 10.56 10^3/uL (4.4-10.8)
[2023-11-22 15:15] LABS: ESR 11 mm/hr (0-20)
[2023-11-22 15:59] LABS: ALT 35 U/L (14-59); AST 15 U/L (15-37); Albumin 3.7 g/dL (3.4-5.0); Alkaline Phosphatase 140 U/L (46-116); BUN 15 mg/dL (7-18); Bilirubin, Total 0.2 mg/dL (0.2-1.0); CREATININE 0.7 mg/dL (0.55-1.02); Calcium 8.9 mg/dL (8.5-10.1); Chloride 104 mmol/L (98-107); Estimated GFR 110.67 (mL/min/1.73m2); Glucose 130 mg/dL (74-106); Sodium 141 mmol/L (136-145); Total Protein 7.6 g/dL (6.4-8.2); Uric Acid 4.1 mg/dL (2.6-6.0)
[2023-11-22 22:18] LABS: Rheumatoid Factor <8.6 IU/mL (<12.0)
[2023-11-23 12:19] LABS: ANA Interpretation Positive (Negative); ANA Titer Pattern 1:80 Speckled
== END 2023-11-22 15:19 | disposition home or self-care (01) ==
LOC: LBO 12-01 15:18
PROVIDERS: PCP Family Medicine; Visit Provider Family Medicine
DX: R53.83 Other fatigue (principal); Z00.00 Encounter for general adult medical examination without abnormal findings
CPT/HCPCS: 36415; 80053; 85652; 84550; 85025; 86038; 86431

== ENCOUNTER 2023-12-20 13:36 | Outpatient (CLI) | payer MEDICAID, SELFPAY ==
--- NOTE | 2023-12-20 13:30 | RT.EKG_ITS ---
APPROVED REPORT Exam: Resting ECG Reason for Exam: pre op Patient Location: O HR:81 bpm ECG Measurements Heart Rate 81 AXIS NE 174 P 47 QRSd 94 QRS 22 QT 389 T 10 QTc 452 Conclusion Sinus rhythm...normal P axis, V-rate 50- 99 Baseline wander in lead(s) V6 Normal Electrocardiogram
== END 2023-12-20 13:37 | disposition home or self-care (01) ==
LOC: DI.CM 13:37
PROVIDERS: PCP Family Medicine; Visit Provider Family Medicine
DX: Z01.818 Encounter for other preprocedural examination (principal)
CPT/HCPCS: 93010

== ENCOUNTER 2024-01-03 08:37 | Emergency (ER) | payer MEDICAID, SELFPAY ==
[2024-01-03 08:47] VITALS: BP 158/103; PULSE 96; RESP 16; TEMP 37.1; O2SAT 98
--- NOTE | 2024-01-03 09:00 | DI.US_ITS ---
Exam(s) US LOWER EXTREMITY VENOUS RT EXAM: US LOWER EXTREMITY VENOUS RT CLINICAL HISTORY: Right leg pain, swelling TECHNIQUE: Grayscale, color, and doppler imaging of the deep venous system of the RIGHT lower extrem ity was performed. COMPARISON: US US NEEDLE LOCAL OTHER WO RAD from 10/25/2023 FINDINGS: There is no evidence of intraluminal thrombus and there is normal compression and augmentation demons trated within the common femoral vein, femoral vein, and popliteal vein. In the ipsilateral calf the interrogated veins also exhibit normal compression/ augmentation properti es. The ipsilateral saphenofemoral junction is patent. IMPRESSION: 1. No evidence of DVT in the RIGHT lower extremity. DATA REPOSITORY:
--- NOTE | 2024-01-03 09:02 | ED.GENADUL_ITS ---
Discharge Plan Disposition Patient Disposition: Home Condition: Stable Discharge Details Clinical Impression: Heel spur, Plantar fasciitis of right foot Primary Care Provider: Camelia Gracia ED Provider: Sharri Lucero Home Meds and New Rx's Prescriptions: No Action ketoconazole 2 % shampoo 1 applic TP Q2W Qty: 120 4RF Rx Instructions: Apply twice a week with at least 3 days in between shampoos metformin 500 mg tablet,ER jonathan.retention 24 hr 500 mg PO QPM Qty: 30 12RF (DME) Aerochamber MV Spacer See Rx Instructions .Route Qty: 1 0RF Rx Instructions: As directed escitalopram oxalate 20 mg tablet 20 mg PO DAILY Qty: 90 1RF lorazepam 0.5 mg tablet 0.5 mg PO HS PRN (Reason: anxiety) Qty: 30 0RF levothyroxine [Synthroid] 125 mcg tablet 125 mcg PO DAILY Qty: 90 4RF Rx Instructions: Take 1 tablet once a day in the morning on an empty stomach trazodone 100 mg tablet 100 mg PO QHS Qty: 90 1RF (DME) blood-glucose meter [FreeStyle Lite Meter] Kit See Rx Instructions .Route Qty: 1 0RF Rx Instructions: As directed - test once daily. (DME) FreeStyle Lite Strips Strip See Rx Instructions .Route Qty: 100 0RF Rx Instructions: As directed test once daily- (DME) lancets 28 gauge misc See Rx Instructions .ROUTE DAILY Qty: 100 3RF Rx Instructions: DX:250.0 - use once daily. Discharge Instructions Instructions: Plantar Fasciitis (ED), Heel Spur (ED), Plantar Fasciitis Exercises (ED) Additional Instructions: Please ice 3 times daily. Use the walking boot as needed for comfort. Use the crutches as needed. Rest ice compression elevation. Do the plantar fasciitis exercises. You do have some calcification of the plantar fascia noted on the bottom of your foot. You also do have a heel spur. This may be causing your pain. No evidence of blood clot or DVT on ultrasound. Follow up with primary care provider in 3-5 days. Return to ED sooner if any worsening or concerns. Please take Tylenol or Ibuprofen with food every 4-6 hours as needed for pain and swelling. Stand Alone Forms: Work Release Referrals: Camelia Gracia MD [Primary Care Provider] - 1 week Discharge Data Discharge Date/Time-TO BE ENTERED AT DEPARTURE: 01/03/24 10:24 HPI General Mode of arrival: ambulatory . Date/Time Provider Initiated Documentation: 01/03/24 08:52 . Limitations to Documentation: no limitations . Information obtained by: patient, RN notes reviewed and old records reviewed . HPI Narrative: 43-year-old female presents to the ER with chief complaint of right ankle pain which began yesterday while at work. She reports that she started having some burning to the medial aspect of her right ankle. She is due for left knee replacement next week does have a history of diabetes mellitus, she denies any known injury. She did take Tylenol this morning. She is concerned that it could be a blood clot. No obvious deformity distal CMS intact. Related Data Home Medications Medication Instructions Recorded Confirmed ketoconazole 2 % shampoo 1 applic topical Q2W #120 mL 10/24/20 01/03/24 blood sugar diagnostic (FreeStyle #100 ea 05/07/22 01/03/24 Lite Strips) blood-glucose meter (FreeStyle #1 ea 05/07/22 01/03/24 Lite Meter kit) lancets 28 gauge #100 ea 05/07/22 01/03/24 metformin 500 mg 24 hr 500 mg PO QPM #30 tabs 05/04/23 01/03/24 tablet,extended release (gastric retention) inhalational spacing device #1 ea 07/20/23 01/03/24 (Aerochamber MV spacer) Synthroid 125 mcg tablet 125 mcg PO DAILY #90 tabs 11/03/23 01/03/24 (levothyroxine) escitalopram oxalate 20 mg tablet 20 mg PO DAILY #90 tabs 11/04/23 01/03/24 lorazepam 0.5 mg tablet 0.5 mg PO HS PRN anxiety #30 tabs 11/04/23 01/03/24 trazodone 100 mg tablet 100 mg PO QHS #90 tabs 12/05/23 01/03/24 Previous Rx's Medication Instructions Recorded ketoconazole 2 % shampoo 1 applic topical Q2W #120 mL 10/24/20 blood sugar diagnostic (FreeStyle #100 ea 05/07/22 Lite Strips) blood-glucose meter (FreeStyle #1 ea 05/07/22 Lite Meter kit) lancets 28 gauge #100 ea 05/07/22 metformin 500 mg 24 hr 500 mg PO QPM #30 tabs 05/04/23 tablet,extended release (gastric retention) inhalational spacing device #1 ea 07/20/23 (Aerochamber MV spacer) Synthroid 125 mcg tablet 125 mcg PO DAILY #90 tabs 11/03/23 (levothyroxine) escitalopram oxalate 20 mg tablet 20 mg PO DAILY #90 tabs 11/04/23 lorazepam 0.5 mg tablet 0.5 mg PO HS PRN anxiety #30 tabs 11/04/23 trazodone 100 mg tablet 100 mg PO QHS #90 tabs 12/05/23 Allergies Allergy/AdvReac Type Severity Reaction Status Date / Time pneumococcal vaccine Allergy Intermediate Localized Verified 01/03/24 08:46 reaction with PCV13 levothyroxine sodium AdvReac Mild generic Verified 01/03/24 08:46 form, syncopal episodes General Stated Complaint: Orthopedic OLEGARIO: 3 Review of Systems Musculoskeletal Musculoskeletal: Reports as per HPI, Reports arthralgias and Reports joint swelling Exam Extrem General: normal to inspection Right lower extremity: ankle Details: normal to inspection, tenderness Location: anteromedially and swelling Details: medially and foot Left lower extremity: normal to inspection Course Vital Signs Vital signs: Vital Signs Temperature 37.1 C 01/03/24 08:47 Pulse 96 H 01/03/24 08:47 Respiratory Rate 16 01/03/24 08:47 Blood Pressure 158/103 H 01/03/24 08:47 Pulse Oximetry 98 01/03/24 08:47 Temperature 37.1 C 01/03/24 08:47 Temperature Source Temporal Artery Scan 01/03/24 08:47 Pulse 96 H 01/03/24 08:47 Respiratory Rate 16 01/03/24 08:47 Respiratory Effort Normal, Non-Labored 01/03/24 08:50 Blood Pressure 158/103 H 01/03/24 08:47 Blood Pressure Position Sitting 01/03/24 08:47 Pulse Oximetry 98 01/03/24 08:47 Oxygen Delivery Method Room Air 01/03/24 08:47 Oxygen Flow Rate 0 01/03/24 08:47 Pain Level 8 01/03/24 08:47 Medical Decision Making 43-year-old female presents to the ER with chief complaint of right ankle pain which began yesterday while at work. She reports that she started having some burning to the medial aspect of her right ankle. She is due for left knee replacement next week does have a history of diabetes mellitus, she denies any known injury. She did take Tylenol this morning. She is concerned that it could be a blood clot. No obvious deformity distal CMS intact. X-ray right ankle ordered. Will also do a lower extremity Doppler to rule out DVT. Negative Doppler for DVT. X-ray shows a healed fracture of the distal fibula, there is calcification of the plantar fascia, inferior calcaneal spur noted. Will place patient in a walking boot, give crutches. Instructed on plantar fasciitis and home care. Discussed results with patient and home care patient was placed in a walking boot. Instructed on RICE procedures she verbalized understanding. All of her questions were answered to the best my ability. This text was generated using [employer] dictation system, please disregard any oddities of phrase or misspellings. Imaging Data Radiologic Study: Imaging: X-Ray Radiologist's impression: EXAM: XR ANKLE RT COMPLETE CLINICAL HISTORY: Ankle pain, swelling. TECHNIQUE: 2D digital imaging was performed. COMPARISON: CR XR ANKLE RT COMPLETE from 01/18/2023 FINDINGS: 3 views The previously present fracture site of the distal fibula is healed and there are no new fractures evident nor widening of the ankle mortise. Talar dome appears unremarkable. No degenerative changes. Inferior calcaneal spur is again noted as is calcification in the plantar fascia and enthesophyte on the posterior surgical aspect of the Achilles tendon on the posterior calcaneus. IMPRESSION: No acute osseous findings. Healed distal fibular fracture site evident. Quality:SDOH Health Related Social Needs: No Data to Display PFSH All Active Problems Plantar fasciitis of right foot (Acute) Heel spur (Acute) Anxiety (Chronic 08/02/12) Fatigue (Acute) Snoring (Acute ~10/2023) pending sleep study results Thyroid nodule (Acute) Plantar fasciitis of right foot (Chronic) Type 2 diabetes mellitus without complication, with no history of insulin use (Acute 03/2022) Essential hypertension (Chronic) Amplified musculoskeletal pain (Acute) Acute medial meniscus tear of left knee (Acute ~09/2021) fell down stairs; scheduled surgery 12/2021, Depo Medrol 01/18/23; reports needs knee replacement. Insomnia (Acute) Grief reaction (Chronic) Struggles with anniversary dates for loss of her son 11/2020 - birthday, . Folic acid deficiency (non anemic) (Acute) takes vitamins Hypothyroidism (Chronic) Asplenia (Chronic) Dysmenorrhea (Chronic 06/30/16) Obesity (Chronic 10/23/12) Pancreatic insufficiency (Chronic 10/23/12) Smoker (Chronic 10/23/12) Medical History History of DVT (deep vein thrombosis) (~12/2021) post knee arthroscopy. 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 1 year repeat recommended. Stable on repeat. No further testing needed. 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 Marquez Status post cholecystectomy (~2007) [facility] in November 27, complicated by injury to the pancreas with a 40% pancreectomy done in April 29 and a subsequent splenectomy done in also. History of tonsillectomy History of splenectomy History of appendectomy Pelletier Mitali lesion Excision of Pelletier-Mitali lesion right thigh DOS: 12/14/18 Dr. Lugo Tubal ligation status PANCREATECTOMY (08/22/07) PARTIAL Family History Mother Liliya's disease Father , 48 Brain tumor Sister No problems noted. Brother No problems noted. 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 What type of physical activity do you participate in: additional Details: snowshoed a couple times this winter. Do you feel safe at home: Yes Do you feel safe in your relationship?: Yes
== END 2024-01-03 10:24 | disposition home or self-care (01) ==
PROVIDERS: Emergency Provider Registered Nurse Emergency; PCP Family Medicine
DX: M25.571 Pain in right ankle and joints of right foot (principal); M77.31 Calcaneal spur, right foot; M72.2 Plantar fascial fibromatosis; Z87.891 Personal history of nicotine dependence; E11.9 Type 2 diabetes mellitus without complications; Z79.84 Long term (current) use of oral hypoglycemic drugs
CPT/HCPCS: 99284; 73610; 93971

== ENCOUNTER 2024-03-14 08:28 | Emergency (ER) | payer MEDICAID, SELFPAY ==
[2024-03-14 08:29] VITALS: PULSE 90; RESP 15; TEMP 36.8; O2SAT 98
--- NOTE | 2024-03-14 08:43 | ED.GENADUL_ITS ---
Discharge Plan Disposition Patient Disposition: Home Condition: Improving Discharge Details Chief Complaint: Laceration Clinical Impression: Finger laceration Primary Care Provider: Camelia Gracia ED Provider: Al Chambers Home Meds and New Rx's Prescriptions: No Action ketoconazole 2 % shampoo 1 applic TP Q2W Qty: 120 4RF Rx Instructions: Apply twice a week with at least 3 days in between shampoos metformin 500 mg tablet,ER jonathan.retention 24 hr 500 mg PO QPM Qty: 30 12RF (DME) Aerochamber MV Spacer See Rx Instructions .Route Qty: 1 0RF Rx Instructions: As directed escitalopram oxalate 20 mg tablet 20 mg PO DAILY Qty: 90 1RF lorazepam 0.5 mg tablet 0.5 mg PO HS PRN (Reason: anxiety) Qty: 30 0RF levothyroxine [Synthroid] 125 mcg tablet 125 mcg PO DAILY Qty: 90 4RF Rx Instructions: Take 1 tablet once a day in the morning on an empty stomach trazodone 100 mg tablet 100 mg PO QHS Qty: 90 1RF (DME) blood-glucose meter [FreeStyle Lite Meter] Kit See Rx Instructions .Route Qty: 1 0RF Rx Instructions: As directed - test once daily. (DME) FreeStyle Lite Strips Strip See Rx Instructions .Route Qty: 100 0RF Rx Instructions: As directed test once daily- (DME) lancets 28 gauge misc See Rx Instructions .ROUTE DAILY Qty: 100 3RF Rx Instructions: DX:250.0 - use once daily. Discharge Instructions Instructions: Laceration Repair With Stitches ED Additional Instructions: Please keep wound clean and dry. Please return to the Emergency Department for any worsening symptoms HPI General Date/Time Provider Initiated Documentation: 03/14/24 08:35 . HPI Narrative: 43-year-old female presents after accidentally lacerating the tip of her left fifth digit on a piece of glass in the trash can. Patient irrigated wound at home, hemostatic Related Data Home Medications ?Medication ?Instructions ?Recorded ?Confirmed ketoconazole 2 % shampoo 1 applic topical Q2W #120 mL 10/24/20 03/14/24 blood sugar diagnostic (FreeStyle #100 ea 05/07/22 03/14/24 Lite Strips) blood-glucose meter (FreeStyle #1 ea 05/07/22 03/14/24 Lite Meter kit) lancets 28 gauge #100 ea 05/07/22 03/14/24 metformin 500 mg 24 hr 500 mg PO QPM #30 tabs 05/04/23 03/14/24 tablet,extended release (gastric retention) inhalational spacing device #1 ea 07/20/23 03/14/24 (Aerochamber MV spacer) Synthroid 125 mcg tablet 125 mcg PO DAILY #90 tabs 11/03/23 03/14/24 (levothyroxine) escitalopram oxalate 20 mg tablet 20 mg PO DAILY #90 tabs 11/04/23 03/14/24 lorazepam 0.5 mg tablet 0.5 mg PO HS PRN anxiety #30 tabs 11/04/23 03/14/24 trazodone 100 mg tablet 100 mg PO QHS #90 tabs 12/05/23 03/14/24 Previous Rx's ?Medication ?Instructions ?Recorded ketoconazole 2 % shampoo 1 applic topical Q2W #120 mL 10/24/20 blood sugar diagnostic (FreeStyle #100 ea 05/07/22 Lite Strips) blood-glucose meter (FreeStyle #1 ea 05/07/22 Lite Meter kit) lancets 28 gauge #100 ea 05/07/22 metformin 500 mg 24 hr 500 mg PO QPM #30 tabs 05/04/23 tablet,extended release (gastric retention) inhalational spacing device #1 ea 07/20/23 (Aerochamber MV spacer) Synthroid 125 mcg tablet 125 mcg PO DAILY #90 tabs 11/03/23 (levothyroxine) escitalopram oxalate 20 mg tablet 20 mg PO DAILY #90 tabs 11/04/23 lorazepam 0.5 mg tablet 0.5 mg PO HS PRN anxiety #30 tabs 11/04/23 trazodone 100 mg tablet 100 mg PO QHS #90 tabs 12/05/23 Allergies Allergy/AdvReac Type Severity Reaction Status Date / Time pneumococcal vaccine Allergy Intermediate Localized Verified 03/14/24 08:39 reaction with PCV13 levothyroxine sodium AdvReac Mild generic Verified 03/14/24 08:39 form, syncopal episodes General Stated Complaint: Laceration OLEGARIO: 4 Exam Narrative Exam Narrative: Left hand: 1.5 minimally gaping laceration to palmar aspect of distal fifth digit hemostatic no foreign body appreciated, proximal and distal flexion intact Extension intact, good capillary refill sensation median radial and ulnar nerve distribution intact strong radial pulse Course Vital Signs Vital signs: Vital Signs Temperature 36.8 C 03/14/24 08:29 Pulse 90 03/14/24 08:29 Respiratory Rate 15 03/14/24 08:29 Pulse Oximetry 98 03/14/24 08:29 Temperature 36.8 C 03/14/24 08:29 Temperature Source Temporal Artery Scan 03/14/24 08:29 Pulse 90 03/14/24 08:29 Respiratory Rate 15 03/14/24 08:29 Respiratory Effort Normal 03/14/24 08:32 Blood Pressure Position Sitting 03/14/24 08:29 Pulse Oximetry 98 03/14/24 08:29 Oxygen Delivery Method Room Air 03/14/24 08:29 Oxygen Flow Rate 0 03/14/24 08:29 Pain Level 5 03/14/24 08:29 Procedures Laceration Laceration 1: Site: hand Side (If applicable): left Size (cm): 1.5 Description: linear Depth: involves muscle layer Local anesthetic: other anesthetic (LET) Pre-repair: wound explored, irrigated extensively and deep structures intact Skin layer closed with: vicryl Size (cm): 5-0 Number of sutures: 1 Medical Decision Making 43-year-old female presents after accidentally lacerating the tip of her left fifth digit on a piece of glass in the trash can. Patient irrigated wound at home, hemostatic; neurovascular exam of limb intact, 1.5 cm minimally gaping laceration to palmar aspect of distal fifth digit, no foreign body appreciated, tendinous function intact; will apply topical LAT, will irrigate wound will closed with observable sutures. Given clean/contaminated wound without foreign body will hold empiric antibiotics, patient is due for Tdap booster has not had any reaction in the past 9: 47 patient was comfortably no acute distress. Closed with 1 x 5-0 simple interrupted suture. Neurovascular exam of limb intact. Home care instructions return precautions given. Given clean wound without foreign body that was well irrigated holding prophylactic antibiotics at this time. Quality:SDOH Health Related Social Needs: No Data to Display PFSH All Active Problems Finger laceration (Acute) Anxiety (Chronic 08/02/12) Fatigue (Acute) Snoring (Acute ~10/2023) pending sleep study results Thyroid nodule (Acute) Plantar fasciitis of right foot (Chronic) Type 2 diabetes mellitus without complication, with no history of insulin use (Acute 03/2022) Essential hypertension (Chronic) Amplified musculoskeletal pain (Acute) Acute medial meniscus tear of left knee (Acute ~09/2021) fell down stairs; scheduled surgery 12/2021, Depo Medrol 01/18/23; reports needs knee replacement. Insomnia (Acute) Grief reaction (Chronic) Struggles with anniversary dates for loss of her son 11/2020 - birthday, . Folic acid deficiency (non anemic) (Acute) takes vitamins Hypothyroidism (Chronic) Asplenia (Chronic) Dysmenorrhea (Chronic 06/30/16) Obesity (Chronic 10/23/12) Pancreatic insufficiency (Chronic 10/23/12) Smoker (Chronic 10/23/12) Medical History History of DVT (deep vein thrombosis) (~12/2021) post knee arthroscopy. 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 1 year repeat recommended. Stable on repeat. No further testing needed. 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 Marquez Status post cholecystectomy (~2007) [facility] in November 27, complicated by injury to the pancreas with a 40% pancreectomy done in April 29 and a subsequent splenectomy done in also. History of tonsillectomy History of splenectomy History of appendectomy Pelletier Mitali lesion Excision of Pelletier-Mitali lesion right thigh DOS: 12/14/18 Dr. uLgo Tubal ligation status PANCREATECTOMY (08/22/07) PARTIAL Family History Mother Liliya's disease Father , 48 Brain tumor Sister No problems noted. Brother No problems noted. Son Substance use disorder Social History Smoking/Tobacco Use Status: Current every day Tobacco Type: cigarettes Smoking packs per day: 1 Smoking cigarettes per day: 20.0 Tobacco: How many years used: 25 Counseling given: provider counseling Smoking risk assessment performed?: Yes Alcohol Intake: current Alcohol Intake frequency: 3 or more drinks per day Alcohol type: beer, wine and hard liquor Drug use: Daily Substance use type: marijuana Household members: children Housing: apartment Number of Children: 2 current occupation: at [employer] as a [employer] Current gender identity: female Other: son . What type of physical activity do you participate in: additional Details: snowshoed a couple times this winter. Do you feel safe at home: Yes Do you feel safe in your relationship?: Yes PAWSS Have you Been Recently Intoxicated or Drunk Within the Last 30 days?: No Have you Ever Experienced Previous Episodes of Alcohol Withdrawal?: No Have you ever Experienced Withdrawal Seizures?: No Have you ever Experienced Delirium Tremens(DT)s?: No Have you ever undergone Alcohol Rehabilitation Treatment (i.e, inpt ot outpatient treatment programs)?: No Have you ever Experienced Blackouts?: No Have you ever Combined Alcohol with other Downers within the last 90 days?: No Have you ever Combined Alcohol with any other Substance of Abuse during the last 90 days?: No Result: 0
[2024-03-14] MEDS: Lidocaine/Epinephri/Tetracaine Topical Gel 3 ML TP (09:19)
== END 2024-03-14 09:55 | disposition home or self-care (01) ==
PROVIDERS: Emergency Provider Emergency Medicine; PCP Family Medicine
DX: S61.217A Laceration without foreign body of left little finger without damage to nail, initial encounter (principal); I10 Essential (primary) hypertension; E11.9 Type 2 diabetes mellitus without complications; F17.210 Nicotine dependence, cigarettes, uncomplicated; Z79.84 Long term (current) use of oral hypoglycemic drugs; Z23 Encounter for immunization; W25.XXXA Contact with sharp glass, initial encounter; Y93.89 Activity, other specified; Y92.018 Other place in single-family (private) house as the place of occurrence of the external cause
CPT/HCPCS: 12001; 90715; 99283

== ENCOUNTER 2024-07-25 15:32 | Outpatient (CLI) | payer MEDICAID, SELFPAY ==
--- NOTE | 2024-07-25 11:10 | DI.RAD_ITS ---
Exam(s) XR KNEE RT 3V AP,LAT,BURTON EXAM: XR KNEE RT 3V AP,LAT,BURTON CLINICAL HISTORY: RIGHT KNEE PAIN. TECHNIQUE: 2D digital imaging was performed. Three views. COMPARISON: CR XR KNEE LT 2V AP,LAT from 01/18/2023 FINDINGS: BONES: No acute fracture is present. No bony destructive lesion is seen. Minimal enthesophyte at qu adriceps insertion. JOINTS: The knee is normally aligned. No joint effusion is seen. The joint spaces are maintained. Minimal periarticular spurring SOFT TISSUE: Normal. IMPRESSION: Minimal degenerative changes. DATA REPOSITORY: RADIATION DOSE DELIVERED:
== END 2024-07-25 15:33 | disposition home or self-care (01) ==
LOC: DIORS 15:32
PROVIDERS: PCP Family Medicine; Visit Provider Student in an Organized Health Care Education/Training Program
DX: M25.561 Pain in right knee (principal)
CPT/HCPCS: 73562

== ENCOUNTER 2024-07-29 20:53 | Inpatient (IN) | payer MEDICAID, SELFPAY ==
[2024-07-29] VITALS (31 sets, daily range): BP systolic 112–171; BP diastolic 60–94; PULSE 91–114; RESP 5–31; TEMP 37.3; O2SAT 88–97
--- NOTE | 2024-07-29 20:45 | RT.EKG_ITS ---
APPROVED REPORT Exam: Resting ECG Reason for Exam: difficulty breathing Patient Location: E HR:100 bpm ECG Measurements Heart Rate 100 AXIS ND 177 P 55 QRSd 84 QRS 15 QT 328 T 1 QTc 423 Conclusion Sinus tachycardia, rate 100 Significant baseline artifact No apparent STEMI No interval abnormalities
--- NOTE | 2024-07-29 21:00 | DI.RAD_ITS ---
Exam(s) XR CHEST 2V PA LATERAL EXAM: XR CHEST 2V PA LATERAL CLINICAL HISTORY: fever, rhonchi. TECHNIQUE: 2D digital imaging was performed. COMPARISON: CR XR CHEST 2V PA LATERAL from 08/09/2023 FINDINGS: 2 views: Heart size is normal. The mediastinum is not widened. There is significant infiltrate in the right lower lobe. No pleural effusions. Left lung is clear. IMPRESSION: Right lower lobe infiltrate. DATA REPOSITORY: RADIATION DOSE DELIVERED:
[2024-07-29] MEDS: Albuterol/Ipratropium 3 ML UPD VIAL (21:16)
[2024-07-29] MEDS: methylPREDNISolone SUCC 125 MG VIAL IVP (21:21)
[2024-07-29] MEDS: ACETAMINOPHEN 650 MG/65 ML BAG 260 MG IVPB (21:34)
[2024-07-29 21:45] LABS: Lactate 1.4 mmol/L (0.6-1.4)
[2024-07-29 21:46] LABS: Abs Immature Grans 0.11 10^3/uL (0.0-0.06); Absolute Lymphocyte Count 2.97 10^3/uL (1.2-3.4); Basophils % 0.5 %; Eosinophils % 1.9 %; HCT 36.1 % (36.0-46.0); Immature Grans % 0.5 %; Lymphocytes % 14.1 %; MCH 32.6 pg (27.0-33.0); MCHC 33.2 % (32.0-36.0); MCV 98 fL (80-95); MPV 11.1 fL (8.0-11.0); Monocytes % 8.2 %; Neutrophils % 74.8 %; Platelet Count 346 10^3/uL (130-400); RBC 3.68 10^6/uL (3.93-5.22); RDW 14.4 % (11.7-14.6); RDW-SD 52.7 fL; WBC 21.06 10^3/uL (4.4-10.8)
[2024-07-29 21:53] LABS: Absolute Basophil Count 0.11 10^3/uL (0.0-0.2); Absolute Monocyte Count 1.73 10^3/uL (0.1-0.8); Absolute Neutrophil Count 15.75 10^3/uL (1.2-6.7)
[2024-07-29 22:07] LABS: Diff Comment Agrees w/ Instrument; RBC Morphology Normal
[2024-07-29 22:08] LABS: ALT 38 U/L (14-59); AST 25 U/L (15-37); Albumin 3.2 g/dL (3.4-5.0); Alkaline Phosphatase 164 U/L (46-116); Anion Gap 10.9 mmol/L (3-11); BUN 10 mg/dL (7-18); Bilirubin, Total 0.25 mg/dL (0.2-1.0); CO2 25.1 mmol/L (21.0-32.0); CREATININE 0.8 mg/dL (0.55-1.02); Calcium 9.1 mg/dL (8.5-10.1); Chloride 102 mmol/L (98-107); Estimated GFR 94.28 (mL/min/1.73m2); Glucose 215 mg/dL (74-106); Sodium 138 mmol/L (136-145); Total Protein 7.6 g/dL (6.4-8.2); Troponin I 9 ng/L (<or=51)
--- NOTE | 2024-07-29 22:13 | ED.GENADUL_ITS ---
Discharge Plan Disposition Patient Disposition: Admit to [facility] Condition: Serious Discharge Details Clinical Impression: Pneumonia, Asplenia, Sepsis, Respiratory failure Admit Date/Time: 07/29/24 23:55 Admit Provider: Dom James Attending Provider: Dom James Primary Care Provider: Camelia Gracia ED Provider: Ines Johnson Discharge Data Discharge Date/Time-TO BE ENTERED AT DEPARTURE: 07/30/24 00:49 HPI General Date/Time Provider Initiated Documentation: 07/29/24 21:08 . HPI Narrative: This 43-year-old female with history of asplenia, diabetes, tobacco dependence hypertension presents with report of worsening shortness of breath despite taking treatment for right lower lobe infiltrate which is applied yesterday. Denies known history of COPD or asthma does vape daily. Has had fever for greater than 48 hours per patient. Denies any calf pain or swelling. Taking antibiotics as prescribed. Using inhaler without spacer. Related Data Home Medications ?Medication ?Instructions ?Recorded ?Confirmed ketoconazole 2 % shampoo 1 applic topical Q2W #120 mL 10/24/20 07/29/24 blood sugar diagnostic (FreeStyle #100 ea 05/07/22 07/29/24 Lite Strips) blood-glucose meter (FreeStyle #1 ea 05/07/22 07/29/24 Lite Meter kit) lancets 28 gauge #100 ea 05/07/22 07/29/24 inhalational spacing device #1 ea 07/20/23 07/29/24 (Aerochamber MV spacer) Synthroid 125 mcg tablet 125 mcg PO DAILY #90 tabs 11/03/23 07/29/24 (levothyroxine) escitalopram oxalate 20 mg tablet 20 mg PO DAILY #90 tabs 11/04/23 07/29/24 lorazepam 0.5 mg tablet 0.5 mg PO HS PRN anxiety #30 tabs 05/01/24 07/29/24 metformin 500 mg 24 hr 500 mg PO QPM #90 tabs 05/14/24 07/29/24 tablet,extended release (gastric retention) semaglutide 1 mg/dose (4 mg/3 mL) 1 mg (0.75 mL) subcut QWEEK #3 mL 06/13/24 07/30/24 subcutaneous pen injector trazodone 100 mg tablet 100 mg PO QHS #90 tabs 06/21/24 07/29/24 cyclobenzaprine 10 mg tablet 10 mg PO TID PRN muscle spasm #30 07/25/24 07/29/24 tabs azithromycin 250 mg tablet 250 mg PO HS #5 tabs 07/30/24 cefpodoxime 200 mg tablet 200 mg PO Q12H #9 tabs 07/30/24 prednisone 20 mg tablet 20 mg PO DAILY #4 tabs 07/30/24 Previous Rx's ?Medication ?Instructions ?Recorded ketoconazole 2 % shampoo 1 applic topical Q2W #120 mL 10/24/20 blood sugar diagnostic (FreeStyle #100 ea 05/07/22 Lite Strips) blood-glucose meter (FreeStyle #1 ea 05/07/22 Lite Meter kit) lancets 28 gauge #100 ea 05/07/22 inhalational spacing device #1 ea 07/20/23 (Aerochamber MV spacer) Synthroid 125 mcg tablet 125 mcg PO DAILY #90 tabs 11/03/23 (levothyroxine) escitalopram oxalate 20 mg tablet 20 mg PO DAILY #90 tabs 11/04/23 lorazepam 0.5 mg tablet 0.5 mg PO HS PRN anxiety #30 tabs 05/01/24 metformin 500 mg 24 hr 500 mg PO QPM #90 tabs 05/14/24 tablet,extended release (gastric retention) semaglutide 1 mg/dose (4 mg/3 mL) 1 mg (0.75 mL) subcut QWEEK #3 mL 06/13/24 subcutaneous pen injector trazodone 100 mg tablet 100 mg PO QHS #90 tabs 06/21/24 cyclobenzaprine 10 mg tablet 10 mg PO TID PRN muscle spasm #30 07/25/24 tabs azithromycin 250 mg tablet 250 mg PO HS #5 tabs 07/30/24 cefpodoxime 200 mg tablet 200 mg PO Q12H #9 tabs 07/30/24 prednisone 20 mg tablet 20 mg PO DAILY #4 tabs 07/30/24 Allergies Allergy/AdvReac Type Severity Reaction Status Date / Time pneumococcal vaccine Allergy Intermediate Localized Verified 07/29/24 21:09 reaction with PCV13 levothyroxine sodium AdvReac Mild generic Verified 07/29/24 21:09 form, syncopal episodes General Stated Complaint: RespSymp OLEGARIO: 3 Exam Narrative Exam Narrative: This 43-year-old female presents alert and oriented, acute distress secondary to respiratory standpoint, appropriate sinus tachycardia, no murmurs or rubs, coarse lung sounds right lower lobe and left lower lobe, alert and oriented x 4, no peripheral edema. Course Vital Signs Vital signs: Vital Signs Temperature 37.3 C 07/29/24 20:55 Pulse 106 H 07/29/24 20:55 Respiratory Rate 25 H 07/29/24 20:55 Blood Pressure 162/90 H 07/29/24 20:55 Pulse Oximetry 96 07/29/24 20:55 Temperature 37.3 C 07/29/24 21:07 Temperature Source Oral 07/29/24 21:07 Pulse 97 H 07/29/24 21:16 Respiratory Rate 27 H 07/29/24 21:16 Respiratory Effort Short of Breath 07/29/24 21:06 Blood Pressure 162/82 H 07/29/24 21:07 Blood Pressure Position Supine 07/29/24 21:07 Pulse Oximetry 97 07/29/24 21:16 Oxygen Delivery Method Room Air 07/29/24 21:16 Oxygen Flow Rate 0 07/29/24 21:16 Lab/Test Results Lab/Test Results: 07/29/24 22:08 Blood Blood Culture - Pending 07/29/24 21:37 Blood Blood Culture - Pending Laboratory Tests Range/Units 07/29/24 21:37 WBC (4.4-10.8) 10^3/uL 21.06 H RBC (3.93-5.22) 10^6/uL 3.68 L Hgb (11.2-15.7) g/dL 12.0 Hct (36.0-46.0) % 36.1 MCV (80-95) fL 98 H MCH (27.0-33.0) pg 32.6 MCHC (32.0-36.0) % 33.2 RDW (11.7-14.6) % 14.4 Plt Count (130-400) 10^3/uL 346 MPV (8.0-11.0) fL 11.1 H Immature Gran % % 0.5 Neutrophils % % 74.8 Lymphocytes % % 14.1 Monocytes % % 8.2 Eosinophils % % 1.9 Basophils % % 0.5 Nucleated RBC % (0.0-0.3) % 0.0 Absolute Neutrophils (1.2-6.7) 10^3/uL 15.75 H Absolute Lymphocytes (1.2-3.4) 10^3/uL 2.97 Absolute Monocytes (0.1-0.8) 10^3/uL 1.73 H Absolute Eosinophils (0.0-0.7) 10^3/uL 0.40 Absolute Basophils (0.0-0.2) 10^3/uL 0.11 RBC Morphology Normal VBG Lactate (0.6-1.4) mmol/L 1.4 Sodium (136-145) mmol/L 138 Potassium (3.5-5.1) mmol/L 3.0 L Chloride (98-107) mmol/L 102 Carbon Dioxide (21.0-32.0) mmol/L 25.1 Anion Gap (3-11) mmol/L 10.9 BUN (7-18) mg/dL 10 Creatinine (0.55-1.02) mg/dL 0.8 Est GFR (CKD-EPI 2020) (mL/min/1.73m2) 94.28 Glucose (74-106) mg/dL 215 H Calcium (8.5-10.1) mg/dL 9.1 Total Bilirubin (0.2-1.0) mg/dL 0.25 AST (15-37) U/L 25 ALT (14-59) U/L 38 Alkaline Phosphatase (46-116) U/L 164 H Troponin I (<or=51) ng/L 9 Total Protein (6.4-8.2) g/dL 7.6 Albumin (3.4-5.0) g/dL 3.2 L Medical Decision Making 43-year-old female in mild respiratory distress, received 2 DuoNebs. Symptomatically improved although oxygen ranging from 90 to 91%. Received her oral antibiotics this evening. Started methylprednisone 125. Leukocytosis 21,000 left shift, potassium of 3.0, potassium ordered 40 mEq troponin 9 will recheck. Patient unfortunately is intermittently hypoxic ranging down to 87%. With ambulation she desats to 88% and given her bilateral infiltrates, leukocytosis and meeting sepsis criteria with asplenia and diabetes I think she warrants admission for IV antibiotics. She did take her cefuroxime and azithromycin this evening. Her blood pressures remained stable. She is feeling quite anxious so I did order half a milligram of Ativan for anxiolysis. Chest x-ray interpretation from radiology pending, right lower lobe infiltrate and left lower lobe infiltrate appreciated on assessment. Quality:SDOR Health Related Social Needs: No Data to Display Critical Care Time Critical Care Time Attestation: 35 min of cc time secondary to acute hypoxia in the setting of pna/sepsis require oxygen, iv antibiotics, telemetry monitoring, and admission to hospital. PFSH All Active Problems Respiratory failure (Acute) Bronchospasm (Acute) Diabetes (Chronic) Sepsis (Acute) Pneumonia (Acute) Chondromalacia, right knee (Acute) IT band syndrome (Acute) Bilateral plantar fasciitis (Acute) Right knee pain (Acute) Anxiety (Chronic 08/02/12) Fatigue (Acute) Snoring (Acute ~10/2023) pending sleep study results Thyroid nodule (Acute) Type 2 diabetes mellitus without complication, with no history of insulin use (Acute 03/2022) Essential hypertension (Chronic) Amplified musculoskeletal pain (Acute) Acute medial meniscus tear of left knee (Acute ~09/2021) fell down stairs; scheduled surgery 12/2021, Depo Medrol 01/18/23; reports needs knee replacement. Insomnia (Acute) Grief reaction (Chronic) Struggles with anniversary dates for loss of her son 11/2020 - birthday, . Folic acid deficiency (non anemic) (Acute) takes vitamins Hypothyroidism (Chronic) Asplenia (Chronic) Dysmenorrhea (Chronic 06/30/16) Obesity (Chronic 10/23/12) Pancreatic insufficiency (Chronic 10/23/12) Smoker (Chronic 10/23/12) Medical History History of DVT (deep vein thrombosis) (~12/2021) post knee arthroscopy. 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 1 year repeat recommended. Stable on repeat. No further testing needed. 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 Marquez Status post cholecystectomy (~2007) [facility] in November 27, complicated by injury to the pancreas with a 40% pancreectomy done in April 29 and a subsequent splenectomy done in also. History of tonsillectomy History of splenectomy History of appendectomy Pelletier Mitali lesion Excision of Pelletier-Mitali lesion right thigh DOS: 12/14/18 Dr. Lugo Tubal ligation status PANCREATECTOMY (08/22/07) PARTIAL Family History Mother Liliya's disease Father , 48 Brain tumor Sister No problems noted. Brother No problems noted. 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 What type of physical activity do you participate in: additional Details: snowshoed a couple times this winter. Do you feel safe at home: Yes Do you feel safe in your relationship?: Yes PAWSS Have you Been Recently Intoxicated or Drunk Within the Last 30 days?: Yes Have you Ever Experienced Previous Episodes of Alcohol Withdrawal?: No Have you ever Experienced Withdrawal Seizures?: No Have you ever Experienced Delirium Tremens(DT)s?: No Have you ever undergone Alcohol Rehabilitation Treatment (i.e, inpt ot outpatient treatment programs)?: No Have you ever Experienced Blackouts?: No Have you ever Combined Alcohol with other Downers within the last 90 days?: No Have you ever Combined Alcohol with any other Substance of Abuse during the last 90 days?: No Positive Blood Alcohol level on Presentation? [PCS.BAL]: No Evidence of Increased Autonomic Activity (i.e. HR>120, tremor, sweating, agitation, nausea)?: No Result: 1
[2024-07-29 22:22] LABS: Procalcitonin < 0.10 ng/mL
[2024-07-29] MEDS: Potassium Chloride 20 MEQ TABCR 40 MEQ PO (22:37)
[2024-07-29 22:45] LABS: Bilirubin Negative (Negative); Blood Trace-intact (Negative); Clarity Clear (Clear); Glucose Negative (Negative); Ketones Negative (Negative); Leukocyte Esterase Negative (Negative); Nitrite Negative (Negative); Specific Gravity <= 1.005 (1.005-1.025); Urobilinogen 0.2 mg/dL (Up to 0.2); pH 6.5 (5-8)
[2024-07-29 22:54] LABS: Bacteria Negative HPF (Negative); C & S Indicated? No; Casts Negative LPF (Negative); Crystals Negative HPF (Negative); Epithelial Cells Rare HPF (Negative); Mucus Negative (Negative); RBC 0-2 HPF (0-2); WBC Negative HPF (0-5)
[2024-07-29] MEDS: cefTRIAXone 2 GM/50 ML BAG IVPB (23:00)
[2024-07-29] MEDS: LORazepam 2 MG/ML VIAL 0.5 MG IVP (23:00)
[2024-07-29 23:08] LABS: Troponin I 8 ng/L (<or=51)
--- NOTE | 2024-07-29 23:33 | DI.VRAD_ITS ---
PROCEDURE INFORMATION: Exam: XR Chest Exam date and time: 07/29/2024 9:56 PM Age: 43 years old Clinical indication: Fever and other: Rhonchi TECHNIQUE: Imaging protocol: Radiologic exam of the chest. Views: 2 views. COMPARISON: CR XR CHEST 2V PA LATERAL 08/09/2023 11:39 AM FINDINGS: Limitations: Patient positioning is rotated. Lungs: There is asymmetric patchy opacity in the right lower lung zone. The lung chilel otherwise appear clear. Pleural spaces: No pleural effusion or pneumothorax is seen. Heart/Mediastinum: The heart appears normal in size. Bones/joints: There are osteophytes along the thoracic spinal margin. IMPRESSION: Asymmetric patchy opacity in the right lower lung zone. Aspiration or pneumonia could have this appearance. Clinical correlation is recommended. Dictated and Authenticated by: Benjamin Cunningham MD. Ordering:JAMES Chacon MD
--- NOTE | 2024-07-29 23:42 | HPE_ITS ---
Date of service: 07/29/24 Time of Service: 23:42 Assessment and Plan Assessment and plan (1) Pneumonia: Status: Acute Assessment and plan: Pneumonia, with apparently newly realized bronchospasm. Will continue Rocephin and Zithro. For bronchospasm will continue steroids and updrafts, and plan on PFTs to further define (COPD vs asthma). 1. Pneumonia: continue Rocephin, Zithro 2. Bronchospasm: Solumedrol 40 q8, scheduled and prn updrafts, PFTs 3. DM: SS coverage Full Code History of Present Illness History of Present Illness Chief Complaint: SOB Narrative: 43 female smoker, though without history of COPD or asthma, and s/p spelectomy -- seen REPLACED BY [facility] 2 days [employer] with cough, found to have RLL infiltrate, home on Cefpodoxime and Zithro. Comes in tonight with continued cough and worsening SOB. In ER findings of note for initial sats high 90s, diffuse wheeze, white count of 21 and CXR showing RLL infiltrate. Blood cxx obtained and patient given duoneb, steroids and Rocephin. Reports she feels definitely improved. Note that patient also given 0.5 Ativan for anxiety and was extremely somnolent when I first arrived, with sats on 1L at 90. After awakening, and with O2 increased 2L, sats 92-93%. Review of Systems Narrative: per HPI PFSH All Active Problems Pneumonia (Acute) Chondromalacia, right knee (Acute) IT band syndrome (Acute) Bilateral plantar fasciitis (Acute) Right knee pain (Acute) Anxiety (Chronic 08/02/12) Fatigue (Acute) Snoring (Acute ~10/2023) pending sleep study results Thyroid nodule (Acute) Type 2 diabetes mellitus without complication, with no history of insulin use (Acute 03/2022) Essential hypertension (Chronic) Amplified musculoskeletal pain (Acute) Acute medial meniscus tear of left knee (Acute ~09/2021) fell down stairs; scheduled surgery 12/2021, Depo Medrol 01/18/23; reports needs knee replacement. Insomnia (Acute) Grief reaction (Chronic) Struggles with anniversary dates for loss of her son 11/2020 - birthday, . Folic acid deficiency (non anemic) (Acute) takes vitamins Hypothyroidism (Chronic) Asplenia (Chronic) Dysmenorrhea (Chronic 06/30/16) Obesity (Chronic 10/23/12) Pancreatic insufficiency (Chronic 10/23/12) Smoker (Chronic 10/23/12) Medical History History of DVT (deep vein thrombosis) (~12/2021) post knee arthroscopy. 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 1 year repeat recommended. Stable on repeat. No further testing needed. 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 Marquez Status post cholecystectomy (~2007) [facility] in November 27, complicated by injury to the pancreas with a 40% pancreectomy done in April 29 and a subsequent splenectomy done in also. History of tonsillectomy History of splenectomy History of appendectomy Pelletier Mitali lesion Excision of Pelletier-Mitali lesion right thigh DOS: 12/14/18 Dr. Lugo Tubal ligation status PANCREATECTOMY (08/22/07) PARTIAL Family History Mother Liliya's disease Father , 48 Brain tumor Sister No problems noted. Brother No problems noted. 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 What type of physical activity do you participate in: additional Details: snowshoed a couple times this winter. Do you feel safe at home: Yes Do you feel safe in your relationship?: Yes Meds Allergies and Home Medications Allergies Allergy/AdvReac Type Severity Reaction Status Date / Time pneumococcal vaccine Allergy Intermediate Localized Verified 07/29/24 21:09 reaction with PCV13 levothyroxine sodium AdvReac Mild generic Verified 07/29/24 21:09 form, syncopal episodes Home Medications ?Medication ?Instructions ?Recorded ?Confirmed ?Type ketoconazole 2 % shampoo 1 applic topical Q2W #120 mL 10/24/20 07/29/24 Rx blood sugar diagnostic (FreeStyle #100 ea 05/07/22 07/29/24 Rx Lite Strips) blood-glucose meter (FreeStyle #1 ea 05/07/22 07/29/24 Rx Lite Meter kit) lancets 28 gauge #100 ea 05/07/22 07/29/24 Rx inhalational spacing device #1 ea 07/20/23 07/29/24 Rx (Aerochamber MV spacer) Synthroid 125 mcg tablet 125 mcg PO DAILY #90 tabs 11/03/23 07/29/24 Rx (levothyroxine) escitalopram oxalate 20 mg tablet 20 mg PO DAILY #90 tabs 11/04/23 07/29/24 Rx lorazepam 0.5 mg tablet 0.5 mg PO HS PRN anxiety #30 tabs 05/01/24 07/29/24 Rx metformin 500 mg 24 hr 500 mg PO QPM #90 tabs 05/14/24 07/29/24 Rx tablet,extended release (gastric retention) semaglutide 1 mg/dose (4 mg/3 mL) 1 mg (0.75 mL) subcut QWEEK #3 mL 06/13/24 07/25/24 Rx subcutaneous pen injector trazodone 100 mg tablet 100 mg PO QHS #90 tabs 06/21/24 07/29/24 Rx cyclobenzaprine 10 mg tablet 10 mg PO TID PRN muscle spasm #30 07/25/24 07/29/24 Rx tabs Exam Narrative Exam Narrative: 112/60, 91, 37.3, 25, 91% (as above 92-3 during visit). HEENT atraumatic; neck supple; lungs diminished but clear; heart RRR; abdomen soft and NT; extremities w/o edema; neuro Ox3, lucid, moves all 4s Results Labs 07/29/24 21:37 07/29/24 21:37 Labs: Laboratory Results - last 24 hr 07/29/24 07/29/24 07/29/24 21:37 22:40 22:45 WBC 21.06 H RBC 3.68 L Hgb 12.0 Hct 36.1 MCV 98 H MCH 32.6 MCHC 33.2 RDW 14.4 Plt Count 346 MPV 11.1 H Immature Gran % 0.5 Neutrophils % 74.8 Lymphocytes % 14.1 Monocytes % 8.2 Eosinophils % 1.9 Basophils % 0.5 Nucleated RBC % 0.0 Absolute Neutrophils 15.75 H Absolute Lymphocytes 2.97 Absolute Monocytes 1.73 H Absolute Eosinophils 0.40 Absolute Basophils 0.11 RBC Morphology Normal VBG Lactate 1.4 Sodium 138 Potassium 3.0 L Chloride 102 Carbon Dioxide 25.1 Anion Gap 10.9 BUN 10 Creatinine 0.8 Est GFR (CKD-EPI 2020) 94.28 Glucose 215 H Calcium 9.1 Total Bilirubin 0.25 AST 25 ALT 38 Alkaline Phosphatase 164 H Troponin I 9 8 Total Protein 7.6 Albumin 3.2 L Procalcitonin < 0.10 Urine Color Yellow Urine Clarity Clear Urine pH 6.5 Ur Specific [place] <= 1.005 Urine Protein Negative Urine Ketones Negative Urine Blood Trace-intact H Urine Nitrite Negative Urine Bilirubin Negative Urine Urobilinogen 0.2 Ur Leukocyte Esterase Negative Urine RBC 0-2 Urine WBC Negative Ur Epithelial Cells Rare Urine Crystals Negative Urine Bacteria Negative Urine Casts Negative Urine Mucus Negative Ur Culture Indicated? No Urine Glucose Negative Last Vital Signs Temp 37.3 C 07/29/24 21:07 Pulse 91 H 07/29/24 23:31 Resp 25 H 07/29/24 23:31 BP 112/60 07/29/24 23:31 Pulse Ox 91 L 07/29/24 23:31 PAWSS Have you Been Recently Intoxicated or Drunk Within the Last 30 days?: Yes Have you Ever Experienced Previous Episodes of Alcohol Withdrawal?: No Have you ever Experienced Withdrawal Seizures?: No Have you ever Experienced Delirium Tremens(DT)s?: No Have you ever undergone Alcohol Rehabilitation Treatment (i.e, inpt ot outpatient treatment programs)?: No Have you ever Experienced Blackouts?: No Have you ever Combined Alcohol with other Downers within the last 90 days?: No Have you ever Combined Alcohol with any other Substance of Abuse during the last 90 days?: No Positive Blood Alcohol level on Presentation? [PCS.BAL]: No Evidence of Increased Autonomic Activity (i.e. HR>120, tremor, sweating, agitation, nausea)?: No Result: 1 Time Spent Time spent with Patient: 40-54 minutes Time was spent: preparing to see the patient(eg.review tests), obtaining and/or reviewing separately [facility], ordering medications,tests, procedures, referring, communicating with other health care transition coordinator and indepentently interpreting results
[2024-07-30] VITALS (18 sets, daily range): BP systolic 102–147; BP diastolic 64–95; PULSE 83–102; RESP 2–30; TEMP 36.4–36.5; O2SAT 90–98
--- NOTE | 2024-07-30 00:45 | W.PC.ACHO ---
Registration Status: Primary Language: Preferred Language: ED Information & Data Chief Complaint RespSymp 07/29/24 22:15 Triage Note Seen at [facility] 07/29/24 20:55 hospital yesterday and was diagnosed with pneumonia, was then started on n2 antibiotics, state she feels she cant breath and she is getting worst, having persistent coughing Medical / Surgical History (Last Reviewed 07/29/24 @ 23:47 by Dom James MD) History of DVT (deep vein thrombosis) (~12/2021) Alcohol dependence with acute alcoholic intoxication with complication Closed fracture of right distal fibula Adrenal mass, left Chronic pancreatitis (10/23/12) Depressive disorder Liliya's thyroiditis (04/30/15) (Last Reviewed 07/29/24 @ 23:47 by Dom James MD) S/P total knee arthroplasty Status post arthroscopy of left knee (12/24/21) Status post cholecystectomy (~2007) History of tonsillectomy History of splenectomy History of appendectomy Pelletier Mitali lesion Tubal ligation status PANCREATECTOMY (08/22/07) Most Recent Vital Signs Temperature 37.3 C 07/29/24 21:07 Temperature Source Oral 07/29/24 21:07 Pulse 88 07/30/24 00:16 Pulse 90 07/30/24 00:20 Respiratory Rate 30 H 07/30/24 00:20 Respiratory Effort Short of Breath 07/29/24 21:06 Blood Pressure 102/77 07/30/24 00:16 Blood Pressure Mean 84 07/30/24 00:16 Blood Pressure Position Supine 07/29/24 21:07 Pulse Oximetry 91 L 07/30/24 00:20 Oxygen Delivery Method Room Air 07/29/24 21:16 Oxygen Flow Rate 0 07/29/24 21:16 Allergies pneumococcal vaccine Allergy (Intermediate, Verified 07/29/24 21:09) Localized reaction with PCV13 levothyroxine sodium Adverse Reaction (Mild, Verified 07/29/24 21:09) generic form, syncopal episodes generic form only caused reaction-almost passed out Precautions Isolation Standard precaution 07/29/24 21:01 IV IV Catheter Type [Left Saline Lock Antecubital] IV Catheter Gauge [Left 18 Antecubital] Diet Orders Category Date Time Status Regular/Normal [DIET] Nutrition 07/30/24 Breakfast Active Diagnostics 07/30/24 07/30/24 07/29/24 Range/Units 00:26 00:01 22:45 WBC (4.4-10.8) 10^3/uL RBC (3.93-5.22) 10^6/uL Hgb (11.2-15.7) g/dL Hct (36.0-46.0) % MCV (80-95) fL MCH (27.0-33.0) pg MCHC (32.0-36.0) % RDW (11.7-14.6) % Plt Count (130-400) 10^3/uL MPV (8.0-11.0) fL Immature Gran % % Neutrophils % % Lymphocytes % % Monocytes % % Eosinophils % % Basophils % % Nucleated RBC % (0.0-0.3) % Absolute Neutrophils (1.2-6.7) 10^3/uL Absolute Lymphocytes (1.2-3.4) 10^3/uL Absolute Monocytes (0.1-0.8) 10^3/uL Absolute Eosinophils (0.0-0.7) 10^3/uL Absolute Basophils (0.0-0.2) 10^3/uL RBC Morphology VBG Lactate (0.6-1.4) mmol/L Sodium (136-145) mmol/L Potassium (3.5-5.1) mmol/L Chloride (98-107) mmol/L Carbon Dioxide (21.0-32.0) mmol/L Anion Gap (3-11) mmol/L BUN (7-18) mg/dL Creatinine (0.55-1.02) mg/dL Est GFR (CKD-EPI 2020) (mL/min/1.73m2) Glucose (74-106) mg/dL Calcium (8.5-10.1) mg/dL Total Bilirubin (0.2-1.0) mg/dL AST (15-37) U/L ALT (14-59) U/L Alkaline Phosphatase (46-116) U/L Troponin I Pending 8 (<or=51) ng/L Total Protein (6.4-8.2) g/dL Albumin (3.4-5.0) g/dL Procalcitonin ng/mL Urine Color (Yellow) Urine Clarity (Clear) Urine pH (5-8) Ur Specific [place] (1.005-1.025) Urine Protein (Neg-Trace) mg/dL Urine Ketones (Negative) mg/dL Urine Blood (Negative) Urine Nitrite (Negative) Urine Bilirubin (Negative) Urine Urobilinogen (Up to 0.2) mg/dL Ur Leukocyte Esterase (Negative) Urine RBC (0-2) HPF Urine WBC (0-5) HPF Ur Epithelial Cells (Negative) HPF Urine Crystals (Negative) HPF Urine Bacteria (Negative) HPF Urine Casts (Negative) LPF Urine Mucus (Negative) Ur Culture Indicated? Urine Glucose (Negative) mg/dL Urine Legionella Ag Pending 07/29/24 07/29/24 Range/Units 22:40 21:37 WBC 21.06 H (4.4-10.8) 10^3/uL RBC 3.68 L (3.93-5.22) 10^6/uL Hgb 12.0 (11.2-15.7) g/dL Hct 36.1 (36.0-46.0) % MCV 98 H (80-95) fL MCH 32.6 (27.0-33.0) pg MCHC 33.2 (32.0-36.0) % RDW 14.4 (11.7-14.6) % Plt Count 346 (130-400) 10^3/uL MPV 11.1 H (8.0-11.0) fL Immature Gran % 0.5 % Neutrophils % 74.8 % Lymphocytes % 14.1 % Monocytes % 8.2 % Eosinophils % 1.9 % Basophils % 0.5 % Nucleated RBC % 0.0 (0.0-0.3) % Absolute Neutrophils 15.75 H (1.2-6.7) 10^3/uL Absolute Lymphocytes 2.97 (1.2-3.4) 10^3/uL Absolute Monocytes 1.73 H (0.1-0.8) 10^3/uL Absolute Eosinophils 0.40 (0.0-0.7) 10^3/uL Absolute Basophils 0.11 (0.0-0.2) 10^3/uL RBC Morphology Normal VBG Lactate 1.4 (0.6-1.4) mmol/L Sodium 138 (136-145) mmol/L Potassium 3.0 L (3.5-5.1) mmol/L Chloride 102 (98-107) mmol/L Carbon Dioxide 25.1 (21.0-32.0) mmol/L Anion Gap 10.9 (3-11) mmol/L BUN 10 (7-18) mg/dL Creatinine 0.8 (0.55-1.02) mg/dL Est GFR (CKD-EPI 2020) 94.28 (mL/min/1.73m2) Glucose 215 H (74-106) mg/dL Calcium 9.1 (8.5-10.1) mg/dL Total Bilirubin 0.25 (0.2-1.0) mg/dL AST 25 (15-37) U/L ALT 38 (14-59) U/L Alkaline Phosphatase 164 H (46-116) U/L Troponin I 9 (<or=51) ng/L Total Protein 7.6 (6.4-8.2) g/dL Albumin 3.2 L (3.4-5.0) g/dL Procalcitonin < 0.10 ng/mL Urine Color Yellow (Yellow) Urine Clarity Clear (Clear) Urine pH 6.5 (5-8) Ur Specific [place] <= 1.005 (1.005-1.025) Urine Protein Negative (Neg-Trace) mg/dL Urine Ketones Negative (Negative) mg/dL Urine Blood Trace-intact H (Negative) Urine Nitrite Negative (Negative) Urine Bilirubin Negative (Negative) Urine Urobilinogen 0.2 (Up to 0.2) mg/dL Ur Leukocyte Esterase Negative (Negative) Urine RBC 0-2 (0-2) HPF Urine WBC Negative (0-5) HPF Ur Epithelial Cells Rare (Negative) HPF Urine Crystals Negative (Negative) HPF Urine Bacteria Negative (Negative) HPF Urine Casts Negative (Negative) LPF Urine Mucus Negative (Negative) Ur Culture Indicated? No Urine Glucose Negative (Negative) mg/dL Urine Legionella Ag 07/29/24 22:08 Blood Culture - Pending Blood 07/29/24 21:37 Blood Culture - Pending Blood Intake and Output - 24 Hour Total 07/29/24 20:43 thru 07/29/24 23:33 Intake Total 115 Balance 115 Weight 86.183 kg Intake: IV 115 Falls Risk Assessment History of Falls No History 07/29/24 21:45 Contributing Factors No Factors 07/29/24 21:45 Ambulatory Aids Independent 07/29/24 21:45 Tubes/Lines None 07/29/24 21:45 Gait Evaluation No gait disturbance 07/29/24 21:45 Cognition No cognitive impairment 07/29/24 21:45 Fall Total Score 0 07/29/24 21:45 Level of Risk Standard/Low Risk 07/29/24 21:45 Problems (Last Reviewed 07/29/24 @ 23:47 by Dom James MD) Pneumonia (Acute) v v v v v v v v v Sending and/or Receiving Nurses: Please use comment section below to note any information pertinent to the patient hand-off not included above. Information / Comments: Seen for SOB in [place] yesterday given abx felt she was getting worse. Seen on x-ray bilateral LL pneumonia. Smoker. Had duoneb and zofran on route. Fever x24hrs afebrile in ED. BC done. K+ low given replacement. 18g in L AC. VS 102/77, RR 18-20, 88bpm, O2 91 on RA. Anxious. A+O. Ind. In for abx Report received from: Dixie PINO, called at [phone]
[2024-07-30] MEDS: Albuterol/Ipratropium 3 ML UPD VIAL UPD ×3 (01:14→11:07)
[2024-07-30] MEDS: traZODone 100 MG TAB PO (01:44)
[2024-07-30] MEDS: AZITHROMYCIN 250 MG in Normal Saline 250 ML IVPB (01:44)
[2024-07-30 02:08] LABS: Troponin I 7 ng/L (<or=51)
[2024-07-30] MEDS: methylPREDNISolone SUCC 40 MG VIAL IVP (06:17)
[2024-07-30] MEDS: Levothyroxine 125 MCG TAB PO (06:17)
[2024-07-30] MEDS: predniSONE 20 MG TAB 40 MG PO (08:05)
[2024-07-30] MEDS: Acetaminophen 325 MG TAB 650 MG PO (08:05)
[2024-07-30] MEDS: Insulin Aspart 300 UNITS/3 ML PEN SC ×2 (08:26→12:08)
--- NOTE | 2024-07-30 09:00 | INITIAL_ITS ---
Date of service: 07/30/24 Time of Service: 09:00 Care Management Initial Assmt Initial Assessment Reason for Hospitalization: pneumonia Functional Status/Living Situation Patient Presentation: Love was seen at [facility] on 07/27 and was found to have RLL pneumonia. She was sent home on cefpodoxime and Zithro. She returned to the ER at [facility] with continued cough and worsening SOB. She stated that she was the sickest she has ever been. WBC on admit was 21 and CXR showed a RLL infiltrate. This morning Love was sitting up in the chair when CM met with her. She was pleasant, but did not particularly care to offer much information to CM. Love stated that she has never felt this poorly. She is concerned that she is not yet well enough to go home, although the plan is to send her later today. She was going to take a walk with respiratory therapy to assure that she can tolerate that. 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 She declines the need for a work note. 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) Instrumental Activities of Daily Living (ADLs): Independent Medications Medication Management: No Issues/Barriers identified Advance Directives Advance Directives: Do you have an Advance Directive: N 10/06/17 02:59 AD On File at [facility]: N 11/13/12 16:23 Date Asked 03/14/24 07/04/24 08:07 AD Date Reviewed COLST On File at [facility] COLST Date Scanned Code Status Resuscitation Status Full Code Insurance Coverage/Financial Issues Insurance: medicaid Care Team Visit Care Team Role Provider Type Camelia Gracia MD Primary Care Provider [facility] STAFF PHYSICIAN Mey Hidalgo RDN, CDCES Other Providers FACILITIES PLANNER Nessa Terrazas Other Providers FACILITIES PLANNER Lucho Walton RDN Other Providers FACILITIES PLANNER GERMAN [facility] Emergency Provider PHYSICIANS FAST FOOD ASSISTANT RESTAURANT MANAGER Dom James MD Admit Provider [facility] STAFF PHYSICIAN Attending Provider Discharge Potential Discharge Needs: PCP F/U Appt Anticipated Barriers to Discharge: None Identified Patient/Family Education Needs: Review discharge instructions, discuss Ask Me Three Transportation: Private vehicle Plan: Anticipate that Love will be discharged home with no new services. She will have orders for continued antibiotics and will f/u with her PCP. Love will transport home in a private vehicle and continue per her prescribed plan of care. CM will continue to follow. PFSH All Active Problems Bronchospasm (Acute) Diabetes (Chronic) Sepsis (Acute) Pneumonia (Acute) Chondromalacia, right knee (Acute) IT band syndrome (Acute) Bilateral plantar fasciitis (Acute) Right knee pain (Acute) Anxiety (Chronic 08/02/12) Fatigue (Acute) Snoring (Acute ~10/2023) pending sleep study results Thyroid nodule (Acute) Type 2 diabetes mellitus without complication, with no history of insulin use (Acute 03/2022) Essential hypertension (Chronic) Amplified musculoskeletal pain (Acute) Acute medial meniscus tear of left knee (Acute ~09/2021) fell down stairs; scheduled surgery 12/2021, Depo Medrol 01/18/23; reports needs knee replacement. Insomnia (Acute) Grief reaction (Chronic) Struggles with anniversary dates for loss of her son 11/2020 - birthday, . Folic acid deficiency (non anemic) (Acute) takes vitamins Hypothyroidism (Chronic) Asplenia (Chronic) Dysmenorrhea (Chronic 06/30/16) Obesity (Chronic 10/23/12) Pancreatic insufficiency (Chronic 10/23/12) Smoker (Chronic 10/23/12) Medical History History of DVT (deep vein thrombosis) (~12/2021) post knee arthroscopy. 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 1 year repeat recommended. Stable on repeat. No further testing needed. 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 Marquez Status post cholecystectomy (~2007) [facility] in November 27, complicated by injury to the pancreas with a 40% pancreectomy done in April 29 and a subsequent splenectomy done in also. History of tonsillectomy History of splenectomy History of appendectomy Pelletier Mitali lesion Excision of Pelletier-Mitali lesion right thigh DOS: 12/14/18 Dr. Lugo Tubal ligation status PANCREATECTOMY (08/22/07) PARTIAL Family History Mother Liliya's disease Father , 48 Brain tumor Sister No problems noted. Brother No problems noted. Son Substance use disorder Social History Smoking/Tobacco Use Status: Current every day Tobacco Type: cigarettes Smoking packs per day: 1 Smoking cigarettes per day: 20.0 Tobacco: How many years used: 25 Counseling given: provider counseling Smoking risk assessment performed?: Yes Alcohol Intake: current Alcohol Intake frequency: 3 or more drinks per day Alcohol type: beer, wine and hard liquor Drug use: Daily Substance use type: marijuana Household members: children Housing: house Number of Children: 2 current occupation: at [employer] as a [id number] Current gender identity: female Other: son . What type of physical activity do you participate in: additional Details: snowshoed a couple times this winter. Do you feel safe at home: Yes Do you feel safe in your relationship?: Yes Readmission Within the Past 30 Days Yes or No: No SDOH(Care Management) Screening Will the Patient Participate in the Screening?: Yes Do you worry about having a steady place to live?: no In the past 12 months, have you had to go without electric, gas, oil or water in your home?: no Have you or anyone in your house had to go without enough food to eat?: no Has lack of transportation kept you from medical appointments or from doing things needed for daily living?: no Has anyone in your support network made you feel unsafe for any reason?: no
--- NOTE | 2024-07-30 09:33 | W.PM.PROGNOT ---
Date of Service Date of service: 07/30/24 Time of Service: 09:33 Assessment and Plan Assessment and plan (1) Sepsis: Status: Acute (2) Pneumonia: Status: Acute Assessment and plan: Pneumonia, with apparently newly realized bronchospasm. Will continue Rocephin and Zithro. For bronchospasm will continue steroids and updrafts, and plan on PFTs to further define (COPD vs asthma). 1. Pneumonia: continue Rocephin, Zithro 2. Bronchospasm: Solumedrol 40 q8 initially transitined to oral prednisone continue scheduled and prn updrafts, PFTs 3. DM: SS coverage Full Code (3) Diabetes: Status: Chronic Assessment and plan: Fingerstick AC and HS with SSI Diabetic diet (4) Anxiety: Status: Chronic Assessment and plan: On lorazepam and trazodone (5) Hypothyroidism: Status: Chronic Exam Narrative Exam Narrative: Constitutional The patient is sitting in chair/ lying in bed comfortable and cooperative during the interview. The patient is well groomed without acute distress and has average body habitus/is obese/ is thin. HENMT: Head is atraumatic, normocephalic, no lymphadenopathy. Facial structures with normal appearance Eyes: Well aligned, intact ROM Neck: Normal ROM, no meningeal signs Neuro:alert and oriented to self, person, place time and situation. No neurological focal deficit, PERRLA Chest:Chest is symmetrical and normal appearance Resp: Normal respiratory pattern, speaks in full sentences, unlabored breathing, clear lung bilaterally Cardio: regular rhythm, S1, S2, no murmur, capillary refill<3 sec., bilateral radial and dorsalis pedis pulses are positive, palpable GI: Abdomen is not distended, soft and non tender, bowel sounds are present : Negative Costovertebral angle tenderness, no bladder distension Back/spine/Pelvis: No back tenderness, normal alignment Integumentary: No skin lesions or rash Extremities: strength 5/5 to bilateral lower and upper extremities Psych: RASS 0, congruent mood and normal affect. Objective Last Vital Signs Temp 36.5 C 07/30/24 07:40 Pulse 85 07/30/24 07:40 Resp 18 07/30/24 07:40 BP 143/92 H 07/30/24 07:40 Pulse Ox 97 07/30/24 07:52 Laboratory Results - last 24 hr 07/29/24 07/29/24 07/29/24 21:37 22:40 22:45 WBC 21.06 H RBC 3.68 L Hgb 12.0 Hct 36.1 MCV 98 H MCH 32.6 MCHC 33.2 RDW 14.4 Plt Count 346 MPV 11.1 H Immature Gran % 0.5 Neutrophils % 74.8 Lymphocytes % 14.1 Monocytes % 8.2 Eosinophils % 1.9 Basophils % 0.5 Nucleated RBC % 0.0 Absolute Neutrophils 15.75 H Absolute Lymphocytes 2.97 Absolute Monocytes 1.73 H Absolute Eosinophils 0.40 Absolute Basophils 0.11 RBC Morphology Normal VBG Lactate 1.4 Sodium 138 Potassium 3.0 L Chloride 102 Carbon Dioxide 25.1 Anion Gap 10.9 BUN 10 Creatinine 0.8 Est GFR (CKD-EPI 2020) 94.28 Glucose 215 H Calcium 9.1 Total Bilirubin 0.25 AST 25 ALT 38 Alkaline Phosphatase 164 H Troponin I 9 8 Total Protein 7.6 Albumin 3.2 L Procalcitonin < 0.10 Urine Color Yellow Urine Clarity Clear Urine pH 6.5 Ur Specific [place] <= 1.005 Urine Protein Negative Urine Ketones Negative Urine Blood Trace-intact H Urine Nitrite Negative Urine Bilirubin Negative Urine Urobilinogen 0.2 Ur Leukocyte Esterase Negative Urine RBC 0-2 Urine WBC Negative Ur Epithelial Cells Rare Urine Crystals Negative Urine Bacteria Negative Urine Casts Negative Urine Mucus Negative Ur Culture Indicated? No Urine Glucose Negative 07/30/24 01:45 WBC RBC Hgb Hct MCV MCH MCHC RDW Plt Count MPV Immature Gran % Neutrophils % Lymphocytes % Monocytes % Eosinophils % Basophils % Nucleated RBC % Absolute Neutrophils Absolute Lymphocytes Absolute Monocytes Absolute Eosinophils Absolute Basophils RBC Morphology VBG Lactate Sodium Potassium Chloride Carbon Dioxide Anion Gap BUN Creatinine Est GFR (CKD-EPI 2020) Glucose Calcium Total Bilirubin AST ALT Alkaline Phosphatase Troponin I 7 Total Protein Albumin Procalcitonin Urine Color Urine Clarity Urine pH Ur Specific [place] Urine Protein Urine Ketones Urine Blood Urine Nitrite Urine Bilirubin Urine Urobilinogen Ur Leukocyte Esterase Urine RBC Urine WBC Ur Epithelial Cells Urine Crystals Urine Bacteria Urine Casts Urine Mucus Ur Culture Indicated? Urine Glucose PAWSS Have you Been Recently Intoxicated or Drunk Within the Last 30 days?: Yes Have you Ever Experienced Previous Episodes of Alcohol Withdrawal?: No Have you ever Experienced Withdrawal Seizures?: No Have you ever Experienced Delirium Tremens(DT)s?: No Have you ever undergone Alcohol Rehabilitation Treatment (i.e, inpt ot outpatient treatment programs)?: No Have you ever Experienced Blackouts?: No Have you ever Combined Alcohol with other Downers within the last 90 days?: No Have you ever Combined Alcohol with any other Substance of Abuse during the last 90 days?: No Positive Blood Alcohol level on Presentation? [PCS.BAL]: No Evidence of Increased Autonomic Activity (i.e. HR>120, tremor, sweating, agitation, nausea)?: No Result: 1
[2024-07-30 10:15] LABS: Magnesium 1.9 mg/dL (1.8-2.4)
[2024-07-30 10:19] LABS: BUN 9 mg/dL (7-18); CREATININE 0.8 mg/dL (0.55-1.02); Calcium 9.3 mg/dL (8.5-10.1); Chloride 105 mmol/L (98-107); Estimated GFR 94.28 (mL/min/1.73m2); Glucose 303 mg/dL (74-106); Sodium 139 mmol/L (136-145)
--- NOTE | 2024-07-30 11:13 | W.PM.DS.N ---
Date of service: 07/30/24 Time of Service: 11:13 DS: Diagnosis Discharge Diagnosis (1) Sepsis: Status: Acute (2) Pneumonia: Status: Acute (3) Diabetes: Status: Chronic (4) Anxiety: Status: Chronic (5) Hypothyroidism: Status: Chronic Discharge Plan Disposition Patient Disposition: Home Condition: Improving Discharge Details Reason For Visit: pneumonia, bronchospasm Admit Date/Time: 07/29/24 23:55 Admit Provider: Dom James Attending Provider: Dom James Primary Care Provider: Camelia Gracia Hospital Course Hospital Course: This 44-year-old female patient with a past medical history of asplenia , [id number] diabetes mellitus, anxiety, DVT status post knee surgery presented at [facility] on 07/29/2024 with increase difficulty breathing, cough. On arrival the patient was afebrile, tachycardic and tachypneic and hypoxic with sats around 87% on room air that improved with oxygen supplementation. The patient reported that she was seen at [facility] earlier and was discharged with as needed albuterol inhaler, cefuroxime and azithromycin earlier on the day of presentation. Patient denied history of chronic lung disease. Workup in the ED was significant for a WBC at 21 and a potassium at 3.0. Chest x-ray showedAsymmetric patchy opacity in the right lower lung zone. In the ED the patient was treated with methylprednisolone IV, DuoNebs, IV ceftriaxone and azithromycin. The hospitalist was consulted and the patient admitted to the medical surgical floor for evaluation management of sepsis in the setting of pneumonia. During the stay, the patient continued to receive scheduled albuterol and ipratropium nebulizer treatment, IV azithromycin and ceftriaxone; IV methylprednisolone was transitioned to oral prednisone. Repeat potassium level was reassuring. The patient no longer necessitate oxygen recommend supplementation and maintains her saturation oxygen above 95% on room air. The patient is a monitor denied medically stable and afebrile. The patient will be discharged home today on oral cefpodoxime and azithromycin. Orders for those antibiotics were sent to the patient's pharmacy. The patient is not to take any other previous antibiotics ordered. The patient will also receive a short course of oral prednisone. The patient will continue the Combivent inhaler dispensed during the stay at home and take it every 4 hours while awake. The patient has an albuterol inhaler that she can use as needed if she feels worsening short of breath . The patient will need to follow-up with her primary care provider within 7 days of discharge. Discussed with Dr. Sawant Home Meds and New Rx's Prescriptions: New cefpodoxime 200 mg Tablet 200 mg PO Q12H Qty: 9 0RF azithromycin 250 mg Tablet 250 mg PO HS Qty: 5 0RF prednisone 20 mg tablet 20 mg PO DAILY Qty: 4 0RF Continued ketoconazole 2 % shampoo 1 applic TP Q2W Qty: 120 4RF Rx Instructions: Apply twice a week with at least 3 days in between shampoos (DME) Aerochamber MV Spacer See Rx Instructions .Route Qty: 1 0RF Rx Instructions: As directed escitalopram oxalate 20 mg tablet 20 mg PO DAILY Qty: 90 1RF levothyroxine [Synthroid] 125 mcg tablet 125 mcg PO DAILY Qty: 90 4RF Rx Instructions: Take 1 tablet once a day in the morning on an empty stomach lorazepam 0.5 mg tablet 0.5 mg PO HS PRN (Reason: anxiety) Qty: 30 0RF metformin 500 mg tablet,ER jonathan.retention 24 hr 500 mg PO QPM Qty: 90 3RF semaglutide 1 mg/dose (4 mg/3 mL) pen injector 1 mg subcut QWEEK Qty: 3 0RF Rx Instructions: for 4 weeks trazodone 100 mg tablet 100 mg PO QHS Qty: 90 1RF cyclobenzaprine 10 mg tablet 10 mg PO TID PRN (Reason: muscle spasm) Qty: 30 0RF Rx Instructions: Take 1 tablet orally up to 3 times daily as needed for muscle spasm. (DME) blood-glucose meter [FreeStyle Lite Meter] Kit See Rx Instructions .Route Qty: 1 0RF Rx Instructions: As directed - test once daily. (DME) FreeStyle Lite Strips Strip See Rx Instructions .Route Qty: 100 0RF Rx Instructions: As directed test once daily- (DME) lancets 28 gauge misc See Rx Instructions .ROUTE DAILY Qty: 100 3RF Rx Instructions: DX:250.0 - use once daily. Discharge Instructions Instructions: Pneumonia, Adult (DC) Stand Alone Forms: Nursing Discharge Form Referrals: Camelia Gracia MD [Primary Care Provider] - 08/10/24 4:00 pm Activity:: Activity as Tolerated Equipment/Supplies:: No Equipment Needed Diet:: heart healthy diabetic Discharge Orders Discharge Orders: Discharge Order (Routine); Ordered 07/30/24 Ordered By: Marie Bloom DS: Summary Time Spent with Patient providing and/or coordinating discharge services: Greater than 30 minutes Status at Discharge Functional status at discharge: independent ambulation Overall status at discharge: patient is progressing back to baseline Mental Status: mental status grossly normal Speech and Movement: speech and movement normal Mood: congruent mood and anxious mood Affect: normal affect and anxious affect Quality:SDOH Health Related Social Needs: No Data to Display Exam Narrative Exam Narrative: Constitutional The patient is sitting in chair without acute distress HENMT: Facial structures with normal appearance Neuro:alert and oriented x 4;mo neurological focal deficit Chest:Chest is symmetrical and normal appearance Resp: Speaks in full sentences on the phone, unlabored breathing, clear lung bilaterally except for right sided lower lobe fine crackles Cardio: regular rhythm, S1, S2, no murmur, bilateral radial and dorsalis pedis pulses are positive, palpable GI: Abdomen is not distended, soft and non tender, bowel sounds are present Integumentary: No skin lesions or rash Psych: RASS 0, congruent mood and normal to anxious affect. Psych Mental Status: mental status grossly normal Speech and Movement: speech and movement normal Mood: congruent mood and anxious mood Affect: normal affect and anxious affect DS: Data Vitals/I&O Vitals and I&O: Vital Signs Temperature 36.5 C 07/30/24 07:40 Temperature Source Temporal Artery Scan 07/30/24 07:40 Pulse 102 H 07/30/24 11:07 Pulse Rhythm Regular 07/30/24 00:54 Pulse 90 07/30/24 00:20 Respiratory Rate 18 07/30/24 11:07 Respiratory Effort Accessory Muscle Use 07/30/24 00:54 Respiratory Depth Shallow 07/30/24 00:54 Respiratory Pattern Normal 07/30/24 00:54 Blood Pressure 143/92 H 07/30/24 07:40 Blood Pressure Mean 84 07/30/24 00:16 Blood Pressure Position Supine 07/29/24 21:07 Pulse Oximetry 96 07/30/24 11:07 Oxygen Delivery Method Room Air 07/30/24 11:07 Oxygen Flow Rate 0 07/30/24 11:07 Pain Level 0 07/30/24 07:40 Comment will inform RN BP 07/30/24 07:40 Intake & Output 07/29/24 07/29/24 07/30/24 11:59 23:59 11:59 Intake Total 115 / 115 250 / 250 Output Total 850 / 850 Balance 115 / 115 -600 / -600 Weight 86.183 kg 94.9 kg Intake: IV 115 / 115 250 / 250 Output: Urine 850 / 850 Other: Urine Color Yellow Urine Appearance Clear Urine Odor Strong Data Completed and Pending Labs on day of discharge: Labs from last 24 hours 07/30/24 07/30/24 07/29/24 10:00 01:45 22:45 WBC RBC Hgb Hct MCV MCH MCHC RDW Plt Count MPV Immature Gran % Neutrophils % Lymphocytes % Monocytes % Eosinophils % Basophils % Nucleated RBC % Absolute Neutrophils Absolute Lymphocytes Absolute Monocytes Absolute Eosinophils Absolute Basophils RBC Morphology VBG Lactate Sodium 139 Potassium 4.0 D Chloride 105 Carbon Dioxide 22.0 Anion Gap 12.0 H BUN 9 Creatinine 0.8 Est GFR (CKD-EPI 2020) 94.28 Glucose 303 H Calcium 9.3 Magnesium 1.9 Total Bilirubin AST ALT Alkaline Phosphatase Troponin I 7 8 Total Protein Albumin Procalcitonin Urine Color Urine Clarity Urine pH Ur Specific [place] Urine Protein Urine Ketones Urine Blood Urine Nitrite Urine Bilirubin Urine Urobilinogen Ur Leukocyte Esterase Urine RBC Urine WBC Ur Epithelial Cells Urine Crystals Urine Bacteria Urine Casts Urine Mucus Ur Culture Indicated? Urine Glucose Urine Legionella Ag 07/29/24 07/29/24 07/29/24 22:40 21:37 00:00 WBC 21.06 H RBC 3.68 L Hgb 12.0 Hct 36.1 MCV 98 H MCH 32.6 MCHC 33.2 RDW 14.4 Plt Count 346 MPV 11.1 H Immature Gran % 0.5 Neutrophils % 74.8 Lymphocytes % 14.1 Monocytes % 8.2 Eosinophils % 1.9 Basophils % 0.5 Nucleated RBC % 0.0 Absolute Neutrophils 15.75 H Absolute Lymphocytes 2.97 Absolute Monocytes 1.73 H Absolute Eosinophils 0.40 Absolute Basophils 0.11 RBC Morphology Normal VBG Lactate 1.4 Sodium 138 Potassium 3.0 L Chloride 102 Carbon Dioxide 25.1 Anion Gap 10.9 BUN 10 Creatinine 0.8 Est GFR (CKD-EPI 2020) 94.28 Glucose 215 H Calcium 9.1 Magnesium Total Bilirubin 0.25 AST 25 ALT 38 Alkaline Phosphatase 164 H Troponin I 9 Total Protein 7.6 Albumin 3.2 L Procalcitonin < 0.10 Urine Color Yellow Urine Clarity Clear Urine pH 6.5 Ur Specific [place] <= 1.005 Urine Protein Negative Urine Ketones Negative Urine Blood Trace-intact H Urine Nitrite Negative Urine Bilirubin Negative Urine Urobilinogen 0.2 Ur Leukocyte Esterase Negative Urine RBC 0-2 Urine WBC Negative Ur Epithelial Cells Rare Urine Crystals Negative Urine Bacteria Negative Urine Casts Negative Urine Mucus Negative Ur Culture Indicated? No Urine Glucose Negative Urine Legionella Ag Pending 07/29/24 22:08 Blood Blood Culture - Pending 07/29/24 21:37 Blood Blood Culture - Pending Preliminary micro results at discharge 07/29/24 22:08 Blood Culture - Pending Blood 07/29/24 21:37 Blood Culture - Pending Blood PFSH All Active Problems Bronchospasm (Acute) Diabetes (Chronic) Sepsis (Acute) Pneumonia (Acute) Chondromalacia, right knee (Acute) IT band syndrome (Acute) Bilateral plantar fasciitis (Acute) Right knee pain (Acute) Anxiety (Chronic 08/02/12) Fatigue (Acute) Snoring (Acute ~10/2023) pending sleep study results Thyroid nodule (Acute) Type 2 diabetes mellitus without complication, with no history of insulin use (Acute 03/2022) Essential hypertension (Chronic) Amplified musculoskeletal pain (Acute) Acute medial meniscus tear of left knee (Acute ~09/2021) fell down stairs; scheduled surgery 12/2021, Depo Medrol 01/18/23; reports needs knee replacement. Insomnia (Acute) Grief reaction (Chronic) Struggles with anniversary dates for loss of her son 11/2020 - birthday, . Folic acid deficiency (non anemic) (Acute) takes vitamins Hypothyroidism (Chronic) Asplenia (Chronic) Dysmenorrhea (Chronic 06/30/16) Obesity (Chronic 10/23/12) Pancreatic insufficiency (Chronic 10/23/12) Smoker (Chronic 10/23/12) Medical History History of DVT (deep vein thrombosis) (~12/2021) post knee arthroscopy. 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 1 year repeat recommended. Stable on repeat. No further testing needed. 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 Marquez Status post cholecystectomy (~2007) [facility] in November 27, complicated by injury to the pancreas with a 40% pancreectomy done in April 29 and a subsequent splenectomy done in also. History of tonsillectomy History of splenectomy History of appendectomy Pelletier Mitali lesion Excision of Pelletier-Mitali lesion right thigh DOS: 12/14/18 Dr. Lugo Tubal ligation status PANCREATECTOMY (08/22/07) PARTIAL Family History Mother Liliya's disease Father , 48 Brain tumor Sister No problems noted. Brother No problems noted. 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 What type of physical activity do you participate in: additional Details: snowshoed a couple times this winter. Do you feel safe at home: Yes Do you feel safe in your relationship?: Yes Time Spent with Patient Time Spent with Patient: 70-84 minutes4 Time was spent: preparing to see the patient(eg.review tests), obtaining and/or reviewing separately otained hiistory, ordering medications,tests, procedures, referring, communicating with other health care team assistant, indepentently interpreting results, counseling the patient and care coordination
--- NOTE | 2024-07-30 11:14 | W.INDIABCONS ---
Date of service: 07/30/24 Time of Service: 09:45 Diabetes Inpatient Consult Reason for Visit: received consult request for diabetes ed/mgt DESCRIPTION/ASSESSMENT: Love admitted for PNA and discharge anticipated today on oral abx. She was dx with diabetes ~2years ago per interview. She states she met with a dietitian at dx but relates she could use some brushing up on glucose mgt. She takes 500mg Metfromin ER per day. She did a trial of semaglutide with headaches resulting - hated it. She had a fasting glucose of 303 today and pre-breakfast was 257, before lunch 286. She did receive 125mg IV prednison yesterday and is going home with 20mg per day. Reviewed this will elevate glucose and important to monitor, may even benefit from temporary insulin therapay to help manage. Last A1c was 6.7 this summer in February and historically looks to be in 6's and 7's. INTERVENTION: pt expressed some interest in getting together in the outpatient setting to help manage glucose and was given my card to contact and schedule a visit PLAN: will anticipate pt calling for outpatient nutrition services with goal of keeping glucose to target ranges. Time Spent in Nutritional Counseling and Treatment: 10 minutes
--- NOTE | 2024-07-30 12:13 | PDOC.CMDIS ---
Date of service: 07/30/24 Time of Service: 12:15 LACE Index Scoring Tool Questions: Length of Stay (in days): 1 Was the patient admitted via the E.D.?: Yes Comorbidities: Diabetes w/o Complication E.D. Visits: 2 Answers: Total Score: 7 Risk of Readmission: Low Risk Care Management Discharge Plan Reason for Hospitalization: pneumonia Discharge Plan: Love is discharged home today with new orders for PO antibiotics and a short course of prednisone. She will f/u with her PCP on 08/10 and continue per her plan of care. Love will transport home in a private vehicle. [facility] Health Related Social Needs: No Data to Display
[2024-07-30] MEDS: Ipratropium/Albuterol 4 GM 120 PUFF INH IH (12:34)
[2024-07-30 19:19] LABS: Legionella Ag Detection Urine Negative (Negative)
== END 2024-07-30 12:27 | disposition home or self-care (01) | DRG 871 ==
LOC: ER 07-30 00:13 → MS 07-30 00:54
PROVIDERS: Nurse Practitioner Acute Care; Admitting Provider General Practice; Emergency Provider Physician Assistant; PCP Family Medicine; Visit Provider General Practice
DX: A41.9 Sepsis, unspecified organism; J18.9 Pneumonia, unspecified organism; E11.9 Type 2 diabetes mellitus without complications; F17.210 Nicotine dependence, cigarettes, uncomplicated; J98.01 Acute bronchospasm; M94.261 Chondromalacia, right knee; M72.2 Plantar fascial fibromatosis; F41.9 Anxiety disorder, unspecified; R06.83 Snoring; I10 Essential (primary) hypertension; G47.00 Insomnia, unspecified; E53.8 Deficiency of other specified B group vitamins; E66.9 Obesity, unspecified; N94.6 Dysmenorrhea, unspecified; Z90.81 Acquired absence of spleen; K86.89 Other specified diseases of pancreas; Z90.411 Acquired partial absence of pancreas; F12.90 Cannabis use, unspecified, uncomplicated; F43.20 Adjustment disorder, unspecified; F10.20 Alcohol dependence, uncomplicated; E03.9 Hypothyroidism, unspecified; Z79.85 Long-term (current) use of injectable non-insulin antidiabetic drugs; Z79.899 Other long term (current) drug therapy; Z79.84 Long term (current) use of oral hypoglycemic drugs
CPT/HCPCS: 00123; 36415; 80048; 80053; 84145; 87040; 87449; 93005; 94640; 96365; 96367; 96375; 99291; 71046; 81003; 81015; 83605; 83735; 84484; 85025; 93010; 94664; 94667; 94668; 94760; 99222; 99239; J0131; J0456; J0696; J1815; J2060; J2919; J3490; J7512; J7620

== ENCOUNTER 2024-09-18 01:39 | Outpatient (CLI) | payer MEDICAID, SELFPAY ==
--- NOTE | 2024-09-18 06:30 | DI.RAD_ITS ---
Exam(s) XR CHEST 2V PA LATERAL EXAM: XR CHEST 2V PA LATERAL CLINICAL HISTORY: f/u pneumonia,j18.9 TECHNIQUE: 2D digital imaging was performed of the chest. Two images were obtained. PA and lateral views were obtained. COMPARISON: CR XR CHEST 2V PA LATERAL from 08/09/2023 CR,XR XR CHEST 2V PA LATERAL from 07/29/2024 FINDINGS: There is poor inspiration. MEDIASTINUM: Normal. HEART: Normal. PULMONARY VASCULATURE: Normal. LUNGS: There has been complete resolution of the right lower lobe infiltrate. No infiltrates are see n. The lungs are clear. PLEURAL SPACE: No pleural effusion or pneumothorax. BONE:Within normal limits for the patient's age. OTHER FINDINGS:Normal. IMPRESSION: No acute pulmonary findings. DATA REPOSITORY: RADIATION DOSE DELIVERED:
--- NOTE | 2024-09-18 07:52 | DI.MAMMO_ITS ---
Exam(s) MAMMO SCREENING EXAM: MAMMO SCREENING CLINICAL HISTORY: screening,z12.39 TECHNIQUE: Bilateral full field digital CC and MLO mammographic images were obtained with 3D tomosyn thesis and utilizing computer aided detection (CAD). COMPARISON: This is a baseline examination FINDINGS: Masses/Architectural Distortion: None seen. Microcalcifications: No suspicious pleomorphic-type are seen. Skin Thickening/Nipple Retraction: None. IMPRESSION: 1. No evidence for malignancy is seen at this time. 2. Unless there is more urgent need, screening mammography is recommended, as per [employer] guidelines. BI-RADS Category 1 - Negative Breast Density - Category C - Heterogeneously dense Breast density category C or D implies that the patient has dense breast tissue. Dense breast tissue is very common and is not abnormal but dense breast tissue can make it harder to find cancer on a ma mmogram. Also, dense breast tissue may increase their breast cancer risk. This information about the result of the mammogram report was provided to the patient to raise their awareness. Use this report when you speak with the patient about their risks for breast cancer, which includes their family hist ory. At that time, you may recommend for more screening tests (Ultrasound or MRI) as they might be us eful based on their risk. A negative radiographic report should not delay biopsy if a dominant or clinically suspicious mass is present. Up to ten percent of cancers are not identified on mammography. A negative report may reinforce clinical impression. Adenosis and dense breasts may obscure an underlying neoplasm. False positive reports average 6 to 10%. Patient will receive a letter notifying them of these results.
== END 2024-09-18 01:59 ==
LOC: DI 01:39
PROVIDERS: PCP Family Medicine; Visit Provider Family Medicine
DX: J18.9 Pneumonia, unspecified organism (principal); Z12.31 Encounter for screening mammogram for malignant neoplasm of breast; E11.9 Type 2 diabetes mellitus without complications
CPT/HCPCS: 77063; 77067; 71046

== ENCOUNTER 2024-09-27 00:34 | Outpatient (CLI) | payer MEDICAID, SELFPAY ==
--- NOTE | 2024-09-27 08:35 | DI.MRI_ITS ---
Exam(s) MR LOWER JOINT RT WO EXAM: MR LOWER JOINT RT WO CLINICAL HISTORY: R KNEE PAIN,chondromalacia,m25.561,m94.261. TECHNIQUE: Multiplanar multisequence MRI was performed. COMPARISON: MR MR LOWER JOINT LT WO from 04/07/2022 CR XR KNEE RT 3V AP,LAT,BURTON from 07/25/2024 FINDINGS: BONES: There is no fracture or contusion pattern. JOINTS: A moderate-sized joint effusion is present. There is a loose body measuring 6 by 3.5 millimet ers seen posteriorly, adjacent to the medial aspect of the lateral femoral condyle. Articular cartilage: Patellofemoral joint: Articular cartilage is unremarkable. Medial femoral tibial joint: Thinning of the cartilage without visible focal defect. Lateral femoral tibial joint: Articular cartilage is unremarkable. LIGAMENTS/TENDONS: Anterior Cruciate: Unremarkable. Posterior Cruciate: Unremarkable. Medial Collateral:Unremarkable. Lateral Collateral ligament complex: Unremarkable. Extensor mechanism: Unremarkable. Medial retinaculum: Unremarkable. Lateral retinaculum: Unremarkable. Popliteus: Unremarkable. MENISCI: The medial meniscus is somewhat peripherally displaced. There is a tear near the root of the posteri or horn. There is some mild high signal in the posterior horn and body which could be degenerative. The lateral meniscus is unremarkable. MUSCLES: Unremarkable. SOFT TISSUES: Anterior soft tissue edema. IMPRESSION: Tear at the root of the posterior horn of the medial meniscus. Degenerative changes of the medial fe moral tibial joint. Joint effusion and posterior loose body. DATA REPOSITORY:
== END 2024-09-27 00:54 ==
PROVIDERS: PCP Family Medicine; Visit Provider Student in an Organized Health Care Education/Training Program
DX: M94.261 Chondromalacia, right knee
CPT/HCPCS: 73721

== ENCOUNTER 2024-10-16 01:28 | Outpatient (CLI) | payer MEDICAID, SELFPAY ==
--- NOTE | 2024-10-16 06:45 | DI.US_ITS ---
Exam(s) US THYROID EXAM: US THYROID CLINICAL HISTORY: Assess for change, biopsy benign,thyroid nodule,hashimotos thyroiditis. TECHNIQUE: Ultrasound thyroid performed using standard protocol. COMPARISON: US US THYROID from 10/04/2023 US US NEEDLE LOCAL OTHER WO RAD from 10/25/2023 FINDINGS: ISTHMUS: 6 mm RIGHT LOBE: Size: 4.5 x 2.8 x 2.2 cm Echogenicity: Diffusely heterogeneous Vascularity: Hypervascular Nodules: No discrete measurable nodules. LEFT LOBE: Size: 6.1 x 2.4 x 3.5 cm Echogenicity: Heterogeneous. Vascularity: Hypervascular Nodules: No discrete measurable nodules. The previously noted nodule at the superior left lobe was n ot discretely identified on today's exam. OTHER FINDINGS: None. IMPRESSION: Enlarged hypervascular heterogeneous thyroid gland. No discrete measurable nodules. DATA REPOSITORY:
== END 2024-10-16 01:48 ==
LOC: DI 01:29
PROVIDERS: PCP Family Medicine; Visit Provider Otolaryngology
DX: E04.1 Nontoxic single thyroid nodule (principal); E06.3 Autoimmune thyroiditis
CPT/HCPCS: 76536

== ENCOUNTER 2024-10-16 13:53 | Outpatient (CLI) | payer MEDICAID, SELFPAY ==
[2024-10-16 14:03] LABS: Calculated LDL 125 mg/dL (<100); Cholesterol 205 mg/dL (<200); HDL Cholesterol 55 mg/dL (40-60); Triglyceride 127 mg/dL (<150)
== END 2024-10-16 13:54 | disposition home or self-care (01) ==
LOC: LBO 13:53
PROVIDERS: PCP Family Medicine; Visit Provider Family Medicine
DX: Z13.6 Encounter for screening for cardiovascular disorders (principal); E11.9 Type 2 diabetes mellitus without complications; R73.01 Impaired fasting glucose
CPT/HCPCS: 36415; 80061; 83036

== ENCOUNTER 2024-12-15 08:34 | Emergency (ER) | payer MEDICAID, SELFPAY ==
[2024-12-15 08:35] VITALS: BP 160/103; PULSE 86; RESP 20; TEMP 36.7; O2SAT 99
--- NOTE | 2024-12-15 08:45 | DI.CT_ITS ---
Exam(s) CT CHEST PE CTA EXAM: CT CHEST PE CTA CLINICAL HISTORY: Chest pain, SOB, leg swelling. TECHNIQUE: Imaging Protocol: Axial CT angiography was performed with multi-slice acquisition and mu lti-planar and/or 3D reconstructions. Lung Computer Aided Detection (CAD) was utilized. CONTRAST MATERIAL: Intravenous: Omnipaque 350 contrast volume:100 mL COMPARISON: CT CT CHEST PE CTA from 12/30/[address] ABDOMEN PELVIS W from 06/07/2022 CR XR CHEST 2V PA LATERAL from 09/18/2024 FINDINGS: Tracheobronchial tree: Patent where visualized. No bronchiectasis. Pulmonary parenchyma: No consolidation or dominant measurable mass. Scarring or atelectasis is seen i n the medial aspect of the right middle lobe. Dependent atelectatic changes are seen in the lung bas es. Pulmonary Arteries: No evidence of filling defect to suggest pulmonary emboli. Mediastinum and Dianne: No dominant adenopathy or fluid collection. The esophagus is unremarkable. Visualized thyroid gland: There is homogeneous enlargement of the thyroid gland. No thyroid nodule i s seen. Pleura: No effusion or pneumothorax. Heart: The heart is not dilated. No coronary artery calcifications are seen. No pericardial effusion. Aorta: Thoracic aorta non-dilated. No evidence of dissection. Upper abdomen: The spleen is absent. 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 No follow-up is recommended. Soft tissues: Unremarkable. Bones: Within normal limits for the patient's age. IMPRESSION: 1. No evidence of pulmonary embolism, thoracic aortic dissection or aneurysm. 2. No acute pulmonary process. RADIATION DOSE DELIVERED: 105.18mGy.cm Total DLP DATA REPOSITORY: All CT scans at this facility are submitted to the National Radiology Data Registry (NRDR) Dose Index Registry (DIR) with the [employer] ([employer]). RADIATION OPTIMIZATION: All CT scans at this facility use at least one of these dose optimization te chniques: automated exposure control; mA and/or kV adjustment per patient size (includes targeted exa ms where dose is matched to clinical indication); or iterative reconstruction.
--- NOTE | 2024-12-15 08:45 | DI.RAD_ITS ---
Exam(s) XR KNEE LT 3V AP,LAT,BURTON EXAM: XR KNEE LT 3V AP,LAT,BURTON CLINICAL HISTORY: Hx knee replcmnt, pain. TECHNIQUE: 2D digital imaging was performed of the left knee. Three images were obtained. AP, late ral and PA tunnel views were obtained. COMPARISON: CR XR KNEE LT 2V AP,LAT from 01/18/2023 CR XR KNEE RT 3V AP,LAT,BURTON from 07/25/2024 FINDINGS: BONES: No acute fracture is present. No bony destructive lesion is seen. JOINTS: Since the prior examination, the patient has undergone a left total knee arthroplasty. Ortho pedic hardware appears in good position. No suspicious lucencies are seen around the hardware to sug gest loosening. The knee is normally aligned. There is a small joint effusion. No loose body. SOFT TISSUE: Normal. IMPRESSION: 1. Unremarkable left total knee arthroplasty. 2. No acute fracture or dislocation. 3. Small joint effusion. DATA REPOSITORY: RADIATION DOSE DELIVERED:
--- NOTE | 2024-12-15 08:50 | ED.GENADUL_ITS ---
Discharge Plan Disposition Patient Disposition: Home Condition: Stable Discharge Details Clinical Impression: Effusion of knee joint, left Primary Care Provider: Camelia Gracia ED Provider: Sharri Lucero Home Meds and New Rx's Prescriptions: Continued ketoconazole 2 % shampoo 1 applic TP Q2W Qty: 120 4RF Rx Instructions: Apply twice a week with at least 3 days in between shampoos (DME) Aerochamber MV Spacer See Rx Instructions .Route Qty: 1 0RF Rx Instructions: As directed (DME) nebulizers Misc See Rx Instructions .Route Qty: 1 0RF Rx Instructions: As directed escitalopram oxalate 20 mg tablet 20 mg PO DAILY Qty: 90 1RF levothyroxine [Synthroid] 125 mcg tablet 125 mcg PO DAILY Qty: 90 4RF Rx Instructions: Take 1 tablet once a day in the morning on an empty stomach metformin 500 mg tablet,ER jonathan.retention 24 hr 500 mg PO QPM Qty: 90 3RF cyclobenzaprine 10 mg tablet 10 mg PO TID PRN (Reason: muscle spasm) Qty: 30 0RF Rx Instructions: Take 1 tablet orally up to 3 times daily as needed for muscle spasm. lorazepam 0.5 mg tablet 0.5 mg PO HS PRN (Reason: anxiety) Qty: 30 0RF albuterol sulfate 2.5 mg /3 mL (0.083 %) solution for nebulization 2.5 mg inhalation QID PRN (Reason: shortness of breath or wheezing) Qty: 90 0RF ondansetron HCl 4 mg tablet 4 mg PO Q8H PRN (Reason: nausea and vomiting) Qty: 10 0RF Trulicity 0.75 mg/0.5 mL pen injector 0.75 mg subcut QWEEK Qty: 2 0RF trazodone 100 mg tablet 100 mg PO QHS Qty: 90 1RF (DME) blood-glucose meter [FreeStyle Lite Meter] Kit See Rx Instructions .Route Qty: 1 0RF Rx Instructions: As directed - test once daily. (DME) FreeStyle Lite Strips Strip See Rx Instructions .Route Qty: 100 0RF Rx Instructions: As directed test once daily- (DME) lancets 28 gauge misc See Rx Instructions .ROUTE DAILY Qty: 100 3RF Rx Instructions: DX:250.0 - use once daily. Discharge Instructions Instructions: Swollen Joints Additional Instructions: The x-ray shows an effusion of your left knee which is some fluid within the knee joint space. No evidence for acute injury or fracture no broken bones. No evidence for blood clot your lung. No evidence for blood clot in your leg on the bedside ultrasound. I do suspect that the swelling is from the swelling in your knee. Please use the hinged knee brace as directed as needed for comfort. Rest ice keep it elevated when sitting or laying down. Please take Tylenol or Ibuprofen with food every 4-6 hours as needed for pain and swelling. Please follow-up with orthopedics of your choice within the next 1 to 2 weeks. Follow up with primary care provider in 3-5 days. Return to ED sooner if any worsening or concerns. Referrals: [facility] [Outside] - 1 week Discharge Data Discharge Date/Time-TO BE ENTERED AT DEPARTURE: 12/15/24 11:17 HPI General Mode of arrival: ambulatory . Date/Time Provider Initiated Documentation: 12/15/24 08:41 . Limitations to Documentation: no limitations . Information obtained by: patient, RN notes reviewed and old records reviewed . HPI Narrative: 44-year-old female presents to the chief complaint left lower extremity swelling which began a few days ago. She reports that she has had pain in her left knee since the knee replacement done at offsite facility. She reports she does have a history of DVTs for meniscus repair in the past but is not on any anticoagulation at this time. She is crying tearful very anxious. When asked about chest pain or shortness of breath she is unsure because she has had increased anxiety. Other past medical history include adrenal mass chronic pancreatitis, type 2 diabetes, depression Liliya's thyroiditis, pneumonia. Related Data Home Medications ?Medication ?Instructions ?Recorded ?Confirmed ketoconazole 2 % shampoo 1 applic topical Q2W #120 mL 10/24/20 10/18/24 blood sugar diagnostic (FreeStyle #100 ea 05/07/22 12/15/24 Lite Strips) blood-glucose meter (FreeStyle #1 ea 05/07/22 12/15/24 Lite Meter kit) lancets 28 gauge #100 ea 05/07/22 12/15/24 inhalational spacing device #1 ea 07/20/23 12/15/24 (Aerochamber MV spacer) metformin 500 mg 24 hr 500 mg PO QPM #90 tabs 05/14/24 12/15/24 tablet,extended release (gastric retention) cyclobenzaprine 10 mg tablet 10 mg PO TID PRN muscle spasm #30 07/25/24 12/15/24 tabs nebulizers #1 ea 08/01/24 12/15/24 lorazepam 0.5 mg tablet 0.5 mg PO HS PRN anxiety #30 tabs 10/02/24 12/15/24 albuterol sulfate 2.5 mg/3 mL 2.5 mg (3 mL) inhalation QID PRN 10/08/24 12/15/24 (0.083 %) solution for nebulization shortness of breath or wheezing #90 mL ondansetron HCl 4 mg tablet 4 mg PO Q8H PRN nausea and 10/08/24 12/15/24 vomiting #10 tabs Synthroid 125 mcg tablet 125 mcg PO DAILY #90 tabs 10/18/24 12/15/24 (levothyroxine) escitalopram oxalate 20 mg tablet 20 mg PO DAILY #90 tabs 10/18/24 12/15/24 dulaglutide 0.75 mg/0.5 mL 0.75 mg (0.5 mL) subcut QWEEK #2 mL 12/06/24 12/15/24 [facility] trazodone 100 mg tablet 100 mg PO QHS #90 tabs 12/10/24 12/15/24 Previous Rx's ?Medication ?Instructions ?Recorded ketoconazole 2 % shampoo 1 applic topical Q2W #120 mL 10/24/20 blood sugar diagnostic (FreeStyle #100 ea 05/07/22 Lite Strips) blood-glucose meter (FreeStyle #1 ea 05/07/22 Lite Meter kit) lancets 28 gauge #100 ea 05/07/22 inhalational spacing device #1 ea 07/20/23 (Aerochamber MV spacer) metformin 500 mg 24 hr 500 mg PO QPM #90 tabs 05/14/24 tablet,extended release (gastric retention) cyclobenzaprine 10 mg tablet 10 mg PO TID PRN muscle spasm #30 07/25/24 tabs nebulizers #1 ea 08/01/24 lorazepam 0.5 mg tablet 0.5 mg PO HS PRN anxiety #30 tabs 10/02/24 albuterol sulfate 2.5 mg/3 mL 2.5 mg (3 mL) inhalation QID PRN 10/08/24 (0.083 %) solution for nebulization shortness of breath or wheezing #90 mL ondansetron HCl 4 mg tablet 4 mg PO Q8H PRN nausea and 10/08/24 vomiting #10 tabs Synthroid 125 mcg tablet 125 mcg PO DAILY #90 tabs 10/18/24 (levothyroxine) escitalopram oxalate 20 mg tablet 20 mg PO DAILY #90 tabs 10/18/24 dulaglutide 0.75 mg/0.5 mL 0.75 mg (0.5 mL) subcut QWEEK #2 mL 12/06/24 [facility] trazodone 100 mg tablet 100 mg PO QHS #90 tabs 12/10/24 Allergies Allergy/AdvReac Type Severity Reaction Status Date / Time pneumococcal vaccine Allergy Intermediate Localized Verified 12/15/24 08:40 reaction with PCV13 levothyroxine sodium AdvReac Mild generic Verified 12/15/24 08:40 form, syncopal episodes General Stated Complaint: Vascular OLEGARIO: 3 Review of Systems Musculoskeletal Musculoskeletal: Reports as per HPI, Reports arthralgias and Reports joint swelling Exam Narrative Exam Narrative: Constitutional: Alert and oriented x3. Appears stated age. Obese body habitus. Patient is anxious and tearful upon arrival. Head: Normocephalic, no trauma. Eyes: Pupils PERRL, Red reflex noted, EOM's intact. Eyelids symmetrical without lesions, discharge, or swelling. ENT: Bilateral TM's WNL, External ear normal to inspection, no mastoid TTP, swelling, or erythema, Nasal turbinates WNL, no nasal discharge. Normal dentition, Posterior pharynx WNL, no exudate. Chest: RRR, Normal S1, S2, distal pulses intact. Resp: Lungs clear to auscultation bilaterally, no wheezes, rales, or rhonchi. Abdomen: Soft, non-distended, Normoactive bowel sounds all 4 quads. Musculoskeletal: Left lower extremity swelling, no erythema distal CMS intact. Skin: No suspicious rashes or lesions. Capillary refill less than 2 sec. Neurologic: Cranial nerves II-XII intact. Alert and oriented x 3. Motor: No deficits noted. Sensory: Intact bilaterally all 4 extremities. Hematologic/Lymphatic: No ecchymosis, no lymphadenopathy. Course Vital Signs Vital signs: Vital Signs Temperature 36.7 C 12/15/24 08:35 Pulse 86 12/15/24 08:35 Respiratory Rate 20 12/15/24 08:35 Blood Pressure 160/103 H 12/15/24 08:35 Pulse Oximetry 99 12/15/24 08:35 Temperature 36.7 C 12/15/24 08:35 Temperature Source Temporal Artery Scan 12/15/24 08:35 Pulse 86 12/15/24 08:35 Respiratory Rate 20 12/15/24 08:35 Blood Pressure 160/103 H 12/15/24 08:35 Blood Pressure Position Sitting 12/15/24 08:35 Pulse Oximetry 99 12/15/24 08:35 Oxygen Delivery Method Room Air 12/15/24 08:35 Oxygen Flow Rate 0 12/15/24 08:35 Pain Level 7 12/15/24 08:35 Medical Decision Making 44-year-old female presents to the chief complaint left lower extremity swelling which began a few days ago. She reports that she has had pain in her left knee since the knee replacement done at offsite facility. She reports she does have a history of DVTs for meniscus repair in the past but is not on any anticoagulation at this time. She is crying tearful very anxious. When asked about chest pain or shortness of breath she is unsure because she has had increased anxiety. Other past medical history include adrenal mass chronic pancreatitis, type 2 diabetes, depression Liliya's thyroiditis, pneumonia. Discussed that ultrasound techs are not in house on the weekends however will do a chest CT to rule out PE. Give ibuprofen and lorazepam 0.5. Will x-ray of the left knee. Will perform a bedside ultrasound to aid in diagnosis due to the unavailability of sonography at this time. Bedside ultrasound of the left lower extremity shows good compression to the popliteal vein, left femoral vein and adjacent veins. No obvious evidence for DVT at this time. Will recommend an official ultrasound as an outpatient in the next 2 to 3 days. No evidence of PE on chest CT. Will give hinged knee brace and instruct on RICE procedures. Will discuss follow-up with orthopedics. Discussed results follow-up care and home care at length with patient all her questions were answered to the best of my ability. Patient verbalized understanding. This text was generated using [facility] system, please disregard any oddities of phrase or misspellings. Medical Records Medical records reviewed: Yes I reviewed the patient's medical records. Imaging Data Radiologic Study: Imaging: X-Ray Radiologist's impression: XR KNEE LT 3V AP,LAT,BURTON EXAM: XR KNEE LT 3V AP,LAT,BURTON CLINICAL HISTORY: Hx knee replcmnt, pain. TECHNIQUE: 2D digital imaging was performed of the left knee. Three images were obtained. AP, lateral and PA tunnel views were obtained. COMPARISON: CR XR KNEE LT 2V AP,LAT from 01/18/2023 CR XR KNEE RT 3V AP,LAT,BURTON from 07/25/2024 FINDINGS: BONES: No acute fracture is present. No bony destructive lesion is seen. JOINTS: Since the prior examination, the patient has undergone a left total knee arthroplasty. Orthopedic hardware appears in good position. No suspicious lucencies are seen around the hardware to suggest loosening. The knee is normally aligned. There is a small joint effusion. No loose body. SOFT TISSUE: Normal. IMPRESSION: 1. Unremarkable left total knee arthroplasty. 2. No acute fracture or dislocation. 3. Small joint effusion. Lab Data Lab results reviewed: Yes I reviewed the patient's lab results. Labs: Laboratory Tests Range/Units 12/15/24 09:10 WBC (4.4-10.8) 10^3/uL 12.03 H RBC (3.93-5.22) 10^6/uL 4.15 Hgb (11.2-15.7) g/dL 13.3 Hct (36.0-46.0) % 40.5 MCV (80-95) fL 98 H MCH (27.0-33.0) pg 32.0 MCHC (32.0-36.0) % 32.8 RDW (11.7-14.6) % 14.8 H Plt Count (130-400) 10^3/uL 354 MPV (8.0-11.0) fL 11.0 Immature Gran % % 0.3 Neutrophils % % 70.0 Lymphocytes % % 16.0 Monocytes % % 7.6 Eosinophils % % 5.7 Basophils % % 0.4 Nucleated RBC % (0.0-0.3) % 0.0 Absolute Neutrophils (1.2-6.7) 10^3/uL 8.42 H Absolute Lymphocytes (1.2-3.4) 10^3/uL 1.92 Absolute Monocytes (0.1-0.8) 10^3/uL 0.91 H Absolute Eosinophils (0.0-0.7) 10^3/uL 0.69 Absolute Basophils (0.0-0.2) 10^3/uL 0.05 PT (9.1-11.1) sec 9.8 INR (0.9-1.1) 1.0 APTT (20.6-30.2) sec 21.4 Sodium (136-145) mmol/L 141 Potassium (3.5-5.1) mmol/L 4.2 Chloride (98-107) mmol/L 105 Carbon Dioxide (21.0-32.0) mmol/L 27.5 Anion Gap (3-11) mmol/L 8.5 BUN (7-18) mg/dL 14 Creatinine (0.55-1.02) mg/dL 0.8 Est GFR (CKD-EPI 2020) (mL/min/1.73m2) 93.70 Glucose (74-106) mg/dL 148 H Calcium (8.5-10.1) mg/dL 9.3 Magnesium (1.8-2.4) mg/dL 1.7 L Total Bilirubin (0.2-1.0) mg/dL 0.4 AST (15-37) U/L 43 H ALT (14-59) U/L 80 H Alkaline Phosphatase (46-116) U/L 164 H Total Protein (6.4-8.2) g/dL 7.2 Albumin (3.4-5.0) g/dL 3.4 Quality:SDOH Health Related Social Needs: No Data to Display PFSH All Active Problems Effusion of knee joint, left (Acute) Skin lesion (Acute) Bronchospasm (Acute) Chondromalacia, right knee (Acute) IT band syndrome (Acute) Bilateral plantar fasciitis (Acute) Right knee pain (Acute) Anxiety (Chronic 08/02/12) Fatigue (Acute) Snoring (Acute ~10/2023) pending sleep study results Thyroid nodule (Acute) Type 2 diabetes mellitus without complication, with no history of insulin use (Acute 03/2022) Essential hypertension (Chronic) Amplified musculoskeletal pain (Acute) Acute medial meniscus tear of left knee (Acute ~09/2021) fell down stairs; scheduled surgery 12/2021, Depo Medrol 01/18/23; reports needs knee replacement. Insomnia (Acute) Grief reaction (Chronic) Struggles with anniversary dates for loss of her son 11/2020 - birthday, . Folic acid deficiency (non anemic) (Acute) takes vitamins Hypothyroidism (Chronic) Asplenia (Chronic) Dysmenorrhea (Chronic 06/30/16) Obesity (Chronic 10/23/12) Pancreatic insufficiency (Chronic 10/23/12) Smoker (Chronic 10/23/12) Medical History Pneumonia (07/2024) RLL pneumonia History of DVT (deep vein thrombosis) (~12/2021) post knee arthroscopy. 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 1 year repeat recommended. Stable on repeat. No further testing needed. 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 Marquez Status post cholecystectomy (~2007) [facility] in November 27, complicated by injury to the pancreas with a 40% pancreectomy done in April 29 and a subsequent splenectomy done in also. History of tonsillectomy History of splenectomy History of appendectomy Pelletier Mitail lesion Excision of Pelletier-Mitali lesion right thigh DOS: 12/14/18 Dr. Lugo Tubal ligation status PANCREATECTOMY (08/22/07) PARTIAL Family History Mother Liliya's disease Father , 48 Brain tumor Sister No problems noted. Brother No problems noted. 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 What type of physical activity do you participate in: additional Details: snowshoed a couple times this winter. Do you feel safe at home: Yes Do you feel safe in your relationship?: Yes PAWSS Have you Been Recently Intoxicated or Drunk Within the Last 30 days?: No Have you Ever Experienced Previous Episodes of Alcohol Withdrawal?: No Have you ever Experienced Withdrawal Seizures?: No Have you ever Experienced Delirium Tremens(DT)s?: No Have you ever undergone Alcohol Rehabilitation Treatment (i.e, inpt ot outpatient treatment programs)?: No Have you ever Experienced Blackouts?: No Have you ever Combined Alcohol with other Downers within the last 90 days?: No Have you ever Combined Alcohol with any other Substance of Abuse during the last 90 days?: No Result: 0
[2024-12-15] MEDS: LORazepam 0.5 MG TAB PO (08:53)
[2024-12-15] MEDS: Ibuprofen 800 MG TAB PO (08:54)
[2024-12-15 09:23] LABS: Abs Immature Grans 0.04 10^3/uL (0.0-0.06); Absolute Basophil Count 0.05 10^3/uL (0.0-0.2); Absolute Eosinophil Count 0.69 10^3/uL (0.0-0.7); Absolute Lymphocyte Count 1.92 10^3/uL (1.2-3.4); Absolute Monocyte Count 0.91 10^3/uL (0.1-0.8); Absolute Neutrophil Count 8.42 10^3/uL (1.2-6.7); Basophils % 0.4 %; Eosinophils % 5.7 %; HCT 40.5 % (36.0-46.0); HGB 13.3 g/dL (11.2-15.7); Immature Grans % 0.3 %; MCHC 32.8 % (32.0-36.0); MCV 98 fL (80-95); Monocytes % 7.6 %; Platelet Count 354 10^3/uL (130-400); RBC 4.15 10^6/uL (3.93-5.22); RDW 14.8 % (11.7-14.6); RDW-SD 53.4 fL; WBC 12.03 10^3/uL (4.4-10.8)
[2024-12-15 09:35] LABS: ALT 80 U/L (14-59); AST 43 U/L (15-37); Albumin 3.4 g/dL (3.4-5.0); Alkaline Phosphatase 164 U/L (46-116); Anion Gap 8.5 mmol/L (3-11); BUN 14 mg/dL (7-18); Bilirubin, Total 0.4 mg/dL (0.2-1.0); CO2 27.5 mmol/L (21.0-32.0); CREATININE 0.8 mg/dL (0.55-1.02); Calcium 9.3 mg/dL (8.5-10.1); Chloride 105 mmol/L (98-107); Glucose 148 mg/dL (74-106); Magnesium 1.7 mg/dL (1.8-2.4); PTT Activated 21.4 sec (20.6-30.2); Potassium 4.2 mmol/L (3.5-5.1); Prothrombin Time 9.8 sec (9.1-11.1); Sodium 141 mmol/L (136-145); Total Protein 7.2 g/dL (6.4-8.2)
[2024-12-15] MEDS: Omnipaque 350 MG/ML 100 ML BTL IJ (09:41)
[2024-12-15] MEDS: Normal Saline - Diluent 50 ML VIAL IJ (09:42)
[2024-12-15 11:12] VITALS: BP 158/100; PULSE 72; RESP 14; O2SAT 99
== END 2024-12-15 11:17 | disposition home or self-care (01) ==
PROVIDERS: Emergency Provider Registered Nurse Emergency; PCP Family Medicine
DX: T84.84XA Pain due to internal orthopedic prosthetic devices, implants and grafts, initial encounter (principal); Z96.652 Presence of left artificial knee joint; M25.462 Effusion, left knee; Z86.718 Personal history of other venous thrombosis and embolism
CPT/HCPCS: 99284; 99285; 29505; 36415; 71275; 73562; 80053; 83735; 85025; 85610; 85730; J3490

== ENCOUNTER 2025-03-06 14:34 | Outpatient (CLI) | payer MEDICAID, SELFPAY ==
[2025-03-06 14:46] LABS: COMMENT (LAB VIEW ONLY) 142.04 mg/dL; Microalb ug/mg Crea 6.6 ug/mg Cr
[2025-03-06 14:56] LABS: ALT 34 U/L (14-59); AST 15 U/L (15-37); Albumin 3.6 g/dL (3.4-5.0); Alkaline Phosphatase 152 U/L (46-116); Anion Gap 9.8 mmol/L (3-11); BUN 17 mg/dL (7-18); Bilirubin, Total 0.2 mg/dL (0.2-1.0); CO2 28.2 mmol/L (21.0-32.0); Calcium 9.2 mg/dL (8.5-10.1); Chloride 100 mmol/L (98-107); Estimated GFR 109.98 (mL/min/1.73m2); Glucose 138 mg/dL (74-106); Potassium 4.1 mmol/L (3.5-5.1); Sodium 138 mmol/L (136-145); TSH (W/Ref FT4) 2.00 uIU/mL (0.36-3.74); Total Protein 7.4 g/dL (6.4-8.2)
[2025-03-06 14:58] LABS: Hemoglobin A1C 6.7 % (<5.7)
[2025-03-06 23:29] LABS: Hepatitis C Ab w Rflx HCV PCR Negative (Negative)
[2025-03-06 23:31] LABS: HIV-1/2 Ag & Ab Screen Negative (Negative)
== END 2025-03-06 14:35 | disposition home or self-care (01) ==
LOC: LBO 14:36
PROVIDERS: PCP Family Medicine; Visit Provider Family Medicine
DX: E11.9 Type 2 diabetes mellitus without complications (principal); E03.9 Hypothyroidism, unspecified; Z11.59 Encounter for screening for other viral diseases; Z11.4 Encounter for screening for human immunodeficiency virus [HIV]
CPT/HCPCS: 36415; 80053; 86803; 87389; 82043; 82570; 83036; 84443

== ENCOUNTER 2025-05-04 16:18 | Emergency (ER) | payer MEDICAID, SELFPAY ==
--- NOTE | 2025-05-04 16:15 | RT.EKG_ITS ---
APPROVED REPORT Exam: Resting ECG Reason for Exam: check qtc Patient Location: E HR:79 bpm ECG Measurements Heart Rate 79 AXIS NH 164 P 47 QRSd 89 QRS 1 QT 388 T 9 QTc 444 Conclusion Sinus rhythm...normal P axis, V-rate 60- 99 Inferior infarct, old...Q >35mS, II III aVF
[2025-05-04 16:21] VITALS: BP 181/118; PULSE 95; RESP 16; TEMP 36.9; O2SAT 98
[2025-05-04 16:23] VITALS: BP 181/118; PULSE 95; RESP 16; TEMP 36.9; O2SAT 98
--- NOTE | 2025-05-04 16:30 | DI.CT_ITS ---
Exam(s) CT ABDOMEN PELVIS W EXAM: CT ABDOMEN PELVIS W CLINICAL HISTORY: abdominal pain, n/v. TECHNIQUE: Imaging Protocol: Axial computed tomography images with coronal and sagittal reformatted images were created and reviewed CONTRAST MATERIAL: Intravenous: Omnipaque-350 100cc Oral: None COMPARISON: CT ABD PELVIS WITH CONTRAST from 03/24/[address] CHEST PE CTA from 12/30/2021 MR MR ABDOMEN WO/W from 03/05/[address] ABDOMEN PELVIS W from 06/07/2022 FINDINGS: VISUALIZED LUNG BASES: No nodules nor pleural effusions evident. ABDOMEN: There is no ascites. LIVER: There are no focal hepatic lesions evident. No dilated intrahepatic ducts. GALLBLADDER/BILIARY: The gallbladder is again noted be surgically absent. CBD is not dilated. PANCREAS: No evidence of pancreatic mass nor dilatation of the pancreatic duct. SPLEEN: No typical spleen seen. There splenules again noted in the left upper quadrant, similar to previous. The splenic vein is diminutive. ADRENALS: Right adrenal gland unremarkable. Previously described nodule in the left adrenal gland presently measures 2.7 by 2.2 cm, slightly increased in size from 2016; probably a benign adenoma. KIDNEYS:No cysts evident. No solid renal masses. No calculi nor hydronephrosis.. ABDOMINAL AORTA: Abdominal aorta is not enlarged. LYMPH NODES:There is no retroperitoneal nor paraaortic adenopathy. ABDOMINAL WALL: There is an anterior abdominal wall hernia significantly above the level the umbilicus slightly right of center, slightly increased in size from 2016 and containing only fat and no bowel loops. No fluid therein. GI: There is no evidence of bowel obstruction, free air, nor abscess. PELVIS: GI: Appendix is surgically absent.Moderate amount of fecal material throughout the colon. No evidence of diverticulitis. LYMPH NODES: There is no intrapelvic nor inguinal adenopathy. REPRODUCTIVE: Bilateral tubal ligation clips again noted. Uterus size is age- appropriate. There is a prominent cyst in left ovary noted which measures 4.3 x 3[address] scan revealed a 3.2 by 2.8 cm cyst in left ovary at that time. There is no surrounding fluid. In the opposite-right adnexa there are no significant ovarian cysts. There is no free fluid in the pelvis. URINARY BLADDER: Collapsed. No obvious findings. OSSEOUS: No fractures and no significant osseous lesions. IMPRESSION: 1. Compared to the prior CT scan of 2016 there is again noted evidence of previous cholecystectomy and appendectomy. 2. There is a high anterior right abdominal wall fat only containing hernia which has slightly increased in size. Does not contain bowel loops nor fluid nor fat streaking. 3. Left adrenal adenoma with measurements as above, slightly increased in size since 2016. the right adrenal gland remains unremarkable. 4. There is the 4.3 x 3.6 cm left ovarian cyst which is larger than the cyst which was evident left ovary on the 2016 study. Cannot tell of this has increased in size from previous or if this is a new cyst. There is no surrounding fluid but nevertheless should be further studied with ultrasound to determine if there are internal septae and nodularity which are not seen on CT scan. Opposite-right ovary appears unremarkable and there is no free fluid in the adnexal regions and cul-de-sac. Report called to ER physician 05/04/2025 at 6:58 p.m. RADIATION DOSE DELIVERED: 634.84mGy.cm Total DLP DATA REPOSITORY: All CT scans at this facility are submitted to the National Radiology Data Registry (NRDR) Dose Index Registry (DIR) with the [employer] (ACR). RADIATION OPTIMIZATION: All CT scans at this facility use at least one of these dose optimization techniques: automated exposure control; mA and/or kV adjustment per patient size (includes targeted exams where dose is matched to clinical indication); or iterative reconstruction.
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
[2025-05-04 16:54] LABS: Glucose Negative (Negative)
[2025-05-04 17:14] LABS: RBC 0-2 HPF (0-2)
[2025-05-04] MEDS: Droperidol 5 MG/2 ML VIAL 2.5 MG IVP (17:27)
[2025-05-04] MEDS: Ketorolac 15 MG/ML VIAL IVP (17:27)
[2025-05-04 17:33] LABS: BE (Venous) 0 mmol/L (-2-3); HCO3 (Venous) 25 mmol/L (23-28); O2 Sat (Venous) 64 %; TCO2 (Venous) 23 mmol/L (24-29); pCO2 (Venous) 43 mmHg (41-51); pO2 (Venous) 35 mmHg
[2025-05-04 17:36] LABS: Abs Immature Grans 0.03 10^3/uL (0.0-0.06); HCT 38.8 % (36.0-46.0); HGB 12.9 g/dL (11.2-15.7); Immature Grans % 0.3 %; MCH 31.9 pg (27.0-33.0); MCHC 33.2 % (32.0-36.0); MCV 96 fL (80-95); MPV 12.2 fL (8.0-11.0); Platelet Count 312 10^3/uL (130-400); RBC 4.04 10^6/uL (3.93-5.22); RDW 13.6 % (11.7-14.6); RDW-SD 48.5 fL; WBC 11.05 10^3/uL (4.4-10.8)
[2025-05-04 17:54] LABS: ALT 33 U/L (14-59); AST 18 U/L (15-37); Albumin 4.0 g/dL (3.4-5.0); Alkaline Phosphatase 139 U/L (46-116); Anion Gap 9.7 mmol/L (3-11); BUN 14 mg/dL (7-18); Bilirubin, Direct 0.1 mg/dL (0.0-0.2); Bilirubin, Total 0.3 mg/dL (0.2-1.0); CO2 27.3 mmol/L (21.0-32.0); Calcium 9.2 mg/dL (8.5-10.1); Chloride 104 mmol/L (98-107); Estimated GFR 93.70 (mL/min/1.73m2); Glucose 179 mg/dL (74-106); Lipase 16 U/L (<78); Magnesium 1.9 mg/dL (1.8-2.4); Potassium 3.7 mmol/L (3.5-5.1); Sodium 141 mmol/L (136-145); Total Protein 7.8 g/dL (6.4-8.2)
[2025-05-04] MEDS: HYDROmorphone 2 MG/ML SYR 1 MG IVP (18:04)
[2025-05-04] MEDS: Normal Saline - Diluent 50 ML VIAL IJ (18:10)
[2025-05-04] MEDS: Omnipaque 350 MG/ML 100 ML BTL IJ (18:10)
[2025-05-04] MEDS: Normal Saline Flush 10 ML SYR IVP (18:11)
--- NOTE | 2025-05-04 19:29 | DI.VRAD_ITS ---
PROCEDURE INFORMATION: Exam: CT Abdomen And Pelvis With Contrast Exam date and time: 05/04/2025 6:07 PM Age: 44 years old Clinical indication: Other: Abdominal pain, n/v TECHNIQUE: Imaging protocol: Computed tomography of the abdomen and pelvis with contrast. Contrast material: 350; Contrast volume: 85 ml; Contrast route: INTRAVENOUS (IV); COMPARISON: CT ABDOMEN PELVIS W 06/07/2022 7:58 PM FINDINGS: Lungs: Lung bases are clear. Liver: The liver has a normal appearance. Gallbladder and biliary ducts: The gallbladder is surgically absent. Pancreas: The pancreas demonstrates normal size. No pancreatic ductal dilatation. Spleen: The spleen is not visualized. Adrenal glands: Left adrenal gland mass is redemonstrated suggesting adrenal adenoma. The right adrenal gland is unremarkable. Kidneys and ureters: The kidneys are normal in size. There is a low-density right renal cyst. No hydronephrosis. No hydroureter or ureterolithiasis. Stomach and bowel: The bowel demonstrates overall normal caliber and wall thickness. Mild fat stranding surrounds the 2nd portion of the duodenum. Appendix: The appendix is not visualized and clips are noted in the region of the cecum suggesting prior appendectomy. Intraperitoneal space: Unremarkable. No free air. No significant fluid collection. Vasculature: The IVC and aorta have a normal appearance. Lymph nodes: No enlarged lymph nodes. Urinary bladder: The bladder is thin walled and fluid filled. Reproductive: The uterus has a normal appearance. There is a 3.7 x 4.6 cm low-density left adnexal cyst. This appears similar to the study dated 06/07/2022. There are bilateral tubal ligation clips. Bones/joints: Multiple splenules are present within the splenic fossa suggesting splenosis. Bones have a normal appearance. No acute fracture or suspicious bone lesion. Soft tissues: Unremarkable. IMPRESSION: 1. Mild fat stranding within the midportion of the duodenum. Findings may be associated with acute duodenitis. Duodenal ulcer can not be excluded. If further characterization is warranted, direct visualization or fluoroscopic study could be used. 2. No other acute intra-abdominal findings. Dictated and Authenticated by: Haylie Reynoso MD. Orderin Donovan Miller MD
== END 2025-05-04 19:54 | disposition home or self-care (01) ==
PROVIDERS: Emergency Provider Emergency Medicine; PCP Family Medicine
DX: R10.9 Unspecified abdominal pain (principal); R11.2 Nausea with vomiting, unspecified; N83.202 Unspecified ovarian cyst, left side; E11.9 Type 2 diabetes mellitus without complications; I10 Essential (primary) hypertension; E03.9 Hypothyroidism, unspecified; F17.210 Nicotine dependence, cigarettes, uncomplicated; Z86.718 Personal history of other venous thrombosis and embolism; Z79.85 Long-term (current) use of injectable non-insulin antidiabetic drugs
CPT/HCPCS: 80053; 81025; 82805; 83690; 93005; 96374; 96375; 99285; 74177; 81003; 81015; 82248; 83735; 84703; 85025; 93010; J1171; J1790; J1885; J3490

== ENCOUNTER 2025-05-14 17:56 | Outpatient (REF) | payer MEDICAID, SELFPAY ==
[2025-05-17 13:28] LABS: Helicobacter pylori Ag, Feces Negative (Negative)
== END 2025-05-14 17:57 | disposition home or self-care (01) ==
LOC: LBN 17:56
PROVIDERS: PCP Family Medicine; Visit Provider Family Medicine
DX: R10.9 Unspecified abdominal pain (principal)
CPT/HCPCS: 87338